=== PATIENT | male | born 1955 | race Caucasian/White ===

== ENCOUNTER → 2016-05-15 | Outpatient (CLI) | payer BC ==
[~2016-05-15] MED LIST: GADAVIST IV PRN; ZLFUNK
--- NOTE | 2016-05-15 08:51 | DIAGNOSTIC IMAGING REPORT ---
Brain and bilateral internal auditory canal MRI WITH AND WITHOUT CONTRAST HISTORY: Follow-up. 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 COMPARISON STUDY: None. FINDINGS: There are no areas of restricted diffusion to suggest acute infarction. The midline structures are intact. The paranasal sinuses are clear. The mastoid air cells are clear. The ventricles and sulci are within normal limits for age. There is no hematoma or midline shift. The major vascular flow-voids at the skull base are well maintained. Postcontrast sequences show no areas of abnormal enhancement. There is mild small lacunar infarction within the left thalamus. A 1.4 cm T2 hyperintense lesion within the left parotid gland inferiorly. Normal right internal auditory canal. Confirmation of the 3.7 mm enhancing nodule deep within the left internal auditory canal. This is consistent with the patient's history of a vestibular schwannoma. IMPRESSION: 1. Confirmation of the 3.7 mm enhancing nodule deep within the left internal auditory canal. This is consistent with the patient's history of a vestibular schwannoma. 2. Normal right internal auditory canal. 3. No acute intracranial abnormality. 4. A 1.4 cm T2 hyperintense lesion within the left parotid gland. Follow-up parotid gland ultrasound is recommended to assess for a cyst/nodule. Electronically signed by: Ian Lewis M.D. 05/15/2016 8:49 AM Dictated Date/Time: 05/15/2016 8:40 AM
== END | disposition home or self-care (01) ==
LOC: C.MRI 06:51
DX: D33.3 Benign neoplasm of cranial nerves (principal); K11.9 Disease of salivary gland, unspecified

== ENCOUNTER → 2016-11-04 | Outpatient (CLI) | payer BC ==
[~2016-11-04] MED LIST changes: -GADAVIST IV PRN
--- NOTE | 2016-11-04 11:48 | DIAGNOSTIC IMAGING REPORT ---
SOFT TISS HEAD/NECK-THYROID CLINICAL HISTORY: 61 years-old Male presenting with parotid gland cyst. TECHNIQUE: Real-time grayscale and limited color Doppler ultrasound imaging of the left parotid gland was performed. COMPARISON: Correlation made to MR brain from 05/15/2016. FINDINGS: A 1.1 x 0.8 x 0.7 cm anechoic avascular lesion with posterior acoustic shadowing is noted along the periphery of the left parotid gland, consistent with a parotid gland cyst. A 3 mm intraparotid hypoechoic nodule also noted, likely intraparenchymal lymph node. The remaining left parotid gland is homogeneously hyperechoic with posterior shadowing indicative of normal glandular tissue. IMPRESSION: 1. 1.1 cm parotid gland cyst. Electronically signed by: Chapo Gauthier M.D. 11/04/2016 11:47 AM Dictated Date/Time: 11/04/2016 11:44 AM
== END | disposition home or self-care (01) ==
LOC: C.ULTR 10:52
DX: K11.6 Mucocele of salivary gland (principal)

== ENCOUNTER → 2016-12-14 | Outpatient (CLI) | payer BC ==
[2016-12-14 13:29] LABS: ALT/SGPT 22 U/L (12-78); BLOOD UREA NITROGEN 13 mg/dl (7-18); BUN/CREATININE RATIO 10.8 (10-20); CALCIUM 8.7 mg/dl (8.5-10.1); CARBON DIOXIDE 30 mmol/L (21-32); CHLORIDE 105 mmol/L (98-107); CHOLESTEROL 164 mg/dl (0-200); GLUCOSE 100 mg/dl (70-99); SODIUM 139 mmol/L (136-145); TRIGLYCERIDES 118 mg/dl (0-150); VERY LOW DENSITY LIPOPROT CALC 24 mg/dl
[2016-12-14 13:33] LABS: ALB/GLOB RATIO 1.1 (0.9-2); ALKALINE PHOSPHATASE 64 U/L (45-117); AST/SGOT 18 U/L (15-37); CHOLESTEROL/HDL RATIO 3.9; HDL CHOLESTEROL 42 mg/dl; LDL CHOLESTEROL CALCULATED 98 mg/dl
== END | disposition home or self-care (01) ==
LOC: C.LABPVFM 08:03
PROVIDERS: ATTEND Family Medicine
DX: I10 Essential (primary) hypertension (principal); E78.5 Hyperlipidemia, unspecified

== ENCOUNTER → 2017-11-05 | Outpatient (CLI) | payer BC ==
--- NOTE | 2017-11-05 09:19 | DIAGNOSTIC IMAGING REPORT ---
SOFT TISS HEAD/NECK-THYROID CLINICAL HISTORY: 62 years-old Male presenting with K11.6 Cyst of parotid gland please compare to u/s done 1 year prior. TECHNIQUE: Real-time grayscale and color Doppler ultrasound imaging of the left parotid gland was performed. COMPARISON: 11/04/2016. FINDINGS: A 0.7 x 1.0 x 0.9 cm anechoic simple cyst is noted within the left parotid gland. This previously measured 0.7 x 1.1 x 0.8 cm. Benign intraparotid lymph node also noted. No hyperemia of the left parotid gland. No surrounding fluid or subcutaneous edema. IMPRESSION: Stable simple benign left parotid cyst. Electronically signed by: Chapo Gauthier M.D. 11/05/2017 9:17 AM Dictated Date/Time: 11/05/2017 9:16 AM
== END | disposition home or self-care (01) ==
LOC: C.ULTR 08:54
PROVIDERS: ATTEND Physician Assistant
DX: K11.6 Mucocele of salivary gland (principal)

== ENCOUNTER 2022-08-14 12:27 | Observation (INO) ==
--- NOTE | 2022-08-14 12:46 | Emergency Department Note ---
Impression & Plan Stroke-like episode ADMIT ED Provider Note HPI: The patient is a 67-year-old gentleman with history of hypertension, moderate aortic stenosis, presents emergency department with a chief complaint of right upper extremity weakness. Patient states he noticed this symptom at 7 AM today when he was at work and he was having difficulty using a pen. 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 He states that his symptoms did not resolve and therefore came to the ED later for assessment. By the time the patient arrived here to the ED was 12:30 PM and he was outside the window for tPA. On my initial assessment the patient has NIH score of 1, he has some mild right-sided facial droop but otherwise does not display any drift of the extremities with testing. Patient is in no acute distress otherwise on arrival. ROS: - Per HPI *Outpatient medications and allergy history reviewed. *Pertinent external medical records reviewed. 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 NIH STROKE SCALE: 1A: Level of consciousness Alert; keenly responsive 0 1B: Ask month and age Both questions right 0 1C: 'Blink eyes' & 'squeeze hands' Performs both tasks 0 2: Horizontal extraocular movements Normal 0 3: Visual quiros No visual loss 0 4: Facial palsy Minor paralysis (flat nasolabial fold, smile asymmetry) +1 5A: Left arm motor drift No drift for 10 seconds 0 5B: Right arm motor drift No drift for 10 seconds 0 6A: Left leg motor drift No drift for 5 seconds 0 6B: Right leg motor drift No drift for 5 seconds 0 7: Limb Ataxia No ataxia 0 8: Sensation Normal; no sensory loss 0 9: Language/aphasia Normal; no aphasia 0 10: Dysarthria Normal 0 11: Extinction/inattention No abnormality 0 TOTAL NIH SCORE = 1 Medical Decision Making: Patient presented to the emergency department with right upper extremity weakness that he experienced at about 7 AM when he was at work today. He was having difficulty using a pen. On arrival here to the ED the patient is in no acute distress. He is hemodynamically stable, noted to have some mild right- sided facial droop but otherwise NIH stroke scale was unrevealing. He was given a score of 1 on arrival. Patient was taken to CT imaging, CT imaging of the head does not show any evidence of intracranial bleeding, CT angiography of the head and neck does not show any evidence of large vessel occlusion. Patient's lab work shows a mildly elevated high-sensitivity troponin, he denies any chest pain with this event. Lab work is otherwise without any critical findings. I discussed the patient presentation with the on-call stroke neurologist at [facility], Dr. Barraza, she recommends at this time admission for secondary stroke work-up, dual antiplatelet therapy with aspirin and Plavix which the patient was given here in the ED. He will require ultrasound imaging of the carotids as well as an MRI of the brain. I do suspect he likely had an ischemic event causing his symptoms today. Main risk factors include age, hypertension, history of smoking. [facility] hospitalist service was consulted for admission for secondary stroke work-up. Case was discussed with the midlevel provider, Temi Leslie PA-C, and patient was placed for admission in stable condition for further management. Consultants: - Hospitalist service, Dr. Valentine -Stroke neurologist, Dr. Barraza Disposition discussion held by myself with: Patient Diagnosis: 1. Strokelike episode 2. Acute right upper extremity weakness 3. History of hypertension 4. History of smoking 5. Elevated high-sensitivity troponin level Disposition: Admission Darrian Hutson DO Emergency Medicine Past Med/Surg History Medical History (Reviewed 08/05/22 @ 10:32 by Santos Strickland Jr, MD, [facility]) Bilateral tinnitus Chronic back pain Dizziness HTN (hypertension), benign Hypertension Irregular heart beat Sensorineural hearing loss (SNHL) of both ears Vestibular schwannoma Surgical History (Reviewed 08/05/22 @ 10:32 by Santos Strickland Jr, MD, [facility]) History of back surgery History of colonoscopy History of phacoemulsification of cataract of right eye with intraocular lens implantation Family History (Reviewed 08/05/22 @ 10:32 by Santos Strickland Jr, MD, [facility]) Mother Stomach cancer Father Heart disease Other No family history of adverse response to anesthesia No family history of bleeding disorder Denies family history of Ovarian cancer Prostate cancer Diabetes Myocardial infarction Breast cancer Colorectal cancer Hypertension Social History (Reviewed 08/05/22 @ 10:32 by Santos Strickland Jr, MD, [facility]) Smoking Status: Never smoker Age Started Using Tobacco: 16; Age Quit Using Tobacco: 34; Second Hand Exposure: No; Hx Alcohol Use: No Hx Substance Use: No Preferred Language: Bahraini Communication Ability: Effective Hearing Ability: Normal Cotton Opener Required: No Beliefs That Will Affect Care: None marital status: Current Living Situation: Spouse current occupational status: retired How many Children do You have: 2 Feels Safe at Home: Yes Childhood Exposure to Second-Hand Smoke: Yes caffeine: Yes (coffee ) Dental Care, Regularly: Yes Physical Activity Frequency: 3-4 Times per Week Physical Activity Frequency Comment: walking Seatbelt Use: always Sunscreen Use: No Assistive Devices: None Allergies Allergies Allergy/AdvReac Type Severity Reaction Status Date / Time No Known Drug Allergies Allergy Verified 08/05/22 10:19 Home Meds Previous Rx's Medication Instructions Recorded hydrochlorothiazide 12.5 mg tablet 12.5 mg PO QAM #90 tabs 10/09/21 lisinopril 40 mg tablet 40 mg PO DAILY #90 tabs 10/09/21 cholecalciferol (vitamin D3) 1,250 50,000 unit PO ONCE #10 caps 05/27/22 mcg (50,000 unit) capsule Results & Data (ED) Vital Signs Vital Signs - 24 hr 08/14/22 12:34 08/14/22 12:49 08/14/22 12:45 Pulse Rate 64 68 Pulse Rate from SpO2 Sensor Pulse Rhythm Regular Pulse Strength Normal Respiratory Rate 20 Respiratory Effort / Characteristics Non-Labored Spontaneous Respiratory Depth Normal Respiratory Pattern Regular Blood Pressure 121/74 Blood Pressure Mean 89 Blood Pressure Position Sitting Pulse Oximetry 97 96 Oxygen Delivery Method Room Air Room Air Sepsis Recent Fever Within 48 Hours No Sepsis New/Unexplained Change in Mental Status No Sepsis Action Taken by Nursing No Action Required 08/14/22 13:01 Pulse Rate 64 Pulse Rate from SpO2 Sensor 65 Pulse Rhythm Pulse Strength Respiratory Rate 18 Respiratory Effort / Characteristics Respiratory Depth Respiratory Pattern Blood Pressure 124/75 Blood Pressure Mean 91 Blood Pressure Position Pulse Oximetry 96 Oxygen Delivery Method Room Air Sepsis Recent Fever Within 48 Hours Sepsis New/Unexplained Change in Mental Status Sepsis Action Taken by Nursing Laboratory Data 08/14/22 12:45 08/14/22 12:45 Lab Results 08/14/22 08/14/22 08/14/22 Range/Units 12:43 12:45 12:45 WBC 5.73 (4.8-10.8) K/ul RBC 4.65 L (4.70-6.10) M/uL Hgb 14.5 (14.0-18.0) g/dl POC Hgb (14.0-18.0) g/dl Hct 43.3 (42.0-52.0) % POC Hct (42-52) % MCV 93.1 (80.0-100.0) fL MCH 31.2 (25.0-34.0) pg MCHC 33.5 (32.0-36.0) g/dL RDW Std Deviation 41.7 (36.4-46.3) fL RDW Coeff of Dennis 12.1 (11.5-14.5) % Plt Count 201 (130-400) K/uL MPV 10.3 (9.4-12.4) fL Immature Gran % (Auto) 0.2 % Neut % (Auto) 60.4 % Lymph % (Auto) 16.4 % [place] % (Auto) 21.8 % Eos % (Auto) 0.2 % Baso % (Auto) 1.0 % Neut # (Auto) 3.46 (1.40-6.50) K/uL Lymph # (Auto) 0.94 L (1.2-3.4) K/uL [place] # (Auto) 1.25 H (0.11-0.59) K/uL Eos # (Auto) 0.01 (0-0.50) K/uL Baso # (Auto) 0.06 (0-0.2) K/uL Immature Gran # (Auto) 0.01 (0.01-0.20) K/uL PT 11.3 (9.0-12.0) Seconds INR 1.0 (0.9-1.1) APTT 29.9 (21.0-31.0) Seconds PTT Ratio 1.1 POC Sodium (135-144) mmol/L Sodium (136-145) mmol/L POC Potassium (3.3-5.0) mmol/L Potassium (3.5-5.1) mmol/L POC Chloride (101-112) mmol/L Chloride (98-107) mmol/L Carbon Dioxide (21-32) mmol/L POC Total CO2 (24-31) mmol/L Anion Gap (3-11) POC Anion Gap (16-25) mmol/L POC BUN (7-18) mg/dl BUN (6-23) mg/dl Creatinine (0.6-1.4) mg/dl POC Creatinine (0.6-1.3) mg/dl Est Cr Clr Drug Dosing ml/min Est GFR ( Amer) ml/min Est GFR (Non-Af Amer) ml/min BUN/Creatinine Ratio (10-20) Glucose (70-99(Fasting)) mg/dl POC Glucose (other) (70-99) mg/dl Calcium (8.6-10.3) mg/dl POC Ioniz Calcium Dimitri (1.12-1.32) mmol/l Magnesium (1.7-2.4) mg/dl Total Bilirubin (0.2-1.0) mg/dl AST (13-39) U/L ALT (7-52) U/L Alkaline Phosphatase (34-104) U/L Troponin I High Sens (0-20) pg/ml Total Protein (6.0-8.3) gm/dl Albumin (3.4-5.0) gm/dl Globulin (2.5-4.0) gm/dl Albumin/Globulin Ratio (0.9-2) SARS-CoV-2, RNA, NAAT (NEGATIVE) Blood Type O Positive Antibody Screen NEGATIVE 08/14/22 08/14/22 08/14/22 Range/Units 12:45 12:48 13:28 WBC (4.8-10.8) K/ul RBC (4.70-6.10) M/uL Hgb (14.0-18.0) g/dl POC Hgb 15.0 (14.0-18.0) g/dl Hct (42.0-52.0) % POC Hct 44 (42-52) % MCV (80.0-100.0) fL MCH (25.0-34.0) pg MCHC (32.0-36.0) g/dL RDW Std Deviation (36.4-46.3) fL RDW Coeff of Dennis (11.5-14.5) % Plt Count (130-400) K/uL MPV (9.4-12.4) fL Immature Gran % (Auto) % Neut % (Auto) % Lymph % (Auto) % [place] % (Auto) % Eos % (Auto) % Baso % (Auto) % Neut # (Auto) (1.40-6.50) K/uL Lymph # (Auto) (1.2-3.4) K/uL [place] # (Auto) (0.11-0.59) K/uL Eos # (Auto) (0-0.50) K/uL Baso # (Auto) (0-0.2) K/uL Immature Gran # (Auto) (0.01-0.20) K/uL PT (9.0-12.0) Seconds INR (0.9-1.1) APTT (21.0-31.0) Seconds PTT Ratio POC Sodium 137 (135-144) mmol/L Sodium 136 (136-145) mmol/L POC Potassium 3.9 (3.3-5.0) mmol/L Potassium 3.6 (3.5-5.1) mmol/L POC Chloride 99 L (101-112) mmol/L Chloride 103 (98-107) mmol/L Carbon Dioxide 28 (21-32) mmol/L POC Total CO2 29 (24-31) mmol/L Anion Gap 5 (3-11) POC Anion Gap 14.0 L (16-25) mmol/L POC BUN 19 H (7-18) mg/dl BUN 16 (6-23) mg/dl Creatinine 1.11 (0.6-1.4) mg/dl POC Creatinine 1.1 (0.6-1.3) mg/dl Est Cr Clr Drug Dosing 68.2 ml/min Est GFR ( Amer) 79.2 ml/min Est GFR (Non-Af Amer) 68.3 ml/min BUN/Creatinine Ratio 14.4 (10-20) Glucose 116 H (70-99(Fasting)) mg/dl POC Glucose (other) 119 H (70-99) mg/dl Calcium 9.0 (8.6-10.3) mg/dl POC Ioniz Calcium Dimitri 1.15 (1.12-1.32) mmol/l Magnesium 1.8 (1.7-2.4) mg/dl Total Bilirubin 0.6 (0.2-1.0) mg/dl AST 18 (13-39) U/L ALT 11 (7-52) U/L Alkaline Phosphatase 60 (34-104) U/L Troponin I High Sens 38.9 H (0-20) pg/ml Total Protein 7.2 (6.0-8.3) gm/dl Albumin 4.2 (3.4-5.0) gm/dl Globulin 3.0 (2.5-4.0) gm/dl Albumin/Globulin Ratio 1.4 (0.9-2) SARS-CoV-2, RNA, NAAT POSITIVE A* (NEGATIVE) Blood Type Antibody Screen Administered Medications Sodium Chloride (Nss) 500 mls @ 999 mls/hr IV .Q31M ONE Stop: 08/14/22 14:09 Last Admin: 08/14/22 13:57 Dose: 999 mls/hr Documented By: KEYLA Discontinued Medications Aspirin (Aspirin Chew 324 Mg) 324 mg PO NOW STA Stop: 08/14/22 13:27 Last Admin: 08/14/22 13:56 Dose: 324 mg Documented By: KEYLA Clopidogrel Bisulfate (Clopidogrel Bisulfate 300 Mg Tab) 300 mg PO NOW STA Stop: 08/14/22 13:40 Last Admin: 08/14/22 13:56 Dose: 300 mg Documented By: KV Ioversol (Optiray 320 500ml) 114 ml IV ONCE ONE Stop: 08/14/22 13:02 Last Admin: 08/14/22 13:02 Dose: 114 ml Documented By: KSF Imaging Data Radiologist's Impression: Head CT 08/14/22 12:45 CT OF THE HEAD WITHOUT CONTRAST CLINICAL HISTORY: neuro deficit, acute stroke suspected COMPARISON STUDY: Head CT August 09, 2021 and MRI of the brain October 25, 2021. TECHNIQUE: Helical axial images of the head were obtained without IV contrast. Automated exposure control was utilized for the study. A dose lowering technique was utilized adhering to the principles of ALARA. FINDINGS: No acute intracranial hemorrhage, midline shift or mass effect is present. The ventricular system is unremarkable. The basal cisterns are patent. No extra-axial collections are present. There are no findings to suggest acute dural sinus thrombosis or acute territorial infarct. No significant calvarial abnormalities are present. Visualized portions of the sinuses and mastoid air cells are clear. A 1 cm hypodensity within the left thalamus is unchanged. IMPRESSION: No acute intracranial findings. No change in appearance of the brain. ACT 112: Negative or not required by law. Electronically signed by: Ramsey Yu M.D. 08/14/2022 1:15 PM Head CTA 08/14/22 12:45 HEAD & NECK CTA HISTORY: Right arm weakness. neuro deficit, acute stroke suspected TECHNIQUE: Multiaxial CT images of the head were performed following the intra venous administration of contrast to evaluate the major cerebral vessels. Multiaxial CT images of the neck were also performed following the intravenous administration of contrast to evaluate the major cervical vessels. Maximum intensity projection images were also obtained. A dose lowering technique was utilized adhering to the principles of ALARA. COMPARISON: Brain MRI 10/25/2021. FINDINGS: There is no mass, hematoma, midline shift, or acute infarct. Visualized intracranial internal carotid arteries, distal vertebral arteries, and basilar artery are widely patent. There is no significant stenosis, occlusion, or aneurysm seen within the bilateral ACAs, MCAs, or hander in. There is a hypoplastic left vertebral artery. The major dural venous sinuses are patent. Mild calcified plaque within the bilateral carotid siphons. The aortic arch and proximal great vessels are widely patent. There is no significant stenosis, occlusion, or dissection identified within the bilateral common carotid, internal carotid, or left vertebral artery. Mild to moderate calcified plaque within the proximal right vertebral artery resulting in mild multifocal stenosis. IMPRESSION: 1. No significant stenosis, occlusion, or aneurysm within the [place]. 2. No significant stenosis, occlusion, or dissection identified within the carotid or left vertebral arteries. 3. Mild multifocal stenosis within the proximal right vertebral artery. ACT 112: Negative or not required by law. Electronically signed by: Ian Lewis M.D. 08/14/2022 1:18 PM Neck CTA 08/14/22 12:45 HEAD & NECK CTA HISTORY: Right arm weakness. neuro deficit, acute stroke suspected TECHNIQUE: Multiaxial CT images of the head were performed following the intravenous administration of contrast to evaluate the major cerebral vessels. Multiaxial CT images of the neck were also performed following the intravenous administration of contrast to evaluate the major cervical vessels. Maximum intensity projection images were also obtained. A dose lowering technique was utilized adhering to the principles of ALARA. COMPARISON: Brain MRI 10/25/2021. FINDINGS: There is no mass, hematoma, midline shift, or acute infarct. Visualized intracranial internal carotid arteries, distal vertebral arteries, and basilar artery are widely patent. There is no significant stenosis, occlusion, or aneurysm seen within the bilateral ACAs, MCAs, or hander in. There is a hypoplastic left vertebral artery. The major dural venous sinuses are patent. Mild calcified plaque within the bilateral carotid siphons. The aortic arch and proximal great vessels are widely patent. There is no significant stenosis, occlusion, or dissection identified within the bilateral common carotid, internal carotid, or left vertebral artery. Mild to moderate calcified plaque within the proximal right vertebral artery resulting in mild multifocal stenosis. IMPRESSION: 1. No significant stenosis, occlusion, or aneurysm within the [place]. 2. No significant stenosis, occlusion, or dissection identified within the carotid or left vertebral arteries. 3. Mild multifocal stenosis within the proximal right vertebral artery. ACT 112: Negative or not required by law. Electronically signed by: Ian Lewis M.D. 08/14/2022 1:18 PM Discharge Plan Visit Data Chief Complaint: Stroke/CVA Symptoms Stated Complaint: R ARM NUMB,FEVER ED Provider: Darrian Hutson Discharge Problem: Stroke-like episode Forms [facility] Prescriptions: No Action hydrochlorothiazide 12.5 mg tablet 12.5 mg PO QAM Qty: 90 3RF lisinopril 40 mg tablet 40 mg PO DAILY Qty: 90 3RF cholecalciferol (vitamin D3) 1,250 mcg (50,000 unit) capsule 50,000 unit PO ONCE Qty: 10 0RF Rx Instructions: Take one cap once weekly X10 weeks. Referrals Referrals: Lynn Gibson MD [Primary Care Provider] -
[2022-08-14 13:01] LABS: iSTAT Creatinine 1.1 mg/dl (0.6-1.3); iSTAT Ionized Calcium 1.15 mmol/l (1.12-1.32); iSTAT Potassium 3.9 mmol/L (3.3-5.0)
[2022-08-14] MEDS ORDERED: OPTIRAY 320 500ml IV ONE (13:01)
[2022-08-14 13:11] LABS: Basophils # (auto) 0.06 K/uL (0-0.2); Eosinophils # (auto) 0.01 K/uL (0-0.50); Eosinophils % (auto) 0.2 %; Hematocrit (blood only) 43.3 % (42.0-52.0); Hemoglobin 14.5 g/dl (14.0-18.0); Immature Granulocytes # (auto) 0.01 K/uL (0.01-0.20); Immature Granulocytes % (auto) 0.2 %; Lymphocytes # (auto) 0.94 K/uL (1.2-3.4); Lymphocytes % (auto) 16.4 %; Mean Corpuscular Hemoglobin 31.2 pg (25.0-34.0); Mean Corpuscular Hgb Conc 33.5 g/dL (32.0-36.0); Mean Corpuscular Volume 93.1 fL (80.0-100.0); Mean Platelet Volume 10.3 fL (9.4-12.4); Monocytes # (auto) 1.25 K/uL (0.11-0.59); Monocytes % (auto) 21.8 %; Neutrophils # (auto) 3.46 K/uL (1.40-6.50); Neutrophils % (auto) 60.4 %; Platelet Count 201 K/uL (130-400); RDW Coefficient of Variation 12.1 % (11.5-14.5); RDW Standard Deviation 41.7 fL (36.4-46.3); Red Blood Count 4.65 M/uL (4.70-6.10); White Blood Count 5.73 K/ul (4.8-10.8)
--- NOTE | 2022-08-14 13:17 | CT Scan Report ---
CT OF THE HEAD WITHOUT CONTRAST CLINICAL HISTORY: neuro deficit, acute stroke suspected COMPARISON STUDY: Head CT August 09, 2021 and MRI of the brain October 25, 2021. TECHNIQUE: Helical axial images of the head were obtained without IV contrast. Automated exposure con trol was utilized for the study. A dose lowering technique was utilized adhering to the principles o f ALARA. FINDINGS: No acute intracranial hemorrhage, midline shift or mass effect is present. The ventricular system is unremarkable. The basal cisterns are patent. No extra-axial collections are present. There are no findings to suggest acute dural sinus thrombosis or acute territorial infarct. No significant calvarial abnormalities are present. Visualized portions of the sinuses and mastoid air cells are denis ar. A 1 cm hypodensity within the left thalamus is unchanged. IMPRESSION: No acute intracranial findings. No change in appearance of the brain. ACT 112: Negative or not required by law. Electronically signed by: Ramsey Yu M.D. 08/14/2022 1:15 PM
--- NOTE | 2022-08-14 13:19 | CT Scan Report ---
HEAD & NECK CTA HISTORY: Right arm weakness. neuro deficit, acute stroke suspected TECHNIQUE: Multiaxial CT images of the head were performed following the intravenous administration o f contrast to evaluate the major cerebral vessels. Multiaxial CT images of the neck were also perform ed following the intravenous administration of contrast to evaluate the major cervical vessels. Maxim um intensity projection images were also obtained. A dose lowering technique was utilized adhering to the principles of ALARA. COMPARISON: Brain MRI 10/25/2021. FINDINGS: There is no mass, hematoma, midline shift, or acute infarct. Visualized intracranial internal carotid arteries, distal vertebral arteries, and basilar artery are widely patent. There is no significant s tenosis, occlusion, or aneurysm seen within the bilateral ACAs, MCAs, or porcelain mixer. There is a hypoplastic left vertebral artery. The major dural venous sinuses are patent. Mild calcified plaque within the b ilateral carotid siphons. The aortic arch and proximal great vessels are widely patent. There is no significant stenosis, occ lusion, or dissection identified within the bilateral common carotid, internal carotid, or left verte bral artery. Mild to moderate calcified plaque within the proximal right vertebral artery resulting i n mild multifocal stenosis. IMPRESSION: 1. No significant stenosis, occlusion, or aneurysm within the [place]. 2. No significant stenosis, occlusion, or dissection identified within the carotid or left vertebral arteries. 3. Mild multifocal stenosis within the proximal right vertebral artery. ACT 112: Negative or not required by law. Electronically signed by: Ian Lewis M.D. 08/14/2022 1:18 PM
--- NOTE | 2022-08-14 13:19 | CT Scan Report ---
HEAD & NECK CTA HISTORY: Right arm weakness. neuro deficit, acute stroke suspected TECHNIQUE: Multiaxial CT images of the head were performed following the intravenous administration o f contrast to evaluate the major cerebral vessels. Multiaxial CT images of the neck were also perform ed following the intravenous administration of contrast to evaluate the major cervical vessels. Maxim um intensity projection images were also obtained. A dose lowering technique was utilized adhering to the principles of ALARA. COMPARISON: Brain MRI 10/25/2021. FINDINGS: There is no mass, hematoma, midline shift, or acute infarct. Visualized intracranial internal carotid arteries, distal vertebral arteries, and basilar artery are widely patent. 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 There is a hypoplastic left vertebral artery. The major dural venous sinuses are patent. Mild calcified plaque within the b ilateral carotid siphons. The aortic arch and proximal great vessels are widely patent. There is no significant stenosis, occ lusion, or dissection identified within the bilateral common carotid, internal carotid, or left verte bral artery. Mild to moderate calcified plaque within the proximal right vertebral artery resulting i n mild multifocal stenosis. IMPRESSION: 1. No significant stenosis, occlusion, or aneurysm within the [place]. 2. No significant stenosis, occlusion, or dissection identified within the carotid or left vertebral arteries. 3. Mild multifocal stenosis within the proximal right vertebral artery. ACT 112: Negative or not required by law. Electronically signed by: Ian Lewis M.D. 08/14/2022 1:18 PM
[2022-08-14] MEDS ORDERED: ASPIRIN CHEW 324 MG PO STA (13:26)
[2022-08-14 13:31] LABS: Albumin Globulin Ratio 1.4 (0.9-2); Albumin Level 4.2 gm/dl (3.4-5.0); BUN Creatinine Ratio 14.4 (10-20); Bilirubin,Total 0.6 mg/dl (0.2-1.0); Creatinine Clr Calc Pharmacy 68.2 ml/min; Est GFR (African American) 79.2 ml/min; Est GFR (Non-African American) 68.3 ml/min; Magnesium 1.8 mg/dl (1.7-2.4); Potassium 3.6 mmol/L (3.5-5.1); Total Protein 7.2 gm/dl (6.0-8.3)
[2022-08-14 13:35] LABS: Troponin I High Sensitivity 38.9 pg/ml (0-20)
[2022-08-14 13:37] LABS: Partial Thromboplastin Ratio 1.1; Partial Thromboplastin Time 29.9 Seconds (21.0-31.0); Prothrombin Time 11.3 Seconds (9.0-12.0)
[2022-08-14] MEDS ORDERED: CLOPIDOGREL BISULFATE 300 MG TAB PO STA (13:39)
[2022-08-14] MEDS ORDERED: SODIUM CHLORIDE 0.9% 500 ML IV ONE (13:39)
--- NOTE | 2022-08-14 14:13 | History & Physical Report ---
Date of Service August 14, 2022 Assessment & Plan (1) Right arm weakness: Plan: Acute/unstable - uncertain/mod risk - Sx started at 0700 and presented >3 hours later, thus not a TPA candidate - Place in obs to med tele unit - Bedside swallow eval, if passes can have a heart healthy diet - NIH q shift - MRI brain w/o contrast, if evidence of acute CVA, will consult neuro - Continue dual antiplatelet therapy, loaded with ASA and Plavix in AM - After completing 3 weeks, can continue with ASA monotherapy - Echo completed recently on 08/08, reviewed - moderate , preserved LVEF 55- 60%, mild LVH - Reviewed cbc and chemistry panel - no acute findings - PT/OT eval - Lipid panel in AM - F/u HS trop - mildly elevated at 38.9, likely demand ischemia (2) COVID-19: Plan: Acute/stable - uncertain/mod risk - Mild symptoms, he is vaccinated and boosted - Isolation precautions - No hypoxia - Defer Remdesivir and Decadron - Supportive treatment (3) HTN (hypertension), benign: Plan: Chronic/stable - Once home meds/doses confirmed, will resume (4) Tobacco use: Plan: Chronic/stable - Recommend cessation - Can provide nicotine gum/patch at his request Plan Plan as outlined above. Will utilize Lovenox for DVT ppx. AM labs ordered. Plan has been d/w Dr. Valentine who will also see and evaluate this patient. Further orders will be implemented as warranted. History of Present Illness Chief Complaint: R arm weakness Primary Care Provider: Lynn Gibson MD Ravi Ortega is a pleasant 67 yo M with a pmhx of HTN who presented to the ER today c/o right arm heaviness and numbness in his right hand that started while at work around 7am. He notes that he has no prior h/o stroke and has never experienced anything like this in the past. He denies facial droop, numbness/tingling anywhere else, vision issues, chest pain, dyspnea, difficulty walking or slurred speech. He does have a remote h/o smoking, smoked heavy for 15 years and quit in 1984. He continues to chew tobacco. His ER w/u this afternoon demonstrated no evidence of acute occlusion or CVA on imaging. His laboratory w/u is essentially unremarkable with the exception of a positive COVID test. He does endorse cold-like symptoms x 2-3 days. Low grade fever last evening. No shortness of breath. Does have a dry cough. No wheezing. Denies n/v/d. He was loaded with Aspirin and Plavix and has been referred for admission for further evaluation. Allergies Allergy/AdvReac Type Severity Reaction Status Date / Time No Known Drug Allergies Allergy Verified 08/05/22 10:19 Home Medications Medication Instructions Recorded Confirmed Type hydrochlorothiazide 12.5 mg tablet 12.5 mg PO QAM #90 tabs 10/09/21 08/14/22 Rx lisinopril 40 mg tablet 40 mg PO DAILY #90 tabs 10/09/21 08/14/22 Rx Past Med/Surg History Medical History Bilateral tinnitus Chronic back pain Dizziness HTN (hypertension), benign Hypertension Irregular heart beat Sensorineural hearing loss (SNHL) of both ears Vestibular schwannoma Surgical History History of back surgery History of colonoscopy History of phacoemulsification of cataract of right eye with intraocular lens implantation Family History Mother Stomach cancer Father Heart disease Other No family history of adverse response to anesthesia No family history of bleeding disorder Denies family history of Ovarian cancer Prostate cancer Diabetes Myocardial infarction Breast cancer Colorectal cancer Hypertension Social History Smoking Status: Never smoker Age Started Using Tobacco: 16; Age Quit Using Tobacco: 34; Second Hand Exposure: No; Hx Alcohol Use: No Hx Substance Use: No Preferred Language: Romansh Communication Ability: Effective Hearing Ability: Normal Obstetrics Gyn Required: No Beliefs That Will Affect Care: None marital status: Current Living Situation: Spouse current occupational status: retired How many Children do You have: 2 Feels Safe at Home: Yes Childhood Exposure to Second-Hand Smoke: Yes caffeine: Yes (coffee ) Dental Care, Regularly: Yes Physical Activity Frequency: 3-4 Times per Week Physical Activity Frequency Comment: walking Seatbelt Use: always Sunscreen Use: No Assistive Devices: None Physical Exam Physical Exam: GENERAL: 67 yo well-developed, well-nourished M. NAD. LUNGS: Clear to auscultation bilaterally. No W/R/R. CARDIOVASCULAR: Regular rate and rhythm with systolic murmur noted EXTREMITIES: No edema. Non-tender. Peripheral pulses +2/4. NEUROLOGIC: A&O x3. No focal neurological deficits. CN II-XII grossly intact. Results & Data Results & Data Vital Signs (Past 12 Hours) Vital Signs Pulse Resp BP Pulse Ox O2 Del Method 08/14/22 13:01 64 18 124/75 96 Room Air 08/14/22 12:45 96 Room Air 08/14/22 12:49 68 08/14/22 12:34 64 20 121/74 97 Room Air Laboratory Results 08/14/22 12:45 08/14/22 12:[address] 08/14/22 12:45 CT OF THE HEAD WITHOUT CONTRAST CLINICAL HISTORY: neuro deficit, acute stroke suspected COMPARISON STUDY: Head CT August 09, 2021 and MRI of the brain October 25, 2021. TECHNIQUE: Helical axial images of the head were obtained without IV contrast. Automated exposure control was utilized for the study. A dose lowering technique was utilized adhering to the principles of ALARA. FINDINGS: No acute intracranial hemorrhage, midline shift or mass effect is present. The ventricular system is unremarkable. The basal cisterns are patent. No extra-axial collections are present. There are no findings to suggest acute dural sinus thrombosis or acute territorial infarct. No significant calvarial a bnormalities are present. Visualized portions of the sinuses and mastoid air cells are clear. A 1 cm hypodensity within the left thalamus is unchanged. IMPRESSION: No acute intracranial findings. No change in appearance of the brain. ACT 112: Negative or not required by law. Electronically signed by: Ramsey Yu M.D. 08/14/2022 1:15 PM Head CTA 08/14/22 12:45 HEAD & NECK CTA HISTORY: Right arm weakness. neuro deficit, acute stroke suspected TECHNIQUE: Multiaxial CT images of the head were performed following the intravenous administration of contrast to evaluate the major cerebral vessels. Multiaxial CT images of the neck were also performed following the intravenous administration of contrast to evaluate the major cervical vessels. Maximum intensity projection images were also obtained. A dose lowering technique was utilized adhering to the principles of ALARA. COMPARISON: Brain MRI 10/25/2021. FINDINGS: There is no mass, hematoma, midline shift, or acute infarct. Visualized intracranial internal carotid arteries, distal vertebral arteries, and basilar artery are widely patent. There is no significant stenosis, occlusion, or aneurysm seen within the bilateral ACAs, MCAs, or tare man. There is a hypoplastic left vertebral artery. The major dural venous sinuses are patent. Mild calcified plaque within the bilateral carotid siphons. The aortic arch and proximal great vessels are widely patent. There is no significant stenosis, occlusion, or dissection identified within the bilateral common carotid, internal carotid, or left vertebral artery. Mild to moderate calcified plaque within the proximal right vertebral artery resulting in mild multifocal stenosis. IMPRESSION: 1. No significant stenosis, occlusion, or aneurysm within the [place]. 2. No significant stenosis, occlusion, or dissection identified within the carotid or left vertebral arteries. 3. Mild multifocal stenosis within the proximal right vertebral artery. ACT 112: Negative or not required by law. Electronically signed by: Ian Lewis M.D. 08/14/2022 1:18 PM Neck CTA 08/14/22 12:45 HEAD & NECK CTA HISTORY: Right arm weakness. neuro deficit, acute stroke suspected TECHNIQUE: Multiaxial CT images of the head were performed following the intravenous administration of contrast to evaluate the major cerebral vessels. Multiaxial CT images of the neck were also performed following the intravenous administration of contrast to evaluate the major cervical vessels. Maximum intensity projection images were also obtained. A dose lowering technique was utilized adhering to the principles of ALARA. COMPARISON: Brain MRI 10/25/2021. FINDINGS: There is no mass, hematoma, midline shift, or acute infarct. Visualized intracranial internal carotid arteries, distal vertebral arteries, and basilar artery are widely patent. There is no significant stenosis, occlusion, or aneurysm seen within the bilateral ACAs, MCAs, or tare man. There is a hypoplastic left vertebral artery. The major dural venous sinuses are patent. Mild calcified plaque within the bilateral carotid siphons. The aortic arch and proximal great vessels are widely patent. There is no significant stenosis, occlusion, or dissection identified within the bilateral common carotid, internal carotid, or left vertebral artery. Mild to moderate calcified plaque within the proximal right vertebral artery resulting in mild multifocal stenosis. IMPRESSION: 1. No significant stenosis, occlusion, or aneurysm within the [place]. 2. No significant stenosis, occlusion, or dissection identified within the carotid or left vertebral arteries. 3. Mild multifocal stenosis within the proximal right vertebral artery. ACT 112: Negative or not required by law. Electronically signed by: Ian Lewis M.D. 08/14/2022 1:18 PM Supervising Physician Co-Signing Physician Notes Patient seen and examined, chart reviewed, case discussed with Temi Leslie PA-C and I agree with the assessment and plan as above except as otherwise noted Labs and images reviewed 67-year-old male who presented for concerns of right arm heaviness/numbness while at work. No prior history of strokes, past tobacco use in remission, initial CTA/CThead were unremarkable. Has had cold-like symptoms for several days and a dry cough. He is COVID-positive on admission, but not hypoxic. Remdesivir/dexamethasone not indicated. At bedside he reports she still does have a slight heaviness feeling in his right arm, but improved strength. 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 Sensation to soft touch is intact in hands and feet. Patient was not a tPA candidate due to duration of symptoms and slight improvement. Patient was loaded with aspirin and Plavix in the morning; follow MRI. If CVA appreciated reasonable to continue DAPT for 3 weeks, otherwise reasonable to continue aspirin monotherapy with outpatient follow-up. Lipids pending. lovenox DVT prophylaxis pending. PG Care Time/CCT Total # of Minutes Spent Total Time Spent with Patient: Total time spent is greater than 50% in coordination of care (as documented) at patient's floor/unit and/or counseling patient: Coding Level of Care Code 21011 INT INP/OBS CARE 3/75MIN Diagnoses Right arm weakness R29.898 COVID-19 U07.1 HTN (hypertension), benign I10 Tobacco use Z72.0
--- NOTE | 2022-08-14 16:55 | Electrocardiogram Report ---
Test Reason : Blood Pressure : / mmHG Vent. Rate : 067 BPM Atrial Rate : 067 BPM P-R Int : 126 ms QRS Dur : 104 ms QT Int : 394 ms P-R-T Axes : 064 008 065 degrees QTc Int : 416 ms Sinus rhythm with Premature supraventricular complexes Possible Left atrial enlargement Nonspecific T wave abnormality Abnormal ECG When compared with ECG of 05-AUG-2022 10:59, (unconfirmed) Premature supraventricular complexes are now Present T wave inversion no longer evident in Anterior leads Confirmed by Hayder Pace ([id number]) on 08/14/2022 4:55:22 PM Referred By: REFERRED SELF Confirmed By:Hayder Pace
--- NOTE | 2022-08-14 17:53 | Magnetic Resonance Report ---
Brain MRI WITHOUT CONTRAST HISTORY: Right upper extremity weakness. TECHNIQUE: Multiplanar multisequence MRI of the brain was performed without the use of contrast. COMPARISON STUDY: Head CT 08/14/2022. Brain MRI 10/25/2021. FINDINGS: A small focus of restricted diffusion seen within the white matter of the left posterior fr ontal lobe consistent with an acute infarct. This measures approximately 1 cm. The midline structures are intact. There is no mass, hematoma, or midline shift. Mild mucosal thickening within the paranas al sinuses. The mastoid air cells are clear. The major vascular flow-voids at the skull base are well -maintained. The ventricles and sulci are within normal limits for age. There are old lacunar infarct seen within the left thalamus and cerebellar hemispheres. Mild microvascular ischemic changes are no lynn. IMPRESSION: 1. A 1 cm acute infarct within the left posterior frontal lobe. 2. Old small lacunar infarcts seen within the left thalamus and cerebellar hemispheres. ACT 112: Negative or not required by law. Electronically signed by: Ian Lewis M.D. 08/14/2022 5:52 PM
[2022-08-14] MEDS ORDERED: ONDANSETRON INJ 2 MG/ML 2 ML VIAL IV PRN (19:09)
[2022-08-14] MEDS ORDERED: ACETAMINOPHEN 325 MG TAB PO PRN (19:09)
[2022-08-14] MEDS ORDERED: MAGNESIUM HYDROXIDE SUSP 30 ML UDC PO PRN (19:09)
[2022-08-14] MEDS ORDERED: POLYETHYLENE (MIRALAX) 17 GM PACK PO PRN (19:09)
[2022-08-14] MEDS ORDERED: ALUMINUM/MAGNESIUM SUSP 30 ML UDC PO PRN (19:09)
[2022-08-15 08:31] LABS: Basophils # (auto) 0.05 K/uL (0-0.2); Basophils % (auto) 0.9 %; Eosinophils # (auto) 0.08 K/uL (0-0.50); Eosinophils % (auto) 1.5 %; Hematocrit (blood only) 41.6 % (42.0-52.0); Hemoglobin 14.3 g/dl (14.0-18.0); Immature Granulocytes # (auto) 0.01 K/uL (0.01-0.20); Immature Granulocytes % (auto) 0.2 %; Lymphocytes # (auto) 1.28 K/uL (1.2-3.4); Lymphocytes % (auto) 23.6 %; Mean Corpuscular Hemoglobin 31.4 pg (25.0-34.0); Mean Corpuscular Hgb Conc 34.4 g/dL (32.0-36.0); Mean Corpuscular Volume 91.4 fL (80.0-100.0); Mean Platelet Volume 10.5 fL (9.4-12.4); Monocytes # (auto) 0.85 K/uL (0.11-0.59); Monocytes % (auto) 15.7 %; Neutrophils # (auto) 3.16 K/uL (1.40-6.50); Neutrophils % (auto) 58.1 %; Platelet Count 185 K/uL (130-400); RDW Coefficient of Variation 12.3 % (11.5-14.5); RDW Standard Deviation 40.7 fL (36.4-46.3); Red Blood Count 4.55 M/uL (4.70-6.10); White Blood Count 5.43 K/ul (4.8-10.8)
--- NOTE | 2022-08-15 08:32 | Hospitalist Progress Note ---
Date of Service August 15, 2022 Assessment & Plan (1) Right arm weakness: Plan: Acute/unstable - uncertain/mod risk - Sx started at 0700 and presented >3 hours later, thus not a TPA candidate - - MRI brain 1 cm left frontal CVA and old CVA seen, right vertebral partial stenosis, consult neuro - Continue dual antiplatelet therapy, start high intensity statin - Echo completed recently on 08/08, reviewed - moderate , preserved LVEF 55- 60%, mild LVH - PT/OT eval - Lipid panel pending - elevated HS trop - mildly elevated at 38.9, likely demand ischemia (2) COVID-19: Plan: Acute/stable - uncertain/mod risk - Mild symptoms, he is vaccinated and boosted - Isolation precautions - No hypoxia - Defer Remdesivir and Decadron - Supportive treatment (3) HTN (hypertension), benign: Plan: Chronic/stable - allow premissive hypertension but control secondary CVA risk factors (4) Tobacco use: Plan: Chronic/stable - Recommend cessation - Can provide nicotine gum/patch at his request Plan utilize Lovenox for DVT ppx. Admission and Anticipated Discharge Date Admission Date: August 14, 2022 Results & Data Results & Data Vital Signs (Past 12 Hours) Vital Signs Temp Pulse Pulse Pulse Resp BP BP 08/15/22 08:01 98.2 F 61 14 112/69 08/15/22 03:59 97.9 F 91 H 18 118/68 08/14/22 22:08 72 08/14/22 22:38 98.1 F 63 18 120/75 Pulse Ox O2 Del Method 08/15/22 08:01 96 Room Air 08/15/22 03:59 95 Room Air 08/14/22 22:08 08/14/22 22:38 95 Room Air PG Care Time/CCT Total # of Minutes Spent Total Time Spent with Patient: Total time spent is greater than 50% in coordination of care (as documented) at patient's floor/unit and/or counseling patient: Coding Diagnoses Right arm weakness R29.898 COVID-19 U07.1 HTN (hypertension), benign I10 Tobacco use Z72.0
[2022-08-15] MEDS ORDERED: ENOXAPARIN INJ 40 MG/0.4 ML SYR SQ SCH (09:00)
[2022-08-15] MEDS ORDERED: lisinopril 40 MG TAB PO SCH (09:00)
[2022-08-15] MEDS ORDERED: ASPIRIN 81 MG ECTAB PO SCH (09:00)
[2022-08-15] MEDS ORDERED: ATORVASTATIN 40 MG TAB PO SCH (09:00)
[2022-08-15] MEDS ORDERED: CLOPIDOGREL BISULFATE 75 MG TAB PO SCH (09:00)
[2022-08-15] MEDS ORDERED: hydroCHLOROthiazide 25 MG TAB PO SCH (09:00)
[2022-08-15 09:01] LABS: BUN Creatinine Ratio 16.5 (10-20); Calcium 8.9 mg/dl (8.6-10.3); Chol HDL Ratio 3.6 (0-5); Creatinine Clr Calc Pharmacy 67.5 ml/min; Est GFR (Non-African American) 69.9 ml/min; Potassium 4.1 mmol/L (3.5-5.1)
[2022-08-15 09:07] LABS: Troponin I High Sensitivity 32.5 pg/ml (0-20)
--- NOTE | 2022-08-15 15:18 | Discharge Summary ---
Date of Service August 15, 2022 Admission HPI Per Admitting Provider Ravi Ortega is a pleasant 67 yo M with a pmhx of HTN who presented to the ER today c/o right arm heaviness and numbness in his right hand that started while at work around 7am. He notes that he has no prior h/o stroke and has never experienced anything like this in the past. He denies facial droop, numbness/tingling anywhere else, vision issues, chest pain, dyspnea, difficulty walking or slurred speech. He does have a remote h/o smoking, smoked heavy for 15 years and quit in 1984. He continues to chew tobacco. His ER w/u this afternoon demonstrated no evidence of acute occlusion or CVA on imaging. His laboratory w/u is essentially unremarkable with the exception of a positive COVID test. He does endorse cold-like symptoms x 2-3 days. Low grade fever last evening. No shortness of breath. Does have a dry cough. No wheezing. Denies n/v/d. He was loaded with Aspirin and Plavix and has been referred for admission for further evaluation. Principal Diagnosis 1 cm left frontal CVA right vertebral multifocal occlusion covid infection Discharge Exam pt is awake and alert no focal neurolgoic loss clear lungs non cough Discharge Data Allergies Allergy/AdvReac Type Severity Reaction Status Date / Time No Known Drug Allergies Allergy Verified 08/05/22 10:19 Consultations 08/14/22 13:47 ED Decision to Admit Stat Ordered Studies Head CT 08/14/22 12:45 CT OF THE HEAD WITHOUT CONTRAST CLINICAL HISTORY: neuro deficit, acute stroke suspected COMPARISON STUDY: Head CT August 09, 2021 and MRI of the brain October 25, 2021. TECHNIQUE: Helical axial images of the head were obtained without IV contrast. Automated exposure control was utilized for the study. A dose lowering technique was utilized adhering to the principles of ALARA. FINDINGS: No acute intracranial hemorrhage, midline shift or mass effect is present. The ventricular system is unremarkable. The basal cisterns are patent. No extra-axial collections are present. There are no findings to suggest acute dural sinus thrombosis or acute territorial infarct. No significant calvarial abnormalities are present. Visualized portions of the sinuses and mastoid air cells are clear. A 1 cm hypodensity within the left thalamus is unchanged. IMPRESSION: No acute intracranial findings. No change in appearance of the brain. ACT 112: Negative or not required by law. Electronically signed by: Ramsey Yu M.D. 08/14/2022 1:15 PM Head CTA 08/14/22 12:45 HEAD & NECK CTA HISTORY: Right arm weakness. neuro deficit, acute stroke suspected TECHNIQUE: Multiaxial CT images of the head were performed following the intravenous administration of contrast to evaluate the major cerebral vessels. Multiaxial CT images of the neck were also performed following the intravenous administration of contrast to evaluate the major cervical vessels. Maximum intensity projection images were also obtained. A dose lowering technique was utilized adhering to the principles of ALARA. COMPARISON: Brain MRI 10/25/2021. FINDINGS: There is no mass, hematoma, midline shift, or acute infarct. Visualized intracranial internal carotid arteries, distal vertebral arteries, and basilar artery are widely patent. 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 There is a hypoplastic left vertebral artery. The major dural venous sinuses are patent. Mild calcified plaque within the bilateral carotid siphons. The aortic arch and proximal great vessels are widely patent. There is no significant stenosis, occlusion, or dissection identified within the bilateral common carotid, internal carotid, or left vertebral artery. Mild to moderate calcified plaque within the proximal right vertebral artery resulting in mild multifocal stenosis. IMPRESSION: 1. No significant stenosis, occlusion, or aneurysm within the [place] of [place]. 2. No significant stenosis, occlusion, or dissection identified within the carotid or left vertebral arteries. 3. Mild multifocal stenosis within the proximal right vertebral artery. ACT 112: Negative or not required by law. Electronically signed by: Ian Lewis M.D. 08/14/2022 1:18 PM Neck CTA 08/14/22 12:45 HEAD & NECK CTA HISTORY: Right arm weakness. neuro deficit, acute stroke suspected TECHNIQUE: Multiaxial CT images of the head were performed following the intravenous administration of contrast to evaluate the major cerebral vessels. Multiaxial CT images of the neck were also performed following the intravenous administration of contrast to evaluate the major cervical vessels. Maximum intensity projection images were also obtained. A dose lowering technique was utilized adhering to the principles of ALARA. COMPARISON: Brain MRI 10/25/2021. FINDINGS: There is no mass, hematoma, midline shift, or acute infarct. Visualized intracranial internal carotid arteries, distal vertebral arteries, and basilar artery are widely patent. 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 There is a hypoplastic left vertebral artery. The major dural venous sinuses are patent. Mild calcified plaque within the bilateral carotid siphons. The aortic arch and proximal great vessels are widely patent. There is no significant stenosis, occlusion, or dissection identified within the bilateral common carotid, internal carotid, or left vertebral artery. Mild to moderate calcified plaque within the proximal right vertebral artery resulting in mild multifocal stenosis. IMPRESSION: 1. No significant stenosis, occlusion, or aneurysm within the de[place] of [place]. 2. No significant stenosis, occlusion, or dissection identified within the carotid or left vertebral arteries. 3. Mild multifocal stenosis within the proximal right vertebral artery. ACT 112: Negative or not required by law. Electronically signed by: Ian Lewis M.D. 08/14/2022 1:18 PM Brain MRI 08/14/22 14:08 Brain MRI WITHOUT CONTRAST HISTORY: Right upper extremity weakness. TECHNIQUE: Multiplanar multisequence MRI of the brain was performed without the use of contrast. COMPARISON STUDY: Head CT 08/14/2022. Brain MRI 10/25/2021. FINDINGS: A small focus of restricted diffusion seen within the white matter of the left posterior frontal lobe consistent with an acute infarct. This measures approximately 1 cm. The midline structures are intact. There is no mass, hematoma, or midline shift. Mild mucosal thickening within the paranasal sinuses. The mastoid air cells are clear. The major vascular flow-voids at the skull base are well-maintained. The ventricles and sulci are within normal limits for age. There are old lacunar infarct seen within the left thalamus and cerebellar hemispheres. Mild microvascular ischemic changes are noted. IMPRESSION: 1. A 1 cm acute infarct within the left posterior frontal lobe. 2. Old small lacunar infarcts seen within the left thalamus and cerebellar hemispheres. ACT 112: Negative or not required by law. Electronically signed by: Ian Lewis M.D. 08/14/2022 5:52 PM Hospital Course (1) Right arm weakness: Acute/unstable - uncertain/mod risk - Sx started at 0700 and presented >3 hours later, thus not a TPA candidate - - MRI brain 1 cm left frontal CVA and old CVA seen, right vertebral partial jori nosis, consult neuro - Continue dual antiplatelet therapy, start high intensity statin, follow up with outpt neurology - Echo completed recently on 08/08, reviewed - moderate , preserved LVEF 55-60%, mild LVH - - elevated HS trop - mildly elevated at 38.9, likely demand ischemia (2) COVID-19: Acute/stable - uncertain/mod risk - Mild symptoms, he is vaccinated and boosted - Isolation precautions - No hypoxia - Defer Remdesivir and Decadron - Supportive treatment, given instructions on self isolation (3) HTN (hypertension), benign: Chronic/stable - allow premissive hypertension but control secondary CVA risk factors given low blood pressures hold hctz at discharge (4) Tobacco use: Chronic/stable - Recommend cessation - Can provide nicotine gum/patch at his request Total Time Total Time Spent Total Time Spent (In Minutes): It required greater than 30 minutes to prepare this patient for discharge Discharge Plan Discharge Items Patient Disposition: Home - Self-Care Reason For Visit: CVA Discharge Diagnosis: Left frontal Stroke Covid positive test Mild multifocal stenosis within the proximal right vertebral artery. Activity: Per Instructions section Non-emergency contact: Primary Care Provider and Neurologist Call non-emergency contact if: your symptoms worsen Follow-up/Referrals: Lynn Gibson MD [Primary Care Provider] - 08/22/22 11:30 am Diet: Regular Addtl Attending Provider Instructions: Risk Factors for Stroke: You can reduce your chances of stroke by working with your medical provider to adopt a healthy lifestyle. Some specific ways to lower your chance of stroke are: * If you are a smoker, now is the time to stop smoking cigarettes * If you are diabetic, improve the control of your blood sugars * Avoid excessive amounts of alcohol * Control high blood pressure * Lose weight if you are overweight * Be sure to lead an active lifestyle * Eat a healthy diet low in salt, cholesterol and fat You should know about other risk factors for stroke that you are unable to control. These include: * Age 55 years or older * Male gender * Certain racial groups: , or / * Family History of Stroke, Mini stroke or Heart Attack * Sickle Cell Disease Follow Up: It is important for you to keep your follow up appointments with your medical provider. Who to Call and When: Medical Emergencies: Call 911 immediately if you experience any of the following warning signs and symptoms of Stroke: * Sudden numbness or weakness of the face, arm or leg, especially on one side of the body * Sudden confusion, trouble speaking or understanding * Sudden trouble seeing in one or both eyes * Sudden trouble walking, dizziness, loss of balance or coordination * Sudden severe headache with no cause Do not delay calling 911 if you experience any warning signs or symptoms of a stroke. Delay in seeking medical attention may affect what treatments can be given to you. . You have been diagnosed with covid infection, it would be recommended that you quarantine yourself for 10 days from your first test or first symptoms, and if at the 10th day you have no symptoms the you can come off quarantine but use common sense precautions. Quarantine means attempting to stay away from people who have not had an active covid infection in the past, and if you have to be around others to wear a mask even if you are indoors, do not share a room to sleep in with others until you are out of quarantine. 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 [employer] [facility], Smoking Cessation Medications and DC Order Prescriptions: New atorvastatin 40 mg Tablet 40 mg PO QAM Qty: 90 3RF clopidogrel 75 mg Tablet 75 mg PO QAM Qty: 90 3RF aspirin 81 mg Tablet,Delayed Release (Dr/Ec) 81 mg PO QAM Qty: 90 3RF Continued lisinopril 40 mg tablet 40 mg PO DAILY Qty: 90 3RF Discontinued hydrochlorothiazide 12.5 mg tablet 12.5 mg PO QAM Qty: 90 3RF Discharge Orders: Discharge Order (Routine); Ordered 08/15/22 Ordered By: Saul Trinidad Admission Data Admit Date/Time: 08/14/22 14:08 Attending Provider: Saul Trinidad Admit Provider: Chapo Valentine Primary Care Provider: Lynn Gibson Other Providers: Chapo Valentine Coding Level of Care Code 76396 INP/OBS DISCH >30 MIN Diagnoses Right arm weakness R29.898 COVID-19 U07.1 HTN (hypertension), benign I10 Tobacco use Z72.0
[2022-08-16] MEDS ORDERED: lisinopril 10 MG TAB PO SCH (09:00)
== END 2022-08-15 16:07 | disposition home or self-care (01) ==
LOC: 2W 12:27 → ED 12:27 → SUATTDRO 14:08 → 2W 18:35

== ENCOUNTER 2024-07-01 09:37 | Inpatient (IN) ==
--- NOTE | 2024-07-01 10:06 | Emergency Department Note ---
Impression & Plan Atrial flutter with rapid ventricular response, Hx of CABG, History of aortic valve replacement with bioprosthetic valve ED Provider Note Provider: Elier Guevara MD CHIEF COMPLAINT: Elevated heart rate HISTORY OF PRESENT ILLNESS: Patient is a 69-year-old gentleman significant history for CVA and CAD status post bioprosthetic aortic valve replacement as well as 1 vein CABG last Friday at [facility] presenting here today noting that yesterday his heart was elevated. Noted yesterday afternoon his heart rates in the 140s. Persisted last evening and into this morning. Patient denies having chest pain, lightheadedness, shortness of breath, or swelling. States he is asymptomatic and feels fine. Has been taking some medications. Did have first onset of A-fib after the heart surgery and has been maintained on amiodarone which he is taking. Has been taking his warfarin reportedly this was somewhat supratherapeutic recently. Denies any bleeding issues. Again denies chest pain or shortness of breath or abdominal pain. No recent illness reported. Did have half cup of coffee and 1/2 cup of decaf coffee this morning but this is not atypical for him. Did quit chewing tobacco last week but does not feel withdrawal symptoms. Again even with this she Damonte wound denies chest pain. PAST MEDICAL HISTORY: As noted above MEDICATIONS: Reviewed home medications includes warfarin and Plavix SOCIAL HISTORY: , recently quit chewing, no alcohol use PHYSICAL EXAM: GENERAL: alert and oriented in no acute distress on stretcher Head: normocephalic and atraumatic EYES: No injection, discharge or icterus. NECK: Trachea midline. ENT: Mucous membranes pink and moist. LUNGS: Airway patent. No retractions. Breath sounds clear with good air entry bilaterally. HEART: Tachycardic irregular regular rate and rhythm. Partially healed nonerythematous sternal wound in place without bleeding or exudate. ABDOMEN: Soft and non-tender, without guarding or rebound. SKIN: Acyanotic, warm, dry, without rashes EXTREMITIES: Without swelling, tenderness or deformity NEUROLOGICAL: No focal deficits. No aphasia. No facial droop or slurred speech. Ambulatory. EK bpm what appears to be atrial flutter. No clear acute ST segment elevation with some intraventricular conduction delay and question of a little bit of inferior ST depression. CONTINUOUS CARDIAC MONITORING: was ordered and showed a heart rate of 130s to 140s bpm in atrial fibrillation Patient's laboratory studies and imaging reviewed. Differential includes Premature contractions, electrolyte abnormality, cardiac dysrhythmia, thyroid dysfunction, pulmonary embolism, infection, gastrointestinal, as well as other pathologies. IMPRESSION/MEDICAL DECISION MAKING: Patient states compliance with her medication including twice daily amiodarone currently. Is on Plavix and warfarin. Will check INR to see if he still supratherapeutic because he has been held recently. Did have banana for breakfast morning. No significant chest pain or signs of fluid overload on clinical exam. Denies any significant sternotomy wound pain and does not seem to be infected at this point. No fevers reported. No trauma. No syncope. Will give 1 dose of metoprolol to see if we can affect some rate control. Respiratory viral panel negative. No severe electrolyte abnormality. Troponin is elevated today at 95. INR slightly elevated above goal at 3.4. 2 doses of metoprolol does not seem to be significantly affecting rate control and again it does appear more to be flutter than fib today. Chest x-ray per radiology here with cardiomegaly without evidence of pneumonia or pneumothorax. Slight pulmonary vascular congestion noted. Patient still asymptomatic and ambulatory bathroom with issue but heart rate has not really moved. Did reach out to Dr. Nicole of cardiology discussed further optimizations. Will try 150 mg IV amiodarone low dose to see if this affects rhythm conversion and rate control. Updated patient, his , and his son at bedside. A very small amount of rate control with heart rate into the high 120s but still appears to be atrial flutter and certainly the higher heart rate than baseline for his age. No rhythm conversion. Will discuss with the hospitalist further care here given the persistent flutter with elevated heart rate. DIAGNOSIS: Atrial flutter rapid ventricular spots, history of aortic valve replacement and CABG DISPOSITION: Hospitalist will evaluate Patient was agreeable with this plan. Critical Care I have personally spent 32 minutes of critical care time in the direct management of this patient. This includes bedside care, interpretation of diagnostic studies, and testing, discussion with consultants, patient, and family members, and other required patient management activities. These 32 minutes is in excess of all separately billable procedures. Past Med/Surg History Problem List (Updated 07/01/24 @ 11:14 by Elier Guevara M.D.) History of aortic valve replacement with bioprosthetic valve (Acute) Hx of CABG (Acute) Atrial flutter with rapid ventricular response (Acute) CAD (coronary artery disease) Vertebral artery stenosis Postural lightheadedness Carotid bruit Antiplatelet or antithrombotic long-term use Dyslipidemia Fatigue Moderate to severe aortic stenosis Positive cardiac stress test FIGUEROA (dyspnea on exertion) Hx of adenomatous colonic polyps JEANA (obstructive sleep apnea) Nonsustained supraventricular tachycardia CVA (cerebral vascular accident) 1cm acute infarct within the left posterior frontal lobe (on MRI), 08/14/22, No residual sx, sees Dr. Garcia at [facility] Tobacco use COVID-19 Right arm weakness Stroke-like episode (Acute) Bilateral tinnitus Sensorineural hearing loss (SNHL) of both ears Abnormal EKG Vestibular schwannoma Dizziness Occasional LVH (left ventricular hypertrophy) Routine health maintenance Palpitations HTN (hypertension), benign Chest pain H/O epistaxis Medical History Hx of chest pain Dizziness Vestibular schwannoma Sensorineural hearing loss Hx of supraventricular tachycardia (08/2022) History of COVID-19 (07/2022) Palpitations Aortic stenosis LVH (left ventricular hypertrophy) CVA (cerebral vascular accident) (07/2022) JEANA (obstructive sleep apnea) Migraine Heart valve regurgitation Chronic back pain Hypertension Surgical History History of back surgery History of colonoscopy History of phacoemulsification of cataract of right eye with intraocular lens implantation Family History Mother Stomach cancer Father Heart disease Other No family history of adverse response to anesthesia No family history of bleeding disorder Denies family history of Ovarian cancer Prostate cancer Diabetes Myocardial infarction Breast cancer Colorectal cancer Hypertension Social History (Updated 05/20/24 @ 08:00 by Kalli Fox LPN) Smoking Status: Former smoker Tobacco Type: Cigarettes Age Started Using Tobacco: 16; Age Quit Using Tobacco: 34; packs per day: 1; Cigarettes Per Day: 1 PPD; Second Hand Exposure: No; Do You Dip or Chew Tobacco: Yes (Current 2 dips/day, advised); Hx Alcohol Use: No Hx Substance Use: No Preferred Language: Chinese Communication Ability: Effective Visual Impairment: No Limitations Hearing Ability: Normal Cloud Systems Architect Required: No Beliefs That Will Affect Care: None marital status: Current Living Situation: Spouse current occupational status: retired How many Children do You have: 2 Feels Safe at Home: Yes Childhood Exposure to Second-Hand Smoke: Yes Diet: regular caffeine: Yes (coffee ) during the past year weight has: remained stable Dental Care, Regularly: Yes Physical Activity Frequency: Daily Physical Activity Frequency Comment: walking Seatbelt Use: always Sunscreen Use: No Assistive Devices: None Allergies Allergies Allergy/AdvReac Type Severity Reaction Status Date / Time No Known Drug Allergies Allergy Unknown Verified 05/20/24 07:58 Home Meds Home Medications Medication Instructions Recorded Confirmed amiodarone 200 mg tablet 200 mg PO UD 06/28/24 07/01/24 docusate sodium 100 mg capsule 100 mg PO DAILY PRN Constipation 06/28/24 07/01/24 oxycodone 5 mg tablet 5 mg PO Q4H PRN Pain 06/28/24 07/01/24 potassium chloride 10 mEq 20 meq PO DAILY 06/28/24 07/01/24 capsule,extended release [id number] 28 mg 1 cap PO DAILY 06/28/24 07/01/24 iron-folic acid 1 mg-omg3 200 mg capsule warfarin 5 mg tablet 5 mg PO DAILY 06/28/24 07/01/24 Previous Rx's Medication Instructions Recorded atorvastatin 40 mg tablet 40 mg PO QAM #90 tabs 09/18/23 acetaminophen 500 mg tablet 1,000 mg (2 x 500 mg) PO Q6H PRN 06/28/24 (Tylenol Extra Strength) fever #90 tabs clopidogrel 75 mg tablet 75 mg PO QAM #90 tabs 06/28/24 famotidine 20 mg tablet 20 mg PO DAILY #30 tabs 06/28/24 furosemide 40 mg tablet 40 mg PO DAILY #30 tabs 06/28/24 Results & Data (ED) Vital Signs Vital Signs - 24 hr 07/01/24 09:39 07/01/24 09:46 07/01/24 10:07 Temperature 36.4 C L Temperature Source Skin Pulse Rate 138 H Pulse Rate [Apical] 136 H Pulse Rate from SpO2 Sensor Pulse Rhythm [Apical] Regular Pulse Strength [Apical] Normal Respiratory Rate 18 16 Respiratory Effort / Characteristics Non-Labored Spontaneous Non-Labored Spontaneous Respiratory Depth Normal Normal Respiratory Pattern Regular Regular Blood Pressure 131/86 Blood Pressure [Left Arm] 126/84 Blood Pressure Mean 101 Blood Pressure Mean [Left Arm] 98 Blood Pressure Position [Left Arm] Semi-fowlers Pulse Oximetry 98 97 97 Oxygen Delivery Method Room Air Room Air Room Air Sepsis Recent Fever Within 48 Hours No Sepsis New/Unexplained Change in Mental Status N/A Sepsis Action Taken by Nursing No Action Required 07/01/24 10:13 07/01/24 10:31 07/01/24 10:32 Temperature Temperature Source Pulse Rate 135 H 131 H Pulse Rate [Apical] 131 H Pulse Rate from SpO2 Sensor Pulse Rhythm [Apical] Irregular Pulse Strength [Apical] Normal Respiratory Rate 18 Respiratory Effort / Characteristics Non-Labored Spontaneous Respiratory Depth Normal Respiratory Pattern Regular Blood Pressure 107/87 115/90 Blood Pressure [Left Arm] 115/90 Blood Pressure Mean Blood Pressure Mean [Left Arm] 98 Blood Pressure Position [Left Arm] Semi-fowlers Pulse Oximetry 97 Oxygen Delivery Method Room Air Sepsis Recent Fever Within 48 Hours Sepsis New/Unexplained Change in Mental Status Sepsis Action Taken by Nursing 07/01/24 10:38 07/01/24 10:50 07/01/24 11:16 Temperature Temperature Source Pulse Rate 131 H Pulse Rate [Apical] 132 H 131 H Pulse Rate from SpO2 Sensor Pulse Rhythm [Apical] Irregular Irregular Pulse Strength [Apical] Normal Normal Respiratory Rate 18 18 Respiratory Effort / Characteristics Non-Labored Spontaneous Non-Labored Spontaneous Respiratory Depth Normal Normal Respiratory Pattern Regular Regular Blood Pressure 115/89 Blood Pressure [Left Arm] 111/93 120/98 Blood Pressure Mean Blood Pressure Mean [Left Arm] 99 105 Blood Pressure Position [Left Arm] Semi-fowlers Semi-fowlers Pulse Oximetry 96 98 Oxygen Delivery Method Room Air Room Air Sepsis Recent Fever Within 48 Hours Sepsis New/Unexplained Change in Mental Status Sepsis Action Taken by Nursing 07/01/24 11:33 07/01/24 11:58 07/01/24 12:00 Temperature Temperature Source Pulse Rate 133 H 133 H 127 H Pulse Rate [Apical] Pulse Rate from SpO2 Sensor 133 H 127 H Pulse Rhythm [Apical] Pulse Strength [Apical] Respiratory Rate 16 16 Respiratory Effort / Characteristics Respiratory Depth Respiratory Pattern Blood Pressure 118/96 117/93 Blood Pressure [Left Arm] Blood Pressure Mean 103 101 Blood Pressure Mean [Left Arm] Blood Pressure Position [Left Arm] Pulse Oximetry 97 98 Oxygen Delivery Method Room Air Room Air Sepsis Recent Fever Within 48 Hours Sepsis New/Unexplained Change in Mental Status Sepsis Action Taken by Nursing 07/01/24 12:00 07/01/24 12:06 07/01/24 12:12 Temperature Temperature Source Pulse Rate 127 H 128 H Pulse Rate [Apical] Pulse Rate from SpO2 Sensor 127 H 129 H Pulse Rhythm [Apical] Pulse Strength [Apical] Respiratory Rate 16 12 Respiratory Effort / Characteristics Respiratory Depth Respiratory Pattern Blood Pressure 117/93 116/79 Blood Pressure [Left Arm] Blood Pressure Mean 98 91 Blood Pressure Mean [Left Arm] Blood Pressure Position [Left Arm] Pulse Oximetry 98 98 Oxygen Delivery Method Room Air Room Air Sepsis Recent Fever Within 48 Hours Sepsis New/Unexplained Change in Mental Status Sepsis Action Taken by Nursing 07/01/24 12:51 Temperature Temperature Source Pulse Rate 128 H Pulse Rate [Apical] Pulse Rate from SpO2 Sensor 128 H Pulse Rhythm [Apical] Pulse Strength [Apical] Respiratory Rate 20 Respiratory Effort / Characteristics Respiratory Depth Respiratory Pattern Blood Pressure 119/88 Blood Pressure [Left Arm] Blood Pressure Mean 98 Blood Pressure Mean [Left Arm] Blood Pressure Position [Left Arm] Pulse Oximetry 98 Oxygen Delivery Method Room Air Sepsis Recent Fever Within 48 Hours Sepsis New/Unexplained Change in Mental Status Sepsis Action Taken by Nursing Laboratory Data 07/01/24 09:50 07/01/24 09:50 Lab Results 07/01/24 07/01/24 07/01/24 Range/Units 09:50 09:55 11:52 WBC 10.31 (4.8-10.8) K/ul RBC 4.10 L (4.70-6.10) M/uL Hgb 12.9 L (14.0-18.0) g/dl Hct 39.4 L (42.0-52.0) % MCV 96.1 (80.0-100.0) fL MCH 31.5 (25.0-34.0) pg MCHC 32.7 (32.0-36.0) g/dL RDW Std Deviation 46.4 H (36.4-46.3) fL RDW Coeff of Dennis 13.2 (11.5-14.5) % Plt Count 221 (130-400) K/uL MPV 9.7 (9.4-12.4) fL Immature Gran % (Auto) 0.4 % Neut % (Auto) 66.5 % Lymph % (Auto) 17.7 % Warrick % (Auto) 9.5 % Eos % (Auto) 4.9 % Baso % (Auto) 1.0 % Neut # (Auto) 6.85 H (1.40-6.50) K/uL Lymph # (Auto) 1.83 (1.20-3.40) K/uL Warrick # (Auto) 0.98 H (0.11-0.59) K/uL Eos # (Auto) 0.51 H (0.00-0.50) K/uL Baso # (Auto) 0.10 (0.00-0.20) K/uL Immature Gran # (Auto) 0.04 (0.01-0.20) K/uL PT 33.5 H (9.0-12.0) Seconds INR 3.4 H (0.9-1.1) APTT 42 H (21-31) Seconds PTT Ratio 1.6 Sodium 140 (136-145) mmol/L Potassium 4.8 (3.5-5.1) mmol/L Chloride 105 (98-107) mmol/L Carbon Dioxide 32 (21-32) mmol/L Anion Gap 3 (3-11) BUN 22 (6-23) mg/dl Creatinine 1.34 (0.6-1.4) mg/dl Est Cr Clr Drug Dosing Not Reportable eGFR 57.34 BUN/Creatinine Ratio 16.4 (10-20) Glucose 94 (70-99(Fasting)) mg/dl Calcium 9.4 (8.6-10.3) mg/dl Magnesium 2.1 (1.7-2.4) mg/dl Total Bilirubin 1.0 (0.2-1.0) mg/dl AST 25 (13-39) U/L ALT 23 (7-52) U/L Alkaline Phosphatase 69 (34-104) U/L Troponin I High Sens 95.9 H* 87.1 H* (0-20) pg/ml Total Protein 7.1 (6.0-8.3) gm/dl Albumin 4.3 (3.4-5.0) gm/dl Globulin 2.8 (2.5-4.0) gm/dl Albumin/Globulin Ratio 1.5 (0.9-2) TSH 4.712 H (0.300-4.500) uIu/ml Free T4 1.21 (0.61-1.60) ng/dl Adenovirus (PCR) Not Detected (NotDetected) B. pertussis DNA (PCR) Not Detected (NotDetected) B.parapertussis DNA PCR Not Detected (NotDetected) C. pneumoniae DNA (PCR) Not Detected (NotDetected) Coronavirus OC43 (PCR) Not Detected (NotDetected) Coronavirus HKU1 (PCR) Not Detected (NotDetected) Coronavirus 229E (PCR) Not Detected (NotDetected) SARS-CoV-2 (PCR) Not Detected (NotDetected) Coronavirus NL63 (PCR) Not Detected (NotDetected) Human Metapneumovir PCR Not Detected (NotDetected) Influenza Type A (PCR) Not Detected (NotDetected) Influenza Type B (PCR) Not Detected (NotDetected) M. pneumoniae (PCR) Not Detected (NotDetected) Parainfluenza 1 (PCR) Not Detected (NotDetected) Parainfluenza 2 (PCR) Not Detected (NotDetected) Parainfluenza 3 (PCR) Not Detected (NotDetected) Parainfluenza 4 (PCR) Not Detected (NotDetected) RSV (PCR) Not Detected (NotDetected) Entero/Rhino (PCR) Not Detected (NotDetected) Administered Medications Discontinued Medications Amiodarone HCl/Dextrose (Nexterone / D5w) 150 mg in 100 mls @ 600 mls/hr IV NOW STA Stop: 07/01/24 11:41 Last Infusion: 07/01/24 12:16 Dose: Infused Documented By: Co-signed By: JASON Admin: 07/01/24 11:40 Dose: 600 mls/hr Documented By: Co-signed By: JASON Metoprolol Tartrate (Metoprolol Tartrate 1 Mg/Ml Vial) 5 mg IV NOW STA Stop: 07/01/24 10:04 Last Admin: 07/01/24 10:13 Dose: 5 mg Documented By: Metoprolol Tartrate (Metoprolol Tartrate 1 Mg/Ml Vial) 5 mg IV NOW STA Stop: 07/01/24 10:37 Last Admin: 07/01/24 10:38 Dose: 5 mg Documented By: MSG Imaging Data Radiologist's Impression: Chest X-Ray 07/01/24 09:46 XR chest 1V portable CLINICAL HISTORY: Dysrhythmia, recent CABG COMPARISON STUDY: None FINDINGS: Single view chest demonstrates median sternotomy wire sutures. The heart is enlarged. There is mild pulmonary vascular congestion. There is no airspace opacity, pleural effusion, atelectasis, or pneumothorax. IMPRESSION: Cardiomegaly; no acute process ACT 112: Negative or not required by law. Electronically signed by: Radha Posey M.D. 07/01/2024 10:24 AM Discharge Plan Visit Data Chief Complaint: Cardiac Assessment Stated Complaint: A-FIB ED Provider: Elier Guevara Discharge Problem: Atrial flutter with rapid ventricular response, Hx of CABG, History of aortic valve replacement with bioprosthetic valve Patient Disposition: Being Evaluated by Hospitalist Forms Stand Alone Forms: [facility] Prescriptions Prescriptions: No Action atorvastatin 40 mg tablet 40 mg PO QAM Qty: 90 3RF clopidogrel 75 mg tablet 75 mg PO QAM Qty: 90 3RF PNV 11-iron fum-folic acid-om3 28 mg iron-1 mg -200 mg capsule 1 cap PO DAILY amiodarone 200 mg tablet 200 mg PO UD Rx Instructions: take BID for 7 days the 1 a day after- [facility] DC potassium chloride 10 mEq capsule, extended release 20 meq PO DAILY Rx Instructions: x 30 days dc [facility] furosemide 40 mg tablet 40 mg PO DAILY Qty: 30 2RF Rx Instructions: 1 a day for 30 days, DC [facility] famotidine 20 mg tablet 20 mg PO DAILY Qty: 30 2RF Rx Instructions: for 30 days dc [facility] warfarin 5 mg tablet 5 mg PO DAILY Rx Instructions: 2.5 mg on 06/28 INR on 06/29 w/ dose adjustment DC [facility] acetaminophen [Tylenol Extra Strength] 500 mg tablet 1,000 mg PO Q6H PRN (Reason: fever) Qty: 90 0RF Rx Instructions: PRN docusate sodium 100 mg capsule 100 mg PO DAILY PRN (Reason: Constipation) Rx Instructions: Take 1 Capsule by mouth 2 times a day as needed for Constipation. DC [facility] oxycodone 5 mg tablet 5 mg PO Q4H PRN (Reason: Pain) Patient Comments: Take 1 Tablet by mouth every 4 hours as needed for severe pain. Referrals Referrals: Lynn Gibson MD [Primary Care Provider] -
[2024-07-01] MEDS: METOPROLOL TARTRATE 1 MG/ML VIAL IV STA ×2 (10:13→10:38)
[2024-07-01 10:19] LABS: Eosinophils # (auto) 0.51 K/uL (0.00-0.50); Eosinophils % (auto) 4.9 %; Hematocrit (blood only) 39.4 % (42.0-52.0); Hemoglobin 12.9 g/dl (14.0-18.0); Immature Granulocytes # (auto) 0.04 K/uL (0.01-0.20); Immature Granulocytes % (auto) 0.4 %; Lymphocytes # (auto) 1.83 K/uL (1.20-3.40); Lymphocytes % (auto) 17.7 %; Mean Corpuscular Hemoglobin 31.5 pg (25.0-34.0); Mean Corpuscular Hgb Conc 32.7 g/dL (32.0-36.0); Mean Corpuscular Volume 96.1 fL (80.0-100.0); Mean Platelet Volume 9.7 fL (9.4-12.4); Monocytes # (auto) 0.98 K/uL (0.11-0.59); Monocytes % (auto) 9.5 %; Neutrophils # (auto) 6.85 K/uL (1.40-6.50); Neutrophils % (auto) 66.5 %; Platelet Count 221 K/uL (130-400); RDW Coefficient of Variation 13.2 % (11.5-14.5); RDW Standard Deviation 46.4 fL (36.4-46.3); White Blood Count 10.31 K/ul (4.8-10.8)
--- NOTE | 2024-07-01 10:26 | XRay Report ---
XR chest 1V portable CLINICAL HISTORY: Dysrhythmia, recent CABG COMPARISON STUDY: None FINDINGS: Single view chest demonstrates median sternotomy wire sutures. The heart is enlarged. There is mild pulmonary vascular congestion. There is no airspace opacity, pleural effusion, atelectasis, or pneumothorax. IMPRESSION: Cardiomegaly; no acute process ACT 112: Negative or not required by law. Electronically signed by: Radha Posey M.D. 07/01/2024 10:24 AM
[2024-07-01 10:33] LABS: Alanine Aminotransferase 23 U/L (7-52); Albumin Globulin Ratio 1.5 (0.9-2); Albumin Level 4.3 gm/dl (3.4-5.0); Alkaline Phosphatase 69 U/L (34-104); Anion Gap 3 (3-11); Aspartate Aminotransferase 25 U/L (13-39); BUN Creatinine Ratio 16.4 (10-20); Blood Urea Nitrogen 22 mg/dl (6-23); Calcium 9.4 mg/dl (8.6-10.3); Carbon Dioxide 32 mmol/L (21-32); Chloride 105 mmol/L (98-107); Globulin 2.8 gm/dl (2.5-4.0); Glucose 94 mg/dl (70-99(Fasting)); Magnesium 2.1 mg/dl (1.7-2.4); Potassium 4.8 mmol/L (3.5-5.1); Sodium 140 mmol/L (136-145); Total Protein 7.1 gm/dl (6.0-8.3)
[2024-07-01 10:42] LABS: INR 3.4 (0.9-1.1); Partial Thromboplastin Ratio 1.6; Partial Thromboplastin Time 42 Seconds (21-31); Prothrombin Time 33.5 Seconds (9.0-12.0)
[2024-07-01 10:43] LABS: Troponin I High Sensitivity 95.9 pg/ml (0-20)
[2024-07-01 10:47] LABS: Thyroid Stimulating Hormone 4.712 uIu/ml (0.300-4.500)
[2024-07-01 11:11] LABS: Adenovirus PCR Not Detected (NotDetected); Bordetella parapertussis PCR Not Detected (NotDetected); Bordetella pertussis PCR Not Detected (NotDetected); Chlamydia pneumoniae PCR Not Detected (NotDetected); Coronavirus 229E PCR Not Detected (NotDetected); Coronavirus CoV-2 (COVID19)PCR Not Detected (NotDetected); Coronavirus HKU1 PCR Not Detected (NotDetected); Coronavirus NL63 PCR Not Detected (NotDetected); Coronavirus OC43PCR Not Detected (NotDetected); Human Metapneumovirus PCR Not Detected (NotDetected); Influenza A PCR Not Detected (NotDetected); Influenza B PCR Not Detected (NotDetected); Mycoplasma pneumoniae PCR Not Detected (NotDetected); Parainfluenza Virus 1 PCR Not Detected (NotDetected); Parainfluenza Virus 2 PCR Not Detected (NotDetected); Parainfluenza Virus 3 PCR Not Detected (NotDetected); Parainfluenza Virus 4 PCR Not Detected (NotDetected); Respiratory Syncytial VirusPCR Not Detected (NotDetected); Rhinovirus/Enterovirus PCR Not Detected (NotDetected)
[2024-07-01 11:22] LABS: T4 Free Thyroxine 1.21 ng/dl (0.61-1.60)
[2024-07-01] MEDS ORDERED: 0.2 MICRON FILTER SET 1 EACH IV ONE (11:32)
[2024-07-01] MEDS: AMIODARONE / D5W 150 MG/100 ML BAG IV STA (11:40)
--- NOTE | 2024-07-01 13:29 | History & Physical Report ---
Date of Service July 01, 2024 Assessment & Plan (1) Atrial flutter with rapid ventricular response: Plan: Assessment: 1. Atrial fibrillation/flutter with rapid ventricular response. Anticoagulated with Coumadin with an INR of 3.4. Continue Coumadin tonight at 2.5 mg recheck INR in the morning. Received 2 doses of IV metoprolol and also received an additional dose of IV amiodarone 150 mg. Cardiology consulted. 2. Status post one-vessel CABG postop day 9 today. No chest pain. Troponins are flat. 3. Status post bovine aortic valve replacement postop day 9 today. Will check an echocardiogram to assure valvular competence. I do not appreciate murmur on exam. 4. History of postoperative atrial fibrillation last week. Has been chronically anticoagulated now for the last week on Coumadin. Was supratherapeutic June 29. Reportedly INR was approximately 8.0. He held his Coumadin Friday and Friday and was instructed to take 2.5 mg tonight. We will give his Coumadin tonight at 2.5 mg. Reassess an INR in the morning then his Coumadin dose will have to be addressed/ordered in the morning based on his INR results. 5. Coronary artery disease as discussed above. Troponins have been flat. EKG reassuring. 6. Severe aortic stenosis as discussed above status post AVR/bovine. 7. History of GERD. No complaints at this time. 8. Dyslipidemia continue statin therapy. Plan: As discussed above. Please refer to orders for further planning. Appreciate cardiology's input in advance. Electrocardioversion could be consideration of course that would be per their discretion and pending the patient's rate control with medication. History of Present Illness Chief Complaint: Atrial fibrillation with rapid ventricular response Primary Care Provider: Lynn Gibson MD Pleasant 69-year-old male who is status post bovine AVR with one-vessel CABG approximately postop day 9. It appears surgery was on or about June 22, 2024. Postoperatively he did have atrial fibrillation and was loaded with amiodarone and commenced on Coumadin. Over the last several days the patient has noted tachycardia at home with vital signs. He has been asymptomatic. On Friday he had a supratherapeutic INR of approximately 8. He was instructed to hold his Coumadin Friday and Friday. Today he spent to take 2.5 mg. He presents today with tachycardia at home in the 130s to 140s. In the ER his troponins have been flat-first troponin 95.9. Second troponin 87.1. EKG nonacute with atrial fibrillation with rapid ventricular response with a rate in the 130s. Other laboratory studies are unremarkable. The patient was given 2 aliquots of IV metoprolol 5 mg each and given an additional 150 mg of IV amiodarone. He still in the 120s to 130s. Cardiology has been consulted and is recommending admission for further evaluation and treatment and rate control for his A-fib. Allergies Allergy/AdvReac Type Severity Reaction Status Date / Time No Known Drug Allergies Allergy Unknown Verified 05/20/24 07:58 Home Medications Medication Instructions Recorded Confirmed Type atorvastatin 40 mg tablet 40 mg PO QAM #90 tabs 09/18/23 07/01/24 Rx acetaminophen 500 mg tablet 1,000 mg (2 x 500 mg) PO Q6H PRN 06/28/24 07/01/24 Rx (Tylenol Extra Strength) fever #90 tabs amiodarone 200 mg tablet 200 mg PO UD 06/28/24 07/01/24 History clopidogrel 75 mg tablet 75 mg PO QAM #90 tabs 06/28/24 07/01/24 Rx docusate sodium 100 mg capsule 100 mg PO DAILY PRN Constipation 06/28/24 07/01/24 History famotidine 20 mg tablet 20 mg PO DAILY #30 tabs 06/28/24 07/01/24 Rx furosemide 40 mg tablet 40 mg PO DAILY #30 tabs 06/28/24 07/01/24 Rx oxycodone 5 mg tablet 5 mg PO Q4H PRN Pain 06/28/24 07/01/24 History potassium chloride 10 mEq 20 meq PO DAILY 06/28/24 07/01/24 History capsule,extended release [id number] fum 28 mg 1 cap PO DAILY 06/28/24 07/01/24 History iron-folic acid 1 mg-omg3 200 mg capsule warfarin 5 mg tablet 5 mg PO DAILY 06/28/24 07/01/24 History Past Med/Surg History Problem List (Updated 07/01/24 @ 11:14 by Elier Guevara M.D.) History of aortic valve replacement with bioprosthetic valve (Acute) Hx of CABG (Acute) Atrial flutter with rapid ventricular response (Acute) CAD (coronary artery disease) Vertebral artery stenosis Postural lightheadedness Carotid bruit Antiplatelet or antithrombotic long-term use Dyslipidemia Fatigue Moderate to severe aortic stenosis Positive cardiac stress test FIGUEROA (dyspnea on exertion) Hx of adenomatous colonic polyps JEANA (obstructive sleep apnea) Nonsustained supraventricular tachycardia CVA (cerebral vascular accident) 1cm acute infarct within the left posterior frontal lobe (on MRI), 08/14/22, No residual sx, sees Dr. Garcia at [facility] Tobacco use COVID-19 Right arm weakness Stroke-like episode (Acute) Bilateral tinnitus Sensorineural hearing loss (SNHL) of both ears Abnormal EKG Vestibular schwannoma Dizziness Occasional LVH (left ventricular hypertrophy) Routine health maintenance Palpitations HTN (hypertension), benign Chest pain H/O epistaxis Medical History Hx of chest pain Dizziness Vestibular schwannoma Sensorineural hearing loss Hx of supraventricular tachycardia (08/2022) History of COVID-19 (07/2022) Palpitations Aortic stenosis LVH (left ventricular hypertrophy) CVA (cerebral vascular accident) (07/2022) JEANA (obstructive sleep apnea) Migraine Heart valve regurgitation Chronic back pain Hypertension Surgical History History of back surgery History of colonoscopy History of phacoemulsification of cataract of right eye with intraocular lens implantation Family History Mother Stomach cancer Father Heart disease Other No family history of adverse response to anesthesia No family history of bleeding disorder Denies family history of Ovarian cancer Prostate cancer Diabetes Myocardial infarction Breast cancer Colorectal cancer Hypertension Social History (Updated 05/20/24 @ 08:00 by Kalli Fox LPN) Smoking Status: Former smoker Tobacco Type: Cigarettes Age Started Using Tobacco: 16; Age Quit Using Tobacco: 34; packs per day: 1; Cigarettes Per Day: 1 PPD; Second Hand Exposure: No; Do You Dip or Chew Tobacco: Yes (Current 2 dips/day, advised); Hx Alcohol Use: No Hx Substance Use: No Preferred Language: Armenian Communication Ability: Effective Visual Impairment: No Limitations Hearing Ability: Normal Pharmaceutical Analyst Required: No Beliefs That Will Affect Care: None marital status: Current Living Situation: Spouse current occupational status: retired How many Children do You have: 2 Feels Safe at Home: Yes Childhood Exposure to Second-Hand Smoke: Yes Diet: regular caffeine: Yes (coffee ) during the past year weight has: remained stable Dental Care, Regularly: Yes Physical Activity Frequency: Daily Physical Activity Frequency Comment: walking Seatbelt Use: always Sunscreen Use: No Assistive Devices: None Review of Systems Review of Systems: A 10 point review of system was obtained and unless otherwise stated here or in history of present illness are negative and noncontributory to chief complaint. Patient does admit to drinking 3 to 4 cups of caffeinated coffee per day. Recommended he try to cut back to decaffeinated coffee as this could be contributing to his tachycardia. Physical Exam Physical Exam: In General: In general pleasant 69-year-old male is alert and oriented x 3 at the time of my exam he is completely asymptomatic with his tachycardia. Denies chest pain or shortness of breath or presyncope. He is accompanied by his , Monica, at the time of my examination. HEENT: Normocephalic atraumatic pupils are equal round and reactive to light bilaterally. No scleral icterus no conjunctival injection external auditory canals are patent septum is in the midline nose is without discharge oral mucosa is pink and moist without lesion. NECK: Supple no rigidity no lymphadenopathy no thyromegaly no carotid bruits no JVD no masses. HEART: Irregular rate and rhythm consistent with atrial fibrillation with rapid ventricular response. No appreciable rub or murmur. Midline sternotomy incision/scar is noted. Healing very nicely. No evidence of dehiscence erythema or discharge or any clinical evidence of infection. LUNGS: Clear to auscultation bilaterally and anteriorly with no evidence of adventitious sounds/wheezes rales or rhonchi. ABDOMEN: Soft nontender, no rebound, no peritoneal signs, positive bowel sounds, no appreciable organomegaly. EXTREMITIES: Intact, no peripheral cyanosis, clubbing or edema. Strength is 5 out of 5 in extremities x4. Left lower extremity surgical incision/scar is noted from vein harvesting also healing well without any evidence of infection. NEUROLOGICAL: Cranial nerves II through XII are grossly intact with no focal de ficit elicited upon examination. Results & Data Results & Data Vital Signs (Past 12 Hours) Vital Signs Temp Pulse Pulse Resp BP BP Pulse Ox 03/13/25 12:51 128 H 20 119/88 98 07/01/24 12:12 128 H 12 116/79 98 07/01/24 12:06 127 H 16 98 07/01/24 12:00 117/93 07/01/24 12:00 127 H 16 117/93 98 07/01/24 11:58 133 H 07/01/24 11:33 133 H 16 118/96 97 07/01/24 11:16 131 H 18 120/98 98 07/01/24 10:50 132 H 18 111/93 96 07/01/24 10:38 131 H 115/89 07/01/24 10:32 131 H 115/90 07/01/24 10:31 131 H 18 115/90 97 07/01/24 10:13 135 H 107/87 07/01/24 10:07 97 07/01/24 09:46 136 H 16 126/84 97 07/01/24 09:39 36.4 C L 138 H 18 131/86 98 O2 Del Method 07/01/24 12:51 Room Air 07/01/24 12:12 Room Air 07/01/24 12:06 Room Air 07/01/24 12:00 07/01/24 12:00 Room Air 07/01/24 11:58 07/01/24 11:33 Room Air 07/01/24 11:16 Room Air 07/01/24 10:50 Room Air 07/01/24 10:38 07/01/24 10:32 07/01/24 10:31 Room Air 07/01/24 10:13 07/01/24 10:07 Room Air 07/01/24 09:46 Room Air 07/01/24 09:39 Room Air Code Status & VTE Plan Code Status Full code-I personally spoke with the patient at the bedside today. PG Care Time/CCT Total # of Minutes Spent Total Time Spent with Patient: Total time spent is greater than 50% in coordination of care (as documented) at patient's floor/unit and/or counseling patient: Coding Level of Care Code 29073 INT INP/OBS CARE 3/75MIN Diagnoses Atrial flutter with rapid ventricular response I48.92
[2024-07-01] MEDS: ACETAMINOPHEN 500 MG TAB PO STA (13:46)
--- OUTSIDE RECORDS SUMMARY | 2024-07-01 13:51 | External Medical Summary ---
Author Name Unknown Address Unknown Organization K09:[place] [address] Laboratory Report Ordering Provider Test Date Status ORACIO ADDISON 06/29/2024 13:07:12 Final Therapeutic ranges for non-o perative patients:
Prophylaxsis/treatment of DVT: (Range:2.0-3.0)
Treatment of pulmonary embolism:(Range:2.0-3.0)
Prevention of systemic embolism from:
-tissue heart valves
-acute myocardial infarction
-valvular heart disease
-atrial fibrillation
(Range: 2.0-3.0)
Mechanical prosthetic valves: (Range: 2.5-3.5) Observation Date Value Abnormality Reference (Units ) Status INR in Capillary blood by Coagulation assay 06/29/2024 13:07:12 >8.0 (INR) Final Performing Location [facility] [place] [address]
--- OUTSIDE RECORDS SUMMARY | 2024-07-01 13:51 | External Medical Summary | Summary of Care ---
Author Name Unknown Organization [facility] Address [address] [place] [address] Phone [phone] Care Team Providers Care Parimutuel Clerk Name Role Phone Lynn Gibson MD Primary Care Provider [phone] Reason for Visit * Reason Comments Dosage Adjustment Via Phone (anticoag Cl inic) Encounter Details Date Type Department Care Team (Latest Contact Info) Description 06/28/2024 5:50 PM EDT Anticoagulation Pharmacy, [facility] [address] [place] [address] Pharmacist1, [facility] [address] [facility] [place] [address] Atrial fibrillation, unspecified type (HCC)* Allergies No known active allergiesdocumented as of this encounter (statuses as of 06/28/2024) Medications triamcinolone acetonide (ARISTOCORT) 0.1 % creamIndication s:Rash and nonspecific skin eruption Apply topically to affected area 2 times a day. To affected area. 45 g 1 07/20/19 17 Active Atorvastatin Calcium 40 MG Oral Tablet (Lipitor) Take 1 Tablet by mouth in the morning. 09/18/19 24 Active Clopidogrel Bisulfate 75 MG Oral Tablet (pLAVix) Take 1 Tablet by mouth in the morning. 09/18/19 24 Active oxyCODONE HCl 5 MG Oral Tablet (Oxy IR) Take 1 Tablet by mouth every 4 hours as needed for severe pain. 10 Tablet 5 11:50 AM EST 06/27/19 25 Active Amiodarone HCl 200 MG Oral Tablet (Cordarone) Take 1 tablet by mouth 2 times a day with morning and evening meals for 7 days, THEN take 1 tablet daily with breakfast for 23 days. 37 Tablet 5 11:50 AM EST 06/27/19 25 025 Active Docusate Sodium 100 MG Oral Capsule (Colace) Take 1 Capsule by mouth 2 times a day as needed for Constipation. 20 Capsule 5 11:50 AM EST 06/27/19 25 Active Furosemide 40 MG Oral Tablet (Lasix) Take 1 Tablet by mouth in the morning. Take for 30 days, then stop. 30 Tablet 5 11:50 AM EST 06/27/19 25 Active Potassium Chloride ER 10 MEQ Oral Tablet Extended Release Take 2 Tablets by mouth in the morning. Take for 30 days, then stop. 60 Tablet 5 11:50 AM EST 06/27/19 25 Active Vitamin and Mineral 28-0.8 MG Oral Tablet Take 1 Tablet by mouth daily in the morning. 30 Tablet 1 5 11:50 AM EST 06/27/19 25 Active Famotidine 20 MG Oral Tablet (Pepcid) Take 1 Tablet by mouth in the morning. Take for 30 days, then stop. 30 Tablet 5 11:50 AM EST 06/28/19 25 Active Warfarin Sodium 5 MG Oral Tablet (Coumadin) Take by mouth every evening as directed by the anticoagulation clinic. 30 Tablet 6 5 11:50 AM EST 06/27/19 25 Active documented as of this encounter (statuses as of 06/28/2024) Active Problems Problem Noted Date Diagnosed Date Dyslipidemia 06/26/2024 LVH (left ventricular hypertrophy) 06/26/2024 Nonsustained supraventricular tachycardia 2024 JEANA (obstructive sleep apnea) 06/26/2024 Sensorineural hearing loss (SNHL) of both ears 0 06/26/2024 Vertebral artery stenosis 06/26/2024 S/P AVR (aortic valve replacement) 06/26/2024 Arrhythmia 06/25/2024 Primary hypertension 06/22/2024 Hyperlipidemia 06/22/2024 CVA (cerebral vascular accident) 06/22/2024 Aortic valve stenosis, unspecified etiology 05/22 documented as of this encounter (statuses as of 06/28/2024) Social History Tobacco Use Types Packs/Day Years Used Date Smoking Tobacco: Former Cigarettes Q uit: 1969 Smokeless Tobacco: Current Alcohol Use Standard Drinks/Week Comments Not Currently 0 (1 standard drink = 0.6 oz pur e alcohol) occ Sex and Gender Information Value Date Recorded Sex Assigned at Male 05/25/2024 8:20 AM EST Legal Sex Male 5:07 AM EST Gender Identity Male 05/25/2024 8:20 AM EST Sexual Orientation Straight 05/25/2024 8: 20 AM EST documented as of this encounter Progress Notes * John Mesa RyanAmena bond - 06/28/2024 2:22 PM EDT Patient Phone Numbers PHARMACY ANTICOAGULATION WARFARIN (Coumadin) Assessment [address] [address] Name: Ravi Ortega [place] [facility] [place] Date: 06/26/2024 Time: 8:08 AM Ravi Ortega is a 69 year old male admitted for Aortic valve stenosis, unspecified etiology.Pharmacy was consulted for warfarin dosing and monitoring. Anticoagulation Therapy Goals Stroke Prevention: Atrial Fibrillation/Flutter (2 - 3) Valves: Bioprosthetic (Tissue) Valve (2 - 3) x 3 months Anticipated Duration of Therapy: 3 Months Prior to Admission Management Anticoagulation Managed By: Anticoagulation Clinic Historical Warfarin Details Anticoagulation Episode Summary Current INR goal: -- TTR: -- Next INR check: -- INR from last check: -- Most recent INR: 1.2 (06/26/2024) Weekly max warfarin dose: -- Target end date: 12/26/2024 INR check location: -- Preferred lab: -- Send INR reminders to: -- Indications Arrhythmia [I49.9] Comments: -- Anticoagulation Care Providers Provider Role Specialty Phone number Kelsi Morales CRNP Referring Nurse Practitioner [phone] Labs INR Date/Time Value Ref Range Status 06/26/2024 03:28 AM 1.2 0.8 - 1.2 Final 06/25/2024 08:20 AM 1.1 0.8 - 1.2 Final 06/22/2024 03:09 PM 1.3 (H) 0.8 - 1.2 Final HGB Date/Time Value Ref Range Status 06/26/2024 03:28 AM 10.7 (L) 14.0 - 16.8 g/dL Final HCT Date/Time Value Ref Range Status 06/26/2024 03:28 AM 32.9 (L) 40.0 - 48.4 % Final PLT Date/Time Value Ref Range Status 06/26/2024 03:28 AM 103 (L) 140 - 400 K/uL Final Objective Warfarin Administrations (last 720 hours) Date/Time Action Medication Dose 06/25/242019 Given Warfarin Sodium (Coumadin) tab 5 mg 5 mg Assessment & Plan Assessment Dietary Assessment: Normal/expected PO intake Today's INR : Subtherapeutic Does the patient have any medication interactions: Yes Please comment: Amiodarone 200 mg BID, Plavix, Heparin drip Are there bleeding concerns with the patient: No Does the patient have any upcoming procedures: No Plan Warfarin Plan: Give Warfarin Specify Warfarin Dose: 5 mg Is the patient receiving a Bridging Agent: Yes Warfarin Patient Education : Complete and documented Ryan Lopez RPh, CACP, CDE Clinical Pharmacist Medication Therapy Management [facility] 06/28/2024, 2:25 PM documented in this encounter Plan of Treatment Upcoming Encounters Date Type Department Care Team (Late st Contact Info) Description 06/29/2024 1:10 PM EDT Antico[facility] Pharmacy, [facility] [address] [place] [address] Pharmacist1, [facility] [address] [place] [address] 07/02/2024 1:30 PM EDT Telemedicine Cardiothoracic Surg [facility], [place] [address] [facility] [place] [address] Esteban Mcdonald PA-C [address] [place] [address] 07/29/2024 11:45 AM EDT Office Visit Cardiothoracic Surg [facility] [address] [place] [address] Faisal Guzman MD [address], [place] [id number] Health Maintenance Due Date Last Done Comments Depression Screening 1967 Albumin/Creatinine Ratio 1973 Hepatitis C Screening 1973 DTap/Tdap Vaccines (1 - Tdap) 1974 Cologuard 02/23/2000 Colonoscopy 02/23/2000 Colorectal Cancer Screening 02/23/2000 Fecal Occult Blood Test 02/23/2000 Sigmoidoscopy 02/23/2000 Pneumococcal Vaccine: 50+ Years (1 of 1 - PCV) 2005 AAA Screening 02/23/2020 COVID-19 Vaccine ( - 2023- season) 2023 03/13/2021, 07/10/2020, 06/19/2020 Influenza Vaccine (FLU shot) (#1) 2023 GFR 06/26/2025 06/26/2024, 03/0 10/2024, 06/24/2024, Additional history exists Diabetes Screening 06/27/2027 06/26/2024, 0 06/25/2024, 06/24/2024, Additional history exists Zoster Vaccines Completed 02/06/2022, 11/27/2021 HPV (Gardasil) Vaccine Aged Out No lo nger eligible based on patient's age to complete this topic Hepatitis B Vaccine Aged Out No longe r eligible based on patient's age to complete this topic MENINGOCOCCAL (MENACTRA/MENVEO) Aged Out No longer eligible based on patient's age to complete this topic Meningitis B Vaccine (Bexsero/Trumemba) Aged Out No longer eligible based on patient's age to complete this topic documented as of this encounter Medical Devices Implanted Type Area Risk Assessor Device Identifier Shelf Expiration Date Model / Serial / Lot Suture Steel 6 B&S19 [id number] - [id number] Implanted:Qty: 8 on 06/22/2024 by Faisal Guzman [place] [facility] [place]: Sternum JNJ : [employer] 01/18/2029 [id number] / / [id number] Marker Coronary - [id number] Implanted:Qty: 1 on 06/22/2024 by Faisal Guzman MD [place] [facility] [place]: Aorta [employer] 03/20/2027 AM-SD / / [id number] Valve Aortic Avalus 25mm - [id number] - [id number] Implanted:Qty: 1 on 06/22/2024 by Faisal Guzman MD [place] [facility] [place]A: Heart [employer] [id number] 01/18/2027 [id number] / [id number] / [id number] Patch Pericardium Bovine 8x14 - [id number] - [id number] Implanted:Qty: 1 on 06/22/2024 by Faisal Guzman MD [place] [facility] [place]A: Aorta [employer] [id number] 09/15/2029 [id number] / [id number] / [id number] documented as of this encounter Visit Diagnoses Diagnosis Atrial fibrillation, unspecified type (HCC)- Primary documented in this encounter Advance Directives * Full Code (Latest Code Status on File) Date Activated Date Inactivated Comments 06/22/2024 12:07 PM 06/26/2024 5:53 PM This order re flects the patients wishes and were consensually agreed upon. Question Answer Comments Discussion of Advance Directives occurred with: Patient Care Teams Parimutuel Clerk Relationship Specialty [place] [address] [place], [place] [address] [id number] PCP - General Family Medicine 06/10/24 documented as of this encounter
--- OUTSIDE RECORDS SUMMARY | 2024-07-01 13:51 | External Medical Summary | Summary of Care ---
Author Name Unknown Organization [facility] Address [address] [place] [address] Phone [phone] Care Team Providers Care Japanese Professor Name Role Phone Lynn Gibson MD Primary Care Provider [phone] Reason for Visit * Reason Comments Outpatient Testing Encounter Details Date Type Department Care Team (Late st Contact Info) Description 06/29/2024 1:30 PM EDT Laboratory Laboratory [facility] [place] [address] [place] [address] [place], Lab [facility] [address] [facility] [place] [address] Atrial fibrillation, unspecified type (HCC); Anticoagulation management encounter Allergies No known active allergiesdocumented as of this encounter (statuses as of 06/29/2024) Medications triamcinolone acetonide (ARISTOCORT) 0.1 % creamIndication [...] as of this encounter (statuses as of 06/29/2024) Active Problems Problem Noted Date Diagnosed Date [...] as of this encounter (statuses as of 06/29/2024) Social History Tobacco Use Types Packs/Day Years [...] AM EST documented as of this encounter Plan of Treatment Upcoming Encounters Date Type Department Care Team (Late st Contact Info) Description 07/02/2024 1:30 PM EDT Telemedicine [facility] [address] [place] [address] Esteban Mcdonald PA-C [address] [place] [address] 07/02/2024 2:40 PM EDT Anticoagulation Pharmacy, [facility] [address] [place] [address] Pharmacist1, [facility] [address] [place] [address] 07/29/2024 11:45 AM EDT Office Visit [facility] [address] [place] [address] Faisal Guzman MD [address] [place] [address] Health Maintenance Due Date Last Done Comments Depression Screening 1967 Albumin/Creatinine Ratio 1973 Hepatitis C Screening 1973 DTap/Tdap Vaccines (1 - Tdap) 1974 Cologuard 02/23/2000 Colonoscopy 02/23/2000 Colorectal Cancer Screening 02/23/2000 Fecal Occult Blood Test 02/23/2000 Sigmoidoscopy 02/23/2000 Pneumococcal Vaccine: 50+ Years (1 of 1 - PCV) 2005 AAA Screening 02/23/2020 COVID-19 Vaccine ( season) 2023 03/13/2021, 07/10/2020, 06/19/2020 Influenza Vaccine [...] this encounter Medical Devices Implanted Type Area Integration Software Developer Device Identifier Shelf Expiration Date Model / Serial / Lot Suture Steel 6 B&S19 M654g - [id number] Implanted:Qty: 8 on 06/22/2024 by Faisal Guzman MD at OR [facility] [facility] N/A: Sternum JNJ : [employer] 01/18/2029 [id number] / / [id number] Marker Coronary - [id number] Implanted:Qty: 1 on 06/22/2024 by Faisal Guzman MD at OR [facility] N/A: Aorta [employer] 03/20/2027 [facility] / / [id number] Valve Aortic Avalus 25mm - [id number] - [id number] Implanted:Qty: 1 on 06/22/2024 by Faisal Guzman MD at OR [facility] N/A: Heart [employer] [id number] 01/18/2027 13297 / [id number] / [id number] Patch Pericardium Bovine 8x14 - [id number] - [id number] Implanted:Qty: 1 on 06/22/2024 by Faisal Guzman MD at OR [facility] N/A: Aorta [employer] [id number] 09/15/2029 E8P14 / [id number] / [id number] documented as of this encounter Procedures Procedure Name Priority Date/Time Associated Diagnosis Comments PT INR Routine 06/29/2024 1:22 PM EDT Atrial fibrillation, unspecified type (HCC) Anticoagulation management encounter documented in this encounter Results * (ABNORMAL) PT INR (06/29/2024 1:22 PM EDT) Prothrombin Time 46.3(H) 11.6 - 15.2 seconds 06/29/2024 1:42 PM EDT [facility] 56- INR 4.9(H) 0.8 - 1.2 06/29/2024 1:42 PM EDT [facility] 56- Blood Venous blood specimen / Unknown Venipuncture / Unknown 06/29/2024 1:22 PM EDT 06/29/2024 1:22 PM EDT Narrative [facility] 56-02 - 06/29/2024 1:42 PM EDT Warfarin Therapy INR: 2.0-3.0 conventional anticoagulation INR: 2.5-3.5 high intensity anticoagulation [facility] LAB BLOOD ORDERABLES F inal Result [facility] 56-02 [address] [place] [address] documented in this encounter Visit Diagnoses Diagnosis Atrial fibrillation, unspecified type (HCC) Anticoagulation management encounter Encounter for therapeutic drug monitoring documented in this encounter Advance Directives * Full Code (Latest Code Status on File) Date Activated Date Inactivated Comments 06/22/2024 12:07 PM 06/26/2024 5:53 PM This order re flects the patients wishes and were consensually agreed upon. Question Answer Comments Discussion of Advance Directives occurred with: Patient Care Teams Japanese Professor Relationship Specialty Start Date End Date Lynn Gibson MD [address] [facility] [place] [address] PCP - General Family Medicine 06/10/24 documented as of this encounter
--- OUTSIDE RECORDS SUMMARY | 2024-07-01 13:51 | External Medical Summary | Summary of Care ---
Author Name Unknown Organization [facility] Address [address] [place] [address] Phone [phone] Care Team Providers Care Moth Exterminator Name Role Phone Lynn Gibson MD Primary Care Provider [phone] Reason for Visit * Reason Comments Dosage Adjustment In Person (Anticoag Cl inic) Encounter Details Date Type Department Care Team (Latest Contact Info) Description 06/29/2024 1:10 PM EDT Anticoagulation Pharmacy, [facility] [address] [facility] [place] [address] Pharmacist1, [facility] 200 [facility] [place] [id number] Atrial fibrillation, unspecified type (HCC)*; Anticoagulation management encounter Allergies No known active [...] as of this encounter Progress Notes * Ryan Olmos RPh - 06/29/2024 1:19 PM EDT Images from the original note were not included. Medication Therapy Disease Management - Anticoagulation Ravi Ortega is an 69 year old male who presents to clinic for anticoagulation management. Description Amiodarone 200mg twice daily Patient Findings Negatives: Signs/symptoms of thrombosis, Signs/symptoms of bleeding, Change in health, Change in alcohol use, Change in activity, Upcoming invasive procedure, Missed doses, Extra doses, Change in medications, Change in diet/appetite, Bruising INR Result As of 06/29/2024 INR goal: 2.0-3.0 INR used for dosin.9 (06/29/2024) Warfarin Plan As of 06/29/2024 Full warfarin instructions: 06/29: Hold; 06/30: Hold; 07/01: 2.5 mg Next INR check: 07/02/2024 Talked to Ravi at 2:50 PM. Gave him the INR and dosing until Friday. Repeat PT/INR in 3 day(s) Weekly dose: decreased I spent a total of 10-19 minutes (exact time 19 mins) on the date of service in preparation, delivery, and documentation of the care provided to Ravi Ortega excluding any time spent in the performance of separately billed services or time spent by another provider/QHP. Ryan Lopez RPh, [facility] Clinical Pharmacist Medication Therapy Disease Management 06/29/2024, 1:20 PM documented in this encounter Plan of Treatment Upcoming Encounters Date Type Department Care Team (Late st Contact Info) Description 07/02/2024 1:30 PM EDT Telemedicine [facility] [address] [place] [address] Esteban Mcdonald PA-C [address] [place] [address] 07/02/2024 2:40 PM EDT Anticoagulation Pharmacy, [facility] [address] [place] [address] Pharmacist1, [facility] [address] [place] [address] 07/29/2024 11:45 AM EDT Office Visit Cardiothoracic Surg [facility] [place] [address] [place] [address] Faisal Guzman MD [address] [place] [address] Health Maintenance Due Date Last Done Comments Depression Screening 1967 Albumin/Creatinine Ratio 1973 Hepatitis C Screening 1973 DTap/Tdap Vaccines (1 - Tdap) 1974 Cologuard 02/23/2000 Colonoscopy 02/23/2000 Colorectal Cancer Screening 02/23/2000 Fecal Occult Blood Test 02/23/2000 Sigmoidoscopy 02/23/2000 Pneumococcal Vaccine: 50+ Years (1 of 1 - PCV) 2005 AAA Screening 02/23/2020 COVID-19 Vaccine ( - season) 2023 03/13/2021, 07/10/2020, 06/19/2020 Influenza Vaccine [...] this encounter Medical Devices Implanted Type Area Construction Field Engineer Device Identifier Shelf Expiration Date Model / Serial / Lot Suture Steel 6 B&S19 M654g - [id number] Implanted:Qty: 8 on 06/22/2024 by Faisal Guzman MD at OR [facility] N/A: Sternum JNJ : [employer] 01/18/2029 M654G / / [id number] Marker Coronary - [id number] Implanted:Qty: 1 on 06/22/2024 by Faisal Guzman MD at OR [facility] N/A: Aorta [employer] 03/20/2027 [facility] / / [id number] Valve Aortic Avalus 25mm - [id number] - [id number] Implanted:Qty: 1 on 06/22/2024 by Faisal Guzman MD at OR [facility] N/A: Heart [employer] [id number] 01/18/2027 [id number] / [id number] / [id number] Patch Pericardium Bovine 8x14 - [id number] - [id number] Implanted:Qty: 1 on 06/22/2024 by Faisal Guzman MD at OR [facility] N/A: Aorta [employer] [id number] 09/15/2029 E8P14 / [id number] / [id number] documented as of this encounter Procedures Procedure Name Priority Date/Time Associated Diagnosis Comments INR FINGERSTICK, POINT OF CARE STAT 06/29/2024 1:07 PM EDT Atrial fibrillation, unspecified type (HCC) Anticoagulation management encounter documented in this encounter Results * INR FINGERSTICK, POINT OF CARE (06/29/2024 1:07 PM EDT) Fingerstick INR >8.0 INR 1:57 PM EDT [facility] 56- Blood 06/29/2024 1:07 PM EDT 06/29/2024 1:57 PM EDT Narrative [facility] 56-02 - 06/29/2024 1:57 PM EDT Therapeutic ranges for non-operative patients: Prophylaxsis/treatment of DVT: (Range:2.0-3.0) Treatment of pulmonary embolism:(Range:2.0-3.0) Prevention of systemic embolism from: -tissue heart valves -acute myocardial infarction -valvular heart disease -atrial fibrillation (Range: 2.0-3.0) Mechanical prosthetic valves: (Range: 2.5-3.5) [facility] LAB POINT OF C ARE TEST DOCKED DEVICE UNSOLICITED RESULTS Final Result [facility] 56- [address] [place] [id number] documented in this encounter Visit Diagnoses Diagnosis Atrial fibrillation, unspecified type (HCC)- Primary Anticoagulation management encounter Encounter for therapeutic drug monitoring documented in this encounter Advance Directives * Full Code (Latest Code Status on File) Date Activated Date Inactivated Comments 06/22/2024 12:07 PM 06/26/2024 5:53 PM This order re flects the patients wishes and were consensually agreed upon. Question Answer Comments Discussion of Advance Directives occurred with: Patient Care Teams Moth Exterminator Relationship Specialty Start Date End Date Lynn Gibson MD [address] [place], [place] [address] [address] PCP - General Family Medicine 06/10/24 documented as of this encounter
--- OUTSIDE RECORDS SUMMARY | 2024-07-01 13:52 | External Medical Summary | Summary of Care ---
Author Name Unknown Organization [facility] Address [address] [place] [address] Phone [phone] Care Team Providers Care Tow Feeder Name Role Phone Lynn Gibson MD Primary Care Provider [phone] Encounter Details Date Type Department Care Team (Late st Contact Info) Description 06/24/2024 CardioDiagnostic Study Cardiothoracic Surg [facility] [address] [place], [place] [id number] Rita Noyola PA-C [address] [place], [place] [phone] EKG Report Allergies No known active allergiesdocumented as of [...] AM EST documented as of this encounter Procedure Notes * Omer Fleming MD - 06/24/2024 8:52 AM ESTAssociated Order(s): EKG REPORT REASON FOR STUDY: C CONCLUSIONS: Atrial fibrillation with rapid ventricular response Left axis deviation Possible Anterior infarct (cited on or before 23-Jun-2024) ST & T wave abnormality, consider lateral ischemia Abnormal ECG When compared with ECG of 24-Jun-2024 04:24, (unconfirmed) Atrial fibrillation has replaced Sinus rhythm Nonspecific T wave abnormality, improved in Inferior leads Ventricular Rate: 147 Atrial Rate: 156 QRS Duration: 86 QT/QTc: 274/428 ms P-R-T [place]: 0 : -32 : 148 degrees documented in this encounter Plan of Treatment Upcoming Encounters Date Type Department Care Team (Late st Contact Info) Description 06/28/2024 5:50 PM EDT Anticoagulation Pharmacy, [facility] [address] [place] [address] Pharmacist1, [facility] [address] [place] [address] 06/29/2024 1:10 PM EDT Anticoagulation Pharmacy, [facility] [address] [place] [address] Pharmacist1, [facility] [address] [place] [address] 07/02/2024 1:30 PM EDT Telemedicine Cardiothoracic Surg [facility] [place] [address] [place] [address] Esteban Mcdonald PA-C [address] [place] [address] 07/29/2024 11:45 AM EDT Office Visit Cardiothoracic Surg [facility] [place] [address] [place] [address] Faisal Guzman MD [address] [place] [address] Health Maintenance Due Date Last Done Comments [...] this encounter Medical Devices Implanted Type Area Lunchroom Aide Device Identifier Shelf Expiration Date Model / Serial / Lot Suture Steel 6 B&S19 M654g - [id number] Implanted:Qty: 8 on 06/22/2024 by Faisal Guzman MD at OR [facility] N/A: Sternum JNJ : [employer] 01/18/2029 M654G / / [id number] Marker Coronary - [id number] Implanted:Qty: 1 on 06/22/2024 by Faisal Guzman MD at OR [facility] N/A: Aorta [employer] 03/20/2027 [facility] / / [id number] Valve Aortic Avalus 25mm - [id number] - [id number] Implanted:Qty: 1 on 06/22/2024 by Faisal Guzman MD at OR [facility] N/A: Heart [employer] [id number] 01/18/2027 81502 / [id number] / [id number] Patch Pericardium Bovine 8x14 - [id number] - [id number] Implanted:Qty: 1 on 06/22/2024 by Faisal Guzman MD at OR [facility] N/A: Aorta [employer] [id number] 09/15/2029 E8P14 / [id number] / [id number] documented as of this encounter Procedures Procedure Name Priority Date/Time Associated Diagnosis Comments EKG REPORT 06/24/2024 8:52 AM EST documented in this encounter Results * EKG REPORT (06/24/2024 8:52 AM EST) 06/24/2024 8:52 AM EST Narrative Procedure Note Omer Fleming MD - 06/24/2024 8:52 AM EST REASON FOR STUDY: C CONCLUSIONS: Atrial fibrillation with rapid ventricular response Left axis deviation Possible Anterior infarct (cited on or before 23-Jun-2024) ST & T wave abnormality, consider lateral ischemia Abnormal ECG When compared with ECG of 06-Mar-2025 04:24, (unconfirmed) Atrial fibrillation has replaced Sinus rhythm Nonspecific T wave abnormality, improved in Inferior leads Ventricular Rate: 147 Atrial Rate: 156 QRS Duration: 86 QT/QTc: 274/428 ms P-R-T [place]: 0 : -32 : 148 degrees Rita Noyola PA-C EKG Final Result documented in this encounter Advance Directives * Full Code (Latest Code Status on File) Date Activated Date Inactivated Comments 06/22/2024 12:07 PM 06/26/2024 5:53 PM This order re flects the patients wishes and were consensually agreed upon. Question Answer Comments Discussion of Advance Directives occurred with: Patient Care Teams Tow Feeder Relationship Specialty Start Date End Date Lynn Gibson MD [address] [place] [address] [place] [address] PCP - General Family Medicine 06/10/24 documented as of this encounter
--- OUTSIDE RECORDS SUMMARY | 2024-07-01 13:53 | External Medical Summary | Summary of Care ---
Author Name Unknown Organization [facility] Address [address] [place] [address] Phone [phone] Care Team Providers Care Dry Starch Operator Name Role Phone Lynn Gibson MD Primary Care Provider [phone] Reason for Visit * Reason Comments Referral * Evaluate & Treat - Unlimited Visits (Within 3 days (urgent)) - Authorized Specialty Diagnoses / Procedures Referred By Julian lam Referred To Contact ANTI-COAG CLINIC / Pharmacy Diagnoses Arrhythmia Kelsi Morales CRNP [address] [place] [address] Phone: tel: fax: Referral ID Status Reason Start Date Expiration Date Visits Requested Visits Authorized [id number] Authorized Specialty Services Required 06/25/2024 12/22/2024 99 99 Encounter Details Date Type Department Care Team (Latest Contact Info) Description 06/25/2024 5:10 PM EST Anticoagulation Pharmacy, [facility] [address] [place] [address] Pharmacist1, [facility] [address] [place] [address] Anticoagulation management encounter*; Atrial fibrillation, unspecified type (HCC) Allergies No known active allergiesdocumented as of this encounter (statuses as of 06/25/2024) Medications triamcinolone acetonide (ARISTOCORT) 0.1 % creamIndication s:Rash and nonspecific skin eruption Apply topically to affected area 2 times a day. To affected area. 45 g 1 7 Suspended Lisinopril 40 MG Oral Tablet Take 1 Tablet by mouth every evening. 5 Suspended Atorvastatin Calcium 40 MG Oral Tablet (Lipitor) Take 1 Tablet by mouth in the morning. 4 Suspended Clopidogrel Bisulfate 75 MG Oral Tablet (pLAVix) Take 1 Tablet by mouth in the morning. 4 Suspended Mupirocin 2 % External Ointment (Bactroban) Apply pea sized amount to cotton swab and swab each nasal passage twice daily for the five days leading up to surgery. Do not start before June 17, 2024. 22 g 5 Suspended documented as of this encounter (statuses as of 06/25/2024) Active Problems Problem Noted Date Diagnosed Date Arrhythmia 06/25/2024 Primary hypertension 06/22/2024 Hyperlipidemia 06/22/2024 CVA (cerebral vascular accident) 06/22/2024 Aortic valve stenosis, unspecified etiology 05/22 documented as of this encounter (statuses as of 06/25/2024) Social History Tobacco Use Types Packs/Day Years [...] as of this encounter Progress Notes * [facility] - 06/25/2024 10:52 AM EST Patient is a new referral to [facility] from RAJESH Herrera, indication is atrial fibrillation. Target INR is 2.0-3.0. Expected duration of anticoagulation is 6 months, target end date 12/26/24. Patient is currently admitted at [facility] in the CICU. Will follow-up Friday to check if discharged. [facility] RPh, PharmD, BCACP Clinical Pharmacist Medication Therapy Management Clinic 06/25/24, 10:52 AM documented in this encounter Plan of Treatment Upcoming Encounters Date Type Department Care Team (Late st Contact Info) Description 06/28/2024 6:30 AM EDT Anticoagulation Pharmacy, [facility] 200 [place] [address] Pharmacist1, [facility] [address] [facility] [place] [address] 07/29/2024 11:45 AM EDT Office Visit Cardiothoracic Surg [facility] [address] [place] [address] Faisal Guzman MD [address] [place], [place] [phone] Scheduled Orders Name Type Priority Associated Diagnoses Orde r Schedule PT INR Lab Routine Atrial fibrillation, unspecified type (HCC) Anticoagulation management encounter 26 Occurrences starting 06/25/2024 until 06/25/2025 INR FINGERSTICK, POINT OF CARE Point of Care Testing - Unsolicited Results STAT Atrial fibrillation, unspecified type (HCC) Anticoagulation management encounter Every 2 Weeks for 26 Occurrences starting 06/25/2024 until 06/25/2025 Health Maintenance Due Date Last Done Comments Depression Screening 1967 Albumin/Creatinine Ratio 1973 Hepatitis C Screening 1973 DTap/Tdap Vaccines (1 - Tdap) 1974 Cologuard 02/23/2000 Colonoscopy 02/23/2000 Colorectal Cancer Screening 02/23/2000 Fecal Occult Blood Test 02/23/2000 Sigmoidoscopy 02/23/2000 Pneumococcal Vaccine: 50+ Years (1 of 1 - PCV) 2005 AAA Screening 02/23/2020 COVID-19 Vaccine (4 - season) 2023 03/13/2021, 07/10/2020, 06/19/2020 Influenza Vaccine (FLU shot) (#1) 2023 GFR 06/25/2025 06/25/2024, 03/0 09/2024, 06/24/2024, Additional history exists Diabetes Screening 06/26/2027 06/25/2024, 0 06/24/2024, 06/24/2024, Additional history exists Zoster Vaccines Completed [...] this encounter Medical Devices Implanted Type Area Enrollment Counselor Device Identifier Shelf Expiration Date Model / Serial / Lot Suture Steel 6 B&S19 M654g - [id number] Implanted:Qty: 8 on 06/22/2024 by Faisal Guzman MD at OR [facility] N/A: Sternum JNJ : [employer] 01/18/2029 M654G / / [id number] Marker Coronary - [id number] Implanted:Qty: 1 on 06/22/2024 by Faisal Guzman MD at OR [facility] N/A: Aorta [employer] 03/20/2027 [facility] / / [id number] Valve Aortic Avalus 25mm - [id number] - [id number] Implanted:Qty: 1 on 06/22/2024 by Faisal Guzman MD at OR [facility] N/A: Heart [employer] [id number] 01/18/2027 55902 / [id number] / [id number] Patch Pericardium Bovine 8x14 - [id number] - [id number] Implanted:Qty: 1 on 06/22/2024 by Faisal Guzman MD at OR [facility] N/A: Aorta [employer] [id number] 09/15/2029 E8P14 / [id number] / [id number] documented as of this encounter Visit Diagnoses Diagnosis Anticoagulation management encounter- Primary Encounter for therapeutic drug monitoring Atrial fibrillation, unspecified type (HCC) documented in this encounter Advance Directives * Full Code (Latest Code Status on File) Date Activated Date Inactivated Comments 06/22/2024 12:07 PM This order ref lects the patients wishes and were consensually agreed upon. Question Answer Comments Discussion of Advance Directives occurred with: Patient Care Teams Dry Starch Operator Relationship Specialty Start Date End Date Lynn Gibson MD [address] [place] [address] [place] [address] PCP - General Family Medicine 06/10/24 documented as of this encounter
--- OUTSIDE RECORDS SUMMARY | 2024-07-01 13:53 | External Medical Summary ---
Author Name Unknown Address Unknown Organization K01:LABORATORY [facility] - [facility] [address] [facility] [address] Laboratory Report Ordering Provider Test Date Status ONEL ZAMAN 06/26/2024 09:12:00 Final Get Heparin, unfractionated (Xa) level 6 hours after start of infusion and 6 hours after each dose adjustment Observation Date Value Abnormality Reference (Units ) Status Heparin, unfractionated level 06/26/2024 09:12:00 0.34 Above high normal <0.10 (IU/mL) Final Unfractionated therapeutic r anges for Anti Xa activity:
For Cardiac/Neurologic treatment: 0.3 to 0.6 IU/mL.
For treatment of DVT or Pulmonary Embolism: 0.3 to 0.7 IU/mL. Performing Location LABORATORY [facility] - [facility] [place] [address]
--- OUTSIDE RECORDS SUMMARY | 2024-07-01 13:53 | External Medical Summary ---
Author Name Unknown Address Unknown Organization [id number]:[facility] [place] [facility] [address] [facility] [address] Laboratory Report Ordering Provider Test Date Status SUZANNE DING 06/25/2024 04:01:00 Final Observation Date Value Abnormality Reference (Units ) Status WBC, Total 06/25/2024 04:01:00 11.70 Above high normal 4.00-10.80 (K/uL) Final RBC 06/25/2024 04:01:00 3.44 4.50-5.25 (M/uL) Final Hemoglobin 06/25/2024 04:01:00 10.9 Below low normal 14.0-16.8 (g/dL) Final HCT 06/25/2024 04:01:00 33.6 Below low normal 40.0-48.4 (%) Final MCV 06/25/2024 04:01:00 97.7 82.0-99.5 (fL) Final MCH 06/25/2024 04:01:00 31.7 27.0-34.0 (pg) Final MCHC 06/25/2024 04:01:00 32.4 32.0-36.0 (g/dL) Final RDW 06/25/2024 04:01:00 12.7 11.5-15.5 (%) Final Platelets 06/25/2024 04:01:00 85 Below low normal 140-400 (K/uL) Final MPV 06/25/2024 04:01:00 11.4 6.6-11.1 (fL) Final Nucleated erythrocytes/100 leukocytes [Ratio] in Blood by Automated count 06/25/2024 04:01:00 0 <=0 (/100 WBCs) Final Performing Location [facility] [place] [address] [place] [address]
--- OUTSIDE RECORDS SUMMARY | 2024-07-01 13:53 | External Medical Summary ---
Author Name Unknown Address Unknown Organization [id number]:LAB[facility]ATORY [facility] [place] - [address] [place] [address] Laboratory Report Ordering Provider Test Date Status ONEL ZAMAN 06/25/2024 08:20:00 Final Observation Date Value Abnormality Reference (Units ) Status Heparin, unfractionated level 06/25/2024 08:20:00 <0.10 <0.10 (IU/mL) Final Unfractionated therapeutic r anges for Anti Xa activity:
For Cardiac/Neurologic treatment: 0.3 to 0.6 IU/mL.
For treatment of DVT or Pulmonary Embolism: 0.3 to 0.7 IU/mL. Performing Location LAB[facility]ATORY [facility] [place] - [address] [place] [address]
--- OUTSIDE RECORDS SUMMARY | 2024-07-01 13:53 | External Medical Summary ---
Author Name Unknown Address Unknown Organization [id number]:LABORATORY [facility] [place] - [facility] [address] [place] [address] Laboratory Report Ordering Provider Test Date Status SUZANNE DING 06/24/2024 04:50:00 Final Observation Date Value Abnormality Reference (Units ) Status BUN 06/24/2024 04:50:00 21 Above high normal 6-20 (mg/dL) Final Creatinine 06/24/2024 04:50:00 1.4 Above high normal 0.6-1.2 (mg/dL) Final Glomerular filtration rate/1.73 sq M.predicted [Volume Rate/Area] in Serum, Plasma or Blood by Creatinine-based formula (CKD-EPI) 06/24/2024 04:50:00 53 Below low normal >=60 (mL/min) Final eGFR is calculated based on the CKD-EPI 2020 equation. Sodium 06/24/2024 04:50:00 138 135-146 (m mol/L) Final Potassium 06/24/2024 04:50:00 4.6 3.5-5.1 (m mol/L) Final Cl 06/24/2024 04:50:00 103 98-107 (mm ol/L) Final CO2 06/24/2024 04:50:00 25 22-32 (mmo l/L) Final Anion gap 06/24/2024 04:50:00 10 7-15 (mmol /L) Final Glucose 06/24/2024 04:50:00 125 Above high normal 70 -120 (mg/dL) Final Calcium 06/24/2024 04:50:00 8.8 8.4-10.2 ( mg/dL) Final Performing Location LABORATORY [facility] [place] - [address] [place] [address]
--- OUTSIDE RECORDS SUMMARY | 2024-07-01 13:53 | External Medical Summary ---
Author Name Unknown Address Unknown Organization K01:LABORATORY [facility] - [address] [place] [address] Laboratory Report Ordering Provider Test Date Status SUZANNE DING 06/24/2024 04:50:00 Final Observation Date Value Abnormality Reference (Units ) Status Magnesium 06/24/2024 04:50:00 2.2 1.5-2.6 (m g/dL) Final Performing Location LABORATORY [facility] - [address] [place] [address]
--- OUTSIDE RECORDS SUMMARY | 2024-07-01 13:53 | External Medical Summary ---
Author Name Unknown Address Unknown Organization K01:LABORATORY [facility] [place] - [facility] [place][note 2] [address] [facility] [address] Laboratory Report Ordering Provider Test Date Status ONEL ZAMAN 06/25/2024 20:22:00 Final Get Heparin, unfractionated (Xa) level 6 hours after start of infusion and 6 hours after each dose adjustment Observation Date Value Abnormality Reference (Units ) Status Heparin, unfractionated level 06/25/2024 20:22:00 0.13 Above high normal <0.10 (IU/mL) Final Unfractionated therapeutic r anges for Anti Xa activity:
For Cardiac/Neurologic treatment: 0.3 to 0.6 IU/mL.
For treatment of DVT or Pulmonary Embolism: 0.3 to 0.7 IU/mL. Performing Location LABORATORY [facility] [place] - [facility] [place][note 2] [place] [address]
--- OUTSIDE RECORDS SUMMARY | 2024-07-01 13:53 | External Medical Summary ---
Author Name Unknown Address Unknown Organization K01:LABORATORY [facility] [place] - [facility] [address] [place] [address] Laboratory Report Ordering Provider Test Date Status ONEL ZAMAN 06/26/2024 03:28:00 Final Get Heparin, unfractionated (Xa) level 6 hours after start of infusion and 6 hours after each dose adjustment Observation Date Value Abnormality Reference (Units ) Status Heparin, unfractionated level 06/26/2024 03:28:00 0.32 Above high normal <0.10 (IU/mL) Final Unfractionated therapeutic r anges for Anti Xa activity:
For Cardiac/Neurologic treatment: 0.3 to 0.6 IU/mL.
For treatment of DVT or Pulmonary Embolism: 0.3 to 0.7 IU/mL. Performing Location LABORATORY [facility] [place] - [facility] [place] [address]
--- OUTSIDE RECORDS SUMMARY | 2024-07-01 13:53 | External Medical Summary ---
Author Name Unknown Address Unknown Organization K01:LABORATORY [facility] [place] - [address] [place] [address] Laboratory Report Ordering Provider Test Date Status SUZANNE DING 06/26/2024 03:28:00 Final Observation Date Value Abnormality Reference (Units ) Status BUN 06/26/2024 03:28:00 21 Above high normal 6-20 (mg/dL) Final Creatinine 06/26/2024 03:28:00 1.1 0.6-1.2 (mg/dL) Final Glomerular filtration rate/1.73 sq M.predicted [Volume Rate/Area] in Serum, Plasma or Blood by Creatinine-based formula (CKD-EPI) 06/26/2024 03:28:00 75 >=60 (mL/min) Final eGFR is calculated based on the CKD-EPI 2020 equation. Sodium 06/26/2024 03:28:00 139 135-146 (m mol/L) Final Potassium 06/26/2024 03:28:00 4.0 3.5-5.1 (m mol/L) Final Cl 06/26/2024 03:28:00 102 98-107 (mm ol/L) Final CO2 06/26/2024 03:28:00 24 22-32 (mmo l/L) Final Anion gap 06/26/2024 03:28:00 13 7-15 (mmol /L) Final Glucose 06/26/2024 03:28:00 122 Above high normal 70 -120 (mg/dL) Final Calcium 06/26/2024 03:28:00 8.7 8.4-10.2 ( mg/dL) Final Performing Location LABORATORY [facility] [place] - [address] [place] [address]
--- OUTSIDE RECORDS SUMMARY | 2024-07-01 13:53 | External Medical Summary ---
Author Name Unknown Address Unknown Organization K01:LABORATORY [facility] - [address] [place] [address] Laboratory Report Ordering Provider Test Date Status SUZANNE DING 06/25/2024 04:01:00 Final Observation Date Value Abnormality Reference (Units ) Status Magnesium 06/25/2024 04:01:00 2.0 1.5-2.6 (m g/dL) Final Performing Location LABORATORY [facility] - [address] [place] [address]
--- OUTSIDE RECORDS SUMMARY | 2024-07-01 13:53 | External Medical Summary ---
Author Name Unknown Address Unknown Organization K01:LAB[facility]ATORY [facility] [place] - [address] [facility] [address] Laboratory Report Ordering Provider Test Date Status ONEL ZAMAN 06/25/2024 08:20:00 Final Anticoagulation may affect t esting. Refer to [employer] Test Catalog for a list of effects. Observation Date Value Abnormality Reference (Units ) Status aPTT panel - Platelet poor plasma 06/25/2024 08:20:00 66 Above high normal 21-38 (seconds) Final Performing Location LABORATORY [facility] [place] - [address] [facility] [address]
--- OUTSIDE RECORDS SUMMARY | 2024-07-01 13:53 | External Medical Summary ---
Author Name Unknown Address Unknown Organization K01:LAB[facility]ATORY [facility] [place] - [address] [facility] [place] [address] Laboratory Report Ordering Provider Test Date Status SUZANNE DING 06/25/2024 04:01:00 Final Observation Date Value Abnormality Reference (Units ) Status SYNC LEUKOCYTES IN BLOOD BY AUTOMATED COUNT 06/25/2024 04:01:00 11.70 Above high normal 4.00-10.80 (K/uL) Final Segs 06/25/2024 04:01:00 76.0 Above high normal 40.0-75.0 (%) Final Lymphs % 06/25/2024 04:01:00 11.9 Below low normal 18.0-42.0 (%) Final Monos 06/25/2024 04:01:00 10.3 1.0-11.0 (%) Final Eosinophils 06/25/2024 04:01:00 0.9 0.0-6.0 (%) Final Basos 06/25/2024 04:01:00 0.4 0.0-2.0 (%) Final Immature Granulocyte, Percent 06/25/2024 04:01:00 0.5 0.0-2.0 (%) Final Absolute Segs 06/25/2024 04:01:00 8.88 Above high normal 1.80-7.70 (K/uL) Final Lymphs, absolute 06/25/2024 04:01:00 1.39 1.00-4.80 (K/ul) Final Monos, Abs 06/25/2024 04:01:00 1.21 Above high normal 0.00-1.10 (K/uL) Final Eos, Abs 06/25/2024 04:01:00 0.11 0.00-0.70 (K/uL) Final Basos, Abs 06/25/2024 04:01:00 0.05 0.00-0.20 (K/uL) Final Immature Granulocytes, Number 06/25/2024 04:01:00 0.06 0.00-0.20 (K/uL) Final Performing Location LABORATORY [facility] [place] - [facility] [place] [address]
--- OUTSIDE RECORDS SUMMARY | 2024-07-01 13:53 | External Medical Summary ---
Author Name Unknown Address Unknown Organization K01:LABORATORY [facility] [place] - [address] [place] [address] Laboratory Report Ordering Provider Test Date Status ONEL ZAMAN 06/25/2024 08:20:00 Final Warfarin Therapy
INR: 2 .0-3.0 conventional anticoagulation
INR: 2.5- 3.5 high intensity anticoagulation Observation Date Value Abnormality Reference (Units ) Status PT 06/25/2024 08:20:00 14.5 11.6-15.2 (seconds) Final INR 06/25/2024 08:20:00 1.1 0.8-1.2 Final Performing Location LABORATORY [facility] [place] - [address] [place] [address]
--- OUTSIDE RECORDS SUMMARY | 2024-07-01 13:53 | External Medical Summary ---
Author Name Unknown Address Unknown Organization K01:[facility] [place] [facility] [address] [place] [address] Laboratory Report Ordering Provider Test Date Status SUZANNE DING 06/25/2024 04:01:00 Final Observation Date Value Abnormality Reference (Units ) Status BUN 06/25/2024 04:01:00 20 6-20 (mg/dL) Final Creatinine 06/25/2024 04:01:00 1.2 0.6-1.2 (mg/dL) Final Glomerular filtration rate/1.73 sq M.predicted [Volume Rate/Area] in Serum, Plasma or Blood by Creatinine-based formula (CKD-EPI) 06/25/2024 04:01:00 67 >=60 (mL/min) Final eGFR is calculated based on the CKD-EPI 2020 equation. Sodium 06/25/2024 04:01:00 137 135-146 (m mol/L) Final Potassium 06/25/2024 04:01:00 4.3 3.5-5.1 (m mol/L) Final Cl 06/25/2024 04:01:00 103 98-107 (mm ol/L) Final CO2 06/25/2024 04:01:00 26 22-32 (mmo l/L) Final Anion gap 06/25/2024 04:01:00 8 7-15 (mmol /L) Final Glucose 06/25/2024 04:01:00 129 Above high normal 70 -120 (mg/dL) Final Calcium 06/25/2024 04:01:00 8.6 8.4-10.2 ( mg/dL) Final Performing Location [facility] [place] [address] [place] [address]
--- OUTSIDE RECORDS SUMMARY | 2024-07-01 13:53 | External Medical Summary | Summary of Care ---
Author Name Unknown Organization [facility] Address [address] [place] [address] Phone [phone] Care Team Providers Care Hand Bookbinder Name Role Phone Lynn Gibson MD Primary Care Provider [phone] Reason for Referral * Evaluate & Treat - Unlimited Visits (Within 3 days (urgent)) - Authorized Specialty Diagnoses / Procedures Referred By Julian lam Referred To Contact [facility]AG CL[facility] / Pharmacy Diagnoses Arrhythmia Kelsi Morales CRNP [address] [place] [address] Phone: tel: fax: Referral ID Status Reason Start Date Expiration Date Visits Requested Visits Authorized [id number] Authorized Specialty Services Required 06/25/2024 12/22/2024 99 99 Question Answer Referral Priority Within 3 days (urgent) Where should this appointment be scheduled? Iraj Comments Anticoagulation referral for management of: Warfarin Indication and INR goal for Warfarin Management: Stroke Prevention: Atrial Fibrillation/Flutter 2.0 - 3.0 Relevant History: N/A Enoxaparin bridging required? No Minimum frequency patient should be seen in person for medication management: as appropriate per clinical condition and patient status By my signature, I understand that my patient Ravi uYsuf will have his medication therapy managed by the [facility] ([facility]) per established policies, procedures, and protocols. I also certify that this referral may serve as an initiation of service for the management of drug therapy in the above noted patient. [facility] providers will be responsible for scheduling patient visits, obtaining appropriate laboratory studies, and adjusting medication management therapy per patient's need, in addition to those roles spelled out in the clinic policy, procedures, and drug management protocols. I understand that the service provided by the [facility] Clinic is voluntary and have informed patient that they can refuse the service at their discretion. I am aware that the [facility] Clinic will provide me with a copy of the patient encounter via my [employer] [facility]. I authorize the [facility] Clinic to carry out these activities on my behalf. I consider this program to be a necessary part of the patient's medical care. RAJESH Ortiz Discharge Order * Evaluate & Treat - Unlimited Visits (Within 30 days (routine)) - Authorized Specialty Diagnoses / Procedures Referred By Julian lam Referred To Contact CARDIAC REHAB / Cardiology Diagnoses S/P AVR (aortic valve replacement) Spencer Castro PA-C [address] [place] [address] Phone: tel: fax: Referral ID Status Reason Start Date Expiration Date Visits Requested Visits Authorized [id number] Authorized Specialty Services Required 06/22/2024 999 999 Question Answer Referral Priority Within 30 days (routine) Where should this appointment be scheduled? Iraj Shanks Discharge Order Reason for Visit * Auth/Cert Specialty Diagnoses / Procedures Referred By Julian lam Referred To Contact Diagnoses Aortic valve stenosis, unspecified etiology Aortic valve stenosis, unspecified etiology [I35.0] Procedures REPLACEMENT AORTIC VALVE, BYPASS WITH PROSTHETIC VALVE CABG, ARTERIAL, SINGLE CABG, ARTERY-VEIN, TWO ENDO,VIDEO ASSIST HARVEST JUAN CARLOS REPLACEMENT AORTIC VALVE, BYPASS WITH PROSTHETIC VALVE CORONARY ARTERY BYPASS GRAFT USING ARTERY 1 GRAFT CORONARY ARTERY BYPASS GRAFT ARTERIAL AND VENOUS 2 GRAFTS ENDOSCOPY VIDEO ASSISTED HARVEST VEIN Faisal Guzman MD [address] [place] [address] Phone: tel: fax: [place] [facility] [address] [place] [address] Phone: tel: Referral ID Status Reason Start Date Expiration Date Visits Re quested Visits Authorized [id number] Encounter Details Date Type Department Care Team (Latest Contact Info) Description 06/22/2024 5:26 AM EST - 06/26/2024 1:47 PM EST Hospital Encounter CICU, Cardiac Intensive Care Unit [facility] 7TH Floor [address] [place] [address] Faisal Guzman MD [address] [place] [address] Various: EKG,KRAVS Discharge Disposition: Home - Self Care Allergies No known active allergiesdocumented as of this encounter (statuses as of 06/27/2024) Medications triamcinolone acetonide (ARISTOCORT) 0.1 % creamIndicatio ns:Rash and nonspecific skin eruption Apply topically to affected area 2 times a day. To affected area. 45 g 1 017 Active Atorvastatin Calcium 40 MG Oral Tablet (Lipitor) Take 1 Tablet by mouth in the morning. 024 Active Clopidogrel Bisulfate 75 MG Oral Tablet (pLAVix) Take 1 Tablet by mouth in the morning. 024 Active oxyCODONE HCl 5 MG Oral Tablet (Oxy IR) Take 1 Tablet by mouth every 4 hours as needed for severe pain. 10 Tablet 06/27/19 25 11:50 AM EST 025 Active Amiodarone HCl 200 MG Oral Tablet (Cordarone) Take 1 tablet by mouth 2 times a day with morning and evening meals for 7 days, THEN take 1 tablet daily with breakfast for 23 days. 37 Tablet 06/27/19 25 11:50 AM EST 025 2024 Active Docusate Sodium 100 MG Oral Capsule (Colace) Take 1 Capsule by mouth 2 times a day as needed for Constipation. 20 Capsule 06/27/19 25 11:50 AM EST 025 Active Furosemide 40 MG Oral Tablet (Lasix) Take 1 Tablet by mouth in the morning. Take for 30 days, then stop. 30 Tablet 06/27/19 25 11:50 AM EST Active Potassium Chloride ER 10 MEQ Oral Tablet Extended Release Take 2 Tablets by mouth in the morning. Take for 30 days, then stop. 60 Tablet 06/27/19 25 11:50 AM EST Active Vitamin and Mineral 28-0.8 MG Oral Tablet Take 1 Tablet by mouth daily in the morning. 30 Tablet 1 06/27/19 25 11:50 AM EST Active Famotidine 20 MG Oral Tablet (Pepcid) Take 1 Tablet by mouth in the morning. Take for 30 days, then stop. 30 Tablet 06/27/19 25 11:50 AM EST Active Warfarin Sodium 5 MG Oral Tablet (Coumadin) Take by mouth every evening as directed by the anticoagulation clinic. 30 Tablet 6 06/27/19 25 11:50 AM EST 025 Active Lisinopril 40 MG Oral Tablet Take 1 Tablet by mouth every evening. 025 2024 Discontinued Mupirocin 2 % External Ointment (Bactroban) Apply pea sized amount to cotton swab and swab each nasal passage twice daily for the five days leading up to surgery. Do not start before June 17, 2024. 22 g 025 2024 Discontinued documented as of this encounter (statuses as of 06/27/2024) Active Problems Problem Noted Date Diagnosed Date [...] as of this encounter (statuses as of 06/27/2024) Social History Tobacco Use Types Packs/Day Years Used Date Smoking Tobacco: Former Cigarettes Q uit: 1969 Smokeless Tobacco: Current Tobacco Cessation:Ready to Q uit: Not Asked; Counseling Given: Not Answered Alcohol Use Standard Drinks/Week Comments Not Currently 0 (1 standard drink = 0.6 oz pur e alcohol) occ Sex and Gender Information Value Date Recorded Sex Assigned at Male 05/25/2024 8:20 AM EST Legal Sex Male 5:07 AM EST Gender Identity Male 05/25/2024 8:20 AM EST Sexual Orientation Straight 05/25/2024 8: 20 AM EST documented as of this encounter Last Filed Vital Signs Vital Sign Reading Time Taken Comments Blood Pressure 144/71 06/26/2024 10:00 AM EST Pulse 62 06/26/2024 10:00 AM EST Temperature 36.9 C (98.4 F) 06/26/2024 8:00 AM ES T Respiratory Rate 18 06/26/2024 9:00 AM EST Oxygen Saturation 100% 06/26/2024 9:00 AM EST Inhaled Oxygen Concentration - - Weight 84.6 kg (186 lb 8.2 oz) 06/26/2024 5:00 A M EST Height 172.7 cm (5' 8") 06/22/2024 5:30 AM EST Body Mass Index 28.36 06/22/2024 5:30 AM EST documented in this encounter Discharge Instructions * Discharge Instr - AVS* Kelsi Morales CRNP - 06/25/2024 1:14 PM EST Discharge Date: 06/26/2024 You may call of the department of Cardiothoracic Surgery at [phone] during businesshours for any questions or test results. After hours emergencies: Call [phone] and have the Cardiothoracic Surgery service paged. The information below provides you with the instructions and the list of medications you need to betaking following discharge from the hospital. If you have any questions, please ask before leaving.Please carry this letter with you when you see your doctor in the clinic. If you have questions, you can reach us at the numbers above. Brief summary of your inpatient care: You underwent aortic valve replacement and coronary artery bypass x 1 using a vein from your leg. Your doctors during this hospitalization included: Dr.Friscia Your primary diagnosis at discharge was severe , CAD s/p AVR, CABG x1. Inpatient test results pending: None Operations & Procedures: 1. Aortic valve replacement #25 Avalus bioprosthetic valve with bovine pericardial patch of aorta 2. CABG x 1 (Ao-LPL using reversed saphenous vein) 3. Endoscopic saphenous vein harvest Complications: atrial fibrillation Advance Directive Documented: Advance Directive Does the Patient have an Advance Directive? No Diet: Normal diet Activity: No strenuous activity for 8 weeks and No lifting or pushing or pulling more than 10 lbs for 8 weeks Driving: Do not drive until after 4 weeks from discharge. After 4 weeks, you may drive as long as your are not taking narcotics and are able to apply firm pressure to gas and break and can turn the steering wheel . Date you may return to work or school: Based on further instruction reviewed by surgeon after follow up visit. See your primary care physician (Lynn Gibson MD) in 2 weeks Follow-up with: Follow-up with cardiac surgery PA in 1 week, cardiac surgeon in 1 month, cardiologyin 4-6 weeks, and your primary care doctor in 2 weeks. These appointments have been requested for you. Routine wound/surgical site care: Soap and water, open to air. If skin glue present, some will peeloff on its own- you may peel it off completely in 1 week. Continue to wash over it daily. Remove any Band-Aids or dressing and CHANGE daily if needed. Watch for signs of infections: including increased redness, swelling, drainage, opening of either your sternal incision or leg incision, fever or chills. If this occurs call the office number above immediately and a surgeon or PA will see you immediately. Wear your CHEY stockings or ANDREI wraps during the day and remove at night. This helps to prevent tension on your incisions and prevents swelling. Weigh Yourself daily: You should SHOWER daily. Use soap and water on your incisions. DO NOT take tub baths. Medications: Prescriptions that are given without refills are only required for 30 days. Other Special Instructions: Home: Wound care/surgical site care: Soap and water, open to air: everyday and as needed You will receive a call from the Cardiac Rehab to schedule your Consultation. If not arranged by the time of your post-op follow-up visit, please let your surgical team know and this can be arranged. If you feel suicidal or homicidal, please call the crisis hotline at [phone] ([phone]). * Pharmacy Instr - AVS* Mira Webber [facility] - 06/25/2024 9:39 AM EST Warfarin dosing instructions for after discharge: You will receive a prescription for Warfarin 5 mg tablets. Please take the following doses of warfarin by mouth after Discharge: Date Dose using warfarin 5 mg Tablets Monday 06/26 Take 1 tablet = 5 mg Tuesday 06/27 Take 1 tablet = 5 mg Wednesday 06/28 Take 1/2 tablet = 2.5 mg Thursday 06/29 INR Check Your first INR is scheduled for June 29 at 1:10PM at the [facility]. The anticoagulation clinic pharmacist will provide you with further dosing and appointment instructions. If you have any questions regarding your anticoagulation therapy, please Contact Anticoagulation Clinic at [phone] or . Please share the following information with your provider: You were started on WARFARIN for Stroke Prevention: Atrial Fibrillation/Flutter (INR goal: 2 - 3) Valves: Bioprosthetic (Tissue) Aortic Valve (INR goal: 2 - 3) x 3 months. This is a NEW diagnosis. Your Anticipated Duration of Therapy: 3 Months, Cardio Surgery will provided definite stop date after follow-up. Because you have been placed on a blood thinner, your therapy will need to be monitored on a regular basis. You will have your Anticoagulation Managed By: [facility] . While you were in the hospital, you medication doses received and your corresponding labs were: INR Date/Time Value Ref Range Status 06/26/2024 [...] 103 (L) 140 - 400 K/uL Final Warfarin Administrations (last 720 hours) Date/Time Action Medication Dose 06/25/242019 Given Warfarin Sodium (Coumadin) tab 5 mg 5 mg documented in this encounter Progress Notes * Mira Webber RPh - 06/26/2024 8:08 AM EST PHARMACY ANTICOAGULATION WARFARIN (Coumadin) Assessment [address] [address] Name: Ravi Yusuf [place] [facility] Date: 06/26/2024 Time: 8:08 AM Ravi Yusuf is a 69 year old male admitted for Aortic valve stenosis, unspecified etiology.Pharmacy was consulted for warfarin dosing and monitoring. Anticoagulation Therapy Goals Stroke Prevention: Atrial Fibrillation/Flutter (2 - 3) Valves: Bioprosthetic (Tissue) Valve (2 - 3) x 3 months Anticipated Duration of Therapy: 3 Months Prior to Admission Management Anticoagulation Managed By: Anticoagulation Clinic Anticoagulation Episode Summary Current INR goal: -- TTR: -- Next INR check: -- INR from last check: -- Most recent INR: 1.2 (06/26/2024) Weekly max warfarin dose: -- Target end date: 12/26/2024 INR check location: -- Preferred lab: -- Send INR reminders to: -- Indications Arrhythmia [I49.9] Comments: -- Anticoagulation Care Providers Provider Role Specialty Phone number Kelsi Morales CRNP Referring Nurse Practitioner [phone] Labs INR Date/Time Value Ref Range Status [...] Warfarin Patient Education : Complete and documented Mira Webber, PharmD, BCPS, BCCP, BCCCP, CACP * Danuta Henderson RPh - 06/25/2024 9:38 AM EST PHARMACY ANTICOAGULATION WARFARIN (Coumadin) Assessment [address] [address] Name: Ravi Yusuf [place] [facility] Date: 06/25/2024 Time: 9:38 AM Ravi Yusuf is a 69 year old male admitted for Aortic valve stenosis, unspecified etiology.Pharmacy was consulted for warfarin dosing and monitoring. Anticoagulation Therapy Goals Stroke Prevention: Atrial Fibrillation/Flutter (2 - 3) Valves: Bioprosthetic (Tissue) Valve (2 - 3) Anticipated Duration of Therapy: Lifetime Prior to Admission Management Anticoagulation Managed By: Other (please specify)-new start Anticoagulation Episode Summary Current INR goal: -- TTR: -- Next INR check: -- INR from last check: -- Most recent INR: 1.1 (06/25/2024) Weekly max warfarin dose: -- Target end date: 12/26/2024 INR check location: -- Preferred lab: -- Send INR reminders to: -- Indications Arrhythmia [I49.9] Comments: -- Anticoagulation Care Providers Provider Role Specialty Phone number Kelsi Morales CRNP Referring Nurse Practitioner [phone] Labs INR Date/Time Value Ref Range Status 06/25/2024 08:20 AM 1.1 0.8 - 1.2 Final 06/22/2024 03:09 PM 1.3 (H) 0.8 - 1.2 Final 06/22/2024 12:09 PM 1.4 (H) 0.8 - 1.2 Final HGB Date/Time Value Ref Range Status 06/25/2024 04:01 AM 10.9 (L) 14.0 - 16.8 g/dL Final HCT Date/Time Value Ref Range Status 06/25/2024 04:01 AM 33.6 (L) 40.0 - 48.4 % Final PLT Date/Time Value Ref Range Status 06/25/2024 04:01 AM 85 (L) 140 - 400 K/uL Final Objective Warfarin Administrations (last 720 hours) None Assessment & Plan Assessment Dietary Assessment: Normal/expected PO intake Today's INR : Subtherapeutic Does the patient have any medication interactions: Yes Please comment: Amiodarone, aspirin 81 mg, heparin drip, Are there bleeding concerns with the patient: No Does the patient have any upcoming procedures: No Plan Warfarin Plan: Give Warfarin Specify Warfarin Dose: 5 mg Is the patient receiving a Bridging Agent: Yes Warfarin Patient Education : Incomplete Danuta Saenz RPh documented in this encounter H&P Notes * Rylan Heart CRNP - 06/22/2024 6:30 AM EST HISTORY & PHYSICAL INTERVAL NOTE [facility] [address] History and Physical Update: Name: Ravi Yusuf [place] [facility] Date: 06/22/2024 Time: 6:30 AM DATE OF HISTORY AND PHYSICAL: 05/27/24 BP: 165 mmHg/89 mmHg (06/22/24624) Pulse: 63 (06/22/24624) Resp: 18 (06/22/24624) Temp: 36.22 C (06/22/24624) Temp Summary: Temp Min: 36.2 C (97.2 F) Max: 36.2 C (97.2 F) SpO2: 98 % (06/22/24624) O2 flow rate: Supplemental O2 Delivery: Room Air, None (06/22/24624) Does patient take a beta avelino? No Did patient stop anticoagulants? Yes, Plavix stopped 06/14/24 Heart Exam: regular rate and rhythm, +systolic murmur Lung Exam: clear to auscultation bilaterally Other Pertinent Physical Exam: None at this time I have reviewed the H&P previously performed and examined the patient today. There are no new findings noted. Cosigned by Faisal Guzman MD at 06/22/2024 1:56 PM EST * Adela King CRNP - 06/15/2024 7:02 AM EST Images from the original note were not included. HISTORY AND PHYSICAL EXAMINATION - [facility] Name: Ravi Yusuf Date: 05/27/2024 Time: 945 Pre charting done by Esteban Mcdonald PA-C in efficiency of seeing patient and updated by Esteban Mcdonald PA-C REFERRING PHYSICIAN: Santos Strickland MD PCP: Chaz Portillo MD HOT MAN: DEIRDE Preference for return visit: [facility] Follow up with telephone or video visit at one week. HPI: Ravi Yusuf is a 69 year old male who presents with c/o fatigue,dizziness and lightheadedness and FIGUEROA for about a year.. Work up included cath and ECHO. CAD of Lcx noted with 70% OM branch with severe by ECHO Patient has history of chest pain/angina: No Patient has history of SOB/FIGUEROA: yes with moderate exertion IE stairs Patient has syncope/presyncope: No But gets brief dizziness when standing Presentation associated with endocarditis/bacteremia: No Patient has PMH of: CAD, ,HTN,NSVT,DLD,smoker [place] Heart Failure Classification: Class III (Moderate) ALLERGIES: Allergies Patient has no known allergies. PAST MEDICAL HISTORY: CAD, ,HTN,NSVT,DLD,smoker,CVA 2022 PAST SURGICAL HISTORY: Cataract surgery only Hx of vein harvest or stripping?: no SOCIAL HISTORY: Drug Use: never Social History Social History Tobacco Use Smoking status: Never Smokeless tobacco: Current Substance Use Topics Alcohol use: Not on file Comment: occ Drug use: Not on file Family hx Father from [place] when pt was a child No FH of DM,or thyroid disease Mother with ? Form of cancer Family History of premature CAD: no REVIEW OF SYSTEMS: Constitutional: night sweats this weeks,did not check temperature Eyes: s/p cataract surgery Ear, nose and throat: decreased hearing,no swallowing issues Dental: yearly visits Cardiac: denies previous [place] or chest pains Vascular: no claudication Respiratory: uses dip,gets FIGUEROA with modest activity,needs to stop on stairs Gastrointestinal: denies dysphagia, denies constipation, denies diarrhea, denies blood in bowel movements Genitourinary: denies dysuria, denies diminished stream Musculoskeletal: denies joint pain, denies chronic muscle pain Psychiatric: denies depression, denies anxiety Skin: denies non-healing ulcers, denies jaundice Neurologic: cva 2022 dis-coordination of right hand,no sequelae Endocrine: glucoses well controlled Hematologic / Lymphatic: on plavix for CVA Immunologic: denies trouble fighting infections CARDIOTHORACIC COMPLETE PHYSICAL EXAM: Most Recent Vital Signs: BP 144/86 (BP Site: Right Arm, BP Position: Sitting, BP Cuff Size: Regular) | Pulse 46 | Ht 1.734 m(5' 8.25") | Wt 89.5 kg (197 lb 4.8 oz) | SpO2 97% | BMI 29.78 kg/m | BSA 2.08 m PHYSICAL EXAM: General: no acute distress and stated age,though he and his are unsure of his medications Head: normocephalic, no masses, lesions, tenderness or abnormalities Eyes: conjunctiva are pink and non-injected, sclera clear, PERRLA, EOMI Nose: normal Teeth: teeth present without obvious periodontal disease Neck: supple, no adenopathy, thyroid normal size, non-tender, without nodularity, normal jugular venous pulse, no hepatojugular reflux, bilateral transmitted cardiac murmers Chest: normal shape and normal respiratory effort Lungs: clear to auscultation and percussion Cardiac Exam: regular rate & rhythm With low pitched holosystolic murmer across his chest with radiation to his neck Pulses: The following pulses are normal: carotids, femorals, abdominal aorta, radials, dorsalis pedis pulses, and posterior tibials Abdomen: abdomen soft, non-tender, no abnormal masses, and no hepatosplenomegaly Extremities: no edema, no clubbing, and no cyanosis Skin: skin color, texture, turgor are normal, no rashes or significant lesions Neuro: grossly normal exam Veins GSV appears adequate bilaterally STUDIES: Cardiac Cath Data: 05/12/2024 Echocardiogram:03/2024 Society of Thoracic Surgeons' Risk Score: STS site Procedure Type: CABG + AVR Perioperative OutcomeEstimate % Operative Mortality1.43% Morbidity & Mortality6.75% Stroke0.884% Renal Failure1.16% Reoperation3.14% Prolonged Ventilation4.04% Deep Sternal Wound Infection0.098% Long Hospital Stay (>14 days)3.26% Short Hospital Stay (<6 days)*49.2% *higher values reflect a better outcome Clinical Summary Planned Surgery:CABG + AVR, Elective, First cardiovascular surgery Demographics:69 year old, male, 101kg, 175cm, BMI: 33 kg/m Lab Values:Creatinine: 1 mg/dL Vascular RF:Cerebrovascular Disease: CVA timing unk Cardiac Status:NYHA Class III Coronary Artery Disease:1 vessel diseased Valve Disease:Aortic Stenosis Arrhythmia:Remote V. Tach / V. Fib IMPRESSION: 69 y/o male with CAD, ,HTN,NSVT,DLD,former smoker,hx of CVA PLAN: Per Dr Megan Mcdonald PAZacharyC CARDIOTHORACIC SURG [facility] [phone] CARDIAC SURGERY I have seen and examined the patient with Bert. I am seeing Ravi E Nareshsandip as an evaluation for /CAD, referred by Dr. Strickland. Ravi has symptoms of progressive dyspnea with exertion. Also reports dizzyness when standing up. No chest pain or syncope. 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 None since. Lives in [place], works 2 days per week [employer]. PE demonstrates systolic murmur, clear lungs. STS risk is 1.4% for mortality for AVR/CAB 04/08/24 Exercise stress TTE reviewed, which demonstrates -- resting AV velocity 3.6 m/s -- normal EF -- chest pain and hypotension with stress 05/12/24 Cardiac cath images reviewed, shows -- 70% mid LCx/OM2 -- target on the small side CTA 05/27/24 -- annulus 4.14 cm squared, avg diameter 23 mm -- RCA and LCA both 15 mm from annulus -- no significant LVOT calcium -- adequate transfemoral access IMPRESSION Ravi Yusuf has severe with symptoms. We discussed the natural history of . We discussed the risks and benefits of both surgical and transcatheter aortic valve replacement. We discussed that complication rate is fairly similar in low/intermediate risk patients for both procedures, but r ecovery is faster with TAVR if there are no complications. We discussed that the rate and time to structural valve deterioration is unknown with TAVR, but performance has been generally good out to 8-10 years. We also discussed that in patient's with a life expectancy of over 20 years who are younger than 65, surgery is recommended, due to concerns about future replacement options in the setting of a failing TAVR. TAVR is recommended in patient's over 80 or with a life expectancy of less than 10 yrs and no contraindication to transfemoral approach. Surgery is preferred in the setting of bicuspid aortic valve due to increased risk of moderate paravalvular leak. Risks and benefits of TAVR, as opposed to traditional surgery, were discussed this Included, but not limited to stroke, , vascular injury, limb loss, pacemaker, and uncertainties associated withthe new technology and the possibility of accelerated valve failure. We also discussed that there are difficulties/uncertainties managing a failing TAVR because of poor performance of "TAVR in TAVR" and increased surgical risk in the TAVR population. The patient expressed understanding. The following people were present for the discussion: his The patient would like to consider options, but is leaning towards TAVR. We will arrange visit with structural heart team, re-evaluate. Faisal Guzman M.D. Associate, Thoracic [place] [address] Office [phone] Cosigned by Faisal Guzman MD at 06/16/2024 9:34 PM EST documented in this encounter Procedure Notes * Aaron Mcghee MD - 06/23/2024 4:25 AM ESTAssociated Order(s): EKG REASON FOR STUDY: POST OP CONCLUSIONS: Sinus rhythm with Premature supraventricular complexes Anterior infarct , age undetermined T wave abnormality, consider inferolateral ischemia Abnormal ECG When compared with ECG of 22-Jun-2024 12:16, (unconfirmed) Premature supraventricular complexes are now Present Anterior infarct is now Present T wave inversion now evident in Inferior leads Inverted T waves have replaced nonspecific T wave abnormality in Lateral leads Ventricular Rate: 61 Atrial Rate: 61 AR Interval: 158 QRS Duration: 82 QT/QTc: 470/473 ms P-R-T [place]: 72 : 16 : -41 degrees * Shabbir William MD - 06/22/2024 5:59 AM ESTAssociated Order(s): EKG REASON FOR STUDY: PREOP CONCLUSIONS: Sinus rhythm with Premature supraventricular complexes T wave abnormality, consider anterolateral ischemia Abnormal ECG No previous ECGs available Ventricular Rate: 62 Atrial Rate: 62 AR Interval: 132 QRS Duration: 90 QT/QTc: 432/438 ms P-R-T [place]: 69 : 18 : 51 degrees documented in this encounter Consult Notes * Danuta Henderson [facility] - 06/25/2024 1:43 PM EST PHARMACY MEDICATION TEACHING CONSULT WARFARIN [address] [address] Name: Ravi Yusuf [place] [facility] Date: 06/25/2024 Time: 1:43 PM Requesting Service: Cardio Reason for Warfarin Consult: Atrial fibrillation/flutter ([id number]) and Bioprosthetic Valve Patient Active Problem List Diagnosis Aortic valve stenosis, unspecified etiology Primary hypertension Hyperlipidemia CVA (cerebral vascular accident) (HCC) Arrhythmia Family member(s) present: -Monica Patient agreed to allow visitors to attend teaching, if present. WARFARIN TEACHING Warfarin teaching points covered with patient and/or family: Route, Dosage Form and Schedule (Including importance of taking medication as instructed), Medication Intended Use/Action, Precautions to be Observed while using this Medication, Commonly Encountered Adverse Effects (Including risk of bleeding and potential signs and symptoms), Methods for Self-Monitoring, Laboratory Monitoring (Including compliance with INR monitoring), Potential Drug Interactions (Including medications and dietary changes that potentially affect the INR and interactions with [id number] medications), Therapeutic Contraindications, Potential Food Interactions (Including information about a consistent intake of vitamin K containing foods and the importance of notifying health care provider if any significant changes in their diet), Designated Handout(s) Provided, Follow-up Monitoring (Including review of plans for post- discharge monitoring and follow-up), Prescription Refill Information, Action for a Missed Dose, and Patient Specific Information Written documentation regarding all of the teaching points was provided to the patient and/or family members present. Patient accepted Coumadin education booklet and/or Clinical Pharmacology warfarinpatient education sheet.. Assessment of teaching effectiveness: Patient and asked appropriate questions. All questions answered by the pharmacist. Patient has expressed potential cost/home health concerns and Care Management has been made aware: No Plan if patient encounters questions later: Contact Anticoagulation Clinic at [phone] or Length of teaching: Intermediate (15 to 30 minutes) Teaching completed according to pharmacy teaching standard 508 * Acosta Beasley PT - 06/24/2024 10:48 AM ESTAssociated Order(s): ADULT PHYSICAL THERAPY CONSULT IP GENERAL EVALUATION - Physical Therapy [address] [address] Name: Ravi Yusuf [place] [facility] Date: 06/24/2024 Time: 1047 Ravi Yusuf is a/an 69 year old male. Patient Status: Inpatient Insurance: Payor: [employer] [facility] [employer]) MEDICARE ADVANTAGE Plan: COMMUNITY BLUE MEDICARE PPO Product Type: *No Product type* Patient Seen: at bedside, nursing cleared patient for therapy Patient Identified By: Name, ID Band and Date Diagnosis: s/p AVR (06/24/241047) Status of treatment: Evaluation completed (06/24/241047) Orders: PT evaluation and treatment;OOB (06/24/241047) Weight Bearing Status: Weight bearing as tolerated (06/24/241047) Precautions: Alarms;Falls;Safety;Sternal;Rodriguez (06/24/241047) Total Treatment Time--free text: 16 (06/24/241047) Past Medical History: No past medical history on file. Past Surgical History: Past Surgical History: Procedure Laterality Date CORONARY ARTERY BYPASS, SINGLE N/A 06/22/2024 CORONARY ARTERY BYPASS GRAFT WITH 1 VEIN GRAFT performed by Faisal Guzman MD at [facility] ENDO,VIDEO ASSIST HARVEST JUAN CARLOS N/A 06/22/2024 ENDOSCOPY VIDEO ASSISTED HARVEST VEIN performed by Faisal Guzman MD at [facility] REPLACEMENT AORTIC VALVE, BYPASS WITH PROSTHETIC VALVE N/A 06/22/2024 REPLACEMENT AORTIC VALVE, BYPASS WITH PROSTHETIC VALVE performed by Faisal Guzman MD [place] [facility] Subjective: Pt awake in chair, agreeable to PT. Social History/Disposition Lives with: Spouse (06/24/241047) Assistance available: Yes (06/24/241047) Dwelling type: Multi-story home (06/24/241047) Entry steps: (1 + 1) (06/24/241047) Inside steps: 10 - 15 (06/24/241047) Bedroom location: 1st floor (06/24/241047) Bath location: 1st floor full bath (06/24/241047) Prior Level of Function Reported by: Patient (06/24/241047) Ambulation: Ambulatory without device (06/24/241047) Devices at home: Rolling walker (06/24/241047) Observations Consciousness: Alert (06/24/241047) Orientation: Oriented times 4 (06/24/241047) Psychosocial: Patient can communicate basic needs;Patient can converse in a social setting (06/24/241047) Other Findings: Yes (06/24/241047) Findings: Light touch sensation (06/24/241047) Light Touch Sensation Results: Intact;LLE;RLE (06/24/241047) Sitting Posture: Forward head;Rounded shoulders (06/24/241047) Standing Posture: Forward head;Rounded shoulders (06/24/241047) Pain: No complaints of pain Range of Motion Range of Motion: WFL (06/24/241047) Strength Assessment Strength Assessment: Deficits noted (06/24/241047) WNL, except: LLE;RLE (06/24/241047) LLE: Hip;Knee;Ankle;4/5 (06/24/241047) RLE: Hip;Knee;Ankle;4/5 (06/24/241047) Transfers Sit-Stand: Contact Guard (06/24/241047) Stand-Sit: Contact Guard (06/24/241047) Ambulation: Distance ambulated (feet): 50 Assistive Device: Rolling walker Assist: Contact Guard Balance Sit (Static): Fair (06/24/241047) Sit (Dynamic): (Fair -) (06/24/241047) Stand (Static): (Fair -) (06/24/241047) Stand (Dynamic): (Fair -) (06/24/241047) Patient and or Family Goal(s): to get well and to return home Patient Education Review of Precautions: Safety;Fall;Sternal (06/24/241047) Safety Awareness: Patient verbalizes insight of current deficits;Patient demonstrates carryover of insight during functional tasks;Patient can communicate basic needs (06/24/241047) Preferred learning method: Combination (06/24/241047) Barriers to learning: Medical Status (06/24/241047) Method of Education: Verbalized to patient;Patient demonstrated task (06/24/241047) Topic of Education: Safety with mobility, Goals/plan of care, and Fall prevention Method of Education: Verbal discussion and explanation provided to pt: verbalized understanding andor agreement of this information and demonstrated the exercise and or task Treatment Provided: Evaluation Moderate Complexity 16 minutes - 72069: Patient was cooperative and pleasant during treatment session. Moderate complexity evaluation performed and 1-2 personal factorsor comorbidities were identified that will impact plan of care, including multiple steps at home and cardiac history. Patient presents with limitations in strength, bed mobility, transfers, gait, elevations, balance, endurance, and safety, which will impact plan of care. These limitations will be addressed by the goals set for this patient. Alarm Status Patient positioned in: Chair (06/24/241047) With: Pressure pad alarm intact and functioning and call sutherland in reach (06/24/241047) Following session patient seated OOB in chair with chair alarm activated. Chair alarm (did not havecord to plug into call sutherland system and/or room did not have port to plug cord into call sutherland system). Patient's nurse was made aware. Treatment Status: Treatment at bedside (06/24/241047) Goals: Demonstrate Bed Mobility with: modified independent Demonstrate Transfers with: modified independent Demonstrate Ambulation: least restrictive device, 200 ft with modified independent Demonstrate Stairclimbing: Number of steps: 2 and Level of Assistance: supervision Increase Strength of: B/L LE by 1/2-1 muscle grade Increase dynamic standing balance to: fair + Increase Safety: with all functional mobility Time Frame: 8 visits Assessment: Pt is a 69 year old male presenting s/p AVR. Pt alert and oriented x4, following all commands throughout session. Pt demonstrating fair, symmetrical B/L LE strength/ROM and intact sensation. Educated pt on sternal precautions prior to mobility in which pt verbalized understanding and agr eement. Pt performing all mobility at contact guard for safety during session. Pt ambulating into dsouza with rolling walker, demonstrating decreased step length/height and slow beverly. Ambulation distance limited by fatigue from previous mobility with nursing. Please consider post-acute care services which may include home health, custodial, outpatient therapy or inpatient rehabilitation. The level of care will be determined in collaboration with patient, family/caregiver and care team members. All needs met. Deficits requiring P.T. treatment needs: Safety;Mobility;Balance;Weakness;Endurance;Lower extremitystrength (06/24/241047) Equipment Needs: Equipment needs: No device (06/24/241047) Treatment Plan: Bed mobility training, Transfer training, Gait training, Elevation training, Strengthening exercises: B/L LE, Balance activities, and Educate on safety with functional mobility Anticipated Frequency (on eval): (1 to 5 times per week) (06/24/241047) AM PAC Score with Stairs: 17 A portion of this AM-PAC assessment not scored based on functional assessment; rather clinical decision making utilized based on current findings and/or prior level of function. Please refer to future AM-PAC calculations of functional ability as they become available. * Shaila Cunha, OTR/L - 06/24/2024 10:32 AM ESTAssociated Order(s): ADULT OCCUPATIONAL THERAPY CONSULT IP GENERAL EVALUATION - Occupational Therapy [facility] [address] Name: Ravi Yusuf [place] [facility] Date: 06/24/2024 Time: 10:32 AM Ravi Yusuf is a 69 year old male. Patient Status: Inpatient Insurance: Payor: [employer]) MEDICARE ADVANTAGE Plan: COMMUNITY BLUE MEDICARE PPO Product Type: *No Product type* Patient Seen: at bedside, nursing cleared patient for therapy Patient Identified By: Name, ID Band and Date Diagnosis: s/p AVR, CABG x 1 (06/24/24 103) Status of treatment: Evaluation completed (06/24/24 103) Orders: OT evaluation and treatment (06/24/24 103) Weight Bearing Status: Weight bearing as tolerated (06/24/24 103) Precautions: Alarms;Falls;Safety;Skin;Sternal;Cardiac;Central line;Rodriguez (06/24/24 103) Total Treatment Time: 16 (06/24/24 103) Per Epic: "REFERRING PHYSICIAN: Santos Strickland MD PCP: Chaz Portillo MD HOT MAN: DEIDRE [place]ference for [place] [facility] [place] up with telephone or video visit at one week. HPI: Ravi Yusuf is a 69 year old male who presents with c/o fatigue,dizziness and lightheadedness and FIGUEROA for about a year.. Work up included cath and ECHO. CAD of Lcx noted with 70% OM branch with severe by ECHO Patient has history of chest pain/angina: No Patient has history of SOB/FIGUEROA: yes with moderate exertion IE stairs Patient has syncope/presyncope: No But gets brief dizziness when standing Presentation associated with endocarditis/bacteremia: No Patient has PMH of: CAD, ,HTN,NSVT,DLD,smoker [place] Heart Failure Classification: Class III (Moderate) NAME: Ravi Yusuf MR# [id number] SERVICE: CARDIOTHORACIC SURGERY DATE: 06/22/2024 PRE-OP DIAGNOSIS: Severe aortic stenosis, Coronary artery disease POST-OP DIAGNOSIS: Same. SURGEON: Faisal Guzman MD. ASSISTANTS: Ghanshyam Castro PA-C assisted with endoscopic vein harvest, retraction, closure ANESTHESIA: General OPERATION: 1. Aortic valve replacement #25 Avalus bioprosthetic valve with bovine pericardial patch of aorta 2. CABG x 1 (Ao-LPL using reversed saphenous vein) 2. Endoscopic saphenous vein harvest" Past Medical History: No past medical history on file. Past Surgical History: Past Surgical History: Procedure Laterality Date CORONARY ARTERY BYPASS, SINGLE N/A 06/22/2024 CORONARY ARTERY BYPASS GRAFT WITH 1 VEIN GRAFT performed by Faisal Guzman MD [place] [facility] [place],VIDEO ASSIST HARVEST JUAN CARLOS N/A 06/22/2024 ENDOSCOPY VIDEO ASSISTED HARVEST VEIN performed by Faisal Guzman MD at [facility] REPLACEMENT AORTIC VALVE, BYPASS WITH PROSTHETIC VALVE N/A 06/22/2024 REPLACEMENT AORTIC VALVE, BYPASS WITH PROSTHETIC VALVE performed by Faisal Guzman MD [place] [facility] Social History/Disposition Lives with: Spouse (06/24/24 104) Assistance available: Yes (06/24/24 104) Dwelling type: Multi-story home (06/24/24 1048) Entry steps: (1 + 1) (06/24/24 1048) Inside steps: 10 - 15 (06/24/24 104) Bedroom location: 1st floor (06/24/24 1048) Bath location: 1st floor full bath (06/24/24 1048) Prior Level of Function Reported by: Patient;Family (spouse at bedside) (06/24/24 103) Ambulation: Ambulatory without device (06/24/24 103) Grooming: Independent (06/24/24 103) Bathing: Independent (06/24/24 103) Dressing: Independent (06/24/24 103) Feeding: Independent (06/24/24 103) Toileting: Independent (06/24/24 103) Meal Prep: Independent (06/24/24 103) Homemaking: Independent (06/24/24 103) Shopping: Independent (06/24/24 103) 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 Spouse and friend at bedside. Pain: No complaints of pain Observations Consciousness: Alert (06/24/241031) Orientation: Oriented times 4 (06/24/241031) Psychosocial: Patient can communicate basic needs;Patient can converse in a social setting (06/24/241031) Sitting posture: Forward head;Rounded shoulders (06/24/241031) Standing posture: Forward head;Rounded shoulders (06/24/241031) Safety awareness: The Patient verbalizes insight of current deficits.;The Patient can communicate basic needs.;Needs cueing supervision. (06/24/241031) Other Findings Endurance: Fair (06/24/241031) Light touch sensation: LUE;RUE;Intact (06/24/241031) Coordination: LUE;RUE;Gross motor;Fine motor;Intact (06/24/241031) Current Functional Status: Bilateral Upper Extremity Range of Motion: WFL (06/24/241031) Strength Assessment: (at least 3/5 throughout (formal MMT not assessed due to sternal precautions))(06/24/241031) Self Care Grooming: Supervision (Please comment) (simulated washing face) (06/24/241031) Dressing Upper Body: Minimal Assistance (to elza gown) (06/24/241031) Lower Body: Moderate Assistance (to elza socks) (06/24/241031) Functional Ambulation Assistive Device: Rolling walker (06/24/241031) Distance in feet:: 50 (06/24/241031) Level of Assistance: Contact Guard (06/24/241031) OT Transfers Sit-Stand: Contact Guard (from chair) (06/24/241031) Stand-Sit: Contact Guard (to chair) (06/24/241031) Balance Sit (Static): Fair (06/24/241031) Sit (Dynamic): Fair (06/24/241031) Stand (Static): Fair (-) (06/24/241031) Stand (Dynamic): Fair (-) (06/24/241031) Alarm Status Patient positioned in: Chair (06/24/241031) With: Pressure pad alarm intact and functioning and call sutherland in reach (06/24/241031) Following session patient seated OOB in chair with chair alarm activated. Chair alarm (did not havecord to plug into call sutherland system and/or room did not have port to plug cord into call sutherland system). Patient's nurse Mary Kay was made aware. Patient and Family Goals: to get well and to return home Patient Education Education Topic: Role of OT;Plan of care goals (06/24/241031) Review of Precautions: Safety;Fall;Sternal;Skin;Cardiac (06/24/241031) Method of Education: Verbalized to patient (06/24/241031) Education Provided to: Patient (06/24/241031) Response to Education: Receptive and agreeable to education (06/24/241031) Barriers to learning: Medical status (06/24/241031) Preferred learning method: Combination (06/24/241031) Treatment Provided: Evaluation Moderate Complexity 16 minutes - 77116: Patient was cooperative and pleasant during treatment session. Moderate complexity evaluation performed and 3-5 activity limitations were identified, including ADL deficit, functional mobility deficit, decreased strength, decreased endurance, and impaired balance. Minimal or moderate modification of the functional task was necessary to complete the evaluation. Deficits Requiring O.T. Treatment: Deficits requiring O.T. treatment needs: ADL/self-care;Balance;Endurance;Functional mobility;Safety;Upper extremity strength;Weakness (06/24/241031) Goals: Demonstrates Self-care at: Feeding: Modified Independent Grooming: Modified Independent Toileting: Modified Independent UE dressing: Modified Independent UE bathing: Modified Independent LE dressing (pants/socks/shoes): Modified Independent LE bathing: Modified Independent Demonstrates Bed Mobility at: Supine-Sit: Modified Independent Sit-Supine: Modified Independent Rolling R<>L: Modified Independent Demonstrates transfers at: Sit-Stand: Modified Independent Stand-Sit: Modified Independent Bed-Chair: Modified Independent Toilet: Modified Independent Shower/Tub: Modified Independent Demonstrates functional ambulation at: Assistive device: appropriate device as needed Level of Assistance: Modified Independent Balance: Static Sitting: Fair+ Dynamic Sitting: Fair+ Static Standing: Fair+ Dynamic Standing: Fair+ Strength/ROM: Increase BUE strength 1/2 muscle grade Endurance: Increase endurance to 30/30 minutes in order to improve participation in ADL tasks and general mobility Safety awareness/Cognition: Increase safety awareness during functional mobility Precautions: Adhere to sternal precautions throughout participation in ADL tasks and general mobility Goal Time Frame: 8 visits Assessment: Pt was [place] [facility] [place]. Pt was pleasant and cooperative during his OT evaluation this date. Upon arrival, pt was seated OOB in recliner chair and agreeable to therapy services. Prior to mobility, pt educated on sternal precautions, with good return verbal understanding noted. Upon exam, pt performed UE dressing task with min A secondary to lines and LE dressing task with mod A due to limited functional reach towards b/l lower extremities when bringing them into figure four position. Sit<>stand transfers and ambulation were completed with contact guard assistfor safety. Pt ambulated 50 ft this date with use of a rolling walker. Functional mobility currently limited due to decreased endurance/fatigue. Following session, pt was noted to be seated in chair with call sutherland in reach. All needs met. Currently, pt presents with difficulty in ADL completion andgeneral mobility secondary to decreased strength, balance, endurance, safety awareness, and overallcurrent medical status. Pt would benefit from acute OT services to increase his independence with ADL tasks and general mobility. In regard to discharge, please consider post-acute care services which may include home health, custodial, outpatient therapy or inpatient rehabilitation. The level of care will be determined in collaboration with patient, family/caregiver and care team members. Treatment Plan: Accuracy with Precautions, Energy Conservation, Safety, Bed mobility training, Functional Ambulation, Transfer training, ROM exercises, Upper extremity strengthening, Balance activities, ADL training, Endurance, and Educate on safety with ADLs and mobility. Anticipated Frequency (on eval): (1-5x/wk) (06/24/241031) AM-PAC Help From Another Person Eating Meals: A little (06/24/241031) Help From Another Person Taking Care of Personal Grooming: A little (06/24/241031) Help From Another Person To Put On/Take Off Upper Body Clothing: A little (03/06/25 1032) Help From Another Person To Put On/Take Off Lower Body Clothing: A lot (06/24/24 103) Help From Another Person Toileting: A lot (06/24/24 103) Help From Another Person Bathing: A lot (06/24/24 103) OT AM-PAC Score: 15 (06/24/24 103) OT AM-PAC t-Scale Score: 34.69 (06/24/24 103) HLM (Highest Level of Mobility) Goal: Level 5 standing (1 or more minutes) (06/24/24 1048) A portion of this AM-PAC assessment not scored based on functional assessment; rather clinical decision making utilized based on current findings and/or prior level of function. Please refer to future AM-PAC calculations of functional ability as they become available. * Rao Diamond RN - 06/23/2024 2:44 PM ESTAssociated Order(s): CARE MANAGEMENT CONSULT IP CARE MANAGEMENT - ADULT INITIAL SCREENING [address] [address] Name: Ravi Yusuf [place] [facility] [place] Date: 06/23/2024 Time: 2:44 PM Discussed patient with the interdisciplinary care team. This Communications Attendant performed a chart review and met with Monica Rodrigues Ryan and Bert at bedside to complete admission screen and assessed needsfor transition planning. The critical care paramedic role and services were explained and emotional support was provided. Chief Complaint: No chief complaint on file. Prior Living Arrangements What was your living situation prior to admission/observation?: Independently;With Spouse ([phone]) Living Quarters: House (06/23/24 144) Number of steps to enter living quarters:: 2 (06/23/24 144) History of falling: No (06/23/24 0800) Prior Level of Functioning Describe the patient's ability prior to admission/observation to perform ADLs: Performs independently (06/23/24 1442) Requires assistance with: Dressing;Bathing;Toileting;Grooming;Eating (06/22/24 1300) Describe the patient's mobility status prior to admission: Patient ambulates independently;Patient is able to sit on bedside;Patient can sit up in bed (06/23/241441) Patient uses assistive device: No (06/23/241441) Caregiver Information Emergency Contacts None on File Other Contacts Name Relation Home Work Mobile MONICA YUSUF Spouse [phone] LUIS FERNANDO YUSUF Adult Child [phone] BERT YUSUF Adult Child [phone] Jhon live in a split level home with two DAVID and an upstairs bathroom. He is independentwith his ADL/IADLs and they are all independent drivers. He does not use any DME for ambulation, but does have a seat lift chair and RW if needed. He does not use oxygen, cpap or bipap and has no history with HH, SNF or rehab. At this time he is declining HH services. Risk Stratification/Psychosocial/Care Gaps Risk Stratification Psycho Social / Medical Concerns Identified: Adjustment to illness/injury (06/23/241441) Accessed [facility] to connect patients to social care resources: No (06/23/241441) OBRA or OPTIONS needed for placement: No (06/23/241441) Readmission Risk Score: 14.15 (06/23/24 1201) AM-PAC Score With Stairs : 15 (06/23/24 0800) Prior to Admission Services Services Prior to Admission [employer] Services (Services received within the last 30 days with exception, Psych within last two years): Durable Medical Equipment (06/23/241441) C[employer]OR Durable Medical Equipment (DME) in home: Seat Lift Chair;Walker Rolling (06/23/241441) [place] Dept[employer] of Aging (PDA) Waiver Program: N/A (06/23/241441) CEMENT [employer]OR Transportation (Services received within the last 30 days): Family/Friends Personal Vehicle;Patient drives self (06/23/241441) Outpatient Communications Attendant: No care user experience team lead to display Patient/Family Expectations: return to home For further screening information, please refer to the Care Management flow document. * Frank Lucia RN - 06/22/2024 1:09 PM ESTAssociated Order(s): BLOOD MANAGEMENT CONSULT IP REQUESTING SERVICE: [facility] [facility] [place]ASON FOR CONSULT: new evaluation inpatient, s/p CABG w/ AVR Latest Reference Range & Units 06/10/24 12:21 06/22/24 12:09 06/22/24 12:11 WBC 4.00 - 10.80 K/uL 6.74 15.23 (H) RBC 4.50 - 5.25 M/uL 4.73 3.63 HGB 14.0 - 16.8 g/dL 14.6 11.3 (L) 11.9 (L) HCT 40.0 - 48.4 % 45.6 34.5 (L) MCV 82.0 - 99.5 fL 96.4 95.0 MCH 27.0 - 34.0 pg 30.9 31.1 MCHC 32.0 - 36.0 g/dL 32.0 32.8 RDW 11.5 - 15.5 % 12.4 12.7 PLT 140 - 400 K/uL 208 135 (L) MPV 6.6 - 11.1 fL 10.9 10.4 (H): Data is abnormally high (L): Data is abnormally low Chart reviewed. In absence of severe anemia, hemorrhage, or personal beliefs that prohibit blood transfusion would not recommend urgent therapy with iron, vitamins, or erythroid stimulating agents atthis time. If no active hemorrhage, consider PRBC transfusion only for severe anemia and use a 1 unit PRBC dose followed by a repeat clinical assessment. For reversal of anticoagulation therapy, use Reversal of Anticoagulation order set. If hgb < 13 and > 10 recommend d/c on vitamin daily x 2 months If hgb trends < 10 while admitted with no concern for infection: Infed 1000mg IV ONCE OR Venofer 300mg IVPB daily x 2 days B12 1mg PO daily Folic acid 1mg PO daily Please reconsult as indicated. Please recommend outpatient follow up that includes repeat assessment of hemoglobin when stable fordischarge. Please call with questions. Thank you for allowing Blood Management to participate in the care of this patient. documented in this encounter Nursing Notes * Blanquita Haynes RN - 06/22/2024 7:44 PM EST 1921 Extubation order placed by Sylvia Wilson PA-C 1929 Extubation order verified by myself and Spencer Musa RRT. Patient then was extubated to 6LNCwith ease. Cuff leak noted prior to extubation. No stridor present post. Vital Signs per flowsheets. * Eduadro Uribe BSN - 06/22/2024 1:00 PM EST Dual Licensed Skin Assessment completed by Eduardo Uribe RN and Dimple Almonte RN. The patient is/has a N/A Skin Breakdown (includes non blanchable erythema): No * Denise Thrasher RN - 06/18/2024 12:11 PM EST Pre-operative chart review completed-instructions provided based on current medication list in [facility]. NO ANESTHESIA EVAL REQUESTED PER CASE DOCUMENTATION. Presurgery instructions sent to patient via [employer] message. PREOP PATIENT INFORMATION AND EDUCATION: MEDICATION INSTRUCTIONS: The day of surgery/procedure, you may TAKE the following medications with a sip of water up to 2 hours prior to your arrival time: Atorvastatin STOP taking the following medications the noted number of days prior to surgery/procedure as per Cardiothoracic Surgery 06/10/24: Avoid the following medications and foods one week prior to surgery to decrease risk for bleeding: Multivitamins, Vit E, Herbal teas and supplements, olive oil and garlic, [place] 3s and NSAIDs. Patient instructed to hold Plavix 7 days prior to surgery and hold Lisinopril 3 days prior to surgery per Dr. Guzman. 24 hours prior to surgery/procedure DO NOT consume any alcohol. DO NOT use medical marijuana. DO NOT smoke or use tobacco products of any kind after midnight prior to surgery. *Using any of these products may increase your risks of procedural complications. IF IT IS LESS THAN RECOMMENDED STOPPAGE TIME PLEASE STOP AT TIME OF NOTIFICATION. FASTING RECOMMENDATIONS: To reduce risk, it is important for all elective surgery patients to follow the specific fasting guidelines listed below. If you have received more stringent guidelines, please follow the MOST RESTRICTIVE guidelines that you have been provided. DO NOT EAT after midnight on the night prior to your surgery date. You are allowed to drink clear liquids up to two hours prior to arrival time to the hospital or surgery center. Examples of clear liquids include water, clear fruit juice without pulp, clear carbonated beverages, clear tea, and black coffee. Any drinks given by your surgical service take as directed. THE DAY BEFORE YOUR SURGERY: -Drink plenty of fluid the day before your surgery. Contact your surgeon's office if you develop any of the following within 2 weeks of surgery: A cold Infection Fever Shingles Chicken pox or exposure to chicken pox Open areas such as scrapes, cuts, kaur or other skin conditions Rashes GENERAL INSTRUCTIONS FOR PREPARING FOR SURGERY: BATHING INSTRUCTIONS: Bathe the evening prior to and the morning of surgery/procedure. Cleanse your body using ONLY anti-bacterial soap (eg, Dial, Safeguard) or any specific soap/cleansers and instructions provided by your surgeon (eg, Chlorhexidine). -You should brush your teeth the morning of surgery. Do NOT apply any lotions, powders, sprays, creams, oils, make-up, or deodorants after bathing. No hairspray, or nail persian on fingers or toes. Day of surgery/procedure do not use tampons. If you wear contacts wear your eyeglasses if available otherwise bring your contact supplies with you to remove them prior to your surgery/procedure. If you wear glasses or dentures, please bring cases in which you can store them during your surgery. Please remove all piercings and jewelry and leave them at home. Wear comfortable and loose clothing. -Please leave all valuables at home. -If you use a CPAP and are staying overnight, please bring your mask and tubing with you to the hospital. -If you use an assistive mobility device (walker, cane, etc), please label it with your name and bring to hospital. -An escort gravel truck driver is required if you are being discharged the same day of the surgery. You should have a responsible adult over the age of 18 [address] you home. This person should be present with youin the hospital at the time of discharge and for the first 24 hours after the surgery to support your needs. If you are taking a taxi home, you must have your responsible constitution party accompany you in the taxi ride home at the time of discharge. OR times subject to change. Please check voicemail messages the day/evening before your surgery forany updates. PRE-OP: You will be taken to the pre-op area where your vital signs (blood pressure, pulse and temperature)will be taken. Any preparations that need to be done will be done there. When it is time for your surgery, you will be taken to the operating room. PARENTS OF PEDIATRIC PATIENTS WILL BE ALLOWED TO STAY WITH THEIR CHILDREN UNTIL THEY ARE ESCORTED TO THE OPERATING ROOM OUTPATIENT SURGERY PATIENTS: After your surgery you will be taken to the Same Day Surgery Unit when you are awake and will go home from there. You will get instructions about your home care before you leave. Arrange to have someone drive you home from the hospital. You may not drive for 24 hours after anesthesia. You must havean adult stay with you at home for 24 hours after your operation. This is very important. If you are not able to comply with these guidelines, your Short Stay surgery cannot be done. ADMISSION PATIENTS: After your stay in the recovery area, you will be taken to your room. Your family may visit you in your room based on current visitation policy. If a next day discharge is expected, it is important to make arrangements for a gravel truck driver to take you home. Please be aware our visitation policies are subject to change Professionals, attendants, caregivers or family members are allowable visitors for patients with intellectual, developmental or cognitive disabilities, communication barriers or behavioral concerns. Because patients' and families' needs vary, they will be taken into account when applying visitation restrictions. ANESTHESIA INFORMATION This information has been prepared to help you and your family better understand the process of anesthesia, so that you may help make well-informed decisions about your care. This information is alsoprovided to guide your completion of the [facility] consent form which addresses real, but infrequent, problems associated with anesthesia. IMPORTANT INFORMATION TO PREVENT YOUR SURGERY FROM BEING CANCELLED/ RESCHEDULED: --You are required to have a gravel truck driver to take you home whether you are admitted to the hospital following your surgery or not --You are required to have a responsible adult with you for the first 24 hours after surgery to support your needs Types of Anesthesia: Local Anesthesia Local anesthetic drugs (numbing drugs) are usually injected into the tissues to numb just the specific location of your body requiring minor surgery, such as an area of your hand or foot. Regional Anesthesia -Regional anesthesia involves the use of local anesthetics (numbing drugs) to numb larger areas of your body by blocking nerves to those areas. This is commonly referred to as a nerve block. Another way of performing regional anesthesia is by blocking nerves of the spinal cord by injecting numbing m edicines with great exactness around those nerves. This is called spinal or epidural anesthesia depending on exactly where the medication is injected. The type of regional anesthesia selected dependson the type of surgery and whether regional anesthesia is being done to help with pain after surgery or as a part of the anesthesia for surgery. You may remain awake, be sedated, or be given a general anesthetic depending on the type of surgery and the type of regional anesthesia performed Monitored Anesthesia Care (MAC) -Describes a range of sedation that can be given to a patient undergoing a procedure. The level of sedation usually depends on what is needed for the procedure being performed. A patient could be awake and aware of the procedure being performed but be relaxed and able to follow instructions as needed or may be unaware of what is happening and only rouse to significant stimulation. A patient may be able to speak, hear things around them, and answer questions and follow commands but is not in pain or anxious. A patient may experience varying depths of sedation during the procedure. The use of general anesthesia could result if this type of anesthesia is ineffective. General Anesthesia - Occurs by using a combination of medications to put a patient into a deep, sleep-like, unresponsive state for surgery. This is required for many surgical procedures. Under general anesthesia, a patient does not feel pain and is unaware of what is happening during the procedure. Systems in the body may not function normally while a patient is under general anesthesia. They are monitored by the anesthesia provider and may need to be assisted while a patient is under general anesthesia. For example, a breathing device may need to be placed in the airway to assist breathing and medications may need to be given to ensure that your blood pressure and heart rate remain normal. Risks of Anesthesia: Regional/Local/Nerve Blocks -Include but are not limited to, , cardiac or respiratory arrest, permanent complete paralysis, permanent nerve injury, seizure, spinal headache, backache, pain in buttocks and legs, infection, bleeding, leakage of spinal fluid, inadequate pain relief, bowel or bladder dysfunction, prolonged numbness or pain, temporary drop in blood pressure, or allergic reaction to the medications. Monitored Anesthesia Care (MAC) -Common risks include temporary dizziness, light-headedness, nausea and/or vomiting, and leakage ofintravenous fluid into the tissues with swelling or discoloration of the area or residual pain. Less common risks include, but are not limited to, , heart attack, permanent brain damage, stroke,pneumonia, blood clots, awareness, nerve stretch injury of your arm, neck or leg, permanent liver damage and allergic reaction to the medications. General Anesthesia -More common risks include temporary sore throat, pain in the neck or other muscles, dizziness, light-headedness, nausea and/or vomiting, and leakage of intravenous fluid into the tissues with swelling or discoloration of the area or residual pain. Less common risks include, but are not limited to,, heart attack, permanent brain damage, stroke, pneumonia, blood clots, irritation of the cornea of your eye, vision loss, loosened or broken teeth, or other oral injuries, awareness, nerve stretch injury of the arm, neck or leg, hoarseness, laryngospasm, permanent liver damage and allergic reaction to the medications. History of anesthesia complications: If you or a family member have had a complication related to anesthesia such as difficulty with placement of a breathing tube or a serious reaction to a medication administered for anesthesia, pleasetell your anesthesia provider. Having this information will help keep you safe while under anesthesia Nausea: A common side effect of anesthesia is nausea, but some patients do experience both nausea and vomiting. If you have experienced nausea or vomiting after anesthesia in the past, be sure to tell your anesthesia provider so medication can be given to help prevent it from happening again. Patient safety/consenting process: All surgical procedures and anesthetics have some small risks. They are dependent upon many factorsincluding the type of surgery and your medical condition. That is why it is important to know aboutany underlying medical problems, how they are treated and how they can be managed to reduce the risks of anesthesia and surgery. Thus, it is important for your anesthesia provider to ask detailed questions about your medical history, and to know what prescription medications you are taking, including dosages and schedules, as well as any over the counter or herbal medicines and supplements. You must notify the doctor of any of the following: -if you are or possibly -if you have any sensitivity to medications -present mental and physical condition -if recently consumed alcohol or non-clear liquids -if you are presently on psychiatric mood-altering drugs or other medications If you are a female of child-bearing age and you use any form of hormone-based contraception, please continue to use it and, in addition, use an alternative form of contraception, such as condoms andspermicide for a month after discharge from the hospital. This is because during the hospitalization you might receive one or more medications that may render hormone-based contraceptives ineffectivefor several days or weeks. The affected contraceptives include, but are not limited to, the usual contraceptive pills, most types of intrauterine devices, Depo-Provera shots, hormonal patches, and hormonal vaginal rings. If you are not sure, contact your primary care physician, your peoplesoft consultant, or your surgeon to check if this warning applies to you. You may need to have invasive monitoring, which includes the insertion of catheters into your veinsand arteries. This is done to measure pressures, to take blood samples, and may be used in emergentsituations for intravenous access. This monitoring has risks including, but not limited to, injury to your arteries, lung collapse, bleeding, nerve injury as well as the risks related to anesthesia. An esophageal probe may be used to monitor your heart, this monitor has risks which include sore throat, hoarseness, difficulty with swallowing, loosened or broken teeth and esophageal injury. Major complications are rare but could include , respiratory distress, an abnormal heartbeat, infection, and bleeding. As part of the consent to administer anesthesia authorization you will discuss the following with the anesthesia doctor and his/her associates: -your present condition and diagnosis as it pertains to anesthesia or sedation administration -a description of the proposed anesthetic/sedation technique or procedure to be used -significant risks and benefits of the proposed anesthetic/sedation technique or procedure -any applicable alternatives, including their risks and benefits -if applicable, use of back-up method of contraception for 30 days after discharge -if applicable, the option of having no treatment and the potential results of this -if your procedure is in an outpatient surgery setting-the risk associated with having this procedure in this type of setting should be discussed as well as the potential need for transfer to the hospital if necessary Please be sure to have all questions that you have answered prior to signing the consent to administer anesthesia. You can make your care safer by being an active, informed patient. It is important that you are involved in your health care. Being a good patient does not mean being a silent one. If you have questions, problems, safety concerns or unmet needs, please let us know if you would like further clarification of the "Patient Rights and Responsibilities" as they pertain to you, or would like more information regarding our complaint and for grievance process, please call the site where you receive care and request to speak withthe patient advocate line. [facility]: Contact # [phone] Directions to Surgical Suite in from the Barbara Entrance The Surgical Waiting Room can be found in the Lobby [facility]. Enter through Main Lobby Entrance and the Waiting Room is directly in front of you. Proceed to check in and give them your name. Directions to Surgical Suite from the East Entrance Enter the East entrance and follow the hallway to the J elevator. Take the J elevator up to Level 1. Continue down the long hallway to the main [facility] Lobby. The Surgical Waiting Room will be on your Right. Proceed to check in and give them your Name. Directions to Surgical Suite from the Parking Garage Enter the [facility] lobby and proceed down the dsouza to the left. At the end of the dsouza, turn right. Continue down the long hallway to the main [facility] Lobby. The Surgical Waiting Room will be on your Right. Proceed to check in and give them your Name. THANK YOU FOR CHOOSING [facility]! Denise Thrasher RN 06/18/2024 12:11 PM documented in this encounter OR Notes * OR Surgeon - Faisal Guzman MD - 06/22/2024 11:26 AM EST OPERATIVE RECORD [place] [address] NAME: Ravi Yusuf MR# [id number] SERVICE: CARDIOTHORACIC SURGERY DATE: 06/22/2024 PRE-OP DIAGNOSIS: Severe aortic stenosis, Coronary artery disease POST-OP DIAGNOSIS: Same. SURGEON: Faisal Guzman MD. ASSISTANTS: Ghanshyam Castro PA-C assisted with endoscopic vein harvest, retraction, closure ANESTHESIA: General OPERATION: 1. Aortic valve replacement #25 Avalus bioprosthetic valve with bovine pericardial patch of aorta 2. CABG x 1 (Ao-LPL using reversed saphenous vein) 2. Endoscopic saphenous vein harvest FINDINGS: The aorta and aortic root were small compared to the annulus, which accepted a 25 valve. For this reason, patch of the aortic incision was required. LPL was 1.7 mm, vein graft flow was 61 ml/min with PI 1.2. The patient weaned off bypass on norepinephrine at 2 and in sinus rhythm. SONIDO at the end of the case demonstrated satisfactory prosthesis function without paravalvular leak, normal biventricular function with no wall motion abnormalities. Flow was triphasic in all grafts using a flow probe. Vein quality was good. ESTIMATED BLOOD LOSS: 500 mL. DRAINS/IMPLANTS: There are two mediastinal tubes, 2 ventricular pacing wires. FLUIDS: Adequate. URINE OUTPUT: Adequate. SPECIMEN: None. COMPLICATIONS: None. CONDITION: Critical. IMPLANTS: Implant Name Type Inv. Item Serial No. Broaching Machine Repairer Lot No. LRB No. Used Action SUTURE STEEL 6 [id number] - [id number] SUTURE STEEL 6 B&S19 [id number] [place] : [employer] [id number] Implanted MARKER CORONARY - [id number] MARKER CORONARY [employer] [id number] N/A 1 Implanted VALVE AORTIC AVALUS 25MM - [id number] - [id number] VALVE AORTIC AVALUS 25MM [id number] [facility] [id number] N/A 1 Implanted PATCH PERICARDIUM BOVINE 8X14 - [id number] - [id number] PATCH PERICARDIUM BOVINE 8X14 [id number] [facility] [id number] N/A 1 Implanted INDICATIONS AND HISTORY: This is a 69 yo man who presented with worsening dyspnea with exertion. Echocardiogram demonstrated severe aortic stenosis. Cardiac catheterization demonstrated severe disease in the LPL. The patient is here for AVR and coronary artery bypass. Risks and benefits and alternatives including medical therapy and stenting were discussed with the patient at length as documentedin the chart. The patient wishes to proceed with surgery. DESCRIPTION OF OPERATION: The patient was identified, and the procedure was verified. After uneventful general anesthesia was obtained, the patient's chest and groins were prepped and draped in standard fashion. The left greater saphenous vein was harvested using endoscopic technique from the grointo the knee. Hemostasis was confirmed and the leg wounds closed in layers. Sternotomy was performed. The patient was systemically heparinized to an ACT over 400 seconds. The mass of the pericardium was elevated with pericardial stay. The aorta and right atrial appendage were cannulated in routine fashion through pursestrings. A vented Y cannula was placed in the ascending aorta and a retrograde cardioplegia cannula placed in the coronary sinus through the right atrial free wall. Cardiopulmonarybypass was instituted with excellent flow. The targets were identified. Aortic cross clamp was applied and 1200 ml [place] combination antegrade and retrograde cardioplegia was given to achieve a geovanna cardial temperature (using a temperature probe in the septum) of below 10 degrees Celsius. We positioned for grafting the LPL branch and this was a suitable target. It was opened and a reversed segment of the vein was anastomosed in an end-to-side manner using 7-0 Prolene in a running continuous fashion. The aorta was opened obliquely into the noncoronary cusp. The aorta and root were both small.The aortic valve was excised sharply with scissors and the annulus was debrided of calcium. Copiousirrigation was undertaken to cleanse any residual debris. The annulus was sized and accepted a #25 sizer. Interrupted 2-0 Ethibond pledgeted sutures were placed from the ventricular to the aortic side in a horizontal mattress fashion. A #25 Avalus was selected. The sutures were passed through the sewing cuff and the valve was seated and secured in place using the [place], but the aortic incision split down into the noncoronary cusp close to the annulus. The right and left main coronary arterieswere noted to be clear of obstruction, although the right coronary artery was close to the annulus of the prosthesis. The aorta was closed in 2 layers with running 4-0 utilizing a patch of bovine pericardium to take tension off of the closure. Using a 4 mm punch, an aortotomy was made for the vein graft which were sutured to the aorta with running 6-0 prolene after confirming the graft lie. The heart was deaired and the cross clamp removed. The grafts were deaired. The rhythm was sinus. The patient was from bypass on the following infusions: norepinephrine. Flow probe was used to confirm triphasic flow in the graft. The cannulae were removed and the sites secured. SONIDO was satisfactory. Protamine was administered. Hemostasis was confirmed. Two ventricular pacing wires were placed. Chest tubes were placed and the wound was closed in my usual fashion with wire and absorbable sutures. The patient tolerated procedure well. Faisal Guzman M.D. Associate, Cardiac Surgery [address] [address] Was there a qualified resident that took part in the case? No - The skilled assistance of the advanced practitioner/physician was necessary for the successful completion of this case. Laboratory Aide name: see above Laboratory Aide role: The advanced practitioner/physician was essential for see above I understand that section 1842 (b)(7)(D) of the Social Security Act generally prohibits Medicare physician fee schedule payment for the services of [id number]-[id number] in teaching hospitals when qualified residents are available to furnish such services. I certify that the services for which payme nt is claimed were medically necessary, and that no qualified resident was available to perform theservices. I further understand that these services are subject to post-payment review by the Medicare carrier. documented in this encounter Miscellaneous Notes * Ancillary Progress Note - Vandana Vasquez RN - 06/26/2024 11:22 AM EST CARE MANAGEMENT - ADULT DISCHARGE [place] [facility] [address] Name: Ravi Yusuf [place] [facility] Date: 06/26/2024 Time: 11:23 AM The following coordination of care and discharge plan has been coordinated with the care team, patient, family and/or caregiver according to the patients needs and preferences. Discharge Discharge Second Notice Important Message from Medicare delivered: Yes (06/26/241121) Date Delivered: 06/25/24 (06/26/241121) Retain copy in EHR: Yes (06/26/241121) Was Caregiver/Family/Facility contacted regarding discharge: Yes (06/26/241121) Discharge Transportation: Family/Friends drive (06/26/241121) Date of scheduled discharge transportation: 06/26/24 (06/26/241121) Patient declined post-hospital transition of care recommendation: Home Health (06/26/24 1122) Final Discharge Plan (Complete only at time of Discharge): Home - Self Care (06/26/24 1122) Narrative: Discharge destination time-out called during BOOST rounds, all parties agreeable with transition plan of care. Patient to discharge home, family to transport. No needs identified. * Progress Notes - Post-Op Global - Faisal Go MD - 06/26/2024 12:09 AM EST PROGRESS NOTE - CARDIAC SURGERY [facility] [address] Name: Ravi Yusuf [place] [facility] Date: 06/26/2024 Time: 12:09 AM OPERATION: Aortic valve replacement #25 Avalus bioprosthetic valve with bovine pericardial patch ofaorta, CABG x 1 (Ao-LPL using reversed saphenous vein) SURGEON: Faisal Guzman MD POD#: 4 PATIENT ISSUES/EVENTS: Intermitted afib vs. NSR/SB. Eager to go home. PHYSICAL EXAM: General: no acute distress Heart Exam: irregularly irregular rhythm Lungs: clear to auscultation Abdominal Exam: abdomen soft, non-tender, and normal active bowel sounds Extremities: warm, dry, well perfused, and slight edema below vein harvest sight Incision: sternotomy - clean, dry and intact, vein harvest site - clean, dry and intact Neurological: alert Pulses: radials CURRENT CORE CARDIAC MEDICATIONS: Beta Avelino: no, explain -- normal BP, bradycardic when in NSR ASA: no, explain -- avoiding triple therapy (Coumadin + Plavix) Statin: yes ANDREI-Inhibitor / ARB: no, explain -- normal LVEF POSTOPERATIVE COMPLICATIONS: acute post op blood loss anemia atrial fibrillation ADDITIONAL PROCEDURES: none ASSESSMENT/PLAN: Cardiovascular: -NSR/SB, rate 50-60s, SBP 100-110s -Post-op afib -> Amio 200 BID (decreased for long conversion pauses and SB) -Beta avelino: N/A - bradycardia -Other anti-hypertensives: N/A -Statin: Lipitor 40mg -Pre-op EF 55% -Central Line(s): Yes, reason: Hemodynamic monitoring - will d/c today -Pacer Wires: no Chronic Issues: -HTN on Lisinopril 40 -DLD on Lipitor 40 Pulmonary: -Satting well on RA -Daily CXR -Aggressive pulmonary toilet -Chest Tubes/Vaughn Drains: No GI: -Diet: Regular -Bowel regimen -> +BM since surgery -Pepcid for GI prophylaxis /Renal: -Pre-op renal function normal, last Cr 1.2 -Rodriguez: No -IV Lasix 40mg prn Hematology: -Hgb 10.9, plt 85 -INR 1.1 -ASA held to avoid triple therapy -Heparin gtt -> Coumadin per pharmacy for afib -[employer] Plavix for hx of CVA -Blood products: None Neuro/P.T./O.T.: -Neurologically intact -Pain controlled -Increase activity as tolerated Chronic Issues: -Hx of CVA (no residual deficits) on Plavix Infectious Disease: -Afebrile, WBC 11.70 -Post-op Ancef complete -Pre-op nasal culture +MSSA s/p Bactroban -Pre-op UA negative Endo: -No insulin needs (A1C 5.7) Plan: -Amio 200mg BID for post-op afib (reduced due to conversion pauses and SB) -Diurese with IV Lasix 40mg prn -D/c CVC in AM -Heparin gtt -> Coumadin per pharmacy for afib -Increase activity as tolerated -Home soon Toyin Isbell PA-C 06/26/2024 2:09 AM Stable Back in SR rate 60's D/c CVC Plan home today on amiodarone/coumadin * Care Plan - Eber Colindres RN - 06/25/2024 2:45 PM EST Clinical Goal(s): Patient will have adequate pain control this shift (06/25/24 0700) Possible barriers to meeting goal(s)/advancing plan of care: recent CABG and AVR Stability of the patient: Moderately stable - low risk of patient condition declining or worsening Summary regarding today's goal(s): Met: continue to monitor and treat pain accordingly Recommendations: continue to monitor and treat pain accordingly * Ancillary Progress Note - Rao Diamond RN - 06/25/2024 1:33 PM EST CARE MANAGEMENT - ADULT TRANSITION NOTE [facility] [address] Name: Ravi Yusuf [place] [facility] Date: 06/25/2024 Time: 1:33 PM Risk Stratification Risk Stratification Psycho Social / Medical Concerns Identified: Adjustment to illness/injury (06/23/24 144) Accessed Neighborly to connect patients to social care resources: No (06/23/241441) OBRA or OPTIONS needed for placement: No (06/23/24 144) Readmission Risk Score: 11.31 (06/25/24 1200) AM-PAC Score With Stairs : 21 (06/24/24 2000) Caregiver Information Emergency Contacts None on File Other Contacts Name Relation Home Work Mobile MONICA YUSUF Spouse [phone] LUIS FERNANDO YUSUF Adult Child [phone] BERT YUSUF Adult Child [phone] Transition of Care Checklist Transition of Care Checklist (aka Readmission Risk Score) Discharge Disposition: Home (06/23/24 144) Narrative: [facility] has been following Rav[facility] hospital course. Patient discussed in IDT rounds. They arenot medically stable for discharge at this time. He is s/p AVR and CABG x 1. He developed Afib overpost op course and has been started on coumadin with heparin infusion bridge. His current INR is 1.1, he will need to be closer to therapeutic to d/c. He is continuing to work with staff to increase exercise tolerance and endurance. Discharge plan evolving - CM will continue to follow for dischargeneeds. Anticipated Transportation at Discharge: family Patient/Family Expectations: return to home - he did decline services for after d/c. Transition Planning Transition Planning Transition Plan/Considerations: No needs identified - Return home;CM provided contact information and will update plan as needs arise;Discussed at Interdisciplinary Team / Boost Rounds (06/23/241441) Patient's social support at time of discharge: Lives with spouse/life partner who is ABLE to help care for the patient;Has family nearby who is ABLE to help care for the patient (06/23/241441) [facility] Quality Rating provided to patient: No (06/23/241441) Repisodic Choice provided to patient: Yes (06/23/241441) Transition plan discussed with - Enter name and phone #: Ravi (06/23/241441) Insurance Considerations: N/A (06/23/241441) Referral to Community Agency : N/A (06/23/241441) Post-Acute Care needs identified and Referrals Completed: N/A (06/23/241441) Additional Considerations: n/a Care Management will continue to monitor and assist with discharge planning needs * Pt Handout (on AVS) - Mira Webber [facility] - 06/25/2024 9:50 AM EST [id number] Warfarin Brand Name(s): Coumadin, Jantoven; also available generically IMPORTANT WARNING: Warfarin may cause severe bleeding that can be life-threatening and even cause . Tell your doctor if you have or have ever had a blood or bleeding disorder; bleeding problems, especially in yourstomach or your esophagus (tube from the throat to the stomach), intestines, urinary tract or bladder, or lungs; high blood pressure; heart attack; angina (chest pain or pressure); heart disease; pericarditis (swelling of the lining (sac) around the heart); endocarditis (infection of one or more heart valves); a stroke or ministroke; aneurysm (weakening or tearing of an artery or vein); anemia (low number of red blood cells in the blood); cancer; chronic diarrhea; or kidney, or liver disease. Also tell your doctor if you fall often or have had a recent serious injury or surgery. Bleeding is more likely during warfarin treatment for people over 65 years of age, and it is also more likely during the first month of warfarin treatment. Bleeding is also more likely to occur for people who take high doses of warfarin, or take this medication for a long time. The risk for bleeding while takingwarfarin is also higher for people participating in an activity or sport that may result in seriousinjury. Tell your doctor and pharmacist if you are taking or plan to take any prescription or nonprescription medications, vitamins, nutritional supplements, and herbal or botanical products (See SPECIAL PRECAUTIONS), as some of these products may increase the risk for bleeding while you are takingwarfarin. If you experience any of the following symptoms, call your doctor immediately: pain, swelling, or discomfort, bleeding from a cut that does not stop in the usual amount of time, nosebleeds or bleeding from your gums, coughing up or vomiting blood or material that looks like coffee grounds, unusual bleeding or bruising, increased menstrual flow or vaginal bleeding, pink, red, or dark brown urine, red or tarry black bowel movements, headache, dizziness, or weakness. Some people may respond differently to warfarin based on their heredity or genetic make-up. Your doctor may order a blood test to help find the dose of warfarin that is best for you. Warfarin prevents blood from clotting so it may take longer than usual for you to stop bleeding if you are cut or injured. Avoid activities or sports that have a high risk of causing injury. Call your doctor if bleeding is unusual or if you fall and get hurt, especially if you hit your head. Keep all appointments with your doctor and the laboratory. Your doctor will order a blood test (PT [prothrombin test] reported as INR [international normalized ratio] value) regularly to check your body's response to warfarin. If your doctor tells you to stop taking warfarin, the effects of this medication may last for 2 to 5 days after you stop taking it. Your doctor or pharmacist will give you the groover and turner's patient information sheet (Medication Guide) when you begin treatment with warfarin and each time you refill your prescription. Read the information carefully and ask your doctor or pharmacist if you have any questions. You can also visit the Food and Drug Administration (FDA) website (https://www.fda.gov/downloads/Drugs/DrugSafety/xoi392639.pdf) or the groover and turner's website to obtain the Medication Guide. Talk to your doctor about the risk(s) of taking warfarin. WHY is this medicine prescribed? Warfarin is used to prevent blood clots from forming or growing larger in your blood and blood vessels. It is prescribed for people with certain types of irregular heartbeat, people with prosthetic (replacement or mechanical) heart valves, and people who have suffered a heart attack. Warfarin is also used to treat or prevent venous thrombosis (swelling and blood clot in a vein) and pulmonary embolism (a blood clot in the lung). Warfarin is in a class of medications called anticoagulants ('bloodthinners'). It works by decreasing the clotting ability of the blood. HOW should this medicine be used? Warfarin comes as a tablet to take by mouth. It is usually taken once a day with or without food. Take warfarin at around the same time every day. Follow the directions on your prescription label carefully, and ask your doctor or pharmacist to explain any part you do not understand. Take warfarin exactly as directed. Do not take more or less of it or take it more often than prescribed by your doctor. Call your doctor immediately if you take more than your prescribed dose of warfarin. Your doctor will probably start you on a low dose of warfarin and gradually increase or decrease your dose based on the results of your blood tests. Make sure you understand any new dosing instructions from your doctor. Continue to take warfarin even if you feel well. Do not stop taking warfarin without talking to your doctor. Are there OTHER USES for this medicine? This medication may be prescribed for other uses; ask your doctor or pharmacist for more information. What SPECIAL PRECAUTIONS should I follow? Before taking warfarin, tell your doctor and pharmacist if you are allergic to warfarin, any other medications, or any of the ingredients in warfarin tablets. Ask your pharmacist or check the Medication Guide for a list of the ingredients. do not take two or more medications that contain warfarin at the same time. Be sure to check with your doctor or pharmacist if you are uncertain if a medication contains warfarin or warfarin sodium. tell your doctor and pharmacist what prescription and nonprescription medications, vitamins, andnutritional supplements you are taking or plan to take while taking warfarin. Your doctor may change the doses of your medications or monitor you carefully for side effects. the following nonprescription or herbal products may interact with warfarin: coenzyme Q10 (Ubidecarenone), Echinacea, garlic, Ginkgo biloba, ginseng, goldenseal, and Hernan's wort; omeprazole (Prilosec); famotidine (Pepcid AC); aspirin and nonsteroidal anti-inflammatory drugs (NSAIDS) such as ibuprofen (Advil, Motrin, others) and naproxen (Aleve). Be sure to let your doctor and pharmacist know that you are taking these medications before you start taking warfarin. Do not start any of thesemedications while taking warfarin without discussing with your healthcare provider. tell your doctor if you have or have ever had diabetes. Also tell your doctor if you have an infection, a gastrointestinal illness such as diarrhea, or sprue (an allergic reaction to protein foundin grains that causes diarrhea), or an indwelling catheter (a flexible plastic tube that is placed into the bladder to allow the urine to drain out). Tell your doctor if you are , think you might be , or plan to become while taking warfarin. women should not take warfarin unless they have a mechanical heart valve. Talk to your doctor about the use of effective control while taking warfarin. If you become while taking warfarin, call your doctor immediately. Warfarin may harm the fetus. tell your doctor if you are breast-feeding. if you are having surgery, including dental surgery, or any type of medical or dental procedure,tell the doctor or dentist that you are taking warfarin. Your doctor may tell you to stop taking warfarin before the surgery or procedure or change your dosage of warfarin before the surgery or procedure. Follow your doctor's directions carefully and keep all appointments with the laboratory if your doctor orders blood tests to find the best dose of warfarin for you. ask your doctor about the safe use of alcoholic beverages while you are taking warfarin. tell your doctor if you use tobacco products. Cigarette smoking may decrease the effectiveness of this medication. What SPECIAL DIETARY instructions should I follow? Eat a normal, healthy diet. Some foods and beverages, particularly those that contain vitamin K, can affect how warfarin works for you. Ask your doctor or pharmacist for a list of foods that contain vitamin K. Eat consistent amounts of vitamin K-containing food on a sxay-ry-zkvv basis. Do not eat large amounts of leafy, green vegetables or certain vegetable oils that contain large amounts of vitamin K. Be sure to talk to your doctor before you make any changes in your diet. Talk to your doctor about eating grapefruit and drinking grapefruit juice while taking this medication. What should I do IF I FORGET to take a dose? Take the missed dose as soon as you remember it, if it is the same day that you were to take the dose. Do not take a double dose the next day to make up for a missed one. Call your doctor if you kathy dose of warfarin. What SIDE EFFECTS can this medicine cause? If you experience any of the following symptoms, or those listed in the IMPORTANT WARNING section, call your doctor immediately: hives rash itching difficulty breathing or swallowing swelling of the face, throat, tongue, lips, or eyes hoarseness chest pain or pressure swelling of the hands, feet, ankles, or lower legs fever infection nausea vomiting diarrhea extreme tiredness lack of energy loss of appetite pain in the upper right part of the stomach yellowing of the skin or eyes flu-like symptoms You should know that warfarin may cause necrosis or gangrene ( of skin or other body tissues).Call your doctor immediately if you notice a purplish or darkened color to your skin, skin changes,ulcers, or an unusual problem in any area of your skin or body, or if you have a severe pain that occurs suddenly, or color or temperature change in any area of your body. Call your doctor immediately if your toes become painful or become purple or dark in color. You may need medical care right away to prevent amputation (removal) of your affected body part. Warfarin may cause other side effects. Call your doctor if you have any unusual problems while taking this medication. What should I know about STORAGE and DISPOSAL of this medication? Keep this medication in the container it came in, tightly closed, and out of reach of children. Store it at room temperature and away from excess heat, moisture (not in the bathroom), and light. Unneeded medications should be disposed of in special ways to ensure that pets, children, and otherpeople cannot consume them. However, you should not flush this medication down the toilet. Instead,the best way to dispose of your medication is through a medicine take-back program. Talk to your pharmacist or contact your local garbage/recycling department to learn about take-back programs in your community. See the FDA's Safe Disposal of Medicines website (https://goo.gl/c4Rm4p) for more information if you do not have access to a take-back program. It is important to keep all medication out of sight and reach of children as many containers (such as weekly pill minders and those for eye drops, creams, patches, and inhalers) are not child-resistant and young children can open them easily. To protect young children from poisoning, always lock safety caps and immediately place the medication in a safe location - one that is up and away and out of their sight and reach. https://www.upandaway.org What should I do in case of OVERDOSE? In case of overdose, call the poison control helpline at . Information is also available online at https://www.poisonhelp.org/help. If the victim has collapsed, had a seizure, has trouble breathing, or can't be awakened, immediately call emergency services at 535. Symptoms of overdose may include the following: bloody or red, or tarry bowel movements spitting or coughing up blood heavy bleeding with your menstrual period pink, red, or dark brown urine coughing up or vomiting material that looks like coffee grounds small, flat, round red spots under the skin unusual bruising or bleeding continued oozing or bleeding from minor cuts What OTHER INFORMATION should I know? Carry an identification card or wear a bracelet stating that you take warfarin. Ask your pharmacistor doctor how to obtain this card or bracelet. List your name, medical problems, medications and dosages, and doctor's name and telephone number on the card. Tell all your healthcare providers that you take warfarin. Do not let anyone else take your medication. Ask your pharmacist any questions you have about refilling your prescription. It is important for you to keep a written list of all of the prescription and nonprescription (cabt-nwy-bqciruw) medicines you are taking, as well as any products such as vitamins, minerals, or otherdietary supplements. You should bring this list with you each time you visit a doctor or if you areadmitted to a hospital. It is also important information to carry with you in case of emergencies. This report on medications is for your information only, and is not considered individual patient advice. Because of the changing nature of drug information, please consult your physician or pharmacist about specific clinical use. The [employer] represents that the information provided hereunder was formulated with a reasonable standard of care, and in conformity with professional standards in the field. The [employer] makes no representations or warranties, express or implied, including, but not limited to, any implied warranty of merchantability and/or fitness for a particular purpose, with respect to such information and specifically disclaims all such warranties. Users are advised that decisions regarding drug therapy are complex medical decisions requiring the independent, informed decision of an appropriate health care aide, and the information is provided for informational purposes only. The entire monograph for a drug should be reviewed for a thorough understanding of the drug's actions, uses and side effects. The [employer] does not endorse or recommend the use of any drug.The information is not a substitute for medical care. [facility] Patient Medication Information?. Copyright, 2023. The [employer], [facility], [address], [place], [place]. All Rights Reserved. Duplication for commercial use must be authorized by [facility]. Selected Revisions: October 03, 2016. [facility] Patient Medication Information?. Copyright, 2024 * Pt Handout (on AVS) - Mira Webber RPh - 06/25/2024 9:50 AM EST Images from the original note were not included. Warfarin - Video Let's take a minute to talk about your medication. This is warfarin, and you should take your dose as directed by your doctor. Warfarin prevents and treats blood clots. To view the video go to this web address: https://bit.SoWeTrip/[email or web address] Or, scan this QR code with your smart phone 2024 [employer]. All Rights Reserved. * Progress Notes - Post-Op Mayank - Faisal Guzman MD - 06/25/2024 1:37 AM EST PROGRESS NOTE - CARDIAC [place] [facility] [address] Name: Ravi Yusuf [place] [facility] [facility] Date: 06/25/2024 Time: 1:37 AM OPERATION: 1. Aortic valve replacement #25 Avalus bioprosthetic valve with bovine pericardial patch of aorta 2. CABG x 1 (Ao-LPL using reversed saphenous vein) 3. Endoscopic saphenous vein harvest SURGEON: Faisal Guzman MD POD#: 3 PATIENT ISSUES/EVENTS: Afib most of the day yesterday despite multiple boluses. Was started on Vandana gtt and PO Amio. Continues to be in afib, rate a little more controlled. Asymptomatic and hemodynamically stable. No acute events overnight. PHYSICAL EXAM: General: no acute distress Heart Exam: irregularly irregular rhythm Lungs: clear to auscultation Abdominal Exam: abdomen soft, non-tender, and active bowel sounds Extremities: no edema Incision: sternotomy - clean, dry, and intact, vein harvest site - intact Neurological: alert Pulses: radials CURRENT CORE CARDIAC MEDICATIONS: Beta Avelino: no, explain -- previously low BP and slow HR, but will add as able ASA: yes Statin: yes ANDREI-Inhibitor / ARB: no, explain -- normal LVEF POSTOPERATIVE COMPLICATIONS: acute post op blood loss anemia ADDITIONAL PROCEDURES: none ASSESSMENT/PLAN: Cardiovascular: Rate/Rhythm: Afib/Previously sinus rhythm in the 50-70s (slow at baseline) Amio gtt and PO Amio 400 TID SBP: 100-120s EF = 55% Central Line(s): Yes, reason: Hemodynamic monitoring Pacer Wires: out Chronic Issues: Aortic valve stenosis Primary hypertension Hyperlipidemia Pulmonary: Satting high 90s on 2L NCO2 Chest Tubes/Vaughn Drains: out Chronic Issues: N/A GI: Diet: Adv to regular BM: None (POD#3) GI Prophylaxis: Pepcid Chronic Issues N/A /Renal: Pre-op Cr: 0.9-1.0 Most recent Cr: 1.3 Rodriguez: out Urine Output: Voiding Received 40 Lasix BID yesterday -1.2L yesterday, -2.6L since admission Chronic Issues: N/A Hematology: Hgb: 10.5 PLT: 70 ASA 81 Sub-q heparin held for low platelets 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 /6 Received extra protamine post-op for elevated aPTT and unfractionated heparin levels Chronic Issues: N/A Neuro/P.T./O.T.: Intact Pain managed Chronic Issues: Prior CVA Infectious Disease MSSA+ treated with Bactroban pre-op Post-op Ancef Chronic Issues: N/A Endo: Insulin gtt off Not diabetic Blood glucose stable Chronic Issues: N/A Plan: - Consider beta avelino (cautious due to low HR at baseline) - On Amio gtt and PO with afib rates slightly more controlled - Keep CVC for now due to Afib/Amio gtt - Miralax - Consider HAA if PLT continue to drop - Diuresis - Ambulate Rita Noyola PA-C ATTENDING STAFF I have seen and examined the patient. Remains in Afib. Otherwise doing well. Ambulating. Start heparin and warfarin. Diuresis. * Ancillary Progress Note - Rao Diamond RN - 06/24/2024 2:48 PM EST CARE MANAGEMENT - ADULT [place]ANS[place] [facility] [address] Name: Ravi Yusuf [place] [facility] Date: 06/24/2024 Time: 2:48 PM Risk Stratification Risk Stratification Psycho Social / Medical Concerns Identified: Adjustment to illness/injury (06/23/24 144) Accessed Neighborly to connect patients to social care resources: No (06/23/24 1442) OBRA or OPTIONS needed for placement: No (06/23/24 1442) Readmission Risk Score: 13.82 (06/24/24 1201) AM-PAC Score With Stairs : 17 (06/24/24 1048) Caregiver Information Emergency Contacts None on File Other Contacts Name Relation Home Work Mobile MONICA YUSUF Spouse [phone] PARAMJITLUIS FERNANDO Adult Child [phone] PARAMJITBERT Adult Child [phone] Transition of Care Checklist Transition of Care Checklist (aka Readmission Risk Score) Discharge Disposition: Home (06/23/241441) Narrative: CM has been following Ravi's hospital course. Patient discussed in IDT rounds. They arenot medically stable for discharge at this time.he is s/p AVR and CABG x 1. Team removed rodriguez, chest tubes and pacing wires today. Anticipate discharge Friday. Discharge plan evolving - CM will continue to follow for discharge needs. Anticipated Transportation at Discharge: family Patient/Family Expectations: return to home Transition Planning Transition Planning Transition Plan/Considerations: No needs identified - Return home;CM provided contact information and will update plan as needs arise;Discussed at Interdisciplinary Team / Boost Rounds (06/23/241441) Patient's social support at time of discharge: Lives with spouse/life partner who is ABLE to help care for the patient;Has family nearby who is ABLE to help care for the patient (06/23/241441) [facility] Quality Rating provided to patient: No (06/23/241441) Repisodic Choice provided to patient: Yes (06/23/241441) Transition plan discussed with - Enter name and phone #: Ravi (06/23/241441) Insurance Considerations: N/A (06/23/241441) Referral to Community Agency : N/A (06/23/241441) Post-Acute Care needs identified and Referrals Completed: N/A (06/23/241441) Additional Considerations: n/a Care Management will continue to monitor and assist with discharge planning needs * Ancillary Progress Note - Waldemar Garcia RRT - 06/24/2024 6:42 AM EST PDP RE-EVALUATION NOTE - Respiratory Care Services [facility] [address] Name: Ravi Yusuf [place] [facility] Date: 06/24/2024 Time: 6:42 AM Patient Driven Protocol Summary: Re-evaluation . This Treatment Plan and medications will be reviewed by the Primary Care Team for any contraindications. Respiratory Care Treatment Plan Pulmonary Volume Expansion Therapy: Incentive Spirometry BID to prevent or treat alveolar consolidation and atelectasis. Additional Pulmonary Volume Expansions: EzPAP Treatment: TID to prevent or treat alveolar consolidation and atelectasis. . Secretion Management Treatment: Flutter TherapyTID to enhance mobilization of secretions. .. The patient will be re-evaluated: within 48 hours. The Triage Level is: (Assessment Score = 6 -10) Level 4. Triage Level Definitions: Level 1 Severe Respiratory/Airway Compromise Level 2 Moderate Respiratory/Airway Compromise or high risk for pulmonary complications Level 3 Mild Respiratory/Airway Compromise or moderate risk for pulmonary complications Level 4 Episodic Respiratory/Airway Compromise or low risk for pulmonary complications Level 5 No Respiratory/Airway Compromise Triage 1 Triage 2 Triage 3 Triage 4 Triage 5 greater than 20 16 - 20 11 - 15 6 - 10 0 - 5 Medical Record Assessment Clinical Findings Pulmonary Status: 0 - No Smoking or quit greater than 10 years ago Surgical Status: 3 - Thoracic or Upper Abdominal Chest X-Ray: 0 - Clear Assessment Score: 3 Patient Assessment Clinical Findings Respiratory Pattern: 0 - RR 12 - 20; Patient only gets breathless with strenuous exercise. Breath Sounds: 2 - Diminished bilaterally Cough Effectiveness: 0 - Strong non-productive Sputum Production 0 - No sputum production Level of Activity: 1 - Ambulatory with assist O2 needed to keep SpO2 greater than or equal to 92%: 0 - Room Air Assessment Score: 3 Total Assessment Score: 6 Breath Sounds: Inspiratory and expiratory diminished bilaterally.. Cough and Sputum: An effective cough produced no sputum... Vital Signs: Resp: 18 (06/24/24618) Pulse: 82 (06/24/24599) Temp: 36.8 C (98.2 F) (06/24/24 0400) BP: 112/64 (06/24/24599) SpO2: 93 % (06/24/24618) PFT: Minimal Predicted IC: 1.03 L. Inspiratory capacity: 1500 L. Primary Service: Cardiac Surgery. Admitting Diagnosis: Aortic valve stenosis, unspecified etiology [I35.0] Pulmonary Diagnosis: Former Smoker and HTN . * Progress Notes - Post-Op Mayank - Faisal Guzman MD - 06/24/2024 2:20 AM EST PROGRESS NOTE - CARDIAC SURGERY [facility] [address] Name: Ravi Yusuf [place] [facility] Date: 06/24/2024 Time: 2:20 AM OPERATION: 1. Aortic valve replacement #25 Avalus bioprosthetic valve with bovine pericardial patch of aorta 2. CABG x 1 (Ao-LPL using reversed saphenous vein) 3. Endoscopic saphenous vein harvest SURGEON: Faisal Guzman MD POD#: 2 PATIENT ISSUES/EVENTS: Some soft blood pressures and lower urine outputs last evening - treated with albumin. Had sinus tach with PACs overnight. Otherwise, no acute events overnight. PHYSICAL EXAM: General: no acute distress Heart Exam: regular rate and rhythm Lungs: clear to auscultation Abdominal Exam: abdomen soft, non-tender, and absent bowel sounds Extremities: no edema Incision: sternotomy - clean FERNANDEZ in place, vein harvest site - intact Neurological: alert Pulses: dorsalis pedis CURRENT CORE CARDIAC MEDICATIONS: Beta Avelino: no, explain -- low BP and recent slow HR ASA: yes Statin: yes ANDREI-Inhibitor / ARB: no, explain -- normal LVEF POSTOPERATIVE COMPLICATIONS: acute post op blood loss anemia ADDITIONAL PROCEDURES: none ASSESSMENT/PLAN: Cardiovascular: Rate/Rhythm: Sinus rhythm in the 50-70s SBP: 90s-100s On low dose Levo EF = 55% Central Line(s): Yes, reason: Hemodynamic monitoring Pacer Wires: yes - V wires Chronic Issues: Aortic valve stenosis Primary hypertension Hyperlipidemia Pulmonary: Satting mid-high 90s on 2L NCO2 Chest Tubes/Vaughn Drains: Yes: drainage 0-20mL/hr Chronic Issues: N/A GI: Diet: Adv to regular BM: None (POD#2) GI Prophylaxis: Pepcid Chronic Issues N/A /Renal: Pre-op Cr: 0.9-1.0 Most recent Cr: 1.0 Rodriguez: Yes, reason: fluid monitoring Urine Output: 20-30mL/hr +0.2L yesterday, -1.4L since admission Chronic Issues: N/A Hematology: Hgb: 10.0 PLT: 182 INR: 1.3 ASA 81 Sub-q heparin held for low platelets 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 /6 Received extra protamine post-op for elevated aPTT and unfractionated heparin levels Chronic Issues: N/A Neuro/P.T./O.T.: Intact Pain managed Chronic Issues: Prior CVA Infectious Disease MSSA+ treated with Bactroban pre-op Post-op Ancef Chronic Issues: N/A Endo: Insulin gtt off Not diabetic Blood glucose stable Chronic Issues: N/A Plan: - No room for beta avelino yet - D/C CT if output remains low - Consider keeping wires until beta avelino is started - Start diuresis if BP allows - D/C Rodriguez - Subq heparin held - Ambulate Rita Noyola PA-C ATTENDING STAFF I have seen and examined the patient. Doing well, creat up to 1.4. good urine output. Hemodynamics good. Remove drains and pacing wires. Ambulate. * Care Plan - Salma Wilson RN - 06/23/2024 2:13 PM EST Clinical Goal(s): pt will get oob to chair (06/23/24 0700) Possible barriers to meeting goal(s)/advancing plan of care: pain, weakness Stability of the patient: Moderately stable - low risk of patient condition declining or worsening Summary regarding today's goal(s): Met: pt got oob to chair Recommendations: continue ambulating pt * Progress Notes - Post-Op Global - Faisal Guzman MD - 06/23/2024 12:58 AM EST PROGRESS NOTE - CARDIAC SURGERY [facility] [address] Name: Ravi Yusuf [place] [facility] Date: 06/23/2024 Time: 12:58 AM OPERATION: 1. Aortic valve replacement #25 Avalus bioprosthetic valve with bovine pericardial patch of aorta 2. CABG x 1 (Ao-LPL using reversed saphenous vein) 3. Endoscopic saphenous vein harvest SURGEON: Faisal Guzman MD POD#: 1 PATIENT ISSUES/EVENTS: Extubated routinely. HR in the 50s-60s, which seems to be baseline for him. However, he is having some occasional PVCs which decrease his blood pressure. Therefore, his is backon 1 of Levo. Otherwise, he is doing well. PHYSICAL EXAM: General: no acute distress Heart Exam: bradycardic, regular, no murmurs Lungs: diminished breath sounds - bases Abdominal Exam: abdomen soft, non-tender, and absent bowel sounds Extremities: no edema Incision: sternotomy - clean FERNANDEZ in place, vein harvest site - ANDREI bandage in place Neurological: alert Pulses: dorsalis pedis CURRENT CORE CARDIAC MEDICATIONS: Beta Avelino: no, explain -- low BP and slow HR ASA: yes Statin: yes ANDREI-Inhibitor / ARB: no, explain -- normal LVEF POSTOPERATIVE COMPLICATIONS: acute post op blood loss anemia ADDITIONAL PROCEDURES: none ASSESSMENT/PLAN: Cardiovascular: Rate/Rhythm: Sinus rhythm in the 50-60s, occasional ectopy SBP: 110s-130s On low dose Levo EF = 55% CI: 2.4-2.7 SVO2: 80 Central Line(s): Yes, reason: Hemodynamic monitoring Pacer Wires: yes - V wires Chronic Issues: Aortic valve stenosis Primary hypertension Hyperlipidemia Pulmonary: Satting 99-100% on 4L NCO2 Chest Tubes/Vaughn Drains: Yes: drainage 0-40mL/hr Chronic Issues: N/A GI: Diet: Adv to regular BM: None (POD#1) GI Prophylaxis: Pepcid Chronic Issues N/A /Renal: Pre-op Cr: 0.9-1.0 Most recent Cr: 1.0 Rodriguez: Yes, reason: fluid monitoring Urine Output: 35-100mL/hr Chronic Issues: N/A Hematology: Hgb: 10.4 PLT: 105 INR: 1.3 ASA 81 Sub-q heparin 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 3/6 Received extra protamine post-op for elevated aPTT and unfractionated heparin levels Chronic Issues: N/A Neuro/P.T./O.T.: Intact Pain managed Chronic Issues: Prior CVA Infectious Disease MSSA+ treated with Bactroban pre-op Post-op Ancef Chronic Issues: N/A Endo: Insulin gtt Not diabetic Blood glucose stable Chronic Issues: N/A Plan: - On low dose levo for decreased BP during ectopy - HR too slow for beta avelino - D/C swan - D/C allison when no longer requiring levo - Wean O2 as able - D/C insulin gtt - Ambulate Rita Noyola PA-C ATTENDING STAFF I have seen and examined the patient. Doing well. Remove PA cath and art line. * Ancillary Progress Note - Spencer Musa, PHOTOENGRAVING PROOFER - 06/22/2024 8:35 PM EST PATIENT DRIVEN PROTOCOL - Respiratory Care Services [address] [address] Name: Ravi Yusuf [place] [facility] Date: 06/22/2024 Time: 8:35 PM Patient Driven Protocol Summary: Initial evaluation performed. This Treatment Plan and medications will be reviewed by the Primary Care Team for any contraindications. Respiratory Care Treatment Plan Pulmonary Volume Expansion Therapy: Incentive Spirometry BID to prevent or treat alveolar consolidation and atelectasis. Additional Pulmonary Volume Expansions: EzPAP Treatment: Total Performed: 30 with Device Settin Q6H with no medication to prevent or treat alveolar consolidation and atelectasis. Secretion Management Treatment: Flutter [id number] to enhance mobilization of secretions. The patient will be re-evaluated: within 48 hours. The Triage Level is: (Assessment Score = 6 -10) Level 4. Triage Level Definitions: Level 1 Severe Respiratory/Airway Compromise Level 2 Moderate Respiratory/Airway Compromise or high risk for pulmonary complications Level 3 Mild Respiratory/Airway Compromise or moderate risk for pulmonary complications Level 4 Episodic Respiratory/Airway Compromise or low risk for pulmonary complications Level 5 No Respiratory/Airway Compromise Triage 1 Triage 2 Triage 3 Triage 4 Triage 5 greater than 20 16 - 20 11 - 15 6 - 10 0 - 5 Medical Record Assessment Clinical Findings Pulmonary Status: 0 - No Smoking or quit greater than 10 years ago Surgical Status: 3 - Thoracic or Upper Abdominal Chest X-Ray: 0 - Clear Assessment Score: 3 Patient Assessment Clinical Findings Respiratory Pattern: 0 - RR 12 - 20; Patient only gets breathless with strenuous exercise. Breath Sounds: 2 - Diminished bilaterally Cough Effectiveness: 0 - Strong non-productive Sputum Production: 0 - No sputum production Level of Activity: 2 - Temporarily non-ambulatory O2 needed to keep SpO2 greater than or equal to 92%: 2 - Oxygen 4-6 LPM or FiO2 35-50% Assessment Score: 6 Total Assessment Score: 9 Breath Sounds: Inspiratory and expiratory clear and diminished bilaterally.. Cough and Sputum: An effective cough produced no sputum... CXR: FINDINGS Partially obscured distal endotracheal tube tip approximately 2-3 cm above the kristin. Right IJ approach pulmonary artery catheter tip in the region of the main pulmonary artery. Mediastinal drains/tubes. Sternotomy wires. Left costophrenic angle partially excluded from the field of view. No focal consolidation, pleural effusion, or pneumothorax. Unremarkable cardiomediastinal silhouette. Vascular calcifications. Degenerative changes. IMPRESSION IMPRESSION Postoperative chest with lines and tubes, as above. No acute findings. Vital Signs: Resp: 16 (06/22/241999) Pulse: 66 (06/22/241999) Temp: 35.4 C (95.7 F) (06/22/24 1207) BP: 165/89 (06/22/24 0625) SpO2: 96 % (06/22/241999) PFT: Minimal Predicted IC: 1.03 L. Inspiratory capacity: 1.0 L. Primary Service: Cardiac Surgery. Admitting Diagnosis: Aortic valve stenosis, unspecified etiology [I35.0] Pulmonary Diagnosis: Hypertension. Prescriptions/Home Medications/Durable Medical Equipment: none. Recommended New home medications/durable medical equipment/outpatient pulmonary/sleep referral none. documented in this encounter Plan of Treatment Upcoming Encounters Date Type Department Care Team (Late st Contact Info) Description 06/28/2024 6:30 AM EDT Anticoagulation Pharmacy, [facility] [place] [address] [facility] [place] [address] Pharmacist1, [facility] [address] [facility] [place] [id number] 06/29/2024 1:10 PM EDT Anticoagulation Pharmacy, [facility] [place] [address] [facility] [place] [address] Pharmacist1, [facility] [address] [facility] [place] [phone] 07/02/2024 1:30 PM EDT Telemedicine Cardiothoracic Surg [facility] [address] [place] [address] Esteban Mcdonald PA-C [address] [place] [address] 07/29/2024 11:45 AM EDT Office Visit Cardiothoracic Surg [facility] [place] [address] [place], [place] [id number] Faisal Guzman MD [address] [place] [address] Pending Results Name Type Priority Associated Diagnoses Date/Time CV ECHO, SONIDO INTRAOPERATIVE Echocardiology Routine Valvular heart disease 06/22/2024 11:52 AM EST CV ECHO, SONIDO INTRAOPERATIVE Echocardiology Routine Valvular heart disease 06/22/2024 4:13 PM EST Scheduled Orders Name Type Priority Associated Diagnoses Order Schedule CV ECHO, SONIDO INTRAOPERATIVE Echocardiology Routine Valvular heart disease One Time for 1 Occurrences starting 06/22/2024 until 06/22/2024 CV ECHO, SONIDO INTRAOPERATIVE Echocardiology Routine Valvular heart disease One Time for 1 Occurrences starting 06/22/2024 until 06/22/2024 EKG EKG STAT Status post surgery One Time for 1 Occurrences starting 06/22/2024 until 06/22/2024 EXTUBATION Procedures Routine One Time for 1 Occurrences starting 06/22/2024 until 06/22/2024 EKG EKG Routine Arrhythmia Perform Now for 1 Occurrences starting 06/24/2024 until 06/24/2024 Scheduled Referrals Name Type Priority Associated Diagnoses Orde r Schedule CARDIAC REHAB REFERRAL OP Referral Within 30 days (routine) S/P AVR (aortic valve replacement) Ordered: 06/22/2024 ANTI-COAGULATION REFERRAL OP Referral Within 3 days (urgent) Arrhythmia Ordered: 06/25/2024 Health Maintenance Due Date Last Done Comments Depression Screening 1967 Albumin/Creatinine Ratio 1973 Hepatitis C Screening 1973 DTap/Tdap Vaccines (1 - Tdap) 1974 Cologuard 02/23/2000 Colonoscopy 02/23/2000 Colorectal Cancer Screening 02/23/2000 Fecal Occult Blood Test 02/23/2000 Sigmoidoscopy 02/23/2000 Pneumococcal Vaccine: 50+ Years (1 of 1 - PCV) 2005 AAA Screening 02/23/2020 COVID-19 Vaccine (4 - 2023- season) 2023 03/13/2021, 07/10/2020, 06/19/2020 Influenza Vaccine (FLU shot) (#1) 2023 GFR 06/26/2025 06/26/2024, 03/10/2024, 06/24/2024, Additional history exists Diabetes Screening 06/27/2027 [...] this encounter Medical Devices Implanted Type Area Broaching Machine Repairer Device Identifier Shelf Expiration Date Model / Serial / Lot Suture Steel 6 B&S19 [id number] - [id number] Implanted:Qty: 8 on 06/22/2024 by Faisal Guzman MD [place] [facility] [place]: Sternum JNJ : [employer] 01/18/2029 [id number] / / [id number] Marker Coronary - [id number] Implanted:Qty: 1 on 06/22/2024 by Faisal Guzman MD [place] [facility] [place]: Aorta [employer] 03/20/2027 AM-SD / / [id number] Valve Aortic Avalus 25mm - [id number] - [id number] Implanted:Qty: 1 on 06/22/2024 by Faisal Guzman MD [place] [facility] [place]: Heart [employer] [id number] 01/18/2027 [id number] / [id number] / [id number] Patch Pericardium Bovine 8x14 - [id number] - [id number] Implanted:Qty: 1 on 06/22/2024 by Faisal Guzman MD [place] [facility] [place]: Aorta [employer] [id number] 09/15/2029 [id number] / [id number] / [id number] documented as of this encounter Procedures Procedure Name Priority Date/Time Associated Diagnosis Comments HEPARIN, UNFRACTIONATED STAT 06/26/2024 9:12 AM EST XR CHEST 1 VIEW Routine 06/26/2024 6:13 AM EST DIFFERENTIAL, AUTOMATED STAT 06/26/2024 3:28 AM EST BASIC METABOLIC PANEL STAT 06/26/2024 3:28 AM EST HEPARIN, UNFRACTIONATED STAT 06/26/2024 3:28 AM EST CBC STAT 06/26/2024 3:28 AM EST PT INR Routine 06/26/2024 3:28 AM EST CBC STAT 06/26/2024 3:28 AM EST MAGNESIUM STAT 06/26/2024 3:28 AM EST HEPARIN, UNFRACTIONATED STAT 06/25/2024 8:22 PM EST HEPARIN, UNFRACTIONATED STAT 06/25/2024 8:20 AM EST PT INR STAT 06/25/2024 8:20 AM EST APTT STAT 06/25/2024 8:20 AM EST XR CHEST 1 VIEW Routine 06/25/2024 5:32 AM EST DIFFERENTIAL, AUTOMATED STAT 06/25/2024 4:01 AM EST BASIC METABOLIC PANEL STAT 06/25/2024 4:01 AM EST CBC STAT 06/25/2024 4:01 AM EST CBC STAT 06/25/2024 4:01 AM EST MAGNESIUM STAT 06/25/2024 4:01 AM EST BASIC METABOLIC PANEL Routine 06/24/2024 12:53 PM EST XR CHEST 1 VIEW Routine 06/24/2024 6:20 AM EST Encounter for surgical aftercare following surgery on the circulatory system Other disorders of lung DIFFERENTIAL, AUTOMATED STAT 06/24/2024 4:50 AM EST BASIC METABOLIC PANEL STAT 06/24/2024 4:50 AM EST CBC STAT 06/24/2024 4:50 AM EST CBC STAT 06/24/2024 4:50 AM EST MAGNESIUM STAT 06/24/2024 4:50 AM EST XR CHEST 1 VIEW Routine 06/23/2024 6:12 AM EST Encounter for surgical aftercare following surgery on the circulatory system Other nonspecific abnormal finding of lung field HC ECG TRACING ONLY Routine 06/23/2024 4 :25 AM EST Status post surgery DIFFERENTIAL, AUTOMATED STAT 06/23/2024 3:51 AM EST BASIC METABOLIC PANEL STAT 06/23/2024 3:51 AM EST O2 SATURATION, VENOUS STAT 06/23/2024 3:51 AM EST CBC STAT 06/23/2024 3:51 AM EST CBC STAT 06/23/2024 3:51 AM EST DIFFERENTIAL, TECHNOLOGIST REVIEW Routine 06/23/2024 3:51 AM EST MAGNESIUM STAT 06/23/2024 3:51 AM EST GLUCOSE METER, POINT OF CARE [facility] RAFAEL 06/23/2024 3:50 AM EST GLUCOSE METER, POINT OF CARE [facility] RAFAEL 06/23/2024 2:06 AM EST GLUCOSE METER, POINT OF CARE JOSE RAFAEL 06/23/2024 12:02 AM EST GLUCOSE METER, POINT OF CARE [facility] 06/22/2024 10:00 PM EST GLUCOSE METER, POINT OF CARE JOSE RAFAEL 06/22/2024 8:16 PM EST BLOOD GAS, ARTERIAL STAT 06/22/2024 7 :03 PM EST GLUCOSE METER, POINT OF CARE [facility] 06/22/2024 5:51 PM EST BASIC METABOLIC PANEL STAT 06/22/2024 5:47 PM EST CBC STAT 06/22/2024 5:47 PM EST MAGNESIUM STAT 06/22/2024 5:47 PM EST GLUCOSE METER, POINT OF CARE JOSE RAFAEL 06/22/2024 3:49 PM EST WHOLE BLOOD PROFILE, ARTERIAL STAT 06/22/2024 3:49 PM EST PT INR STAT 06/22/2024 3:09 PM EST APTT STAT 06/22/2024 3:09 PM EST FIBRINOGEN STAT 06/22/2024 3:09 PM EST BLOOD GAS, ARTERIAL STAT 06/22/2024 1 :58 PM EST GLUCOSE METER, POINT OF CARE JOSE RAFAEL 06/22/2024 1:56 PM EST WHOLE BLOOD PROFILE, ARTERIAL STAT 06/22/2024 1:23 PM EST XR ABDOMEN 1 VIEW STAT 06/22/2024 1:1 0 PM EST Encounter for fitting and adjustment of other gastrointestinal appliance and device XR CHEST 1 VIEW STAT 06/22/2024 1:10 PM EST Encounter for surgical aftercare following surgery on the circulatory system Presence of other specified devices WHOLE BLOOD PROFILE, ARTERIAL STAT 06/22/2024 12:11 PM EST TEG (THOMROBOELASTOGRAPH) PANEL STAT 06/22/2024 12:09 PM EST BLOOD GAS WITH CHEMISTRY, POINT OF CARE JO[facility] RAFAEL 06/22/2024 12:09 PM EST GLUCOSE METER, POINT OF CARE JOSE RAFAEL 06/22/2024 12:09 PM EST TEG (THROMBOELASTOGRAPH), HEPARINASE STAT 06/22/2024 12:09 PM EST TEG (THROMBOELASTOGRAPH) STAT 06/22/2024 12:09 PM EST BASIC METABOLIC PANEL STAT 06/22/2024 12:09 PM EST HEPARIN, UNFRACTIONATED STAT 06/22/2024 12:09 PM EST ANTITHROMBIN III ACTIVITY STAT 06/22/2024 12:09 PM EST O2 SATURATION, VENOUS STAT 06/22/2024 12:09 PM EST PT INR STAT 06/22/2024 12:09 PM EST APTT STAT 06/22/2024 12:09 PM EST FIBRINOGEN STAT 06/22/2024 12:09 PM EST CBC STAT 06/22/2024 12:09 PM EST MAGNESIUM STAT 06/22/2024 12:09 PM EST ACT, POINT OF CARE JOSE RAFAEL 06/22/2024 11 :01 AM EST BLOOD GAS WITH CHEMISTRY, POINT OF CARE JOSE RAFAEL 06/22/2024 11:00 AM EST TEG (THOMROBOELASTOGRAPH) PANEL STAT 06/22/2024 10:54 AM EST TEG (THROMBOELASTOGRAPH), HEPARINASE STAT 06/22/2024 10:54 AM EST WHOLE BLOOD PROFILE, ARTERIAL STAT 06/22/2024 10:54 AM EST TEG (THROMBOELASTOGRAPH) STAT 06/22/2024 10:54 AM EST ANTITHROMBIN III ACTIVITY STAT 06/22/2024 10:54 AM EST PT INR STAT 06/22/2024 10:54 AM EST APTT STAT 06/22/2024 10:54 AM EST FIBRINOGEN STAT 06/22/2024 10:54 AM EST CBC STAT 06/22/2024 10:54 AM EST ACT, POINT OF CARE JOSE RAFAEL 06/22/2024 10 :27 AM EST BLOOD GAS WITH CHEMISTRY, POINT OF CARE JOSE RAFAEL 06/22/2024 10:22 AM EST ACT, POINT OF CARE JOSE RAFAEL 06/22/2024 10 :06 AM EST ACT, POINT OF CARE JOSE RAFAEL 06/22/2024 9: 42 AM EST ACT, POINT OF CARE JOSE RAFAEL 06/22/2024 9: 20 AM EST BLOOD GAS WITH CHEMISTRY, POINT OF CARE JOSE RAFAEL 06/22/2024 9:16 AM EST TEG (THOMROBOELASTOGRAPH) PANEL Routine 06/22/2024 9:15 AM EST TEG (THROMBOELASTOGRAPH), HEPARINASE Routine 06/22/2024 9:15 AM EST WHOLE BLOOD PROFILE, VENOUS Routine 06/22/2024 9:15 AM EST BLOOD GAS, ARTERIAL Routine 06/22/2024 9 :15 AM EST TEG (THROMBOELASTOGRAPH) Routine 06/22/2024 9:15 AM EST PLT Routine 06/22/2024 9:15 AM EST HCT Routine 06/22/2024 9:15 AM EST FIBRINOGEN Routine 06/22/2024 9:15 AM EST ACT, POINT OF CARE JOSE RAFAEL 06/22/2024 8: 57 AM EST ACT, POINT OF CARE JOSE RAFAEL 06/22/2024 8: 57 AM EST BLOOD GAS WITH CHEMISTRY, POINT OF CARE JOSE RAFAEL 06/22/2024 7:53 AM EST ACT, POINT OF CARE JOSE RAFAEL 06/22/2024 7: 53 AM EST GLUCOSE METER, POINT OF CARE JOSE RAFAEL 06/22/2024 6:51 AM EST ENDO,VIDEO ASSIST HARVEST JUAN CARLOS 06/22/2024 6:30 AM EST Aortic valve stenosis, unspecified etiology CORONARY ARTERY BYPASS, SINGLE 06/22/2024 6:30 AM EST Aortic valve stenosis, unspecified etiology Replacement Aortic Valve, Bypass with Prosthetic Valve 06/22/2024 6:30 AM EST Aortic valve stenosis, unspecified etiology HC ECG TRACING ONLY Routine 06/22/2024 5 :59 AM EST Pre-operative cardiovascular examination documented in this encounter Results * (ABNORMAL) HEPARIN, UNFRACTIONATED (06/26/2024 9:12 AM EST) [facility] Heparin, Unfractionated 0.34(H) <0.10 IU/mL 06/26/2024 9:51 AM EST [facility] [place]: Unfractionated therapeutic ranges for Anti Xa activity: For Cardiac/Neurologic treatment: 0.3 to 0.6 IU/mL. For treatment of DVT or Pulmonary Embolism: 0.3 to 0.7 IU/mL. Blood Venous blood specimen / Unknown Venipuncture / Unknown 06/26/2024 9:12 AM EST 06/26/2024 9:16 AM EST us Kelsi MENA LAB BLOOD ORDERABLES Final Re sult [facility] [address] [place] [address] * XR CHEST 1 VIEW (06/26/2024 6:13 AM EST) Anatomical Region Laterality Modality Chest Computed Radiogr aphy 06/26/2024 9:10 AM EST Impressions 06/26/2024 9:08 AM EST IMPRESSION Improved aeration in the lung bases with mild residual subsegmental atelectasis. Improved subsegmental atelectasis mild residual changes left side greater than right. Narrative 06/26/2024 9:08 AM EST EXAM XR CHEST 1 VIEW- 06/26/2024 6:13 am HISTORY follow up postop open heart COMPARISON XR CHEST 1 VIEW, ACC: [id number], dated 2024-06-25 05:02:15; XR CHEST 1 VIEW, ACC: [id number], dated 2024-06-24 06:00:15 TECHNIQUE Portable semi-upright AP view of the chest was obtained. FINDINGS Catheters: Right internal vascular sheath Tubes: None Foreign bodies: Mediastinal sutures Cardiac silhouette is prominent. None improved aeration in the lung bases with mild residual subsegmental atelectasis. Procedure Note Regi Jacome MD - 06/26/2024 EXAM XR CHEST 1 VIEW- 06/26/2024 6:13 am HISTORY follow up postop open heart COMPARISON XR CHEST 1 VIEW, ACC: [id number], dated 2024-06-25 05:02:15; XR CHEST 1 VIEW, ACC: [id number], dated 2024-06-24 06:00:15 TECHNIQUE Portable semi-upright AP view of the chest was obtained. FINDINGS Catheters: Right internal vascular sheath Tubes: None Foreign bodies: Mediastinal sutures Cardiac silhouette is prominent. None improved aeration in the lung baseswith mild residual subsegmental atelectasis. IMPRESSION IMPRESSION Improved aeration in the lung bases with mild residual subsegmentalatelectasis. Improved subsegmental atelectasis mild residual changes leftside greater than right. Spencer Castro PA-C RADIOLOGY ([facility]) Final Result * (ABNORMAL) HEPARIN, UNFRACTIONATED (06/26/2024 3:28 AM EST) [facility] Heparin, Unfractionated 0.32(H) <0.10 IU/mL 06/26/2024 3:47 AM EST [facility] [place]: Unfractionated therapeutic ranges for Anti Xa activity: For Cardiac/Neurologic treatment: 0.3 to 0.6 IU/mL. For treatment of DVT or Pulmonary Embolism: 0.3 to 0.7 IU/mL. Blood Venous blood specimen / Unknown Venipuncture / Unknown 06/26/2024 3:28 AM EST 06/26/2024 3:33 AM EST us Kelsi MENA LAB BLOOD ORDERABLES Final Re sult [facility] [address] [place] [address] * (ABNORMAL) DIFFERENTIAL, AUTOMATED (06/26/2024 3:28 AM EST) WBC 10.61 4.00 - 10.80 K/uL 06/26/2024 3:47 AM EST [facility] Neutrophils % 70.5 40.0 - 75.0 % 06/26/2024 3:47 AM EST [facility] Lymphocytes % 13.9(L) 18.0 - 42.0 % 06/26/2024 3:47 AM EST [facility] Monocytes % 11.7(H) 1.0 - 11.0 % 06/26/2024 3:47 AM EST [facility] Eosinophils % 3.0 0.0 - 6.0 % 06/26/2024 3:47 AM EST [facility] Basophils % 0.5 0.0 - 2.0 % 06/26/2024 3:47 AM EST [facility] Immature Granulocytes % 0.4 0.0 - 2.0 % 06/26/2024 3:47 AM EST [facility] Absolute Neutrophils 7.49 1.80 - 7.70 K/uL 06/26/2024 3:47 AM EST [facility] Absolute Lymphocytes 1.47 1.00 - 4.80 K/ul 06/26/2024 3:47 AM EST [facility] Absolute Monocytes 1.24(H) 0.00 - 1.10 K/uL 06/26/2024 3:47 AM EST [facility] Absolute Eosinophils 0.32 0.00 - 0.70 K/uL 06/26/2024 3:47 AM EST [facility] Absolute Basophils 0.05 0.00 - 0.20 K/uL 06/26/2024 3:47 AM EST [facility] Absolute Immature Granulocytes 0.04 0.00 - 0.20 K/uL 06/26/2024 3:47 AM EST [facility] Blood Venous blood specimen / Unknown Venipuncture / Unknown 06/26/2024 3:28 AM EST 06/26/2024 3:33 AM EST us Faisal Guzman MD LAB BLOOD ORDERABLES Final Result Performing Organization Address City/[facility]/ZIP Co de Phone Number LABORATORY [facility] [address], [place] [id number] * (ABNORMAL) CBC (06/26/2024 3:28 AM EST) [facility] WBC 10.61 4.00 - 10.80 K/uL 06/26/2024 3:47 AM EST [facility] RBC 3.42 4.50 - 5.25 M/uL 06/26/2024 3:47 AM EST [facility] HGB 10.7(L) 14.0 - 16.8 g/dL 06/26/2024 3:47 AM EST [facility] HCT 32.9(L) 40.0 - 48.4 % 06/26/2024 3:47 AM EST [facility] MCV 96.2 82.0 - 99.5 fL 06/26/2024 3:47 AM EST [facility] MCH 31.3 27.0 - 34.0 pg 06/26/2024 3:47 AM EST [facility] MCHC 32.5 32.0 - 36.0 g/dL 06/26/2024 3:47 AM EST [facility] RDW 12.7 11.5 - 15.5 % 06/26/2024 3:47 AM EST [facility] PLT 103(L) 140 - 400 K/uL 06/26/2024 3:47 AM EST [facility] MPV 11.3 6.6 - 11.1 fL 06/26/2024 3:47 AM EST [facility] nRBCs 0 <=0 /100 WBCs 06/26/2024 3:47 AM EST [facility] Blood Venous blood specimen / Unknown Venipuncture / Unknown 06/26/2024 3:28 AM EST 06/26/2024 3:33 AM EST us Fasial Guzman MD LAB BLOOD ORDERABLES Final Result [facility] [address], [place] [id number] * (ABNORMAL) PT INR (06/26/2024 3:28 AM EST) Prothrombin Time 15.3(H) 11.6 - 15.2 seconds 06/26/2024 3:46 AM EST [facility] INR 1.2 0.8 - 1.2 06/26/2024 3:46 AM EST [facility] Blood Venous blood specimen / Unknown Venipuncture / Unknown 06/26/2024 3:28 AM EST 06/26/2024 3:33 AM EST Narrative [facility] - 06/26/2024 3:46 AM EST Warfarin Therapy INR: 2.0-3.0 conventional anticoagulation INR: 2.5-3.5 high intensity anticoagulation us Kelsi MENA LAB BLOOD ORDERABLES Final Re sult Performing Organization Address City/[facility] Co de Phone Number [facility] [address] [place] [address] * MAGNESIUM (06/26/2024 3:28 AM EST) Pathologist [facility] Magnesium 1.9 1.5 - 2.6 mg/dL 06/26/2024 4:00 AM EST [facility] Blood Venous blood specimen / Unknown Venipuncture / Unknown 06/26/2024 3:28 AM EST 06/26/2024 3:33 AM EST Faisal Guzman MD LAB BLOOD ORDERABLES Final Result Performing Organization Address City/[facility]/ZIP Co de Phone Number [facility] [address] [place] [address] * (ABNORMAL) BASIC METABOLIC PANEL (06/26/2024 3:28 AM EST) Pathologist [facility] BUN 21(H) 6 - 20 mg/dL 06/26/2024 4:00 AM EST [facility] CREATININE 1.1 0.6 - 1.2 mg/dL 06/26/2024 4:00 AM EST [facility] EGFR 75 >=60 mL/min 06/26/2024 4:00 AM EST [facility] Comment:eGFR is calculated b ased on the CKD-EPI 2020 equation. SODIUM 139 135 - 146 mmol/L 06/26/2024 4:00 AM EST [facility] POTASSIUM 4.0 3.5 - 5.1 mmol/L 06/26/2024 4:00 AM EST [facility] CHLORIDE 102 98 - 107 mmol/L 06/26/2024 4:00 AM EST [facility] CO2 24 22 - 32 mmol/L 06/26/2024 4:00 AM EST [facility] ANION GAP 13 7 - 15 mmol/L 06/26/2024 4:00 AM EST [facility] GLUCOSE 122(H) 70 - 120 mg/dL 06/26/2024 4:00 AM EST [facility] CALCIUM 8.7 8.4 - 10.2 mg/dL 06/26/2024 4:00 AM EST LAB[facility]ATORY [facility] Blood Venous blood specimen / Unknown Venipuncture / Unknown 06/26/2024 3:28 AM EST 06/26/2024 3:33 AM EST Faisal Guzman MD LAB BLOOD ORDERABLES Final Result Performing Organization Address City/[facility]/ZIP Co de Phone Number LABORATORY [place] [address] [place] [address] * (ABNORMAL) HEPARIN, UNFRACTIONATED (06/25/2024 8:22 PM EST) [facility] Heparin, Unfractionated 0.13(H) <0.10 IU/mL 06/25/2024 8:43 PM EST [facility] [place]: Unfractionated therapeutic ranges for Anti Xa activity: For Cardiac/Neurologic treatment: 0.3 to 0.6 IU/mL. For treatment of DVT or Pulmonary Embolism: 0.3 to 0.7 IU/mL. Blood Venous blood specimen / Unknown Venipuncture / Unknown 06/25/2024 8:22 PM EST 06/25/2024 8:26 PM EST us Kelsi MENA LAB BLOOD ORDERABLES Final Re sult Performing Organization Address City/[facility]/ZIP Co de Phone Number [facility] [address] [place] [address] * HEPARIN, UNFRACTIONATED (06/25/2024 8:20 AM EST) Heparin, Unfractionated <0.10 <0.10 IU/mL 06/25/2024 8:56 AM EST [facility] [place]: Unfractionated therapeutic ranges for Anti Xa activity: For Cardiac/Neurologic treatment: 0.3 to 0.6 IU/mL. For treatment of DVT or Pulmonary Embolism: 0.3 to 0.7 IU/mL. Blood Venous blood specimen / Unknown Venipuncture / Unknown 06/25/2024 8:20 AM EST 06/25/2024 8:29 AM EST Kelsi MENA LAB BLOOD ORDERABLES Final Re sult Performing Organization Address [facility]/ZIP Co de Phone Number [facility] [address] [place] [address] * (ABNORMAL) APTT (06/25/2024 8:20 AM EST) aPTT 66(H) 21 - 38 seconds 06/25/2024 8:56 AM EST [facility] Blood Venous blood specimen / Unknown Venipuncture / Unknown 06/25/2024 8:20 AM EST 06/25/2024 8:29 AM EST Narrative [facility] - 06/25/2024 8:56 AM EST Anticoagulation may affect testing. Refer to [employer] for a list of effects. Kelsi MENA LAB BLOOD ORDERABLES Final Re sult [facility] [address] [place] [address] * PT INR (06/25/2024 8:20 AM EST) Prothrombin Time 14.5 11.6 - 15.2 seconds 06/25/2024 8:49 AM EST [facility] INR 1.1 0.8 - 1.2 06/25/2024 8:49 AM EST [facility] Blood Venous blood specimen / Unknown Venipuncture / Unknown 06/25/2024 8:20 AM EST 06/25/2024 8:29 AM EST Narrative [facility] - 06/25/2024 8:49 AM EST Warfarin Therapy INR: 2.0-3.0 conventional anticoagulation INR: 2.5-3.5 high intensity anticoagulation us Kelsi MENA LAB BLOOD ORDERABLES Final Re sult [facility] [address] [place] [address] * XR CHEST 1 VIEW (06/25/2024 5:32 AM EST) Anatomical Region Laterality Modality Chest Computed Radiogr aphy 06/25/2024 7:09 AM EST Impressions 06/25/2024 7:07 AM EST IMPRESSION Slight improvement in paramediastinal and bibasilar atelectatic changes. Narrative 06/25/2024 7:07 AM EST EXAM XR CHEST 1 VIEW - 06/25/2024 5:32 am HISTORY follow up postop open heart TECHNIQUE Single portable semi upright view the chest submitted for interpretation. COMPARISON 06/24/2024. FINDINGS Partially imaged right internal jugular sheath. Sternotomy wires unchanged. Cardiac size within normal limits. Paramediastinal and bibasilar atelectatic changes appear slightly improved from the previous examination. Blunting of the costophrenic angles is stable and could represent atelectasis or tiny effusions. No pneumothorax appreciated. Pulmonary vascularity normal. Osseous structures unchanged. Procedure Note Nate Robert MD - 06/25/2024 EXAM XR CHEST 1 VIEW - 06/25/2024 5:32 am HISTORY follow up postop open heart TECHNIQUE Single portable semi upright view the chest submitted forinterpretation. COMPARISON 06/24/2024. FINDINGS Partially imaged right internal jugular sheath. Sternotomy wiresunchanged. Cardiac size within normal limits. Paramediastinal and bibasilaratelectatic changes appear slightly improved from the previousexamination. Blunting of the costophrenic angles is stable and couldrepresent atelectasis or tiny effusions. No pneumothorax appreciated.Pulmonary vascularity normal. Osseous structures unchanged. IMPRESSION IMPRESSION Slight improvement in paramediastinal and bibasilar atelectatic changes. us Spencer Castro PA-C RADIOLOGY ([facility]) Final Result * (ABNORMAL) DIFFERENTIAL, AUTOMATED (06/25/2024 4:01 AM EST) WBC 11.70(H) 4.00 - 10.80 K/uL 06/25/2024 4:52 AM EST [facility] Neutrophils % 76.0(H) 40.0 - 75.0 % 06/25/2024 4:52 AM EST [facility] Lymphocytes % 11.9(L) 18.0 - 42.0 % 06/25/2024 4:52 AM EST [facility] Monocytes % 10.3 1.0 - 11.0 % 06/25/2024 4:52 AM EST [facility] Eosinophils % 0.9 0.0 - 6.0 % 06/25/2024 4:52 AM EST [facility] Basophils % 0.4 0.0 - 2.0 % 06/25/2024 4:52 AM EST [facility] Immature Granulocytes % 0.5 0.0 - 2.0 % 06/25/2024 4:52 AM EST [facility] Absolute Neutrophils 8.88(H) 1.80 - 7.70 K/uL 06/25/2024 4:52 AM EST [facility] Absolute Lymphocytes 1.39 1.00 - 4.80 K/ul 06/25/2024 4:52 AM EST [facility] Absolute Monocytes 1.21(H) 0.00 - 1.10 K/uL 06/25/2024 4:52 AM EST [facility] Absolute Eosinophils 0.11 0.00 - 0.70 K/uL 06/25/2024 4:52 AM EST [facility] Absolute Basophils 0.05 0.00 - 0.20 K/uL 06/25/2024 4:52 AM EST [facility] Absolute Immature Granulocytes 0.06 0.00 - 0.20 K/uL 06/25/2024 4:52 AM EST [facility] Blood Venous blood specimen / Unknown Venipuncture / Unknown 06/25/2024 4:01 AM EST 06/25/2024 4:06 AM EST us Faisal Guzman MD LAB BLOOD ORDERABLES Final Result [facility] [address] [place] [address] * (ABNORMAL) CBC (06/25/2024 4:01 AM EST) WBC 11.70(H) 4.00 - 10.80 K/uL 06/25/2024 4:52 AM EST [facility] RBC 3.44 4.50 - 5.25 M/uL 06/25/2024 4:52 AM EST [facility] HGB 10.9(L) 14.0 - 16.8 g/dL 06/25/2024 4:52 AM EST [facility] HCT 33.6(L) 40.0 - 48.4 % 06/25/2024 4:52 AM EST [facility] MCV 97.7 82.0 - 99.5 fL 06/25/2024 4:52 AM EST [facility] MCH 31.7 27.0 - 34.0 pg 06/25/2024 4:52 AM EST [facility] MCHC 32.4 32.0 - 36.0 g/dL 06/25/2024 4:52 AM EST [facility] RDW 12.7 11.5 - 15.5 % 06/25/2024 4:52 AM EST [facility] PLT 85(L) 140 - 400 K/uL 06/25/2024 4:52 AM EST [facility] MPV 11.4 6.6 - 11.1 fL 06/25/2024 4:52 AM EST [facility] nRBCs 0 <=0 /100 WBCs 06/25/2024 4:52 AM EST [facility] Blood Venous blood specimen / Unknown Venipuncture / Unknown 06/25/2024 4:01 AM EST 06/25/2024 4:06 AM EST us Faisal Guzman MD LAB BLOOD ORDERABLES Final Result [facility] [address] [place] [address] * MAGNESIUM (06/25/2024 4:01 AM EST) Magnesium 2.0 1.5 - 2.6 mg/dL 06/25/2024 4:55 AM EST [facility] Blood Venous blood specimen / Unknown Venipuncture / Unknown 06/25/2024 4:01 AM EST 06/25/2024 4:06 AM EST Faisal Guzman MD LAB BLOOD ORDERABLES Final Result LAB[facility]ATORY [facility] [address] [place] [address] * (ABNORMAL) BASIC METABOLIC PANEL (06/25/2024 4:01 AM EST) BUN 20 6 - 20 mg/dL 06/25/2024 4:55 AM EST [facility] CREATININE 1.2 0.6 - 1.2 mg/dL 06/25/2024 4:55 AM EST [facility] EGFR 67 >=60 mL/min 06/25/2024 4:55 AM EST [facility] Comment:eGFR is calculated b ased on the CKD-EPI 2020 equation. SODIUM 137 135 - 146 mmol/L 06/25/2024 4:55 AM EST [facility] POTASSIUM 4.3 3.5 - 5.1 mmol/L 06/25/2024 4:55 AM EST [facility] CHLORIDE 103 98 - 107 mmol/L 06/25/2024 4:55 AM EST [facility] CO2 26 22 - 32 mmol/L 06/25/2024 4:55 AM EST [facility] ANION GAP 8 7 - 15 mmol/L 06/25/2024 4:55 AM EST [facility] GLUCOSE 129(H) 70 - 120 mg/dL 06/25/2024 4:55 AM EST [facility] CALCIUM 8.6 8.4 - 10.2 mg/dL 06/25/2024 4:55 AM EST [facility] Blood Venous blood specimen / Unknown Venipuncture / Unknown 06/25/2024 4:01 AM EST 06/25/2024 4:06 AM EST us Faisal Guzman MD LAB BLOOD ORDERABLES Final Result [facility] [address] [place] [address] * (ABNORMAL) BASIC METABOLIC PANEL (06/24/2024 12:53 PM EST) BUN 21(H) 6 - 20 mg/dL 06/24/2024 1:33 PM EST [facility] CREATININE 1.3(H) 0.6 - 1.2 mg/dL 06/24/2024 1:33 PM EST [facility] EGFR 61 >=60 mL/min 06/24/2024 1:33 PM EST [facility] Comment:eGFR is calculated b ased on the CKD-EPI 2020 equation. SODIUM 138 135 - 146 mmol/L 06/24/2024 1:33 PM EST [facility] POTASSIUM 4.3 3.5 - 5.1 mmol/L 06/24/2024 1:33 PM EST [facility] CHLORIDE 102 98 - 107 mmol/L 06/24/2024 1:33 PM EST [facility] CO2 24 22 - 32 mmol/L 06/24/2024 1:33 PM EST [facility] ANION GAP 12 7 - 15 mmol/L 06/24/2024 1:33 PM EST [facility] GLUCOSE 141(H) 70 - 120 mg/dL 06/24/2024 1:33 PM EST [facility] CALCIUM 8.6 8.4 - 10.2 mg/dL 06/24/2024 1:33 PM EST [facility] Blood Venous blood specimen / Unknown Venipuncture / Unknown 06/24/2024 12:53 PM EST 06/24/2024 1:04 PM EST us Samina Sherman PA-C LAB BLOOD ORDERABLES Tri l Result [facility] [address] [place] [address] * XR CHEST 1 VIEW (06/24/2024 6:20 AM EST) Anatomical Region Laterality Modality Chest Computed Radiogr aphy 06/24/2024 7:47 AM EST Impressions 06/24/2024 7:44 AM EST IMPRESSION Mild bibasilar airspace disease, likely atelectasis. Narrative 06/24/2024 7:44 AM EST EXAM Chest 1 View - 06/24/2024 6:20 am HISTORY follow up postop open heart COMPARISON XR CHEST 1 VIEW, ACC: [id number], dated 2024-06-23 05:40:43 TECHNIQUE Portable semi-upright AP view of the chest was obtained. FINDINGS Lines and Tubes: Right IJ sheath. Right paramidline mediastinal drain. Foreign bodies: None. Mild stable bibasilar airspace disease likely representing atelectasis. No pneumothorax. No pleural effusion. Pulmonary vascularity is normal. Cardiomediastinal silhouette is stable. Procedure Note Omer Diane, DO - 06/24/2024 EXAM Chest 1 View - 06/24/2024 6:20 am HISTORY follow up postop open heart COMPARISON XR CHEST 1 VIEW, ACC: [id number], dated 2024-06-23 05:40:43 TECHNIQUE Portable semi-upright AP view of the chest was obtained. FINDINGS Lines and Tubes: Right IJ sheath. Right paramidline mediastinal drain. Foreign bodies: None. Mild stable bibasilar airspace disease likely representing atelectasis.No pneumothorax. No pleural effusion. Pulmonary vascularity is normal.Cardiomediastinal silhouette is stable. IMPRESSION IMPRESSION Mild bibasilar airspace disease, likely atelectasis. us Spencer Castro PA-C RADIOLOGY ([facility]) Final Result * (ABNORMAL) DIFFERENTIAL, AUTOMATED (06/24/2024 4:50 AM EST) WBC 10.85(H) 4.00 - 10.80 K/uL 06/24/2024 5:16 AM EST [facility] Neutrophils % 73.7 40.0 - 75.0 % 06/24/2024 5:16 AM EST [facility] Lymphocytes % 13.3(L) 18.0 - 42.0 % 06/24/2024 5:16 AM EST [facility] Monocytes % 11.5(H) 1.0 - 11.0 % 06/24/2024 5:16 AM EST [facility] Eosinophils % 0.3 0.0 - 6.0 % 06/24/2024 5:16 AM EST [facility] Basophils % 0.6 0.0 - 2.0 % 06/24/2024 5:16 AM EST [facility] Immature Granulocytes % 0.6 0.0 - 2.0 % 06/24/2024 5:16 AM EST [facility] Absolute Neutrophils 8.01(H) 1.80 - 7.70 K/uL 06/24/2024 5:16 AM EST [facility] Absolute Lymphocytes 1.44 1.00 - 4.80 K/ul 06/24/2024 5:16 AM EST [facility] Absolute Monocytes 1.25(H) 0.00 - 1.10 K/uL 06/24/2024 5:16 AM EST [facility] Absolute Eosinophils 0.03 0.00 - 0.70 K/uL 06/24/2024 5:16 AM EST [facility] Absolute Basophils 0.06 0.00 - 0.20 K/uL 06/24/2024 5:16 AM EST [facility] Absolute Immature Granulocytes 0.06 0.00 - 0.20 K/uL 06/24/2024 5:16 AM EST [facility] Blood Venous blood specimen / Unknown Venipuncture / Unknown 06/24/2024 4:50 AM EST 06/24/2024 5:02 AM EST us Faisal Guzman MD LAB BLOOD ORDERABLES Final Result Performing Organization Address City/State/[facility] Co de Phone Number LABORATORY [facility] [address] [place] [address] * (ABNORMAL) CBC (06/24/2024 4:50 AM EST) WBC 10.85(H) 4.00 - 10.80 K/uL 06/24/2024 5:16 AM EST [facility] RBC 3.33 4.50 - 5.25 M/uL 06/24/2024 5:16 AM EST [facility] HGB 10.5(L) 14.0 - 16.8 g/dL 06/24/2024 5:16 AM EST [facility] HCT 33.1(L) 40.0 - 48.4 % 06/24/2024 5:16 AM EST [facility] MCV 99.4 82.0 - 99.5 fL 06/24/2024 5:16 AM EST [facility] MCH 31.5 27.0 - 34.0 pg 06/24/2024 5:16 AM EST [facility] MCHC 31.7 32.0 - 36.0 g/dL 06/24/2024 5:16 AM EST [facility] RDW 13.1 11.5 - 15.5 % 06/24/2024 5:16 AM EST [facility] PLT 70(L) 140 - 400 K/uL 06/24/2024 5:16 AM EST [facility] MPV 11.2 6.6 - 11.1 fL 06/24/2024 5:16 AM EST [facility] nRBCs 0 <=0 /100 WBCs 06/24/2024 5:16 AM EST [facility] Blood Venous blood specimen / Unknown Venipuncture / Unknown 06/24/2024 4:50 AM EST 06/24/2024 5:02 AM EST Faisal Guzman MD LAB BLOOD ORDERABLES Final Result Performing Organization Address City/[facility]/ZIP Co de Phone Number [facility] [address] [place] [address] * MAGNESIUM (06/24/2024 4:50 AM EST) Magnesium 2.2 1.5 - 2.6 mg/dL 06/24/2024 5:37 AM EST [facility] Blood Venous blood specimen / Unknown Venipuncture / Unknown 06/24/2024 4:50 AM EST 06/24/2024 5:02 AM EST Faisal Guzman MD LAB BLOOD ORDERABLES Final Result Performing Organization Address City/[facility]/ZIP Co de Phone Number [facility] [address] [place] [address] * (ABNORMAL) BASIC METABOLIC PANEL (06/24/2024 4:50 AM EST) BUN 21(H) 6 - 20 mg/dL 06/24/2024 5:37 AM EST [facility] CREATININE 1.4(H) 0.6 - 1.2 mg/dL 06/24/2024 5:37 AM EST [facility] EGFR 53(L) >=60 mL/min 06/24/2024 5:37 AM EST [facility] Comment:eGFR is calculated b ased on the CKD-EPI 2020 equation. SODIUM 138 135 - 146 mmol/L 06/24/2024 5:37 AM EST [facility] POTASSIUM 4.6 3.5 - 5.1 mmol/L 06/24/2024 5:37 AM EST [facility] CHLORIDE 103 98 - 107 mmol/L 06/24/2024 5:37 AM EST [facility] CO2 25 22 - 32 mmol/L 06/24/2024 5:37 AM EST [facility] ANION GAP 10 7 - 15 mmol/L 06/24/2024 5:37 AM EST LABORATORY [facility] GLUCOSE 125(H) 70 - 120 mg/dL 06/24/2024 5:37 AM EST [facility] CALCIUM 8.8 8.4 - 10.2 mg/dL 06/24/2024 5:37 AM EST LABORATORY [facility] Blood Venous blood specimen / Unknown Venipuncture / Unknown 06/24/2024 4:50 AM EST 06/24/2024 5:02 AM EST Faisal Guzman MD LAB BLOOD ORDERABLES Final Result Performing Organization Address City/State/[facility] Co de Phone Number [facility] [address] [place] [address] * XR CHEST 1 VIEW (06/23/2024 6:12 AM EST) Anatomical Region Laterality Modality Chest Computed Radiogr aphy 06/23/2024 7:26 AM EST Impressions 06/23/2024 7:23 AM EST IMPRESSION: Hypoventilatory changes without acute findings. Narrative 06/23/2024 7:23 AM EST EXAM: XR CHEST 1 VIEW - 06/23/2024 6:12 am HISTORY: follow up postop open heart TECHNIQUE: Single portable AP view of the chest COMPARISON: Chest x-ray from yesterday FINDINGS: Catheters/tubes/devices/foreign bodies: Right IJ Cordis contains a [place] catheter with tip projecting in the expected location of the pulmonary artery. Sternotomy wires. Inferior approach mediastinal drains unchanged in position. Low lung volumes. No consolidation or effusion. No evidence of pneumothorax. Cardiomediastinal silhouette is within normal limits. Osseous structures are unremarkable. Procedure Note Clifton Wade DO - 06/23/2024 EXAM: XR CHEST 1 VIEW - 06/23/2024 6:12 am HISTORY: follow up postop open heart TECHNIQUE: Single portable AP view of the chest COMPARISON: Chest x-ray from yesterday FINDINGS: Catheters/tubes/devices/foreign bodies: Right IJ Cordis contains aSwan-Valentin catheter with tip projecting in the expected location of thepulmonary artery. Sternotomy wires. Inferior approach mediastinal drainsunchanged in position. Low lung volumes. No consolidation or effusion. No evidence of pneumothorax. Cardiomediastinal silhouette is within normal limits. Osseous structures are unremarkable. IMPRESSION IMPRESSION: Hypoventilatory changes without acute findings. Spencer Castro PA-C RADIOLOGY ([facility]) Final Result * EKG (06/23/2024 4:25 AM EST) 06/23/2024 4:25 AM EST Narrative Procedure Note Aaron Mcghee MD - 06/23/2024 4:25 AM EST REASON FOR STUDY: POST OP CONCLUSIONS: Sinus rhythm with Premature supraventricular complexes Anterior infarct , age undetermined T wave abnormality, consider inferolateral ischemia Abnormal ECG When compared with ECG of 22-Jun-2024 12:16, (unconfirmed) Premature supraventricular complexes are now Present Anterior infarct is now Present T wave inversion now evident in Inferior leads Inverted T waves have replaced nonspecific T wave abnormality in [place] Ventricular Rate: 61 Atrial Rate: 61 AR Interval: 158 QRS Duration: 82 QT/QTc: 470/473 ms P-R-T [place]: 72 : 16 : -41 degrees Spencer Castro PA-C EKG Final R esult Performing Organization Address [facility] de Phone Number [facility] CARDIOLOGY * DIFFERENTIAL, TECHNOLOGIST REVIEW (06/23/2024 3:51 AM EST) Blood Venous blood specimen / Unknown Venipuncture / Unknown 06/23/2024 3:51 AM EST 06/23/2024 3:57 AM EST Faisal Guzman MD LAB BLOOD ORDERABLES Final Result Performing Organization Address City/[facility] Co de Phone Number LABORATORY [facility] [address] [place] [address] * O2 SATURATION, VENOUS (06/23/2024 3:51 AM EST) O2, Saturation, Venous 63.7 40.0 - 85.0 % 06/23/2024 4:00 AM EST [facility]ORY [facility] Blood Venous blood specimen / Unknown Venipuncture / Unknown 06/23/2024 3:51 AM EST 06/23/2024 3:57 AM EST Spencer Castro PA-C LAB BLOOD ORDERABLES Fi nal Result Performing Organization Address [facility] de Phone Number LABORATORY [facility] [address] [place] [address] * (ABNORMAL) DIFFERENTIAL, AUTOMATED (06/23/2024 3:51 AM EST) WBC 10.15 4.00 - 10.80 K/uL 06/23/2024 5:08 AM EST LAB[facility]ORY [facility] Neutrophils % 81.0(H) 40.0 - 75.0 % 06/23/2024 5:08 AM EST [facility] Lymphocytes % 8.4(L) 18.0 - 42.0 % 06/23/2024 5:08 AM EST [facility] Monocytes % 9.7 1.0 - 11.0 % 06/23/2024 5:08 AM EST [facility] Eosinophils % 0.0 0.0 - 6.0 % 06/23/2024 5:08 AM EST [facility] Basophils % 0.3 0.0 - 2.0 % 06/23/2024 5:08 AM EST [facility] Immature Granulocytes % 0.6 0.0 - 2.0 % 06/23/2024 5:08 AM EST [facility] Absolute Neutrophils 8.23(H) 1.80 - 7.70 K/uL 06/23/2024 5:08 AM EST [facility] Absolute Lymphocytes 0.85(L) 1.00 - 4.80 K/ul 06/23/2024 5:08 AM EST [facility] Absolute Monocytes 0.98 0.00 - 1.10 K/uL 06/23/2024 5:08 AM EST [facility] Absolute Eosinophils 0.00 0.00 - 0.70 K/uL 06/23/2024 5:08 AM EST [facility] Absolute Basophils 0.03 0.00 - 0.20 K/uL 06/23/2024 5:08 AM EST [facility] Absolute Immature Granulocytes 0.06 0.00 - 0.20 K/uL 06/23/2024 5:08 AM EST [facility] Blood Venous blood specimen / Unknown Venipuncture / Unknown 06/23/2024 3:51 AM EST 06/23/2024 3:57 AM EST Faisal Guzman MD LAB BLOOD ORDERABLES Final Result Performing Organization Address City/State/[facility] Co de Phone Number LAB[facility]ATORY [facility] [address] [place] [address] * (ABNORMAL) CBC (06/23/2024 3:51 AM EST) WBC 10.15 4.00 - 10.80 K/uL 06/23/2024 5:08 AM EST [facility] RBC 3.23 4.50 - 5.25 M/uL 06/23/2024 5:08 AM EST [facility] HGB 10.0(L) 14.0 - 16.8 g/dL 06/23/2024 5:08 AM EST [facility] HCT 31.8(L) 40.0 - 48.4 % 06/23/2024 5:08 AM EST [facility] MCV 98.5 82.0 - 99.5 fL 06/23/2024 5:08 AM EST [facility] MCH 31.0 27.0 - 34.0 pg 06/23/2024 5:08 AM EST LAB[facility] MCHC 31.4 32.0 - 36.0 g/dL 06/23/2024 5:08 AM EST LAB[facility] RDW 12.9 11.5 - 15.5 % 06/23/2024 5:08 AM EST LAB[facility] PLT 82(L) 140 - 400 K/uL 06/23/2024 5:08 AM EST LAB[facility] MPV 10.7 6.6 - 11.1 fL 06/23/2024 5:08 AM EST [facility] nRBCs 0 <=0 /100 WBCs 06/23/2024 5:08 AM EST [facility] Blood Venous blood specimen / Unknown Venipuncture / Unknown 06/23/2024 3:51 AM EST 06/23/2024 3:57 AM EST Faisal Guzman MD LAB BLOOD ORDERABLES Final Result Performing Organization Address City/[facility]/ZIP Co de Phone Number LAB[facility]ATORY [facility] [address] [place] [address] * MAGNESIUM (06/23/2024 3:51 AM EST) Magnesium 2.3 1.5 - 2.6 mg/dL 06/23/2024 4:31 AM EST [facility] Blood Venous blood specimen / Unknown Venipuncture / Unknown 06/23/2024 3:51 AM EST 06/23/2024 3:57 AM EST Faisal Guzman MD LAB BLOOD ORDERABLES Final Result Performing Organization Address City/[facility]/ZIP Co de Phone Number LABORATORY [facility] [address] [place] [address] * (ABNORMAL) BASIC METABOLIC PANEL (06/23/2024 3:51 AM EST) BUN 12 6 - 20 mg/dL 06/23/2024 4:31 AM EST LAB[facility] CREATININE 1.0 0.6 - 1.2 mg/dL 06/23/2024 4:31 AM EST [facility] EGFR 79 >=60 mL/min 06/23/2024 4:31 AM EST [facility] Comment:eGFR is calculated b ased on the CKD-EPI 2020 equation. SODIUM 141 135 - 146 mmol/L 06/23/2024 4:31 AM EST [facility] POTASSIUM 4.6 3.5 - 5.1 mmol/L 06/23/2024 4:31 AM EST [facility] CHLORIDE 109(H) 98 - 107 mmol/L 06/23/2024 4:31 AM EST [facility] CO2 23 22 - 32 mmol/L 06/23/2024 4:31 AM EST [facility] ANION GAP 9 7 - 15 mmol/L 06/23/2024 4:31 AM EST [facility] GLUCOSE 119 70 - 120 mg/dL 06/23/2024 4:31 AM EST [facility] CALCIUM 8.2(L) 8.4 - 10.2 mg/dL 06/23/2024 4:31 AM EST [facility] Blood Venous blood specimen / Unknown Venipuncture / Unknown 06/23/2024 3:51 AM EST 06/23/2024 3:57 AM EST us Faisal Guzman MD LAB BLOOD ORDERABLES Final Result Performing Organization Address City/[facility]/ZIP Co de Phone Number LAB[facility]ATORY [facility] [address] [place] [address] * GLUCOSE METER, POINT OF CARE (06/23/2024 3:50 AM EST) [facility] Glucose - POCT 115 70 - 120 mg/dL 06/23/2024 3:52 AM EST [employer] Blood Whole blood specimen / Unknown 06/23/2024 3:50 AM EST 06/23/2024 3:52 AM EST us Faisal Guzman MD LAB POINT OF CARE T EST DOCKED DEVICE UNSOLICITED RESULTS Final Result [facility] [address] [place] [address] * GLUCOSE METER, POINT OF CARE (06/23/2024 2:06 AM EST) Glucose - POCT 114 70 - 120 mg/dL 06/23/2024 2:08 AM EST [employer] Blood Whole blood specimen / Unknown 06/23/2024 2:06 AM EST 06/23/2024 2:08 AM EST us Faisal Guzman MD LAB POINT OF CARE T EST DOCKED DEVICE UNSOLICITED RESULTS Final Result [facility] [address] [place] [address] * GLUCOSE METER, POINT OF CARE (06/23/2024 12:02 AM EST) Glucose - POCT 107 70 - 120 mg/dL 06/23/2024 2:04 AM EST [employer] Blood Whole blood specimen / Unknown 06/23/2024 12:02 AM EST 06/23/2024 2:04 AM EST us Faisal Guzman MD LAB POINT OF CARE T EST DOCKED DEVICE UNSOLICITED RESULTS Final Result Performing Organization Address City/[facility]/ZIP Co de Phone Number [facility] [address] [place] [address] * GLUCOSE METER, POINT OF CARE (06/22/2024 10:00 PM EST) Glucose - POCT 96 70 - 120 mg/dL 06/23/2024 2:04 AM EST [employer] Blood Whole blood specimen / Unknown 06/22/2024 10:00 PM EST 06/23/2024 2:04 AM EST us Faisal Guzman MD LAB POINT OF CARE T EST DOCKED DEVICE UNSOLICITED RESULTS Final Result Performing Organization Address City/[facility]/ZIP Co de Phone Number [facility] [address] [place] [address] * (ABNORMAL) GLUCOSE METER, POINT OF CARE (06/22/2024 8:16 PM EST) Glucose - POCT 135(H) 70 - 120 mg/dL 06/23/2024 2:04 AM EST [employer] [facility] [employer] Blood Whole blood specimen / Unknown 06/22/2024 8:16 PM EST 06/23/2024 2:04 AM EST Faisal Guzman MD LAB POINT OF CARE T EST DOCKED DEVICE UNSOLICITED RESULTS Final Result [facility] [address] [place] [address] * (ABNORMAL) BLOOD GAS, ARTERIAL (06/22/2024 7:03 PM EST) Pathologist [facility] Temperature 37.0 C 06/22/2024 7:14 PM EST LAB[facility]ATORY [facility] pH, Arterial 7.354 7.350 - 7.450 units 06/22/2024 7:14 PM EST [facility] pCO2, Arterial 42.1 35.0 - 45.0 mmHg 06/22/2024 7:14 PM EST [facility] pO2, Arterial 162.0(H) 75.0 - 100.0 mmHg 06/22/2024 7:14 PM EST LAB[facility] Base Excess, Arterial -2.0 -2.0 - 2.0 mmol/L 06/22/2024 7:14 PM EST [facility] HGB 10.7(L) 14.0 - 16.8 g/dL 06/22/2024 7:14 PM EST [facility] Oxyhemoglobin, Arterial 97.3 94.0 - 99.0 % total Hgb 06/22/2024 7:14 PM EST LAB[facility] Carboxyhemoglob in, Whole Blood 1.0 <=1.5 % total Hgb 06/22/2024 7:14 PM EST LAB[facility] Comment:Smokers: 0-9.0 % Methemoglobin, Whole Blood 0.9 <=1.5 % total Hgb 06/22/2024 7:14 PM EST [facility] Reduced Hemoglobin, Arterial 0.8 0.0 - 5.0 % total Hgb 06/22/2024 7:14 PM EST [facility] O2 Content, Arterial 14.9(L) 15.0 - 24.0 %vol 06/22/2024 7:14 PM EST [facility] FiO2 vent 40% % 06/22/2024 7:14 PM EST [facility] O2 Flow, Arterial Not Provided L/min 06/22/2024 7:14 PM EST [facility] Bicarbonate, Whole Blood 22.9(L) 23.0 - 31.0 mmol/L 06/22/2024 7:14 PM EST LABORATORY C Blood Arterial blood specimen / Unknown Arterial Puncture / Unknown 06/22/2024 7:03 PM EST 06/22/2024 7:08 PM EST Spencer Castro PA-C LAB BLOOD ORDERABLES Fi nal Result [facility] [address] [place] [address] * GLUCOSE METER, POINT OF CARE (06/22/2024 5:51 PM EST) Glucose - POCT 88 70 - 120 mg/dL 06/22/2024 9:[address] [facility] Blood Whole blood specimen / Unknown 06/22/2024 5:51 PM EST 06/22/2024 9:56 PM EST Faisal Guzman MD LAB POINT OF CARE T EST DOCKED DEVICE UNSOLICITED RESULTS Final Result [facility] [address] [place] [address] * MAGNESIUM (06/22/2024 5:47 PM EST) Magnesium 2.6 1.5 - 2.6 mg/dL 06/22/2024 6:23 PM EST [facility] Blood Venous blood specimen / Unknown Venipuncture / Unknown 06/22/2024 5:47 PM EST 06/22/2024 5:54 PM EST Spencer M Dickerman PA-C LAB BLOOD ORDERABLES Fi nal Result [facility] [address] [place] [address] * (ABNORMAL) CBC (06/22/2024 5:47 PM EST) [facility] WBC 10.97(H) 4.00 - 10.80 K/uL 06/22/2024 6:02 PM EST [facility] RBC 3.30 4.50 - 5.25 M/uL 06/22/2024 6:02 PM EST [facility] HGB 10.4(L) 14.0 - 16.8 g/dL 06/22/2024 6:02 PM EST [facility] HCT 31.4(L) 40.0 - 48.4 % 06/22/2024 6:02 PM EST [facility] MCV 95.2 82.0 - 99.5 fL 06/22/2024 6:02 PM EST [facility] MCH 31.5 27.0 - 34.0 pg 06/22/2024 6:02 PM EST [facility] MCHC 33.1 32.0 - 36.0 g/dL 06/22/2024 6:02 PM EST [facility] RDW 12.8 11.5 - 15.5 % 06/22/2024 6:02 PM EST [facility] PLT 105(L) 140 - 400 K/uL 06/22/2024 6:02 PM EST [facility] MPV 10.5 6.6 - 11.1 fL 06/22/2024 6:02 PM EST [facility] nRBCs 0 <=0 /100 WBCs 06/22/2024 6:02 PM EST [facility] Blood Venous blood specimen / Unknown Venipuncture / Unknown 06/22/2024 5:47 PM EST 06/22/2024 5:54 PM EST Spencer Castro PA-C LAB BLOOD ORDERABLES Fi nal Result LABORATORY [facility] [address] [place] [address] * BASIC METABOLIC PANEL (06/22/2024 5:47 PM EST) BUN 11 6 - 20 mg/dL 06/22/2024 6:23 PM EST [facility] CREATININE 1.0 0.6 - 1.2 mg/dL 06/22/2024 6:23 PM EST LAB[facility] EGFR 78 >=60 mL/min 06/22/2024 6:23 PM EST [facility] Comment:eGFR is calculated b ased on the CKD-EPI 2020 equation. SODIUM 139 135 - 146 mmol/L 06/22/2024 6:23 PM EST [facility] POTASSIUM 4.1 3.5 - 5.1 mmol/L 06/22/2024 6:23 PM EST [facility] CHLORIDE 107 98 - 107 mmol/L 06/22/2024 6:23 PM EST [facility] CO2 23 22 - 32 mmol/L 06/22/2024 6:23 PM EST LABORATORY C ANION GAP 9 7 - 15 mmol/L 06/22/2024 6:23 PM EST LABORATORY C GLUCOSE 101 70 - 120 mg/dL 06/22/2024 6:23 PM EST LABORATORY C CALCIUM 9.1 8.4 - 10.2 mg/dL 06/22/2024 6:23 PM EST [facility] Blood Venous blood specimen / Unknown Venipuncture / Unknown 06/22/2024 5:47 PM EST 06/22/2024 5:54 PM EST Spencer Castro PA-C LAB BLOOD ORDERABLES Fi nal Result Performing Organization Address City/[facility] Co de Phone Number [facility]ATORY [facility] [address], [place] [id number] * GLUCOSE METER, POINT OF CARE (06/22/2024 3:49 PM EST) Pathologist [facility] Glucose - POCT 116 70 - 120 mg/dL 06/22/2024 9:55 PM EST [employer] Blood Whole blood specimen / Unknown 06/22/2024 3:49 PM EST 06/22/2024 9:55 PM EST Faisal Guzman MD LAB POINT OF CARE T EST DOCKED DEVICE UNSOLICITED RESULTS Final Result [facility] [address] [place] [address] * (ABNORMAL) WHOLE BLOOD PROFILE, ARTERIAL (06/22/2024 3:49 PM EST) Temperature 37.0 C 06/22/2024 4:00 PM EST [facility] pH, Arterial 7.420 7.350 - 7.450 units 06/22/2024 4:00 PM EST [facility] pCO2, Arterial 37.5 35.0 - 45.0 mmHg 06/22/2024 4:00 PM EST [facility] pO2, Arterial 186.0(H) 75.0 - 100.0 mmHg 06/22/2024 4:00 PM EST [facility] Base Excess, Arterial 0.1 -2.0 - 2.0 mmol/L 06/22/2024 4:00 PM EST [facility] HGB 11.5(L) 14.0 - 16.8 g/dL 06/22/2024 4:00 PM EST [facility] Oxyhemoglobin, Arterial 98.2 94.0 - 99.0 % total Hgb 06/22/2024 4:00 PM EST [facility] Carboxyhemoglob in, Whole Blood 1.2 <=1.5 % total Hgb 06/22/2024 4:00 PM EST [facility] Comment:Smokers: 0-9.0 % Methemoglobin, Whole Blood 0.5 <=1.5 % total Hgb 06/22/2024 4:00 PM EST [facility] Reduced Hemoglobin, Arterial 0.1 0.0 - 5.0 % total Hgb 06/22/2024 4:00 PM EST [facility] O2 Content, Arterial 16.3 15.0 - 24.0 %vol 06/22/2024 4:00 PM EST [facility] Potassium 4.1 3.5 - 5.1 mmol/L 06/22/2024 4:00 PM EST [facility] Sodium 138 135 - 146 mmol/L 06/22/2024 4:00 PM EST [facility] Chloride 109(H) 98 - 107 mmol/L 06/22/2024 4:00 PM EST [facility] Calcium, Ionized 1.12(L) 1.13 - 1.32 mmol/L 06/22/2024 4:00 PM EST [facility] Anion Gap 5.9(L) 7.0 - 15.0 mmol/L 06/22/2024 4:00 PM EST [facility] Glucose 140(H) 70 - 120 mg/dL 06/22/2024 4:00 PM EST [facility] FiO2 40% vent % 06/22/2024 4:00 PM EST [facility] O2 Flow, Arterial Not Provided L/min 06/22/2024 4:00 PM EST [facility] Bicarbonate, Whole Blood 23.8 23.0 - 31.0 mmol/L 06/22/2024 4:00 PM EST [facility] Blood Arterial blood specimen / Unknown Arterial Puncture / Unknown 06/22/2024 3:49 PM EST 06/22/2024 3:54 PM EST Spencer Castro PA-C LAB BLOOD ORDERABLES Fi nal Result Performing Organization Address City/[facility]/ZIP Co de Phone Number [facility] [address] [place] [address] * (ABNORMAL) FIBRINOGEN (06/22/2024 3:09 PM EST) Fibrinogen 175(L) 178 - 467 mg/dL 06/22/2024 3:39 PM EST [facility] Blood Venous blood specimen / Unknown Venipuncture / Unknown 06/22/2024 3:09 PM EST 06/22/2024 3:12 PM EST Sylvia Wilson PA-C LAB BLOOD ORDERABL ES Final Result [facility] [address] [place] [address] * (ABNORMAL) APTT (06/22/2024 3:09 PM EST) aPTT 94(H) 21 - 38 seconds 06/22/2024 3:42 PM EST LABORATORY C Blood Venous blood specimen / Unknown Venipuncture / Unknown 06/22/2024 3:09 PM EST 06/22/2024 3:12 PM EST Narrative [facility] - 06/22/2024 3:42 PM EST Anticoagulation may affect testing. Refer to [employer] for a list of effects. Sylvia Butt Bowersox PA-C LAB BLOOD ORDERABL ES Final Result Performing Organization Address [facility] de Phone Number LABORATORY [address] [address] * (ABNORMAL) PT INR (06/22/2024 3:09 PM EST) Prothrombin Time 16.5(H) 11.6 - 15.2 seconds 06/22/2024 3:38 PM EST [facility] INR 1.3(H) 0.8 - 1.2 06/22/2024 3:38 PM EST LABORATORY [facility] Blood Venous blood specimen / Unknown Venipuncture / Unknown 06/22/2024 3:09 PM EST 06/22/2024 3:12 PM EST Narrative [facility] - 06/22/2024 3:38 PM EST Warfarin Therapy INR: 2.0-3.0 conventional anticoagulation INR: 2.5-3.5 high intensity anticoagulation Sylvia Butt Tunaspotersox PA-C LAB BLOOD ORDERABL ES Final Result Performing Organization Address [facility] Phone Number LABORATORY [address] [address] * (ABNORMAL) BLOOD GAS, ARTERIAL (06/22/2024 1:58 PM EST) Temperature 37.0 C 06/22/2024 2:05 PM EST [facility] pH, Arterial 7.501(H) 7.350 - 7.450 units 06/22/2024 2:05 PM EST [facility] pCO2, Arterial 29.5(L) 35.0 - 45.0 mmHg 06/22/2024 2:05 PM EST [facility] pO2, Arterial 223.0(H) 75.0 - 100.0 mmHg 06/22/2024 2:05 PM EST [facility] Base Excess, Arterial 0.8 -2.0 - 2.0 mmol/L 06/22/2024 2:05 PM EST [facility] HGB 12.4(L) 14.0 - 16.8 g/dL 06/22/2024 2:05 PM EST [facility] Oxyhemoglobin, Arterial 97.9 94.0 - 99.0 % total Hgb 06/22/2024 2:05 PM EST [facility] Carboxyhemoglob in, Whole Blood 1.2 <=1.5 % total Hgb 06/22/2024 2:05 PM EST [facility] Comment:Smokers: 0-9.0 % Methemoglobin, Whole Blood 0.9 <=1.5 % total Hgb 06/22/2024 2:05 PM EST [facility] Reduced Hemoglobin, Arterial 0.0 0.0 - 5.0 % total Hgb 06/22/2024 2:05 PM EST [facility] O2 Content, Arterial 17.5 15.0 - 24.0 %vol 06/22/2024 2:05 PM EST [facility] FiO2 vent 50% % 06/22/2024 2:05 PM EST [facility] O2 Flow, Arterial Not Provided L/min 06/22/2024 2:05 PM EST [facility] Bicarbonate, Whole Blood 22.9(L) 23.0 - 31.0 mmol/L 06/22/2024 2:05 PM EST [facility] Blood Arterial blood specimen / Unknown Arterial Puncture / Unknown 06/22/2024 1:58 PM EST 06/22/2024 2:01 PM EST us Spencer Castro PA-C LAB BLOOD ORDERABLES Fi nal Result [facility] [address], [place] [id number] * GLUCOSE METER, POINT OF CARE (06/22/2024 1:56 PM EST) [facility] Glucose - POCT 104 70 - 120 mg/dL 06/22/2024 9:55 PM EST [employer] Blood Whole blood specimen / Unknown 06/22/2024 1:56 PM EST 06/22/2024 9:55 PM EST us Faisal Guzman MD LAB POINT OF CARE T EST DOCKED DEVICE UNSOLICITED RESULTS Final Result [facility] [address] [place] [address] * (ABNORMAL) WHOLE BLOOD PROFILE, ARTERIAL (06/22/2024 1:23 PM EST) Temperature 37.0 C 06/22/2024 1:33 PM EST [facility] pH, Arterial 7.504(H) 7.350 - 7.450 units 06/22/2024 1:33 PM EST LAB[facility] pCO2, Arterial 29.6(L) 35.0 - 45.0 mmHg 06/22/2024 1:33 PM EST [facility] pO2, Arterial 210.0(H) 75.0 - 100.0 mmHg 06/22/2024 1:33 PM EST [facility] Base Excess, Arterial 1.0 -2.0 - 2.0 mmol/L 06/22/2024 1:33 PM EST [facility] HGB 11.4(L) 14.0 - 16.8 g/dL 06/22/2024 1:33 PM EST [facility] Oxyhemoglobin, Arterial 98.0 94.0 - 99.0 % total Hgb 06/22/2024 1:33 PM EST [facility] Carboxyhemoglob in, Whole Blood 0.9 <=1.5 % total Hgb 06/22/2024 1:33 PM EST [facility] Comment:Smokers: 0-9.0 % Methemoglobin, Whole Blood 0.8 <=1.5 % total Hgb 06/22/2024 1:33 PM EST [facility] Reduced Hemoglobin, Arterial 0.3 0.0 - 5.0 % total Hgb 06/22/2024 1:33 PM EST [facility] O2 Content, Arterial 16.2 15.0 - 24.0 %vol 06/22/2024 1:33 PM EST [facility] Potassium 4.0 3.5 - 5.1 mmol/L 06/22/2024 1:33 PM EST [facility] Sodium 137 135 - 146 mmol/L 06/22/2024 1:33 PM EST [facility] Chloride 110(H) 98 - 107 mmol/L 06/22/2024 1:33 PM EST [facility] Calcium, Ionized 1.08(L) 1.13 - 1.32 mmol/L 06/22/2024 1:33 PM EST [facility] Anion Gap 3.9(L) 7.0 - 15.0 mmol/L 06/22/2024 1:33 PM EST [facility] Glucose 113 70 - 120 mg/dL 06/22/2024 1:33 PM EST LAB[facility] FiO2 vent 50% % 06/22/2024 1:33 PM EST [facility] O2 Flow, Arterial Not Provided L/min 06/22/2024 1:33 PM EST [facility] Bicarbonate, Whole Blood 23.1 23.0 - 31.0 mmol/L 06/22/2024 1:33 PM EST LABORATORY [facility] Blood Arterial blood specimen / Unknown Arterial Puncture / Unknown 06/22/2024 1:23 PM EST 06/22/2024 1:29 PM EST us Spencer Castro PA-C LAB BLOOD ORDERABLES Fi nal Result [facility] [address], [place] [id number] * XR CHEST 1 VIEW (06/22/2024 1:10 PM EST) Anatomical Region Laterality Modality Chest Computed Radiogr aphy 06/22/2024 2:51 PM EST Impressions 06/22/2024 2:49 PM EST IMPRESSION Postoperative chest with lines and tubes, as above. No acute findings. Narrative 06/22/2024 2:49 PM EST EXAM XR CHEST 1 VIEW - 06/22/2024 1:10 pm HISTORY basline initial xray after open heart surgery TECHNIQUE Frontal radiograph of the chest. COMPARISON None. FINDINGS Partially obscured distal endotracheal tube tip approximately 2-3 cm above the kristin. Right IJ approach pulmonary artery catheter tip in the region of the main pulmonary artery. Mediastinal drains/tubes. Sternotomy wires. Left costophrenic angle partially excluded from the field of view. No focal consolidation, pleural effusion, or pneumothorax. Unremarkable cardiomediastinal silhouette. Vascular calcifications. Degenerative changes. Procedure Note Edi Ferguson MD - 06/22/2024 EXAM XR CHEST 1 VIEW - 06/22/2024 1:10 pm HISTORY basline initial xray after open heart surgery TECHNIQUE Frontal radiograph of the chest. COMPARISON None. FINDINGS Partially obscured distal endotracheal tube tip approximately 2-3 cm abovethe kristin. Right IJ approach pulmonary artery catheter tip in the regionof the main pulmonary artery. Mediastinal drains/tubes. Sternotomywires. Left costophrenic angle partially excluded from the field of view. Nofocal consolidation, pleural effusion, or pneumothorax. Unremarkablecardiomediastinal silhouette. Vascular calcifications. Degenerativechanges. IMPRESSION IMPRESSION Postoperative chest with lines and tubes, as above. No acute findings. us Spencer Castro PA-C RADIOLOGY (RAD GENERAL) Final Result * XR ABDOMEN 1 VIEW (06/22/2024 1:10 PM EST) Anatomical Region Laterality Modality Abdomen, Pelvis Computed Radiogr aphy 06/22/2024 2:47 PM EST Impressions 06/22/2024 2:45 PM EST IMPRESSION Enteric tube tip projects over the proximal stomach with side hole in the region of the gastroesophageal junction. Recommendation: Consider advancing enteric tube by 5 cm. Narrative 06/22/2024 2:45 PM EST EXAM XR ABDOMEN 1 VIEW - 06/22/2024 1:10 pm HISTORY Gastric Tube placement verification TECHNIQUE Frontal abdominal radiograph. COMPARISON None. FINDINGS Transesophageal enteric tube tip projects over the left upper abdominal quadrant in the region of the proximal stomach with side hole in the region of the gastroesophageal junction. Chest/mediastinal tubes. Pacing wires. Partially imaged sternotomy wires. Procedure Note Edi Ferguson MD - 06/22/2024 EXAM XR ABDOMEN 1 VIEW - 06/22/2024 1:10 pm HISTORY Gastric Tube placement verification TECHNIQUE Frontal abdominal radiograph. COMPARISON None. FINDINGS Transesophageal enteric tube tip projects over the left upper abdominalquadrant in the region of the proximal stomach with side hole in theregion of the gastroesophageal junction. Chest/mediastinal tubes. Pacingwires. Partially imaged sternotomy wires. IMPRESSION IMPRESSION Enteric tube tip projects over the proximal stomach with side hole in theregion of the gastroesophageal junction. Recommendation: Consider advancing enteric tube by 5 cm. us Spencer Castro PA-C RADIOLOGY ([facility]) Final Result * (ABNORMAL) WHOLE BLOOD PROFILE, ARTERIAL (06/22/2024 12:11 PM EST) Temperature 37.0 C 06/22/2024 12:25 PM EST [facility] pH, Arterial 7.420 7.350 - 7.450 units 06/22/2024 12:25 PM EST [facility] pCO2, Arterial 38.3 35.0 - 45.0 mmHg 06/22/2024 12:25 PM EST [facility] pO2, Arterial 340.0(H) 75.0 - 100.0 mmHg 06/22/2024 12:25 PM EST [facility] Base Excess, Arterial 0.6 -2.0 - 2.0 mmol/L 06/22/2024 12:25 PM EST [facility] HGB 11.9(L) 14.0 - 16.8 g/dL 06/22/2024 12:25 PM EST [facility] Oxyhemoglobin, Arterial 98.6 94.0 - 99.0 % total Hgb 06/22/2024 12:25 PM EST [facility] Carboxyhemoglob in, Whole Blood 1.0 <=1.5 % total Hgb 06/22/2024 12:25 PM EST [facility] Comment:Smokers: 0-9.0 % Methemoglobin, Whole Blood 0.5 <=1.5 % total Hgb 06/22/2024 12:25 PM EST [facility] Reduced Hemoglobin, Arterial 0.0 0.0 - 5.0 % total Hgb 06/22/2024 12:25 PM EST [facility] O2 Content, Arterial 06/22/2024 12:25 PM EST [facility] Comment:Not calculated. Potassium 4.3 3.5 - 5.1 mmol/L 06/22/2024 12:25 PM EST [facility] Sodium 136 135 - 146 mmol/L 06/22/2024 12:25 PM EST [facility] Chloride 108(H) 98 - 107 mmol/L 06/22/2024 12:25 PM EST [facility] Calcium, Ionized 1.14 1.13 - 1.32 mmol/L 06/22/2024 12:25 PM EST [facility] Anion Gap 3.1(L) 7.0 - 15.0 mmol/L 06/22/2024 12:25 PM EST [facility] Glucose 140(H) 70 - 120 mg/dL 06/22/2024 12:25 PM EST [facility] FiO2 vent 100% % 06/22/2024 12:25 PM EST [facility] O2 Flow, Arterial Not Provided L/min 06/22/2024 12:25 PM EST [facility] Bicarbonate, Whole Blood 24.4 23.0 - 31.0 mmol/L 06/22/2024 12:25 PM EST [facility] Blood Arterial blood specimen / Unknown Arterial Puncture / Unknown 06/22/2024 12:11 PM EST 06/22/2024 12:16 PM EST us Spencer Castro PA-C LAB BLOOD ORDERABLES Fi nal Result [facility] [address] [place] [address] * (ABNORMAL) GLUCOSE METER, POINT OF CARE (06/22/2024 12:09 PM EST) [facility] Glucose - POCT 122(H) 70 - 120 mg/dL 06/22/2024 9:53 PM EST [employer] [facility]DealsAnd[facility] Blood Whole blood specimen / Unknown 06/22/2024 12:09 PM EST 06/22/2024 9:53 PM EST Faisal Guzman MD LAB POINT OF CARE T EST DOCKED DEVICE UNSOLICITED RESULTS Final Result [facility] [address] [place] [address] * (ABNORMAL) BLOOD GAS WITH CHEMISTRY, POINT OF CARE (06/22/2024 12:09 PM EST) [facility] Draw Site Arterial Draw 06/22/2024 12:[address] [facility] pH i-STAT 7.392 7.350 - 7.450 06/22/2024 12:[address] [facility] pCO2 i-STAT 36.4 35.0 - 45.0 mm Hg 06/22/2024 12:[address] [facility] pO2 i-STAT 425(H) 75 - 100 mm Hg 06/22/2024 12:[address] [facility] Base Excess i-STAT -2 -2 - 2 mmol/L 06/22/2024 12:[address] [facility] Bicarbonate, Whole Blood 22.1(L) 23.0 - 31.0 mmol/L 06/22/2024 12:[address] [facility] O2 Saturation i-STAT 100.0(H) 94.0 - 98.0 % 06/22/2024 12:[address] [facility] Glucose - POCT 125(H) 70 - 120 mg/dL 06/22/2024 12:[address] [facility] POTASSIUM - POCT 4.1 3.5 - 5.1 mmol/L 06/22/2024 12:[address] [facility] SODIUM - POCT 139 135 - 146 mmol/L 06/22/2024 12:[address] [facility] Calcium, ionized 1.18 1.13 - 1.32 mmol/L 06/22/2024 12:[address] [facility] Hemoglobin i-STAT 10.9(L) 14.0 - 16.8 g/dL 06/22/2024 12:[address] [facility] Hematocrit i-STAT 32(L) 40 - 48 % 06/22/2024 12:[address] [facility] FiO2 100 % 06/22/2024 12:[address] [facility] Arterial Draw 06/22/2024 12: 09 PM EST 06/22/2024 12:24 PM EST us Faisal Guzman MD LAB POINT OF CARE T EST DOCKED DEVICE UNSOLICITED RESULTS Final Result [facility] [address] [place] [address] * TEG (THROMBOELASTOGRAPH), HEPARINASE (06/22/2024 12:09 PM EST) Reaction Time 5.6 2.5 - 8.3 minutes 06/22/2024 1:39 PM EST [facility] Kinetics Time 2.1 0.5 - 3.7 minutes 06/22/2024 1:39 PM EST [facility] Alpha Angle 61.5 46.8 - 78.4 degrees 06/22/2024 1:39 PM EST [facility] Maximum Amplitude 56.5 50.6 - 72.5 mm 06/22/2024 1:39 PM EST [facility] Coagulation Index -0.5 -3.0 - 3.0 06/22/2024 1:39 PM EST [facility] Percent Lysis 30 0.0 0.0 - 7.5 % 025 1:39 PM EST [facility] Blood Venous blood specimen / Unknown Venipuncture / Unknown 06/22/2024 12:09 PM EST 06/22/2024 12:16 PM EST us Spencer Castro PA-C LAB BLOOD ORDERABLES Fi nal Result [facility] [address] [place] [address] * TEG (THROMBOELASTOGRAPH) (06/22/2024 12:09 PM EST) Reaction Time 6.7 2.5 - 8.3 minutes 06/22/2024 1:39 PM EST [facility] Kinetics Time 2.4 0.5 - 3.7 minutes 06/22/2024 1:39 PM EST [facility] Alpha Angle 59.4 46.8 - 78.4 degrees 06/22/2024 1:39 PM EST [facility] Maximum Amplitude 55.7 50.6 - 72.5 mm 06/22/2024 1:39 PM EST [facility] Coagulation Index -1.7 -3.0 - 3.0 06/22/2024 1:39 PM EST [facility] Percent Lysis 30 0.0 0.0 - 7.5 % 025 1:39 PM EST [facility] Blood Venous blood specimen / Unknown Venipuncture / Unknown 06/22/2024 12:09 PM EST 06/22/2024 12:16 PM EST Spencer Castro PA-C LAB BLOOD ORDERABLES Fi nal Result Performing Organization Address [facility]/ZIP Co de Phone Number [facility]ORY [facility] [address] [place] [address] * (ABNORMAL) PT INR (06/22/2024 12:09 PM EST) Prothrombin Time 17.5(H) 11.6 - 15.2 seconds 06/22/2024 12:58 PM EST [facility] INR 1.4(H) 0.8 - 1.2 06/22/2024 12:58 PM EST LABORATORY C Blood Venous blood specimen / Unknown Venipuncture / Unknown 06/22/2024 12:09 PM EST 06/22/2024 12:16 PM EST Narrative [facility] - 06/22/2024 12:58 PM EST Warfarin Therapy INR: 2.0-3.0 conventional anticoagulation INR: 2.5-3.5 high intensity anticoagulation Spencer Castro PA-C LAB BLOOD ORDERABLES Fi nal Result Performing Organization Address [facility] Co de Phone Number [facility]ATORY [facility] [address] [place] [address] * O2 SATURATION, VENOUS (06/22/2024 12:09 PM EST) O2, Saturation, Venous 76.3 40.0 - 85.0 % 06/22/2024 12:21 PM EST LABORATORY C Blood Venous blood specimen / Unknown Venipuncture / Unknown 06/22/2024 12:09 PM EST 06/22/2024 12:16 PM EST Spencer Castro PA-C LAB BLOOD ORDERABLES Fi nal Result Performing Organization Address City/[facility]/ZIP Co de Phone Number LABORATORY [facility] [address] [place] [address] * (ABNORMAL) MAGNESIUM (06/22/2024 12:09 PM EST) Magnesium 3.0(H) 1.5 - 2.6 mg/dL 06/22/2024 12:52 PM EST [facility] Blood Venous blood specimen / Unknown Venipuncture / Unknown 06/22/2024 12:09 PM EST 06/22/2024 12:17 PM EST Spencer Castro PA-C LAB BLOOD ORDERABLES Fi nal Result Performing Organization Address [facility] de Phone Number LABORATORY [address] [address] * (ABNORMAL) HEPARIN, UNFRACTIONATED (06/22/2024 12:09 PM EST) Pathologist [facility] Heparin, Unfractionated 0.12(H) <0.10 IU/mL 06/22/2024 12:58 PM EST [facility]ORY [facility] Comment: Unfractionated therapeutic ranges for Anti Xa activity: For Cardiac/Neurologic treatment: 0.3 to 0.6 IU/mL. For treatment of DVT or Pulmonary Embolism: 0.3 to 0.7 IU/mL. Blood Venous blood specimen / Unknown Venipuncture / Unknown 06/22/2024 12:09 PM EST 06/22/2024 12:16 PM EST Spencer Castro PA-C LAB BLOOD ORDERABLES Fi nal Result Performing Organization Address [facility] Co de Phone Number LABORATORY [address] [address] * (ABNORMAL) FIBRINOGEN (06/22/2024 12:09 PM EST) [facility] Fibrinogen 151(L) 178 - 467 mg/dL 06/22/2024 12:58 PM EST [facility]ORY [facility] Blood Venous blood specimen / Unknown Venipuncture / Unknown 06/22/2024 12:09 PM EST 06/22/2024 12:16 PM EST Spencer Castro PA-C LAB BLOOD ORDERABLES Fi nal Result Performing Organization Address City/[facility]/ZIP Co de Phone Number LABORATORY [facility] [address] [place] [address] * (ABNORMAL) CBC (06/22/2024 12:09 PM EST) [facility] WBC 15.23(H) 4.00 - 10.80 K/uL 06/22/2024 12:30 PM EST [facility] RBC 3.63 4.50 - 5.25 M/uL 06/22/2024 12:30 PM EST [facility] HGB 11.3(L) 14.0 - 16.8 g/dL 06/22/2024 12:30 PM EST [facility] HCT 34.5(L) 40.0 - 48.4 % 06/22/2024 12:30 PM EST [facility] MCV 95.0 82.0 - 99.5 fL 06/22/2024 12:30 PM EST [facility] MCH 31.1 27.0 - 34.0 pg 06/22/2024 12:30 PM EST [facility] MCHC 32.8 32.0 - 36.0 g/dL 06/22/2024 12:30 PM EST [facility] RDW 12.7 11.5 - 15.5 % 06/22/2024 12:30 PM EST [facility] PLT 135(L) 140 - 400 K/uL 06/22/2024 12:30 PM EST [facility] MPV 10.4 6.6 - 11.1 fL 06/22/2024 12:30 PM EST [facility] nRBCs 0 <=0 /100 WBCs 06/22/2024 12:30 PM EST [facility] Blood Venous blood specimen / Unknown Venipuncture / Unknown 06/22/2024 12:09 PM EST 06/22/2024 12:16 PM EST Spencer Castro PA-C LAB BLOOD ORDERABLES Fi nal Result LABORATORY [facility] [address] [place] [address] * (ABNORMAL) BASIC METABOLIC PANEL (06/22/2024 12:09 PM EST) BUN 10 6 - 20 mg/dL 06/22/2024 12:52 PM EST LABORATORY [facility] CREATININE 1.0 0.6 - 1.2 mg/dL 06/22/2024 12:52 PM EST LABORATORY [facility] EGFR 81 >=60 mL/min 06/22/2024 12:52 PM EST [facility] Comment:eGFR is calculated b ased on the CKD-EPI 2020 equation. SODIUM 140 135 - 146 mmol/L 06/22/2024 12:52 PM EST [facility] POTASSIUM 4.5 3.5 - 5.1 mmol/L 06/22/2024 12:52 PM EST [facility] CHLORIDE 107 98 - 107 mmol/L 06/22/2024 12:52 PM EST [facility] CO2 23 22 - 32 mmol/L 06/22/2024 12:52 PM EST [facility] ANION GAP 10 7 - 15 mmol/L 06/22/2024 12:52 PM EST LAB[facility]ORY [facility] GLUCOSE 134(H) 70 - 120 mg/dL 06/22/2024 12:52 PM EST [facility] CALCIUM 8.4 8.4 - 10.2 mg/dL 06/22/2024 12:52 PM EST LABORATORY [facility] Blood Venous blood specimen / Unknown Venipuncture / Unknown 06/22/2024 12:09 PM EST 06/22/2024 12:17 PM EST Spencer Castro PA-C LAB BLOOD ORDERABLES Fi nal Result Performing Organization Address City/State/[facility] Co de Phone Number LAB[facility]ATORY [facility] [address] [place] [address] * (ABNORMAL) APTT (06/22/2024 12:09 PM EST) aPTT 156(HH) 21 - 38 seconds 06/22/2024 12:58 PM EST LABORATORY [facility] Blood Venous blood specimen / Unknown Venipuncture / Unknown 06/22/2024 12:09 PM EST 06/22/2024 12:16 PM EST Narrative [facility] - 06/22/2024 12:58 PM EST Anticoagulation may affect testing. Refer to [employer] for a list of effects. Spencer Castro PA-C LAB BLOOD ORDERABLES Fi nal Result Performing Organization Address City/[facility]/ZIP Co de Phone Number LABORATORY [facility] [address] [place] [address] * (ABNORMAL) ANTITHROMBIN III ACTIVITY (06/22/2024 12:09 PM EST) [facility] Antithrombin III Activity 58(L) 80 - 120 % 06/22/2024 12:58 PM EST [facility]ORY [facility] Blood Venous blood specimen / Unknown Venipuncture / Unknown 06/22/2024 12:09 PM EST 06/22/2024 12:16 PM EST Spencer Castro PA-C LAB BLOOD ORDERABLES Fi nal Result Performing Organization Address [facility] Phone Number LABORATORY [facility] [address] [place] [address] * ACT, POINT OF CARE (06/22/2024 11:01 AM EST) [facility] ACT 101 50 - 1,000 secs 06/22/2024 11:24 AM EST [employer] Blood 06/22/2024 11:0 1 AM EST 06/22/2024 11:24 AM EST Narrative [employer] - 06/22/2024 11:24 AM EST NORMAL (NON-HEPARINIZED) 74-137 SECONDS HEPARINIZED 200+ SECONDS CRITICAL GREATER THAN 1000 SECONDS us Faisal Guzman MD LAB POINT OF CARE T EST DOCKED DEVICE UNSOLICITED RESULTS Final Result Performing Organization Address [facility] Co de Phone Number [facility] [employer] [facility] [address] [place] [address] * (ABNORMAL) BLOOD GAS WITH CHEMISTRY, POINT OF CARE (06/22/2024 11:00 AM EST) [facility] Draw Site Arterial Draw 06/22/2024 11:[address] [facility] pH i-STAT 7.370 7.350 - 7.450 06/22/2024 11:[address] [facility] pCO2 i-STAT 38.9 35.0 - 45.0 mm Hg 06/22/2024 11:[address] [facility] pO2 i-STAT 488(H) 75 - 100 mm Hg 06/22/2024 11:[address] [facility] Base Excess i-STAT -3(L) -2 - 2 mmol/L 06/22/2024 11:[address] [facility] Bicarbonate, Whole Blood 22.5(L) 23.0 - 31.0 mmol/L 06/22/2024 11:[address] [facility] O2 Saturation i-STAT 100.0(H) 94.0 - 98.0 % 06/22/2024 11:[address] [facility] Glucose - POCT 148(H) 70 - 120 mg/dL 06/22/2024 11:[address] [facility] POTASSIUM - POCT 4.6 3.5 - 5.1 mmol/L 06/22/2024 11:[address] [facility] SODIUM - POCT 139 135 - 146 mmol/L 06/22/2024 11:[address] [facility] Calcium, ionized 1.02(L) 1.13 - 1.32 mmol/L 06/22/2024 11:[address] [facility] Hemoglobin i-STAT 10.9(L) 14.0 - 16.8 g/dL 06/22/2024 11:[address] [facility] Hematocrit i-STAT 32(L) 40 - 48 % 06/22/2024 11:[address] [facility] Arterial Draw 06/22/2024 11: 00 AM EST 06/22/2024 11:24 AM EST us Faisal Guzman MD LAB POINT OF CARE T EST DOCKED DEVICE UNSOLICITED RESULTS Final Result [facility] [address] [place] [address] * TEG (THROMBOELASTOGRAPH), HEPARINASE (06/22/2024 10:54 AM EST) Reaction Time 3.2 2.5 - 8.3 minutes 06/22/2024 12:31 PM EST [facility] Kinetics Time 1.4 0.5 - 3.7 minutes 06/22/2024 12:31 PM EST [facility] Alpha Angle 72.8 46.8 - 78.4 degrees 06/22/2024 12:31 PM EST [facility] Maximum Amplitude 60.6 50.6 - 72.5 mm 06/22/2024 12:31 PM EST [facility] Coagulation Index 2.6 -3.0 - 3.0 06/22/2024 12:31 PM EST [facility] Percent Lysis 30 0.0 0.0 - 7.5 % 025 12:31 PM EST [facility] Blood Arterial blood specimen / Unknown 06/22/2024 10:54 AM EST 06/22/2024 11:05 AM EST us Vikki Calloway MD LAB BLOOD ORDERABLES Final Resul t LAB[facility]ATORY [facility] [address] [place] [address] * TEG (THROMBOELASTOGRAPH) (06/22/2024 10:54 AM EST) Reaction Time 3.2 2.5 - 8.3 minutes 06/22/2024 12:31 PM EST [facility] Kinetics Time 1.8 0.5 - 3.7 minutes 06/22/2024 12:31 PM EST [facility] Alpha Angle 66.5 46.8 - 78.4 degrees 06/22/2024 12:31 PM EST [facility] Maximum Amplitude 55.8 50.6 - 72.5 mm 06/22/2024 12:31 PM EST [facility] Coagulation Index 1.3 -3.0 - 3.0 06/22/2024 12:31 PM EST [facility] Percent Lysis 30 0.0 0.0 - 7.5 % 025 12:31 PM EST [facility] Blood Arterial blood specimen / Unknown 06/22/2024 10:54 AM EST 06/22/2024 11:05 AM EST us Vikki Calloway MD LAB BLOOD ORDERABLES Final Resul t Performing Organization Address City/[facility]/ZIP Co de Phone Number LABORATORY [facility] [address], [place] [id number] * (ABNORMAL) CBC (06/22/2024 10:54 AM EST) WBC 10.01 4.00 - 10.80 K/uL 06/22/2024 11:21 AM EST [facility] RBC 3.51 4.50 - 5.25 M/uL 06/22/2024 11:21 AM EST [facility] HGB 11.2(L) 14.0 - 16.8 g/dL 06/22/2024 11:21 AM EST [facility] HCT 33.6(L) 40.0 - 48.4 % 06/22/2024 11:21 AM EST [facility] MCV 95.7 82.0 - 99.5 fL 06/22/2024 11:21 AM EST [facility] MCH 31.9 27.0 - 34.0 pg 06/22/2024 11:21 AM EST [facility] MCHC 33.3 32.0 - 36.0 g/dL 06/22/2024 11:21 AM EST [facility] RDW 12.5 11.5 - 15.5 % 06/22/2024 11:21 AM EST [facility] PLT 110(L) 140 - 400 K/uL 06/22/2024 11:21 AM EST [facility] MPV 10.3 6.6 - 11.1 fL 06/22/2024 11:21 AM EST [facility] nRBCs 0 <=0 /100 WBCs 06/22/2024 11:21 AM EST [facility] Blood Arterial blood specimen / Unknown 06/22/2024 10:54 AM EST 06/22/2024 11:05 AM EST us Vikki Calloway MD LAB BLOOD ORDERABLES Final Resul t LAB[facility]ORY [facility] [address] [place] [address] * (ABNORMAL) PT INR (06/22/2024 10:54 AM EST) Prothrombin Time 18.8(H) 11.6 - 15.2 seconds 06/22/2024 11:27 AM EST [facility] INR 1.6(H) 0.8 - 1.2 06/22/2024 11:27 AM EST LABORATORY C Blood Arterial blood specimen / Unknown 06/22/2024 10:54 AM EST 06/22/2024 11:05 AM EST Narrative [facility] - 06/22/2024 11:27 AM EST Warfarin Therapy INR: 2.0-3.0 conventional anticoagulation INR: 2.5-3.5 high intensity anticoagulation us Vikki Calloway MD LAB BLOOD ORDERABLES Final Resul t Performing Organization Address City/[facility] de Phone Number LABORATORY [address] [address] * (ABNORMAL) FIBRINOGEN (06/22/2024 10:54 AM EST) Fibrinogen 163(L) 178 - 467 mg/dL 06/22/2024 11:27 AM EST [facility] Blood Arterial blood specimen / Unknown 06/22/2024 10:54 AM EST 06/22/2024 11:05 AM EST us Vikki Calloway MD LAB BLOOD ORDERABLES Final Resul t Performing Organization Address [facility] Phone Number LABORATORY [place] [address] [place] [address] * (ABNORMAL) APTT (06/22/2024 10:54 AM EST) aPTT 81(H) 21 - 38 seconds 06/22/2024 11:27 AM EST [facility] Blood Arterial blood specimen / Unknown 06/22/2024 10:54 AM EST 06/22/2024 11:05 AM EST Narrative [facility] - 06/22/2024 11:27 AM EST Anticoagulation may affect testing. Refer to [employer] for a list of effects. us Vikki Calloway MD LAB BLOOD ORDERABLES Final Resul t Performing Organization Address City/[facility]/ZIP Co de Phone Number [facility]ATORY [facility] [address] [place] [address] * (ABNORMAL) ANTITHROMBIN III ACTIVITY (06/22/2024 10:54 AM EST) Pathologist [facility] Antithrombin III Activity 59(L) 80 - 120 % 06/22/2024 11:27 AM EST LAB[facility]ORY [facility] Blood Arterial blood specimen / Unknown 06/22/2024 10:54 AM EST 06/22/2024 11:05 AM EST us Vikki Calloway MD LAB BLOOD ORDERABLES Final Resul t Performing Organization Address [facility] de Phone Number [facility]ORY [facility] [address] [place] [address] * (ABNORMAL) WHOLE BLOOD PROFILE, ARTERIAL (06/22/2024 10:54 AM EST) Temperature 37.0 C 06/22/2024 11:14 AM EST [facility]ORY [facility] pH, Arterial 7.388 7.350 - 7.450 units 06/22/2024 11:14 AM EST LAB[facility] pCO2, Arterial 39.8 35.0 - 45.0 mmHg 06/22/2024 11:14 AM EST [facility] pO2, Arterial 437.0(H) 75.0 - 100.0 mmHg 06/22/2024 11:14 AM EST [facility] Base Excess, Arterial -0.8 -2.0 - 2.0 mmol/L 06/22/2024 11:14 AM EST [facility] HGB 11.6(L) 14.0 - 16.8 g/dL 06/22/2024 11:14 AM EST [facility] Oxyhemoglobin, Arterial 98.2 94.0 - 99.0 % total Hgb 06/22/2024 11:14 AM EST LAB[facility] Carboxyhemoglob in, Whole Blood 0.8 <=1.5 % total Hgb 06/22/2024 11:14 AM EST LAB[facility]ORY [facility] Comment:Smokers: 0-9.0 % Methemoglobin, Whole Blood 0.9 <=1.5 % total Hgb 06/22/2024 11:14 AM EST [facility] Reduced Hemoglobin, Arterial 0.1 0.0 - 5.0 % total Hgb 06/22/2024 11:14 AM EST [facility] O2 Content, Arterial 17.1 15.0 - 24.0 %vol 06/22/2024 11:14 AM EST [facility] Potassium 4.8 3.5 - 5.1 mmol/L 06/22/2024 11:14 AM EST [facility] Sodium 137 135 - 146 mmol/L 06/22/2024 11:14 AM EST [facility] Chloride 105 98 - 107 mmol/L 06/22/2024 11:14 AM EST [facility] Calcium, Ionized 1.05(L) 1.13 - 1.32 mmol/L 06/22/2024 11:14 AM EST LAB[facility] Anion Gap 8.1 7.0 - 15.0 mmol/L 06/22/2024 11:14 AM EST [facility] Glucose 162(H) 70 - 120 mg/dL 06/22/2024 11:14 AM EST LAB[facility] FiO2 Not Provided % 06/22/2024 11:14 AM EST [facility] O2 Flow, Arterial Not Provided L/min 06/22/2024 11:14 AM EST [facility] Bicarbonate, Whole Blood 23.5 23.0 - 31.0 mmol/L 06/22/2024 11:14 AM EST [facility] Blood Arterial blood specimen / Unknown 06/22/2024 10:54 AM EST 06/22/2024 11:04 AM EST us Vikki Calloway MD LAB BLOOD ORDERABLES Final Resul t LABOR[facility]ORY [facility] [address] [place] [address] * ACT, POINT OF CARE (06/22/2024 10:27 AM EST) ACT 441 50 - 1,000 secs 06/22/2024 11:23 AM EST [employer] Blood 06/22/2024 10:2 7 AM EST 06/22/2024 11:23 AM EST Narrative [employer] [facility] [employer] - 06/22/2024 11:23 AM EST NORMAL (NON-HEPARINIZED) 74-137 SECONDS HEPARINIZED 200+ SECONDS CRITICAL GREATER THAN 1000 SECONDS us Faisal Guzman MD LAB POINT OF CARE T EST DOCKED DEVICE UNSOLICITED RESULTS Final Result [facility] [address] [place] [address] * (ABNORMAL) BLOOD GAS WITH CHEMISTRY, POINT OF CARE (06/22/2024 10:22 AM EST) Draw Site Arterial Draw 06/22/2024 11:24 AM EST [facility] [employer] [facility] pH i-STAT 7.384 7.350 - 7.450 06/22/2024 11:24 AM EST [facility] [employer] pCO2 i-STAT 39.4 35.0 - 45.0 mm Hg 06/22/2024 11:[address] [facility] ([place], [place])[employer] pO2 i-STAT 223(H) 75 - 100 mm Hg 06/22/2024 11:24 AM EST [facility] [employer] Base Excess i-STAT -1 -2 - 2 mmol/L 06/22/2024 11:24 AM EST [facility] [employer] Bicarbonate, Whole Blood 23.5 23.0 - 31.0 mmol/L 06/22/2024 11:24 AM EST [facility] [employer] O2 Saturation i-STAT 100.0(H) 94.0 - 98.0 % 06/22/2024 11:24 AM EST [employer] Glucose - POCT 171(H) 70 - 120 mg/dL 06/22/2024 11:24 AM EST [facility] [employer] POTASSIUM - POCT 5.1 3.5 - 5.1 mmol/L 06/22/2024 11:24 AM EST [employer] [facility] SODIUM - POCT 136 135 - 146 mmol/L 06/22/2024 11:[address] [facility] ([place], [place])[employer] Calcium, ionized 1.05(L) 1.13 - 1.32 mmol/L 06/22/2024 11:24 AM EST [employer] Hemoglobin i-STAT 11.2(L) 14.0 - 16.8 g/dL 06/22/2024 11:24 AM EST [employer] Hematocrit i-STAT 33(L) 40 - 48 % 06/22/2024 11:24 AM EST [employer] Arterial Draw 06/22/2024 10: 22 AM EST 06/22/2024 11:24 AM EST Faisal Guzman MD LAB POINT OF CARE T EST DOCKED DEVICE UNSOLICITED RESULTS Final Result Performing Organization Address City/[facility]/ZIP Co de Phone Number [address] [address] * ACT, POINT OF CARE (06/22/2024 10:06 AM EST) ACT 487 50 - 1,000 secs 06/22/2024 11:23 AM EST [employer] Blood 06/22/2024 10:0 6 AM EST 06/22/2024 11:23 AM EST Narrative [facility] - 06/22/2024 11:23 AM EST NORMAL (NON-HEPARINIZED) 74-137 SECONDS HEPARINIZED 200+ SECONDS CRITICAL GREATER THAN 1000 SECONDS Faisal Guzman MD LAB POINT OF CARE T EST DOCKED DEVICE UNSOLICITED RESULTS Final Result Performing Organization Address [facility] Co de Phone Number [place] [address] [place] [address] * ACT, POINT OF CARE (06/22/2024 9:42 AM EST) ACT 481 50 - 1,000 secs 06/22/2024 11:24 AM EST [employer] Blood 06/22/2024 9:42 AM EST 06/22/2024 11:24 AM EST Narrative [employer] [facility] - 06/22/2024 11:24 AM EST NORMAL (NON-HEPARINIZED) 74-137 SECONDS HEPARINIZED 200+ SECONDS CRITICAL GREATER THAN 1000 SECONDS Faisal Guzman MD LAB POINT OF CARE T EST DOCKED DEVICE UNSOLICITED RESULTS Final Result [facility] [address] [place] [address] * ACT, POINT OF CARE (06/22/2024 9:20 AM EST) Pathologist [facility] ACT 441 50 - 1,000 secs 06/22/2024 11:24 AM EST [employer] Blood 06/22/2024 9:20 AM EST 06/22/2024 11:24 AM EST Narrative [employer] - 06/22/2024 11:24 AM EST NORMAL (NON-HEPARINIZED) 74-137 SECONDS HEPARINIZED 200+ SECONDS CRITICAL GREATER THAN 1000 SECONDS us Faisal Guzman MD LAB POINT OF CARE T EST DOCKED DEVICE UNSOLICITED RESULTS Final Result Performing Organization Address City/[facility]/ZIP Co de Phone Number [facility] [address] [place] [address] * (ABNORMAL) BLOOD GAS WITH CHEMISTRY, POINT OF CARE (06/22/2024 9:16 AM EST) [facility] Draw Site Arterial Draw 06/22/2024 11:24 AM EST [employer] pH i-STAT 7.400 7.350 - 7.450 06/22/2024 11:24 AM EST [employer] pCO2 i-STAT 37.3 35.0 - 45.0 mm Hg 06/22/2024 11:24 AM EST [employer] pO2 i-STAT 268(H) 75 - 100 mm Hg 06/22/2024 11:24 AM EST [employer] Base Excess i-STAT -1 -2 - 2 mmol/L 06/22/2024 11:24 AM EST [employer] Bicarbonate, Whole Blood 23.1 23.0 - 31.0 mmol/L 06/22/2024 11:24 AM EST [employer] O2 Saturation i-STAT 100.0(H) 94.0 - 98.0 % 06/22/2024 11:24 AM EST [employer] Glucose - POCT 120 70 - 120 mg/dL 06/22/2024 11:[address] [facility] POTASSIUM - POCT 5.2(H) 3.5 - 5.1 mmol/L 06/22/2024 11:[address] [facility] SODIUM - POCT 137 135 - 146 mmol/L 06/22/2024 11:[address] [facility] Calcium, ionized 1.00(L) 1.13 - 1.32 mmol/L 06/22/2024 11:[address] [facility] Hemoglobin i-STAT 10.5(L) 14.0 - 16.8 g/dL 06/22/2024 11:[address] [facility] Hematocrit i-STAT 31(L) 40 - 48 % 06/22/2024 11:[address] [facility] Arterial Draw 06/22/2024 9:1 6 AM EST 06/22/2024 11:24 AM EST Faisal Guzman MD LAB POINT OF CARE T EST DOCKED DEVICE UNSOLICITED RESULTS Final Result [facility] [address] [place] [address] * TEG (THROMBOELASTOGRAPH), HEPARINASE (06/22/2024 9:15 AM EST) Reaction Time 7.2 2.5 - 8.3 minutes 06/22/2024 11:25 AM EST [facility] Kinetics Time 2.2 0.5 - 3.7 minutes 06/22/2024 11:25 AM EST [facility] Alpha Angle 60.3 46.8 - 78.4 degrees 06/22/2024 11:25 AM EST [facility] Maximum Amplitude 56.8 50.6 - 72.5 mm 06/22/2024 11:25 AM EST [facility] Coagulation Index -1.8 -3.0 - 3.0 06/22/2024 11:25 AM EST [facility] Percent Lysis 30 0.0 0.0 - 7.5 % 025 11:25 AM EST [facility] Blood Venous blood specimen / Unknown Venipuncture / Unknown 06/22/2024 9:15 AM EST 06/22/2024 9:28 AM EST Faisal Guzman MD LAB BLOOD ORDERABLES Final Result Performing Organization Address [facility] Phone Number LABORATORY [address] [address] * (ABNORMAL) TEG (THROMBOELASTOGRAPH) (06/22/2024 9:15 AM EST) Reaction Time >20.0(H) 2.5 - 8.3 minutes 06/22/2024 10:46 AM EST [facility] [place] Venous blood specimen / Unknown Venipuncture / Unknown 06/22/2024 9:15 AM EST 06/22/2024 9:28 AM EST Narrative [facility] - 06/22/2024 10:46 AM EST If R time > 20 minutes and no clot formed suggesting hypocoagulable state or interfering substance (anticoagulation). Consider resubmitting a new sample and/or checking PT/INR, aPTT, fibrinogen, and platelet count. Faisal Guzman MD LAB BLOOD ORDERABLES Final Result Performing Organization Address [facility] Phone Number LABORATORY [address] [address] * (ABNORMAL) WHOLE BLOOD PROFILE, VENOUS (06/22/2024 9:15 AM EST) Temperature 37.0 C 06/22/2024 9:32 AM EST [facility] pH, Venous 7.363 7.320 - 7.430 units 06/22/2024 9:32 AM EST [facility] pCO2, Venous 47.7 40.0 - 60.0 mmHg 06/22/2024 9:32 AM EST [facility] pO2, Venous 45.3 25.0 - 50.0 mmHg 06/22/2024 9:32 AM EST [facility] Base Excess, Venous 1.2 -2.0 - 2.0 mmol/L 06/22/2024 9:32 AM EST [facility] HGB 10.2(L) 14.0 - 16.8 g/dL 06/22/2024 9:32 AM EST [facility] Oxyhemoglobin, Venous 78.4 40.0 - 85.0 % total Hgb 06/22/2024 9:32 AM EST [facility] Carboxyhemoglobi n, Whole Blood 1.4 <=1.5 % total Hgb 06/22/2024 9:32 AM EST [facility] Comment:Smokers: 0-9.0 % Methemoglobin, Whole Blood 0.6 <=1.5 % total Hgb 06/22/2024 9:32 AM EST [facility] Reduced Hemoglobin, Venous 19.6 % total Hgb 06/22/2024 9:32 AM EST [facility] O2 Content, Venous 11.2 7.0 - 18.0 %vol 06/22/2024 9:32 AM EST [facility] Potassium 4.7 3.5 - 5.1 mmol/L 06/22/2024 9:32 AM EST [facility] Sodium 132(L) 135 - 146 mmol/L 06/22/2024 9:32 AM EST [facility] Chloride 100 98 - 107 mmol/L 06/22/2024 9:32 AM EST [facility] Calcium, Ionized 1.02(L) 1.13 - 1.32 mmol/L 06/22/2024 9:32 AM EST [facility] Anion Gap 4.9(L) 7.0 - 15.0 mmol/L 06/22/2024 9:32 AM EST [facility] Glucose 128(H) 70 - 120 mg/dL 06/22/2024 9:32 AM EST [facility] Bicarbonate, Whole Blood 26.4 23.0 - 31.0 mmol/L 06/22/2024 9:32 AM EST [facility] Blood Venous blood specimen / Unknown Venipuncture / Unknown 06/22/2024 9:15 AM EST 06/22/2024 9:28 AM EST us Faisal Guzman MD LAB BLOOD ORDERABLES Final Result [facility] [address] [place] [address] * (ABNORMAL) BLOOD GAS, ARTERIAL (06/22/2024 9:15 AM EST) [facility] Temperature 37.0 C 06/22/2024 9:34 AM EST [facility] pH, Arterial 7.408 7.350 - 7.450 units 06/22/2024 9:34 AM EST [facility] pCO2, Arterial 40.1 35.0 - 45.0 mmHg 06/22/2024 9:34 AM EST [facility] pO2, Arterial 237.0(H) 75.0 - 100.0 mmHg 06/22/2024 9:34 AM EST [facility] Base Excess, Arterial 0.7 -2.0 - 2.0 mmol/L 06/22/2024 9:34 AM EST [facility] HGB 10.1(L) 14.0 - 16.8 g/dL 06/22/2024 9:34 AM EST [facility] Oxyhemoglobin, Arterial 98.2 94.0 - 99.0 % total Hgb 06/22/2024 9:34 AM EST [facility] Carboxyhemoglob in, Whole Blood 1.2 <=1.5 % total Hgb 06/22/2024 9:34 AM EST [facility] Comment:Smokers: 0-9.0 % Methemoglobin, Whole Blood 0.6 <=1.5 % total Hgb 06/22/2024 9:34 AM EST [facility] Reduced Hemoglobin, Arterial 0.0 0.0 - 5.0 % total Hgb 06/22/2024 9:34 AM EST [facility] O2 Content, Arterial 14.4(L) 15.0 - 24.0 %vol 06/22/2024 9:34 AM EST [facility] FiO2 Not Provided % 06/22/2024 9:34 AM EST [facility] O2 Flow, Arterial Not Provided L/min 06/22/2024 9:34 AM EST [facility] Bicarbonate, Whole Blood 24.8 23.0 - 31.0 mmol/L 06/22/2024 9:34 AM EST [facility] Blood Arterial blood specimen / Unknown Arterial Puncture / Unknown 06/22/2024 9:15 AM EST 06/22/2024 9:28 AM EST Faisal Guzman MD LAB BLOOD ORDERABLES Final Result Performing Organization Address City/[facility]/ZIP Co de Phone Number [facility] [address] [place] [address] * (ABNORMAL) PLT (06/22/2024 9:15 AM EST) PLT 130(L) 140 - 400 K/uL 06/22/2024 9:45 AM EST [facility] Blood Venous blood specimen / Unknown Venipuncture / Unknown 06/22/2024 9:15 AM EST 06/22/2024 9:28 AM EST Faisal Guzman MD LAB BLOOD ORDERABLES Final Result Performing Organization Address [facility] Co de Phone Number [facility] [address] [place] [address] * (ABNORMAL) HCT (06/22/2024 9:15 AM EST) HCT 30.3(L) 40.0 - 48.4 % 06/22/2024 9:45 AM EST [facility] Blood Venous blood specimen / Unknown Venipuncture / Unknown 06/22/2024 9:15 AM EST 06/22/2024 9:28 AM EST us Faisal Guzman MD LAB BLOOD ORDERABLES Final Result Performing Organization Address [facility]/ZIP Co de Phone Number [facility] [address] [place] [address] * (ABNORMAL) FIBRINOGEN (06/22/2024 9:15 AM EST) Fibrinogen 145(L) 178 - 467 mg/dL 06/22/2024 10:24 AM EST [facility] Blood Venous blood specimen / Unknown Venipuncture / Unknown 06/22/2024 9:15 AM EST 06/22/2024 9:28 AM EST Faisal Guzman MD LAB BLOOD ORDERABLES Final Result Performing Organization Address City/[facility]/ZIP Co de Phone Number [facility] [address] [place] [address] * ACT, POINT OF CARE (06/22/2024 8:57 AM EST) ACT 648 50 - 1,000 secs 06/22/2024 11:24 AM EST [employer] Blood 06/22/2024 8:57 AM EST 06/22/2024 11:24 AM EST [facility] - 06/22/2024 11:24 AM EST NORMAL (NON-HEPARINIZED) 74-137 SECONDS HEPARINIZED 200+ SECONDS CRITICAL GREATER THAN 1000 SECONDS Faisal Guzman MD LAB POINT OF CARE T EST DOCKED DEVICE UNSOLICITED RESULTS Final Result [employer] [facility] [address] [place] [address] * ACT, POINT OF CARE (06/22/2024 8:57 AM EST) [facility] ACT 619 50 - 1,000 secs 06/22/2024 11:23 AM EST [employer] Blood 06/22/2024 8:57 AM EST 06/22/2024 11:23 AM EST [facility] - 06/22/2024 11:23 AM EST NORMAL (NON-HEPARINIZED) 74-137 SECONDS HEPARINIZED 200+ SECONDS CRITICAL GREATER THAN 1000 SECONDS Faisal Guzman MD LAB POINT OF CARE T EST DOCKED DEVICE UNSOLICITED RESULTS Final Result [facility] [facility] [address] [place] [address] * (ABNORMAL) BLOOD GAS WITH CHEMISTRY, POINT OF CARE (06/22/2024 7:53 AM EST) [facility] Draw Site Arterial Draw 06/22/2024 11:24 AM EST [employer] pH i-STAT 7.407 7.350 - 7.450 06/22/2024 11:24 AM EST [employer] pCO2 i-STAT 37.5 35.0 - 45.0 mm Hg 06/22/2024 11:[address] [facility] pO2 i-STAT 448(H) 75 - 100 mm Hg 06/22/2024 11:[address] [facility] Base Excess i-STAT -1 -2 - 2 mmol/L 06/22/2024 11:[address] [facility] Bicarbonate, Whole Blood 23.6 23.0 - 31.0 mmol/L 06/22/2024 11:[address] [facility] O2 Saturation i-STAT 100.0(H) 94.0 - 98.0 % 06/22/2024 11:[address] [facility] Glucose - POCT 99 70 - 120 mg/dL 06/22/2024 11:[address] [facility] POTASSIUM - POCT 4.0 3.5 - 5.1 mmol/L 06/22/2024 11:[address] [facility] SODIUM - POCT 139 135 - 146 mmol/L 06/22/2024 11:[address] [facility] Calcium, ionized 1.15 1.13 - 1.32 mmol/L 06/22/2024 11:24 AM [facility] Hemoglobin i-STAT 12.9(L) 14.0 - 16.8 g/dL 06/22/2024 11:[address] [facility] Hematocrit i-STAT 38(L) 40 - 48 % 06/22/2024 11:[address] [facility] Arterial Draw 06/22/2024 7:5 3 AM EST 06/22/2024 11:24 AM EST us Faisal Guzman MD LAB POINT OF CARE T EST DOCKED DEVICE UNSOLICITED RESULTS Final Result [facility] [address] [place] [address] * ACT, POINT OF CARE (06/22/2024 7:53 AM EST) ACT 124 50 - 1,000 secs 06/22/2024 11:[address] [facility] Blood 06/22/2024 7:53 AM EST 06/22/2024 11:23 AM EST Narrative [facility] [employer] LABORATORIES - 06/22/2024 11:23 AM EST NORMAL (NON-HEPARINIZED) 74-137 SECONDS HEPARINIZED 200+ SECONDS CRITICAL GREATER THAN 1000 SECONDS Faisal Guzman MD LAB POINT OF CARE T EST DOCKED DEVICE UNSOLICITED RESULTS Final Result Performing Organization Address [facility] Co de Phone Number [facility] [address] [place] [address] * GLUCOSE METER, POINT OF CARE (06/22/2024 6:51 AM EST) [facility] Glucose - POCT 93 70 - 120 mg/dL 06/22/2024 6:52 AM EST [facility] [employer] [facility] Blood Whole blood specimen / Unknown 06/22/2024 6:51 AM EST 06/22/2024 6:52 AM EST us Faisal Guzman MD LAB POINT OF CARE T EST DOCKED DEVICE UNSOLICITED RESULTS Final Result Performing Organization Address [facility] Co de Phone Number [address] [address] * EKG (06/22/2024 5:59 AM EST) 06/22/2024 5:59 AM EST Narrative Procedure Note Shabbir William MD - 06/22/2024 5:59 AM EST REASON FOR STUDY: PREOP CONCLUSIONS: Sinus rhythm with Premature supraventricular complexes T wave abnormality, consider anterolateral ischemia Abnormal ECG No previous ECGs available Ventricular Rate: 62 Atrial Rate: 62 AR Interval: 132 QRS Duration: 90 QT/QTc: 432/438 ms P-R-T [place]: 69 : 18 : 51 degrees us Adela MENA EKG Final Result Performing Organization Address City/[facility]/ZIP Co de Phone Number [facility] CARDIOLOGY documented in this encounter Visit Diagnoses Diagnosis Aortic valve stenosis, unspecified etiology- Primary Aortic valve stenosis, unspecified etiology Valvular heart disease Endocarditis, valve unspecified, unspecified cause Pre-operative cardiovascular examination S/P AVR (aortic valve replacement) Heart valve replaced by other means Status post surgery Arrhythmia Cardiac dysrhythmia, unspecified Encounter for fitting and adjustment of other gastrointestinal appliance and device Encounter for surgical aftercare following surgery on the circulatory system Presence of other specified devices Other nonspecific abnormal finding of lung field Other disorders of lung Primary hypertension Unspecified essential hypertension Hyperlipidemia Other and unspecified hyperlipidemia CVA (cerebral vascular accident) (HCC) Unspecified cerebral artery occlusion with cerebral infarction Dyslipidemia Other and unspecified hyperlipidemia LVH (left ventricular hypertrophy) Cardiomegaly Nonsustained supraventricular tachycardia (HCC) Other specified cardiac dysrhythmias JEANA (obstructive sleep apnea) Obstructive sleep apnea (adult) (pediatric) Sensorineural hearing loss (SNHL) of both ears Vertebral artery stenosis Occlusion and stenosis of vertebral artery without mention of cerebral infarction S/P AVR (aortic valve replacement) Heart valve replaced by other means documented in this encounter Administered Medications Inactive Administered Medications - up to 3 most recent administrations Medication Order MAR Action Action Date Dose Rate Site Acetaminophen (Ofirmev) inj 1,000 mg 1,000 mg, Intravenous, ONCE, 1 dose, On Fri06/22/24 at 2014, Administer over 15 Minutes, Administer undiluted over 15 minutes! NOTE: Maximum of 4000 mg per 24 hours of acetaminophen from all acetaminophen containing products., Indication: Patient is strictly NPO New Bag 06/22/2024 8:07 PM EST 1,000 mg 400 mL/hr Acetaminophen (Tylenol) tab 975 mg 975 mg, Oral, Q8H, First dose on Fri06/22/24 at 1400, Last dose on Fri06/27/24 at 0600, For 5 days, Avoid in patients with severe hepatic impairment or severe active liver disease. Use for 5 days, Post-op Given 06/26/2024 1:31 PM EST 975 mg Given 06/26/2024 5:12 AM EST 975 mg Given 06/25/2024 8:20 PM EST 975 mg Acetaminophen (Tylenol) tab 975 mg 975 mg, Oral, Q6H PRN Pain, Mild, Starting on 06/27/24 at 0000, Until 06/26/24 at 1748, Begin after around the clock acetaminophen order discontinued (S+5). Maximum 4 g acetaminophen/day. Avoid in patients with severe hepatic impairment or severe active liver disease., Post-op albumin (human) (Plasbumin-5) 5 % infusion 12.5 g Intravenous, Please scan groover and turner "square" 2D barcode to record Lot/ Expiration, ONCE, 1 dose, On Fri06/22/24 at 2100 Rate Verify 06/22/2024 9:00 PM EST 250 mL/hr New Bag 06/22/2024 8:37 PM EST 12.5 g 250 mL/hr albumin (human) (Plasbumin-5) 5 % infusion 12.5 g Intravenous, Please scan groover and turner "square" 2D barcode to record Lot/ Expiration, ONCE, 1 dose, On Fri06/23/24 at 0130 Rate Verify 06/23/2024 2:00 AM EST 250 mL/hr New 06/23/2024 1:14 AM EST 12.5 g 250 mL/hr albumin (human) (Plasbumin-5) 5 % infusion 12.5 g Intravenous, Please scan [employer]over and [employer]er "square" 2D barcode to record Lot/ Expiration, ONCE, 1 dose, On Fri06/23/24 at 1945 New Bag 06/23/2024 7:49 PM EST 12.5 g 500 mL/hr albumin (human) (Plasbumin-5) 5 % infusion 25 g Intravenous, Please scan groover and turner "square" 2D barcode to record Lot/ Expiration, ONCE, 1 dose, On Fri06/22/24 at 1545 New Bag 06/22/2024 3:14 PM EST 25 g 500 mL/hr albumin (human) (Plasbumin-5) 5 % infusion 25 g Intravenous, Please scan groover and turner "square" 2D barcode to record Lot/ Expiration, ONCE, 1 dose, On Fri06/22/24 at 1645 New Bag 06/22/2024 4:32 PM EST 25 g 500 mL/hr Amiodarone (Cordarone) 150 mg in dextrose 100 mL BOLUS 150 mg, Central IV, ONCE, 1 dose, On Fri06/24/24 at 0930, Administer over 10 Minutes, USE 0.22 micron inline filter New Bag 06/24/2024 9:01 AM EST 150 mg 600 mL/hr Amiodarone (Cordarone) 150 mg in dextrose 100 mL BOLUS 150 mg, Central IV, ONCE, 1 dose, On Fri06/24/24 at 1330, Administer over 10 Minutes, USE 0.22 micron inline filter New Bag 06/24/2024 1:23 PM EST 150 mg 600 mL/hr Amiodarone (Cordarone) 150 mg in dextrose 100 mL BOLUS 150 mg, Central IV, ONCE, 1 dose, On Fri06/24/24 at 2300, Administer over 10 Minutes, USE 0.22 micron inline filter Give over a half hour 06/24/2024 11:14 PM EST 150 mg 600 mL/hr Amiodarone (Cordarone) 150 mg in dextrose 100 mL BOLUS 150 mg, Central IV, ONCE, 1 dose, On Fri06/25/24 at 0445, Administer over 10 Minutes, USE 0.22 micron inline filter New Bag 06/25/2024 4:35 AM EST 150 mg 600 mL/hr Amiodarone (Cordarone) 150 mg in dextrose 100 mL BOLUS 150 mg, Central IV, ONCE, 1 dose, On Fri06/25/24 at 1500, Administer over 10 Minutes, Run over 30 minutes USE 0.22 micron inline filter New Bag 06/25/2024 2:28 PM EST 150 mg 600 mL/hr amiodarone (Cordarone) 900 mg in NSS 500 mL INFUSION Central IV, 1 mg/min (33.3333 mL/hr, rounded to 33.33 mL/hr), Amiodarone to be run using Smart pump mode: Pump is programmed to *ALERT* at 200 ml to notify of RATE change from 1mg/min to go to 0.5 mg/min. Use 0.22 micron filter., CONTINUOUS, Starting on Fri06/24/24 at 0930, Until Fri06/24/24 at 1529 New 06/24/2024 9:40 AM EST 1 mg/min 33.33 mL/hr amiodarone (Cordarone) 900 mg in NSS 500 mL INFUSION Central IV, 0.5 mg/min (16.6667 mL/hr, rounded to 16.67 mL/hr), Amiodarone to be run using Smart pump mode: Pump is programmed to *ALERT* at 200 ml to notify of RATE change from 1mg/min to go to 0.5 mg/min. Use 0.22 micron filter., CONTINUOUS CALL PHARMACY TO DISPENSE, Starting on Fri06/24/24 at 1500, Until Fri06/25/24 at 0635 New Bag 06/24/2024 3:00 PM EST 0.5 mg/min 16.67 mL/hr amiodarone (Cordarone) 900 mg in NSS 500 mL INFUSION Central IV, 0.5 mg/min (16.6667 mL/hr, rounded to 16.67 mL/hr), DO NOT RENEW Amiodarone to be run using Smart pump mode: Pump is programmed to *ALERT* at 200 ml to notify of RATE change from 1mg/min to go to 0.5 mg/min. Use 0.22 micron filter., CONTINUOUS CALL PHARMACY TO DISPENSE, Starting on Fri06/25/24 at 0715, Until Fri06/25/24 at 1314 Rate Verify 06/25/2024 12:00 PM EST 0.5 mg/min 16.66 mL/hr Rate Verify 06/25/2024 11:00 AM EST 0.5 mg/min 16.66 mL/hr Rate Verify 06/25/2024 10:00 AM EST 0.5 mg/min 16.66 mL/hr amiodarone (Cordarone) tab 200 mg 200 mg, Oral, BID (AM/PM MEALS), First dose (after last modification) on Fri06/26/24 at 0800, Until Discontinued Given 06/26/2024 8:25 AM EST 200 mg amiodarone (Cordarone) tab 400 mg 400 mg, Oral, WITH MEALS, First dose (after last modification) on Fri06/24/24 at 0930, Until Discontinued Given 06/25/2024 4:49 PM EST 400 mg Given 06/25/2024 12:48 PM EST 400 mg Given 06/25/2024 8:58 AM EST 400 mg aspirin chew tab 81 mg 81 mg, Oral, Daily(AM), First dose on Fri06/23/24 at 0900, Until Discontinued, Start on POD#1, Post-op Given 06/25/2024 8:58 AM EST 81 mg Given 06/24/2024 8:18 AM EST 81 mg Given 06/23/2024 9:12 AM EST 81 mg atorvaSTATin (Lipitor) tab 40 mg 40 mg, Oral, Daily(AM), First dose on Fri06/23/24 at 0900, Until Discontinued Given 06/26/2024 8:25 AM EST 40 mg Given 06/25/2024 8:58 AM EST 40 mg Given 06/24/2024 8:19 AM EST 40 mg atropine sulfate inj 1 mg 1 mg, IV Push, PRN Other, X1 PRN hemodynamically significant bradydysrythmias and call CT Surgeon mony CAPUTO, Starting on Fri06/22/24 at 1204, Until 06/26/24 at 1748, For 1 dose, Post-op Bisacodyl (Dulcolax) supp 10 mg 10 mg, Rectal, DAILY PRN Constipation, Starting on Dona 06/24/24 at 0800, Until 06/26/24 at 1748, Post-op calcium CHLORide 10 % inj 1 g 1 g, IV Push, PRN Other, Calcium Replacement, Starting on Fri06/22/24 at 1204, Until 06/26/24 at 1748, For 1 dose, Ionized calcium is less than 1 and MAP less than 80, Post-op calcium CHLORide 10 % inj 1 g 1 g, Intravenous, ONCE, On Fri06/22/24 at 1645, For 1 dose Given 06/22/2024 4:32 PM EST 1 g ceFAZolin in dextrose (Ancef) ivpb 2 g 2 g, IV Piggyback, ONCALL, 1 dose, Starting on Fri06/22/24 at 0700, Until Fri06/22/24 at 1547 New Bag 06/22/2024 3:17 PM EST 2 g 100 mL/hr ceFAZolin in dextrose (Ancef) ivpb 2 g 2 g, IV Piggyback, Q8HNOW, 5 doses, First dose on Fri06/22/24 at 1600, Last dose on Fri06/24/24 at 0000, Post-op New Bag 06/23/2024 11:31 PM EST 2 g 100 mL/hr New Bag 06/23/2024 4:06 PM EST 2 g 100 mL/hr New Bag 06/23/2024 9:18 AM EST 2 g 100 mL/hr clopidogrel (pLAVix) tab 75 mg 75 mg, Oral, Daily(AM), First dose on Fri06/24/24 at 0900, Until Discontinued, Post-op Given 06/26/2024 8:25 AM EST 75 mg Given 06/25/2024 8:58 AM EST 75 mg Given 06/24/2024 8:18 AM EST 75 mg Docusate Sodium (Colace) cap 100 mg 100 mg, Oral, BID (.AM/PM), First dose on Fri06/23/24 at 0900, Until Discontinued, Hold and administer syrup formulation if not able to take this tab PO., Post-op Given 06/25/2024 8:20 PM EST 100 mg Given 06/25/2024 8:58 AM EST 100 mg Given 06/24/2024 8:38 PM EST 100 mg Famotidine (Pepcid) inj 20 mg 20 mg, Intravenous, Q12H, First dose on Fri06/22/24 at 2100, Last dose on Fri06/23/24 at 0900, For 2 doses, Start at first dose interval postop. Give IV push over 2 minutes., Post-op Given 06/23/2024 9:12 AM EST 20 mg Given 06/22/2024 8:37 PM EST 20 mg Famotidine (Pepcid) tab 20 mg 20 mg, Oral, Daily(AM), First dose on Fri06/24/24 at 0900, Until Discontinued, Post-op Given 06/26/2024 8:25 AM EST 20 mg Given 06/25/2024 8:58 AM EST 20 mg Given 06/24/2024 8:19 AM EST 20 mg Furosemide (Lasix) inj 40 mg 40 mg, IV Push, BID (0900, 1600), First dose on Fri06/24/24 at 0900, Last dose on Fri06/24/24 at 1600, For 2 doses Given 06/24/2024 3:07 PM EST 40 mg Given 06/24/2024 8:19 AM EST 40 mg Furosemide (Lasix) inj 40 mg 40 mg, IV Push, ONCE, On Fri06/25/24 at 0615, For 1 dose Given 06/25/2024 6:15 AM EST 40 mg Furosemide (Lasix) inj 40 mg 40 mg, IV Push, ONCE, On Fri06/26/24 at 0600, For 1 dose Given 06/26/2024 6:28 AM EST 40 mg Glycopyrrolate (Robinul) inj 0.6 mg 0.6 mg, Intravenous, ONCE PRN Other, Reversal of neuromuscular avelino, Starting on Fri06/22/24 at 1730, Until Fri06/22/24 at 2129, For 4 hours, Available in [employer]. If still chemically paralyzed after dose has been administered, contact provider for further guidance. WASTE INFO: Return waste medication to pharmacy in zip lock bag - SPC container., Post-op Given 06/22/2024 5:30 PM EST 0.6 mg hEParin 1000 UNIT/ML inj 1,100 Units 1,100 Units (rounded from 1,126.5 Units = 15 Units/kg 75.1 kg Adjusted weight), IV Push, PRN Other, If most recent Heparin Assay result is between 0.21 and 0.29 units/mL, Starting on Fri06/25/24 at 0754, Until 06/26/24 at 1748, Repeat Heparin Assay 6 hours after bolus is administered. hEParin 1000 UNIT/ML inj 2,300 Units 2,300 Units (rounded from 2,253 Units = 30 Units/kg 75.1 kg Adjusted weight), IV Push, PRN Other, If most recent Heparin Assay result is less than or equal to 0.2 units/mL, Starting on Fri06/25/24 at 0754, Until 06/26/24 at 1748, Repeat Heparin Assay 6 hours after bolus is administered. Given 06/25/2024 9:08 PM EST 2,300 Units hEParin 25,000 units in 250 mL (Xa-Cardiac) infusion Intravenous, at 0-22.53 mL/hr, Start heparin as soon as baseline labs are drawn. Please select this medication from the infusion pump library! Concentration: 100 units/mL Expires 96 hours after spiking on (date) at (hour) , TITRATE, Starting on Fri06/25/24 at 0830, Until 06/26/24 at 1748 Rate Verify 06/26/2024 9:56 AM EST 15 Units/kg/hr 11.27 mL/hr Nurse Change 06/26/2024 7:32 AM EST 15 Units/kg/hr 11.27 m L/hr Rate Verify 06/26/2024 6:00 AM EST 15 Units/kg/hr 11.26 mL /hr insulin REGULAR human 100 units in NSS 100 mL INFUSION Final Conc = 1 unit / mL Intravenous, at 1 mL/hr, Target Range for Blood Glucose = 100 to 130 mg/dl, CONTINUOUS, Starting on Fri06/22/24 at 1245, Until Fri06/23/24 at [id number], Post-op Rate Verify 06/23/2024 5:00 AM EST 1 Units/hr 1 mL/hr Rate Verify 06/23/2024 4:00 AM EST 1 Units/hr 1 mL/hr Rate Verify 06/23/2024 3:00 AM EST 1 Units/hr 1 mL/hr Isolyte-S pH 7.4 infusion Intravenous, at 1,000 mL/hr, During 1st 12hrs postop may give Isolyte, 500ml over 30 minutes x 1. If Systolic BP less than 100 and PA diastolic less than 15: may repeat x [address] Surgeon or PA-C if not immediately effective. Plasma-LYTE 148, isolyte-S, and isolyte-S pH 7.4 are considered equivalent - including for MAR barcode scanning., PRN, 2 doses, Starting on Fri06/22/24 at 1204, Until Fri06/22/24 at 1245, Post-op New Bag 06/22/2024 12:45 PM EST 500 mL 1000 mL/hr New Bag 06/22/2024 12:31 PM EST 500 mL 1000 mL/hr magnesium sulfate 1 g in d5w 100mL LOCKED DOSE 1 g, IV Piggyback, PRN Other, Magnesium replacement, Starting on Fri06/22/24 at 1204, Until 06/26/24 at 1748, For 4 doses, 1. Serum creatinine must be less than 1.5 2. Current urine output must be greater than 30 mL/hr. Magnesium level 1.5 - 2.2: Give 1 gm over 1 hour x 1 dose Magnesium level less than 1.5: Give 1 gm over 1 hour x 2 doses Repeat serum magnesium level 1 hour after completion of 2nd dose, Post-op New Bag 06/26/2024 8:32 AM EST 1 g 100 mL/hr morphine sulfate inj 1 mg 1 mg, IV Push, Q2H PRN Other, Pain, Moderate; If NPO or unable to take oral medication, Starting on Fri06/22/24 at 1204, Until 06/26/24 at 1748, Post-op morphine sulfate inj 2 mg 2 mg, IV Push, Q2H PRN Other, Pain, Severe; If NPO or unable to take oral medication, Starting on Fri06/22/24 at 1204, Until 06/26/24 at 1748, Post-op Given 06/22/2024 9:54 PM EST 2 mg Given 06/22/2024 7:37 PM EST 2 mg naloxone (Narcan) 0.4 MG/ML inj 0.08 mg 0.08 mg, IV Push, PRN Other, If patient is oversedated or Respiratory Rate less than 8, Starting on Fri06/22/24 at 1204, Until 06/26/24 at 1748, Call provider if patient is oversedated or Respiratory Rate is less than 8, Post-op Neostigmine Methylsulfate 10 MG/10ML inj 3 mg 3 mg, Intravenous, ONCE PRN Other, Reversal of neuromuscular avelino, Starting on Fri06/22/24 at 1730, Until Fri06/22/24 at 2129, For 4 hours, Available in [employer]. If still chemically paralyzed after dose has been administered, contact provider for further guidance., Post-op Given 06/22/2024 5:32 PM EST 3 mg NORepinephrine (Levophed) 4 mg in 250 ml [id number] STANDARD CONCENTRATION 16 mcg/ml Order Mode: Custom Provider Titration Order, Starting Rate (mcg/min): 2, Clinical Target: Custom MAP, Custom SBP, Custom Target MAP Range: Greater than 65, Custom Target SBP Range (mmHG): Less than 120, Increase or Decrease Infusion by up to (mcg/min): 1 mcg/min, Titrate no more frequently than (mins): Every 5 seconds, Maximum Dose (mcg/min): 20, Patient Transfer: Patient should be transferred to a higher level of care if rate exceeds nursing unit specific guidelines., 0-10 mcg/min (0-37.5 mL/hr), If you have reached the max rate, call for the on-call CVTS NITIN, TITRATE, Starting on Fri06/22/24 at 1245, Until Dona 06/24/24 at 1726, Central IV, Post-op Rate Verify 06/23/2024 1:00 AM EST 1 mcg/min 3.75 mL/hr Rate Verify 06/23/2024 12:00 AM EST 1 mcg/min 3.75 mL/hr Rate Change 06/22/2024 11:56 PM EST 1 mcg/min 3.75 mL/hr ondansetron (Zofran) inj 4 mg 4 mg, IV Push, Q6H PRN Other, May use for nausea or vomiting if patient unable to take oral ondansetron, Starting on Fri06/22/24 at 1204, Until 06/26/24 at 1748, Post-op Given 06/23/2024 6:20 AM EST 4 mg ondansetron ODT (Zofran) tab 4 mg 4 mg, On Tongue, Q6H PRN Nausea, Vomiting, Starting on Fri06/22/24 at 1204, Until 06/26/24 at 1748, Post-op Oral Hygiene: Mouth Swab with dentifrice Oral, Q4H LIMITED (00;04;12;16), First dose on Fri06/22/24 at 1600, Until Discontinued, To be used with 1.5% hydrogen peroxide solution or 0.05% cetylpyridium chloride oral rinse, Post-op Given 06/22/2024 4:00 PM EST oxyCODONE (Oxy IR) tab 5 mg 5 mg, Oral, Q4H PRN Pain, Severe, Starting on Fri06/22/24 at 1206, Until 06/26/24 at 1748, Post-op Given 06/24/2024 8:38 PM EST 5 mg Given 06/24/2024 1:48 AM EST 5 mg Given 06/23/2024 7:51 PM EST 5 mg oxygen GAS Inhalation, OXYGEN, First dose on Fri06/22/24 at 1600, Until Discontinued, Device/Managed by: NIV or Ventilator Device, Goal SPO2 (%): 94 or greater, Notify Provider: For sudden DECREASE in resting SPO2 to less than 85% and when escalating delivery device., Initial FiO2 (%): 100, Titration Interval: Q2 minutes and as needed., If PO2 is greater than 300, decrease to 50% FiO2. If PO2 is 200-300, decrease to 60% FiO2. If PO2 is 150-200, decrease to 70% FiO2. If PO2 is 100-150, decrease to 80% FiO2. Always maintain saturations 95% or greater Changes can also be made by Resp Therapy per Vent Weaning Protocol Oxygen On 06/22/2024 4:00 PM EST oxygen GAS Inhalation, OXYGEN, First dose on Fri06/22/24 at 1600, Until Discontinued, Device/Managed by: Low Flow Device, Goal SPO2 (%): 91-95, Starting Device: Nasal Cannula, Initial Flow Rate (LPM): 2. Apply post extubation., Lowest Support: Nasal Cannula: Flow 0-6 LPM. Titrate up/down by 1 LPM., Titration Interval: Q2 minutes and as needed., Notify Provider: For sudden DECREASE in resting SPO2 to less than 85% and when escalating delivery device., Wean patient off Oxygen when the oxygen saturation is greater than or equal to 93% Oxygen On 06/25/2024 12:00 AM EST Oxygen On 06/24/2024 12:00 AM EST Oxygen On 06/23/2024 8:00 AM EST Polyethylene Glycol 3350 (Miralax) oral powder 17 g 17 g (1 Packet), Oral, Daily(AM), First dose on Fri06/25/24 at 0900, Until Discontinued, Mix in 8 oz of water, juice, soda, coffee, or tea. Given 06/25/2024 8:59 AM EST 17 g potassium chloride 20 mEq in 50 mL ivpb LOCKED DOSE 20 mEq, Central IV, PRN, Starting on Fri06/22/24 at 1204, Until Fri06/26/24 at 1748, Other, Potassium repletion, Administer over 60 Minutes, Patients MUST meet ALL the following criteria. IF ANY criteria are not met, Do Not Administer, and call covering provider for orders 1. Serum creatinine must be less than 1.5 2. Current urine output must be greater than 30 mL/hr. Potassium repletion based on level 4.0 - 4.2: infuse 20mEq/50mL over one hour x 1 dose 3.5 - 3.9: infuse 20mEq/50mL over one hour x 2 doses 3.0 - 3.4: infuse 20mEq/50mL over one hour x 3 doses If Potassium less than 3.0, Begin 20mEq/50mL over 30 minutes x 1 dose and Immediately call covering provider for orders., Post-op Rate Verify 06/22/2024 8:00 PM EST 20 mEq/hr 50 mL/hr New Bag 06/22/2024 7:15 PM EST 20 mEq 50 mL/hr potassium chloride ER tab 20 mEq 20 mEq, Oral, PRN Other, Potassium repletion, Starting on Fri06/22/24 at 1204, Until Fri06/26/24 at 1748, Patients MUST meet ALL the following criteria. IF ANY criteria are not met, Do Not Administer, and call covering provider for orders 1. Serum creatinine must be less than 1.5 2. Current urine output must be greater than 30 mL/hr. 3. Patient is taking medications by mouth (PO). Potassium repletion based on level 4.0 - 4.2, Give 20mEq x 1 dose 3.5 - 3.9, Give 20mEq every 2 hours x 2 doses 3.0 - 3.4, Give 20mEq every 2 hours x 3 doses If potassium is less than 3.0, Give 20mEq x1 dose and immediately call the covering provider for orders. 4. BMP result must be no older than 24 hours., Post-op Given 06/26/2024 8:25 AM EST 20 mEq potassium chloride ER tab 20 mEq 20 mEq, Oral, BID (.AM/PM), First dose on Fri06/24/24 at 0900, Last dose on Fri06/24/24 at 2100, For 2 doses, This med should NOT be Crushed or Chewed Given 06/24/2024 8:39 PM EST 20 mEq Given 06/24/2024 8:18 AM EST 20 mEq potassium chloride ER tab 20 mEq 20 mEq, Oral, ONCE, On Fri06/25/24 at 0615, For 1 dose, This med should NOT be Crushed or Chewed Given 06/25/2024 6:13 AM EST 20 mEq potassium chloride ER tab 20 mEq 20 mEq, Oral, ONCE, On Fri06/26/24 at 0600, For 1 dose, This med should NOT be Crushed or Chewed Given 06/26/2024 6:28 AM EST 20 mEq vitamins plus 1 mg folic acid tab 1 Tablet 1 Tablet, Oral, DAILY NOON, First dose on Fri06/23/24 at 1200, Until Discontinued, Post-op Given 06/26/2024 1:31 PM EST 1 Tablet Given 06/25/2024 12:48 PM EST 1 Tablet Given 06/24/2024 11:14 AM EST 1 Tablet Propofol 10 mg/mL (1%) infusion Order Mode: Standard Titration, Starting Rate (mcg/kg/min): 10, Infusion Titration Adjustments: Increase or decrease by up to 10 mcg/kg/min no more frequently than every 5 minutes to maintain specified goal RASS, Maximum Dose: 50 mcg/kg/min for nurse titration. Dose titrations 51-80 mcg/kg/min require provider order., Notes to Nursing: Reorient the patient, assess and treat pain separately. Abort acute agitation by seeking provider assistance., 0-50 mcg/kg/min 86.2 kg (0-25.86 mL/hr), Wean to off when patient meets criteria outlined in the Cardiac Surgery Ventilator Weaning Protocol. Sedation Vacation Daily., TITRATE, Starting on Fri06/22/24 at 1245, Until Fri06/22/24 at 2030, Intravenous, Post-op Rate Change 06/22/2024 5:46 PM EST 10 mcg/kg/min 5.17 mL/hr Rate Change 06/22/2024 5:39 PM EST 20 mcg/kg/min 10.34 mL/ hr New Bag 06/22/2024 3:30 PM EST 30 mcg/kg/min 15.52 mL/h r protamine sulfate inj 50 mg 50 mg, IV Push, ONCE, On Fri06/22/24 at 1345, For 1 dose, Administer no faster than 50 mg over 10 minutes. Given 06/22/2024 1:16 PM EST 50 mg senna (Senokot) 1 Tablet 1 Tablet, Oral, BID (.AM/PM), First dose on Fri06/23/24 at 0900, Until Discontinued, Hold if patient develops diarrhea or has greater than 2 BMs in any one day., Post-op Given 06/25/2024 8:20 PM EST 1 Tablet Given 06/25/2024 8:58 AM EST 1 Tablet Given 06/24/2024 8:38 PM EST 1 Tablet sodium chloride 0.9 % flush central line 10 mL 10 mL, IV Push, Q8H, First dose on Fri06/22/24 at 1400, Until Discontinued, Capped Central Line Ports, Post-op Given 06/26/2024 6:00 AM EST 10 mL Given 06/25/2024 10:00 PM EST 10 mL Given 06/25/2024 1:15 PM EST 10 mL sodium chloride 0.9 % flush peripheral leana 3 mL 3 mL, IV Push, Q8H, First dose on Fri06/22/24 at 1400, Until Discontinued, Do not flush if lock, PICC, or central line not in place; IV infusing or unable to flush., Post-op Given 06/26/2024 6:00 AM EST 3 mL Given 06/25/2024 10:00 PM EST 3 mL Given 06/25/2024 1:15 PM EST 3 mL traMADol (Ultram) tab 25 mg 25 mg, Oral, Q6H, First dose on Fri06/23/24 at 0600, Last dose on Fri06/24/24 at 0000, For 4 doses, Post-op Given 06/23/2024 11:29 PM EST 25 mg Given 06/23/2024 5:30 PM EST 25 mg Given 06/23/2024 11:22 AM EST 25 mg traMADol (Ultram) tab 25 mg 25 mg, Oral, Q6H PRN Pain, Moderate, Starting on Fri06/23/24 at 0600, Until Fri06/26/24 at 1748, Post-op warfarin check daily dose (PHARMACIST MANAGED) [id number], First dose on Fri06/25/24 at 1500, Until Discontinued, Routine, Contact the pharmacy if there is not a warfarin dose entered by 1500 and document with whom it was discussed. Warfarin Sodium (Coumadin) tab 5 mg 5 mg, Oral, QPM-1999, First dose on Fri06/25/24 at 1999, Last dose on Fri06/25/24 at 1999, For 1 day, WASTE INFO: Return packaging and waste medication in zip lock bag to pharmacy - [facility] container. Given 06/25/2024 8:20 PM EST 5 mg Warfarin Sodium (Coumadin) tab 5 mg 5 mg, Oral, QPM-1999, First dose on Fri06/26/24 at 2000, Last dose on Fri06/26/24 at 1999, For 1 day, WASTE INFO: Return packaging and waste medication in zip lock bag to pharmacy - [facility] container. documented in this encounter Active and Recently Administered Medications Times are shown in EST. Scheduled Medication Order 06/24/2024 06/25/2024 06/26/2024 Acetaminophen (Tylenol) tab 975 mg 975 mg, Oral, Q8H, First dose on Fri06/22/24 at 1400, Last dose on Fri06/27/24 at 0600, For 5 days, Avoid in patients with severe hepatic impairment or severe active liver disease. Use for 5 days, Post-op 0630 (Given - Provider: Marli Blackmon, OLVIN)1317 (Given - Provider: Barbara Sinha RN)2036 (Given - Provider: Marli Blackmon RN) 06 (Given - Provider: Marli Blackmon, OLVIN)131 (Given - Provider: Eber Colindres, OLVIN)2019 (Given - Provider: Christiano Stewart, OLVIN) 05 (Given - Provider: Christiano Stewart, OLVIN)1331 (Given - Provider: Anne Hughes RN) Amiodarone (Cordarone) 150 mg in dextrose 100 mL BOLUS (COMPLETED) 150 mg, Central IV, ONCE, 1 dose, On Dona 06/24/24 at 0930, Administer over 10 Minutes, USE 0.22 micron inline filter 0901 (New Bag - Provider: Barbara Sinha RN) Amiodarone (Cordarone) 150 mg in dextrose 100 mL BOLUS (COMPLETED) 150 mg, Central IV, ONCE, 1 dose, On Dona 06/24/24 at 1330, Administer over 10 Minutes, USE 0.22 micron inline filter 1323 (New Bag - Provider: Barbara Sinha RN) Amiodarone (Cordarone) 150 mg in dextrose 100 mL BOLUS (COMPLETED) 150 mg, Central IV, ONCE, 1 dose, On Dona 06/24/24 at 2300, Administer over 10 Minutes, USE 0.22 micron inline filter Give over a half hour 2314 (New Bag - Provider: Marli Blackmon RN)2323 (Stopped - Provider: Marli Blackmon RN) Amiodarone (Cordarone) 150 mg in dextrose 100 mL BOLUS (COMPLETED) 150 mg, Central IV, ONCE, 1 dose, On Fri06/25/24 at 0445, Administer over 10 Minutes, USE 0.22 micron inline filter 0435 (New Bag - Provider: Marli Blackmon RN)0445 (Stopped - Provider: Marli Blackmon RN) Amiodarone (Cordarone) 150 mg in dextrose 100 mL BOLUS (COMPLETED) 150 mg, Central IV, ONCE, 1 dose, On Fri06/25/24 at 1500, Administer over 10 Minutes, Run over 30 minutes USE 0.22 micron inline filter 1428 (New Bag - Provider: Eber Colindres RN) amiodarone (Cordarone) tab 200 mg 200 mg, Oral, BID (AM/PM MEALS), First dose (after last modification) on Fri06/26/24 at 0800, Until Discontinued 08 (Given - Provider: Anne Hughes RN) amiodarone (Cordarone) tab 400 mg (CANCELED) 400 mg, Oral, WITH MEALS, First dose (after last modification) on Dona 06/24/24 at 0930, Until Discontinued 0903 (Given - Provider: Barbara Sinha RN)1606 (Given - Provider: Barbara Sinha RN) 0858 (Given - Provider: Eber Colindres RN)1248 (Given - Provider: Eber Colindres, OLVIN)1649 (Given - Provider: Eber Colindres RN) aspirin chew tab 81 mg (CANCELED) 81 mg, Oral, Daily(AM), First dose on Fri06/23/24 at 0900, Until Discontinued, Start on POD#1, Post-op 0818 (Given - Provider: Barbara Sinha RN) 0858 (Given - Provider: Eber Colindres RN) atorvaSTATin (Lipitor) tab 40 mg 40 mg, Oral, Daily(AM), First dose on Fri06/23/24 at 0900, Until Discontinued 0819 (Given - Provider: Barbara Sinha RN) 0858 (Given - Provider: Eber Colindres RN) 0825 (Given - Provider: Anne Hughes RN) clopidogrel (pLAVix) tab 75 mg 75 mg, Oral, Daily(AM), First dose on Dona 06/24/24 at 0900, Until Discontinued, Post-op 0818 (Given - Provider: Barbara Sinha RN) 0858 (Given - Provider: Eber Colindres, OLVIN) 0825 (Given - Provider: Anne Hughes, OLVIN) Docusate Sodium (Colace) cap 100 mg(Linked Group 1) 100 mg, Oral, BID (.AM/PM), First dose on Fri06/23/24 at 0900, Until Discontinued, Hold and administer syrup formulation if not able to take this tab PO., Post-op 817 (Given - Provider: Barbara Sinha RN)2037 (Given - Provider: Marli Blackmon, OLVIN) 0858 (Given - Provider: Eber Colindres, OLVIN)2019 (Given - Provider: Christiano Stewart, OLVIN) 0900 (Not Given - Provider: Anne Hughes RN - Reason: Parameter(s) Not Met) Famotidine (Pepcid) tab 20 mg(Linked Group 2) 20 mg, Oral, Daily(AM), First dose on Fri06/24/24 at 0900, Until Discontinued, Post-op 818 (Given - Provider: Barbara Sinha RN) 0858 (Given - Provider: Eber Colindres, OLVIN) 0825 (Given - Provider: Anne Hughes, OLVIN) Furosemide (Lasix) inj 40 mg (COMPLETED) 40 mg, IV Push, BID (0900, 1600), First dose on Fri06/24/24 at 0900, Last dose on Fri06/24/24 at 1600, For 2 doses 0819 (Given - Provider: Barbara Sinha RN)1507 (Given - Provider: Barbara Sinha RN) Furosemide (Lasix) inj 40 mg (COMPLETED) 40 mg, IV Push, ONCE, On Fri06/25/24 at 0615, For 1 dose 0615 (Given - Provider: Marli Blackmon RN) Furosemide (Lasix) inj 40 mg (COMPLETED) 40 mg, IV Push, ONCE, On Fri06/26/24 at 0600, For 1 dose 0628 (Given - Provider: Christinao Stewart, OLVIN) oxygen GAS Inhalation, OXYGEN, First dose on Fri06/22/24 at 1600, Until Discontinued, Device/Managed by: Low Flow Device, Goal SPO2 (%): 91-95, Starting Device: Nasal Cannula, Initial Flow Rate (LPM): 2. Apply post extubation., Lowest Support: Nasal Cannula: Flow 0-6 LPM. Titrate up/down by 1 LPM., Titration Interval: Q2 minutes and as needed., Notify Provider: For sudden DECREASE in resting SPO2 to less than 85% and when escalating delivery device., Wean patient off Oxygen when the oxygen saturation is greater than or equal to 93% 0000 (Oxygen On - Provider: Marli Blackmon RN)0800 (Oxygen Off - Provider: Barbara Sinha RN)1600 (Oxygen Off - Provider: Barbara Sinha RN) 0000 (Oxygen On - Provider: Marli Blackmon RN)0800 (Oxygen Off - Provider: Eber Colindres RN)1600 (Oxygen Off - Provider: Eber Colindres RN) 0000 (Oxygen Off - Provider: Christiano Stewart RN)0800 (Oxygen Off - Provider: Anne Hughes RN) Polyethylene Glycol 3350 (Miralax) oral powder 17 g 17 g (1 Packet), Oral, Daily(AM), First dose on Fri06/25/24 at 0900, Until Discontinued, Mix in 8 oz of water, juice, soda, coffee, or tea. 0859 (Given - Provider: Eber Colindres RN) 0900 (Not Given - Provider: Anne Hughes RN - Reason: Parameter(s) Not Met) potassium chloride ER tab 20 mEq (COMPLETED) 20 mEq, Oral, BID (.AM/PM), First dose on Fri06/24/24 at 0900, Last dose on Fri06/24/24 at 2100, For 2 doses, This med should NOT be Crushed or Chewed 0818 (Given - Provider: Barbara Sinha RN)2038 (Given - Provider: Marli Blackmon, OLVIN) potassium chloride ER tab 20 mEq (COMPLETED) 20 mEq, Oral, ONCE, On Fri06/25/24 at 0615, For 1 dose, This med should NOT be Crushed or Chewed 06 (Given - Provider: Marli A Lorri, RN) potassium chloride ER tab 20 mEq (COMPLETED) 20 mEq, Oral, ONCE, On Fri06/26/24 at 0600, For 1 dose, This med should NOT be Crushed or Chewed 0628 (Given - Provider: Christiano Stewart RN) vitamins plus 1 mg folic acid tab 1 Tablet 1 Tablet, Oral, DAILY NOON, First dose on Fri06/23/24 at 1200, Until Discontinued, Post-op 1114 (Given - Provider: Barbara Sinha RN) 1248 (Given - Provider: Eber Colindres RN) 1331 (Given - Provider: Anne Hughes RN) senna (Senokot) 1 Tablet(Linked Group 3) 1 Tablet, Oral, BID (.AM/PM), First dose on Fri06/23/24 at 0900, Until Discontinued, Hold if patient develops diarrhea or has greater than 2 BMs in any one day., Post-op 08 (Given - Provider: Barbara Sinha RN)2037 (Given - Provider: Marli Blackmon RN) 0858 (Given - Provider: Eber Colindres RN)2019 (Given - Provider: Christiano Stewart RN) 0900 (Not Given - Provider: Anne Hughes RN - Reason: Parameter(s) Not Met) sodium chloride 0.9 % flush central line 10 mL 10 mL, IV Push, Q8H, First dose on Fri06/22/24 at 1400, Until Discontinued, Capped Central Line Ports, Post-op 0600 (Given - Provider: Marli Blackmon RN)1400 (Given - Provider: Barbara Sinha RN)2200 (Given - Provider: Marli Blackmon RN) 0600 (Not Given - Provider: Marli Blackmon RN - Reason: Parameter(s) Not Met)1315 (Given - Provider: Eber Colindres RN)2200 (Given - Provider: Christiano Stewart, OLVIN) 0600 (Given - Provider: Christiano Stewart, OLVIN) sodium chloride 0.9 % flush peripheral leana 3 mL 3 mL, IV Push, Q8H, First dose on Fri06/22/24 at 1400, Until Discontinued, Do not flush if lock, PICC, or central line not in place; IV infusing or unable to flush., Post-op 0600 (Given - Provider: Marli Blackmon RN)1400 (Given - Provider: Barbara Sinha, OLVIN)2200 (Given - Provider: Marli Blackmon RN) 0600 (Not Given - Provider: Marli Blackmon RN - Reason: Parameter(s) Not Met)1315 (Given - Provider: Eber Colindres RN)2200 (Given - Provider: Christiano Stewart, OLVIN) 0600 (Given - Provider: Christiano Stewart, OLVIN) warfarin check daily dose (PHARMACIST MANAGED) [id number], First dose on Fri06/25/24 at 1500, Until Discontinued, Routine, Contact the pharmacy if there is not a warfarin dose entered by 1500 and document with whom it was discussed. 1500 (Order Check Addressed - Provider: Eber Colindres RN) Warfarin Sodium (Coumadin) tab 5 mg (COMPLETED) 5 mg, Oral, QPM-1999, First dose on Fri06/25/24 at 1999, Last dose on Fri06/25/24 at 1999, For 1 day, WASTE INFO: Return packaging and waste medication in zip lock bag to pharmacy - [facility] container. 2019 (Given - Provider: Christiano Stewart, OLVIN) Warfarin Sodium (Coumadin) tab 5 mg 5 mg, Oral, QPM-1999, First dose on Fri06/26/24 at 1999, Last dose on Fri06/26/24 at 1999, For 1 day, WASTE INFO: Return packaging and waste medication in zip lock bag to pharmacy - [facility] container. Continuous Medication Order 06/24/2024 06/25/2024 06/26/2024 amiodarone (Cordarone) 900 mg in NSS 500 mL INFUSION () Central IV, 1 mg/min (33.3333 mL/hr, rounded to 33.33 mL/hr), Amiodarone to be run using Smart pump mode: Pump is programmed to *ALERT* at 200 ml to notify of RATE change from 1mg/min to go to 0.5 mg/min. Use 0.22 micron filter., CONTINUOUS, Starting on Dona 3/6/25 at 0930, Until Fri06/24/24 at 1529 0940 (New Bag - Provider: Barbara Sinha RN) amiodarone (Cordarone) 900 mg in NSS 500 mL INFUSION (CANCELED) Central IV, 0.5 mg/min (16.6667 mL/hr, rounded to 16.67 mL/hr), Amiodarone to be run using Smart pump mode: Pump is programmed to *ALERT* at 200 ml to notify of RATE change from 1mg/min to go to 0.5 mg/min. Use 0.22 micron filter., CONTINUOUS CALL PHARMACY TO DISPENSE, Starting on Fri06/24/24 at 1500, Until Fri06/25/24 at 0635 1500 (New Bag - Provider: Barbara Sinha RN) 0635 (Stopped - Provider: Marli Blackmon RN) amiodarone (Cordarone) 900 mg in NSS 500 mL INFUSION () Central IV, 0.5 mg/min (16.6667 mL/hr, rounded to 16.67 mL/hr), DO NOT RENEW Amiodarone to be run using Smart pump mode: Pump is programmed to *ALERT* at 200 ml to notify of RATE change from 1mg/min to go to 0.5 mg/min. Use 0.22 micron filter., CONTINUOUS CALL PHARMACY TO DISPENSE, Starting on Fri06/25/24 at 0715, Until Fri06/25/24 at 1314 0701 (New Order/Same Bag - Provider: Marli Blackmon RN)0719 (Rate Verify - Provider: Eber Colindres RN)0942 (Rate Verify - Provider: Eber Colindres RN)1000 (Rate Verify - Provider: Eber Colindres RN)1100 (Rate Verify - Provider: Eber Colindres RN)1200 (Rate Verify - Provider: Eber Colindres RN)1243 (Stopped - Provider: Eber Colindres RN) hEParin 25,000 units in 250 mL (Xa-Cardiac) infusion Intravenous, at 0-22.53 mL/hr, Start heparin as soon as baseline labs are drawn. Please select this medication from the infusion pump library! Concentration: 100 units/mL Expires 96 hours after spiking on (date) at (hour) , TITRATE, Starting on 06/25/24 at 0830, Until 06/26/24 at 1748 0935 (New Bag - Provider: Eber Colindres, RN)0941 (Stopped - Provider: Eber Colindres RN - Comment: paused per CT surg kelsi stump)1329 (Restarted - Provider: Eber Colindres RN)1700 (Rate Verify - Provider: Eber Colindres RN)1800 (Rate Verify - Provider: Eber Colindres RN)1903 (Nurse Change - Provider: Eber Colindres RN)1916 (Nurse Change - Provider: Quique Irizarry RN)2000 (Rate Verify - Provider: Christiano Stewart RN)2108 (Rate Change - Provider: Christiano Stewart RN)2200 (Rate Verify - Provider: Christiano Stewart RN)2300 (Rate Verify - Provider: Christiano Stewart RN) 0000 (Rate Verify - Provider: Christiano Stewart RN)0200 (Rate Verify - Provider: Christiano Stewart RN)0300 (Rate Verify - Provider: Christiano Stewart RN)0400 (Rate Verify - Provider: Christiano Stewart RN)0500 (Rate Verify - Provider: Christiano Stewart RN)0600 (Rate Verify - Provider: Christiano Stewart RN)0732 (Nurse Change - Provider: Christiano Stewart RN)0956 (Rate Verify - Provider: Anne Hughes RN)1748 (Due: Stopped) PRN Medication Order 06/24/2024 06/25/2024 06/26/2024 Acetaminophen (Tylenol) tab 975 mg 975 mg, Oral, Q6H PRN Pain, Mild, Starting on 06/27/24 at 0000, Until 06/26/24 at 1748, Begin after around the clock acetaminophen order discontinued (S+5). Maximum 4 g acetaminophen/day. Avoid in patients with severe hepatic impairment or severe active liver disease., Post-op atropine sulfate inj 1 mg 1 mg, IV Push, PRN Other, X1 PRN hemodynamically significant bradydysrythmias and call CT Surgeon mony CAPUTO, Starting on Fri06/22/24 at 1204, Until 06/26/24 at 1748, For 1 dose, Post-op Bisacodyl (Dulcolax) supp 10 mg 10 mg, Rectal, DAILY PRN Constipation, Starting on Dona 06/24/24 at 0800, Until 06/26/24 at 1748, Post-op calcium CHLORide 10 % inj 1 g 1 g, IV Push, PRN Other, Calcium Replacement, Starting on Fri06/22/24 at 1204, Until 06/26/24 at 1748, For 1 dose, Ionized calcium is less than 1 and MAP less than 80, Post-op hEParin 1000 UNIT/ML inj 1,100 Units 1,100 Units (rounded from 1,126.5 Units = 15 Units/kg 75.1 kg Adjusted weight), IV Push, PRN Other, If most recent Heparin Assay result is between 0.21 and 0.29 units/mL, Starting on Fri06/25/24 at 0754, Until 06/26/24 at 1748, Repeat Heparin Assay 6 hours after bolus is administered. hEParin 1000 UNIT/ML inj 2,300 Units 2,300 Units (rounded from 2,253 Units = 30 Units/kg 75.1 kg Adjusted weight), IV Push, PRN Other, If most recent Heparin Assay result is less than or equal to 0.2 units/mL, Starting on Fri06/25/24 at 0754, Until 06/26/24 at 1748, Repeat Heparin Assay 6 hours after bolus is administered. 2107 (Given - Provider: Christiano Stewart RN) magnesium sulfate 1 g in d5w 100mL LOCKED DOSE 1 g, IV Piggyback, PRN Other, Magnesium replacement, Starting on Fri06/22/24 at 1204, Until 06/26/24 at 1748, For 4 doses, 1. Serum creatinine must be less than 1.5 2. Current urine output must be greater than 30 mL/hr. Magnesium level 1.5 - 2.2: Give 1 gm over 1 hour x 1 dose Magnesium level less than 1.5: Give 1 gm over 1 hour x 2 doses Repeat serum magnesium level 1 hour after completion of 2nd dose, Post-op 0832 (New Bag - Provider: Anne Hughes RN)931 (Stopped - Provider: Anne Hughes RN) morphine sulfate inj 1 mg 1 mg, IV Push, Q2H PRN Other, Pain, Moderate; If NPO or unable to take oral medication, Starting on e 06/22/24 at 1204, Until 06/26/24 at 1748, Post-op morphine sulfate inj 2 mg 2 mg, IV Push, Q2H PRN Other, Pain, Severe; If NPO or unable to take oral medication, Starting on e 06/22/24 at 1204, Until 06/26/24 at 1748, Post-op naloxone (Narcan) 0.4 MG/ML inj 0.08 mg 0.08 mg, IV Push, PRN Other, If patient is oversedated or Respiratory Rate less than 8, Starting on Fri06/22/24 at 1204, Until 06/26/24 at 1748, Call provider if patient is oversedated or Respiratory Rate is less than 8, Post-op ondansetron (Zofran) inj 4 mg(Linked Group 4) 4 mg, IV Push, Q6H PRN Other, May use for nausea or vomiting if patient unable to take oral ondansetron, Starting on Fri06/22/24 at 1204, Until 06/26/24 at 1748, Post-op ondansetron ODT (Zofran) tab 4 mg(Linked Group 4) 4 mg, On Tongue, Q6H PRN Nausea, Vomiting, Starting on 06/22/24 at 1204, Until 06/26/24 at 1748, Post-op oxyCODONE (Oxy IR) tab 5 mg 5 mg, Oral, Q4H PRN Pain, Severe, Starting on 06/22/24 at 1206, Until 06/26/24 at 1748, Post-op 014 (Given - Provider: Marli Blackmon RN)2037 (Given - Provider: Marli A Lorri, RN) potassium chloride 20 mEq in 50 mL ivpb LOCKED DOSE 20 mEq, Central IV, PRN, Starting on Fri06/22/24 at 1204, Until 06/26/24 at 1748, Other, Potassium repletion, Administer over 60 Minutes, Patients MUST meet ALL the following criteria. IF ANY criteria are not met, Do Not Administer, and call covering provider for orders 1. Serum creatinine must be less than 1.5 2. Current urine output must be greater than 30 mL/hr. Potassium repletion based on level 4.0 - 4.2: infuse 20mEq/50mL over one hour x 1 dose 3.5 - 3.9: infuse 20mEq/50mL over one hour x 2 doses 3.0 - 3.4: infuse 20mEq/50mL over one hour x 3 doses If Potassium less than 3.0, Begin 20mEq/50mL over 30 minutes x 1 dose and Immediately call covering provider for orders., Post-op potassium chloride ER tab 20 mEq 20 mEq, Oral, PRN Other, Potassium repletion, Starting on Fri06/22/24 at 1204, Until 06/26/24 at 1748, Patients MUST meet ALL the following criteria. IF ANY criteria are not met, Do Not Administer, and call covering provider for orders 1. Serum creatinine must be less than 1.5 2. Current urine output must be greater than 30 mL/hr. 3. Patient is taking medications by mouth (PO). Potassium repletion based on level 4.0 - 4.2, Give 20mEq x 1 dose 3.5 - 3.9, Give 20mEq every 2 hours x 2 doses 3.0 - 3.4, Give 20mEq every 2 hours x 3 doses If potassium is less than 3.0, Give 20mEq x1 dose and immediately call the covering provider for orders. 4. BMP result must be no older than 24 hours., Post-op 0825 (Given - Provider: Anne Hughes RN) traMADol (Ultram) tab 25 mg 25 mg, Oral, Q6H PRN Pain, Moderate, Starting on Fri06/23/24 at 0600, Until 06/26/24 at 1748, Post-op Linked Groups Order Group 1: Docusate Sodium (Colace) cap 100 mgJump to med 100 mg, Oral, BID (.AM/PM), First dose on Fri06/23/24 at 0900, Until Discontinued, Hold and administer syrup formulation if not able to take this tab PO., Post-op Or Docusate Sodium (Colace) oral liquid 100 mg (CANCELED) 100 mg, NG Tube, BID (.AM/PM), First dose on Fri06/23/24 at 0900, Until Discontinued, Post-op Group 2: Famotidine (Pepcid) inj 20 mg (COMPLETED) 20 mg, Intravenous, Q12H, First dose on Fri06/22/24 at 2100, Last dose on Fri06/23/24 at 0900, For 2 doses, Start at first dose interval postop. Give IV push over 2 minutes., Post-op Followed by Famotidine (Pepcid) tab 20 mgJump to med 20 mg, Oral, Daily(AM), First dose on Fri06/24/24 at 0900, Until Discontinued, Post-op Group 3: senna (Senokot) 1 TabletJump to med 1 Tablet, Oral, BID (.AM/PM), First dose on Fri06/23/24 at 0900, Until Discontinued, Hold if patient develops diarrhea or has greater than 2 BMs in any one day., Post-op Or senna (Senokot) 1 Tablet (CANCELED) 1 Tablet, NG Tube, BID (.AM/PM), First dose on Fri06/23/24 at 0900, Until Discontinued, Hold if patient develops diarrhea or has greater than 2 bm's in any one day., Post-op Group 4: ondansetron ODT (Zofran) tab 4 mgJump to med 4 mg, On Tongue, Q6H PRN Nausea, Vomiting, Starting on Fri06/22/24 at 1204, Until 06/26/24 at 1748, Post-op Or ondansetron (Zofran) inj 4 mgJump to med 4 mg, IV Push, Q6H PRN Other, May use for nausea or vomiting if patient unable to take oral ondansetron, Starting on Fri06/22/24 at 1204, Until 06/26/24 at 1748, Post-op documented in this encounter Advance Directives * Full Code (Latest Code Status on File) Date Activated Date Inactivated Comments 06/22/2024 12:07 PM 06/26/2024 5:53 PM This order re flects the patients wishes and were consensually agreed upon. Question Answer Comments Discussion of Advance Directives occurred with: Patient Care Teams Hand Bookbinder Relationship Specialty Start Date End Date Lynn Gibson MD [address] [place] [address] BESSIE MENDOZA [id number] PCP - General Family Medicine 06/10/24 documented as of this encounter
--- OUTSIDE RECORDS SUMMARY | 2024-07-01 13:53 | External Medical Summary ---
Author Name Unknown Address Unknown Organization K01:LABORATORY [facility] [place] - [address] [place] [address] Laboratory Report Ordering Provider Test Date Status SUZANNE DING 06/26/2024 03:28:00 Final Observation Date Value Abnormality Reference (Units ) Status WBC, Total 06/26/2024 03:28:00 10.61 4.00-10.80 (K/uL) Final RBC 06/26/2024 03:28:00 3.42 4.50-5.25 (M/uL) Final Hemoglobin 06/26/2024 03:28:00 10.7 Below low normal 14.0-16.8 (g/dL) Final HCT 06/26/2024 03:28:00 32.9 Below low normal 40.0-48.4 (%) Final MCV 06/26/2024 03:28:00 96.2 82.0-99.5 (fL) Final MCH 06/26/2024 03:28:00 31.3 27.0-34.0 (pg) Final MCHC 06/26/2024 03:28:00 32.5 32.0-36.0 (g/dL) Final RDW 06/26/2024 03:28:00 12.7 11.5-15.5 (%) Final Platelets 06/26/2024 03:28:00 103 Below low normal 140-400 (K/uL) Final MPV 06/26/2024 03:28:00 11.3 6.6-11.1 (fL) Final Nucleated erythrocytes/100 leukocytes [Ratio] in Blood by Automated count 06/26/2024 03:28:00 0 <=0 (/100 WBCs) Final Performing Location LABORATORY [facility] [place] - [address] [place] [address]
--- OUTSIDE RECORDS SUMMARY | 2024-07-01 13:53 | External Medical Summary ---
Author Name Unknown Address Unknown Organization K01:[place] [place] [address] [place] [address] Laboratory Report Ordering Provider Test Date Status BARBRA SAEZ 06/24/2024 12:53:00 Final Observation Date Value Abnormality Reference (Units ) Status BUN 06/24/2024 12:53:00 21 Above high normal 6-20 (mg/dL) Final Creatinine 06/24/2024 12:53:00 1.3 Above high normal 0.6-1.2 (mg/dL) Final Glomerular filtration rate/1.73 sq M.predicted [Volume Rate/Area] in Serum, Plasma or Blood by Creatinine-based formula (CKD-EPI) 06/24/2024 12:53:00 61 >=60 (mL/min) Final eGFR is calculated based on the CKD-EPI 2020 equation. Sodium 06/24/2024 12:53:00 138 135-146 (m mol/L) Final Potassium 06/24/2024 12:53:00 4.3 3.5-5.1 (m mol/L) Final Cl 06/24/2024 12:53:00 102 98-107 (mm ol/L) Final CO2 06/24/2024 12:53:00 24 22-32 (mmo l/L) Final Anion gap 06/24/2024 12:53:00 12 7-15 (mmol /L) Final Glucose 06/24/2024 12:53:00 141 Above high normal 70 -120 (mg/dL) Final Calcium 06/24/2024 12:53:00 8.6 8.4-10.2 ( mg/dL) Final Performing Location [facility] [place] [address] [place] [address]
--- OUTSIDE RECORDS SUMMARY | 2024-07-01 13:53 | External Medical Summary ---
Author Name Unknown Address Unknown Organization K01:[place] [place] [address] [facility] [address] Laboratory Report Ordering Provider Test Date Status SUZANNE DING 06/26/2024 03:28:00 Final Observation Date Value Abnormality Reference (Units ) Status SYNC LEUKOCYTES IN BLOOD BY AUTOMATED COUNT 06/26/2024 03:28:00 10.61 4.00-10.80 (K/uL) Final Segs 06/26/2024 03:28:00 70.5 40.0-75.0 (%) Final Lymphs % 06/26/2024 03:28:00 13.9 Below low normal 18.0-42.0 (%) Final Monos 06/26/2024 03:28:00 11.7 Above high normal 1.0-11.0 (%) Final Eosinophils 06/26/2024 03:28:00 3.0 0.0-6.0 (%) Final Basos 06/26/2024 03:28:00 0.5 0.0-2.0 (%) Final Immature Granulocyte, Percent 06/26/2024 03:28:00 0.4 0.0-2.0 (%) Final Absolute Segs 06/26/2024 03:28:00 7.49 1.80-7.70 (K/uL) Final Lymphs, absolute 06/26/2024 03:28:00 1.47 1.00-4.80 (K/ul) Final Monos, Abs 06/26/2024 03:28:00 1.24 Above high normal 0.00-1.10 (K/uL) Final Eos, Abs 06/26/2024 03:28:00 0.32 0.00-0.70 (K/uL) Final Basos, Abs 06/26/2024 03:28:00 0.05 0.00-0.20 (K/uL) Final Immature Granulocytes, Number 06/26/2024 03:28:00 0.04 0.00-0.20 (K/uL) Final Performing Location [facility] [place] [facility] [place] [address]
--- OUTSIDE RECORDS SUMMARY | 2024-07-01 13:53 | External Medical Summary ---
Author Name Unknown Address Unknown Organization K01:LAB[facility]ATORY [facility] - [address] [place] [address] Laboratory Report Ordering Provider Test Date Status SUZANNE DING 06/26/2024 03:28:00 Final Observation Date Value Abnormality Reference (Units ) Status Magnesium 06/26/2024 03:28:00 1.9 1.5-2.6 (m g/dL) Final Performing Location LABORATORY [facility] - [address] [place] [address]
--- OUTSIDE RECORDS SUMMARY | 2024-07-01 13:54 | External Medical Summary ---
Author Name Unknown Address Unknown Organization K01:LABORATORY [facility] [place] - [address] [facility] [address] Laboratory Report Ordering Provider Test Date Status TAYLOR SOLIZOX 06/22/2024 15:09:20 Final Anticoagulation may affect t esting. Refer to [employer] Test Catalog for a list of effects. Observation Date Value Abnormality Reference (Units ) Status aPTT panel - Platelet poor plasma 06/22/2024 15:09:20 94 Above high normal 21-38 (seconds) Final Performing Location LABORATORY [facility] [place] - [address] [facility] [address]
--- OUTSIDE RECORDS SUMMARY | 2024-07-01 13:54 | External Medical Summary ---
Author Name Unknown Address Unknown Organization K01:[place] [place] [address] [address] Laboratory Report Ordering Provider Test Date Status SUZANNE DING 06/23/2024 03:51:19 Final Observation Date Value Abnormality Reference (Units ) Status BUN 06/23/2024 03:51:19 12 6-20 (mg/dL) Final Creatinine 06/23/2024 03:51:19 1.0 0.6-1.2 (mg/dL) Final Glomerular filtration rate/1.73 sq M.predicted [Volume Rate/Area] in Serum, Plasma or Blood by Creatinine-based formula (CKD-EPI) 06/23/2024 03:51:19 79 >=60 (mL/min) Final eGFR is calculated based on the CKD-EPI 2020 equation. Sodium 06/23/2024 03:51:19 141 135-146 (m mol/L) Final Potassium 06/23/2024 03:51:19 4.6 3.5-5.1 (m mol/L) Final Cl 06/23/2024 03:51:19 109 Above high normal 98 -107 (mmol/L) Final CO2 06/23/2024 03:51:19 23 22-32 (mmo l/L) Final Anion gap 06/23/2024 03:51:19 9 7-15 (mmol /L) Final Glucose 06/23/2024 03:51:19 119 70-120 (mg /dL) Final Calcium 06/23/2024 03:51:19 8.2 Below low normal 8.4 -10.2 (mg/dL) Final Performing Location [facility] [place] [address] [place] [address]
--- OUTSIDE RECORDS SUMMARY | 2024-07-01 13:54 | External Medical Summary ---
Author Name Unknown Address Unknown Organization K01:LABORATORY [facility] [place] - [address] [place] [address] Laboratory Report Ordering Provider Test Date Status DAGOBERT[address] L[address] 06/22/2024 17:47:05 Final 6 hours after surgery and af ter NOW BMP draw. Observation Date Value Abnormality Reference (Units ) Status BUN 06/22/2024 17:47:05 11 6-20 (mg/dL) Final Creatinine 06/22/2024 17:47:05 1.0 0.6-1.2 (mg/dL) Final Glomerular filtration rate/1.73 sq M.predicted [Volume Rate/Area] in Serum, Plasma or Blood by Creatinine-based formula (CKD-EPI) 06/22/2024 17:47:05 78 >=60 (mL/min) Final eGFR is calculated based on the CKD-EPI 2020 equation. Sodium 06/22/2024 17:47:05 139 135-146 (m mol/L) Final Potassium 06/22/2024 17:47:05 4.1 3.5-5.1 (m mol/L) Final Cl 06/22/2024 17:47:05 107 98-107 (mm ol/L) Final CO2 06/22/2024 17:47:05 23 22-32 (mmo l/L) Final Anion gap 06/22/2024 17:47:05 9 7-15 (mmol /L) Final Glucose 06/22/2024 17:47:05 101 70-120 (mg /dL) Final Calcium 06/22/2024 17:47:05 9.1 8.4-10.2 ( mg/dL) Final Performing Location LABORATORY [facility] [place] - [address] [place] [address]
--- OUTSIDE RECORDS SUMMARY | 2024-07-01 13:54 | External Medical Summary ---
Author Name Unknown Address Unknown Organization K01:LAB[facility]ATORY [facility] [place] - [address] [facility] [address] Laboratory Report Ordering Provider Test Date Status [address]AGOB[address] 06/22/2024 15:49:57 Final Observation Date Value Abnormality Reference (Units ) Status Body temperature 06/22/2024 15:49:57 37.0 (C) Final pH of Arterial blood 06/22/2024 15:49:57 7.420 7.350-7.450 (units) Final Carbon dioxide [Partial pressure] in Arterial blood 06/22/2024 15:49:57 37.5 35.0-45.0 (mmHg) Final Oxygen [Partial pressure] in Arterial blood 06/22/2024 15:49:57 186.0 Above high normal 75.0-100.0 (mmHg) Final Base excess, Arterial 06/22/2024 15:49:57 0.1 -2.0-2.0 (mmol/L) Final Hemoglobin [Mass/volume] in Blood by Oximetry 06/22/2024 15:49:57 11.5 Below low normal 14.0-16.8 (g/dL) Final Oxyhemoglobin, Arterial (FO2HB) 06/22/2024 15:49:57 98.2 94.0-99.0 (% total Hgb) Final Carboxyhemoglobin 06/22/2024 15:49:57 1.2 <=1.5 (% total Hgb) Final Smokers: 0-9.0 % Methemoglobin 06/22/2024 15:49:57 0.5 <=1.5 (% total Hgb) Final Deoxyhemoglobin/Hemog lobin.total in Arterial blood 06/22/2024 15:49:57 0.1 0.0-5.0 (% total Hgb) Final Oxygen content in Arterial blood 06/22/2024 15:49:57 16.3 15.0-24.0 (%vol) Final Potassium, Whole Blood 06/22/2024 15:49:57 4.1 3.5-5.1 (mmol/L) Final Sodium, Whole Blood 06/22/2024 15:49:57 138 135-146 (mmol/L) Final Chloride, Whole Blood 06/22/2024 15:49:57 109 Above high normal 98-107 (mmol/L) Final Calcium.ionized [Moles/volume] in Blood by Ion-selective membrane electrode (ISE) 06/22/2024 15:49:57 1.12 Below low normal 1.13-1.32 (mmol/L) Final Anion gap, Whole Blood 06/22/2024 15:49:57 5.9 Below low normal 7.0-15.0 (mmol/L) Final Glucose, whole blood 06/22/2024 15:49:57 140 Above high normal 70-120 (mg/dL) Final Oxygen/Total gas setting [Volume Fraction] Ventilator 06/22/2024 15:49:57 40% vent (%) Final O2 FLOW, ARTERIAL - [facility] 06/22/2024 15:49:57 Not Provided (L/min) Final Bicarbonate, Venous, POC (i-STAT) 06/22/2024 15:49:57 23.8 23.0-31.0 (mmol/L) Final Performing Location LABORATORY [facility] [place] - [address] [facility] [address]
--- OUTSIDE RECORDS SUMMARY | 2024-07-01 13:54 | External Medical Summary ---
Author Name Unknown Address Unknown Organization K01:LABORATORY [facility] [place] - [address] [facility] [address] Laboratory Report Ordering Provider Test Date Status [address]AG[address] 06/22/2024 13:23:16 Final Observation Date Value Abnormality Reference (Units ) Status Body temperature 06/22/2024 13:23:16 37.0 (C) Final pH of Arterial blood 06/22/2024 13:23:16 7.504 Above high normal 7.350-7.450 (units) Final Carbon dioxide [Partial pressure] in Arterial blood 06/22/2024 13:23:16 29.6 Below low normal 35.0-45.0 (mmHg) Final Oxygen [Partial pressure] in Arterial blood 06/22/2024 13:23:16 210.0 Above high normal 75.0-100.0 (mmHg) Final Base excess, Arterial 06/22/2024 13:23:16 1.0 -2.0-2.0 (mmol/L) Final Hemoglobin [Mass/volume] in Blood by Oximetry 06/22/2024 13:23:16 11.4 Below low normal 14.0-16.8 (g/dL) Final Oxyhemoglobin, Arterial (FO2HB) 06/22/2024 13:23:16 98.0 94.0-99.0 (% total Hgb) Final Carboxyhemoglobin 06/22/2024 13:23:16 0.9 <=1.5 (% total Hgb) Final Smokers: 0-9.0 % Methemoglobin 06/22/2024 13:23:16 0.8 <=1.5 (% total Hgb) Final Deoxyhemoglobin/Hemog lobin.total in Arterial blood 06/22/2024 13:23:16 0.3 0.0-5.0 (% total Hgb) Final Oxygen content in Arterial blood 06/22/2024 13:23:16 16.2 15.0-24.0 (%vol) Final Potassium, Whole Blood 06/22/2024 13:23:16 4.0 3.5-5.1 (mmol/L) Final Sodium, Whole Blood 06/22/2024 13:23:16 137 135-146 (mmol/L) Final Chloride, Whole Blood 06/22/2024 13:23:16 110 Above high normal 98-107 (mmol/L) Final Calcium.ionized [Moles/volume] in Blood by Ion-selective membrane electrode (ISE) 06/22/2024 13:23:16 1.08 Below low normal 1.13-1.32 (mmol/L) Final Anion gap, Whole Blood 06/22/2024 13:23:16 3.9 Below low normal 7.0-15.0 (mmol/L) Final Glucose, whole blood 06/22/2024 13:23:16 113 70-120 (mg/dL) Final Oxygen/Total gas setting [Volume Fraction] Ventilator 06/22/2024 13:23:16 vent 50% (%) Final O2 FLOW, ARTERIAL - [facility] 06/22/2024 13:23:16 Not Provided (L/min) Final Bicarbonate, Venous, POC (i-STAT) 06/22/2024 13:23:16 23.1 23.0-31.0 (mmol/L) Final Performing Location LABORATORY [facility] [place] - [address] [facility] [address]
--- OUTSIDE RECORDS SUMMARY | 2024-07-01 13:54 | External Medical Summary ---
Author Name Unknown Address Unknown Organization K01:LABORATORY [facility] - [address] [place] [address] Laboratory Report Ordering Provider Test Date Status [address]AGOB[address] 06/22/2024 17:47:05 Final Observation Date Value Abnormality Reference (Units ) Status Magnesium 06/22/2024 17:47:05 2.6 1.5-2.6 (m g/dL) Final Performing Location LAB[facility]ATORY [facility] - [address] [facility] [address]
--- OUTSIDE RECORDS SUMMARY | 2024-07-01 13:54 | External Medical Summary ---
Author Name Unknown Address Unknown Organization : Laboratory Report Ordering Provider Test Date Status SUZANNE DING 06/23/2024 00:02:33 Final Observation Date Value Abnormality Reference (Units ) Status Glucose Point of Care 06/23/2024 00:02:33 107 70-120 (mg/dL) Final Performing Location
--- OUTSIDE RECORDS SUMMARY | 2024-07-01 13:54 | External Medical Summary ---
Author Name Unknown Address Unknown Organization K01:[place] [facility] [place] [address] [facility] [address] Laboratory Report Ordering Provider Test Date Status [address]AG[address] 06/22/2024 19:03:15 Final Observation Date Value Abnormality Reference (Units ) Status Body temperature 06/22/2024 19:03:15 37.0 (C) Final pH of Arterial blood 06/22/2024 19:03:15 7.354 7.350-7.450 (units) Final Carbon dioxide [Partial pressure] in Arterial blood 06/22/2024 19:03:15 42.1 35.0-45.0 (mmHg) Final Oxygen [Partial pressure] in Arterial blood 06/22/2024 19:03:15 162.0 Above high normal 75.0-100.0 (mmHg) Final Base excess, Arterial 06/22/2024 19:03:15 -2.0 -2.0-2.0 (mmol/L) Final Hemoglobin [Mass/volume] in Blood by Oximetry 06/22/2024 19:03:15 10.7 Below low normal 14.0-16.8 (g/dL) Final Oxyhemoglobin, Arterial (FO2HB) 06/22/2024 19:03:15 97.3 94.0-99.0 (% total Hgb) Final Carboxyhemoglobin 06/22/2024 19:03:15 1.0 <=1.5 (% total Hgb) Final Smokers: 0-9.0 % Methemoglobin 06/22/2024 19:03:15 0.9 <=1.5 (% total Hgb) Final Deoxyhemoglobin/Hemog lobin.total in Arterial blood 06/22/2024 19:03:15 0.8 0.0-5.0 (% total Hgb) Final Oxygen content in Arterial blood 06/22/2024 19:03:15 14.9 Below low normal 15.0-24.0 (%vol) Final Oxygen/Total gas setting [Volume Fraction] Ventilator 06/22/2024 19:03:15 vent 40% (%) Final O2 FLOW, ARTERIAL - [facility] 06/22/2024 19:03:15 Not Provided (L/min) Final Bicarbonate, Venous, POC (i-STAT) 06/22/2024 19:03:15 22.9 Below low normal 23.0-31.0 (mmol/L) Final Performing Location [place] [facility] [place] [address] [facility] [address]
--- OUTSIDE RECORDS SUMMARY | 2024-07-01 13:54 | External Medical Summary ---
Author Name Unknown Address Unknown Organization K01:LABORATORY [facility] [place] - [address] [facility] [address] Laboratory Report Ordering Provider Test Date Status DAGOBERT[address] L[address] 06/22/2024 12:09:46 Final Warfarin Therapy
INR: 2 .0-3.0 conventional anticoagulation
INR: 2.5- 3.5 high intensity anticoagulation Observation Date Value Abnormality Reference (Units ) Status PT 06/22/2024 12:09:46 17.5 Above high normal 11 .6-15.2 (seconds) Final INR 06/22/2024 12:09:46 1.4 Above high normal 0. 8-1.2 Final Performing Location LABOR[facility]ORY [facility] [place] [facility] [address] [facility] [address]
--- OUTSIDE RECORDS SUMMARY | 2024-07-01 13:54 | External Medical Summary | Summary of Care ---
Author Name Unknown Organization [facility] Address [address] [place] [address] Phone [phone] Care Team Providers Care Family Program Specialist Name Role Phone Lynn Gibson MD Primary Care Provider [phone] Reason for Visit * Auth/Cert Specialty Diagnoses [...] HARVEST VEIN Faisal Guzman MD [address] [place] [address] Phone: tel: fax: [place] [facility] [place] [facility] [place] [facility] [address] [place] [address] Phone: tel: Referral ID Status Reason Start Date Expiration Date Visits Re quested Visits Authorized [id number] Encounter Details Date Type Department Care Team (Latest Contact Info) Description 06/22/2024 11:48 AM EST - 06/22/2024 11:59 PM EST Hospital Encounter Cardiac Studies [facility] [address] [place] [address] Discharge Disposition: Home - Self Care Allergies No known active allergiesdocumented as of this encounter (statuses as of 06/23/2024) Medications triamcinolone acetonide (ARISTOCORT) 0.1 % creamIndication [...] as of this encounter (statuses as of 06/23/2024) Active Problems Problem Noted Date Diagnosed Date Primary hypertension 06/22/2024 Hyperlipidemia 06/22/2024 CVA (cerebral vascular accident) 06/22/2024 Aortic valve stenosis, unspecified etiology 05/22 documented as of this encounter (statuses as of 06/23/2024) Social History Tobacco Use Types Packs/Day Years [...] as of this encounter Plan of Treatment Pending Results Name Type Priority Associated Diagnoses Date/Time CV ECHO, SONIDO INTRAOPERATIVE Echocardiology Routine Valvular heart disease 06/22/2024 11:52 AM EST Health Maintenance Due Date Last Done Comments [...] Influenza Vaccine (FLU shot) (#1) 2023 GFR 06/23/2025 06/23/2024, 0307/2024, 06/22/2024, Additional history exists Diabetes Screening 06/24/2027 06/23/2024, 0 06/22/2024, 06/22/2024, Additional history exists Zoster Vaccines Completed 02/06/2022, [...] this encounter Medical Devices Implanted Type Area [id number] Device Identifier Shelf Expiration Date Model / Serial / Lot Suture Steel 6 B&S19 M654g - [id number] Implanted:Qty: 8 on 06/22/2024 by Faisal Guzman [place] [facility] [place] Sternum JNJ : [employer] 01/18/2029 [id number] / / [id number] Marker Coronary - [id number] Implanted:Qty: 1 on 06/22/2024 by Faisal Guzman MD at [place] [facility] [place]: Aorta [employer] 03/20/2027 AM-SD / / [id number] Valve Aortic Avalus 25mm - [id number] - [id number] Implanted:Qty: 1 on 06/22/2024 by Faisal Guzman MD at [place] [facility] [place]: Heart [employer] [id number] 01/18/2027 [id number] / [id number] / [id number] Patch Pericardium Bovine 8x14 - [id number] - [id number] Implanted:Qty: 1 on 06/22/2024 by Faisal Guzman MD at [place] [facility] [place]: Aorta [employer] [id number] 09/15/2029 E8P14 / [id number] / [id number] documented as of this encounter Advance Directives * Full Code (Latest Code Status on File) Date Activated Date Inactivated Comments 06/22/2024 12:07 PM This order ref lects the patients wishes and were consensually agreed upon. Question Answer Comments Discussion of Advance Directives occurred with: Patient Care Teams Family Program Specialist Relationship Specialty Start Date End Date Lynn Gibson MD [address] [place] [address] B[place] [id number] PCP - General Family Medicine 06/10/24 documented as of this encounter
--- OUTSIDE RECORDS SUMMARY | 2024-07-01 13:54 | External Medical Summary ---
Author Name Unknown Address Unknown Organization : Laboratory Report Ordering Provider Test Date Status SUZANNE DING 06/22/2024 17:51:21 Final Observation Date Value Abnormality Reference (Units ) Status Glucose Point of Care 06/22/2024 17:51:21 88 70-120 (mg/dL) Final Performing Location
--- OUTSIDE RECORDS SUMMARY | 2024-07-01 13:54 | External Medical Summary ---
Author Name Unknown Address Unknown Organization : Laboratory Report Ordering Provider Test Date Status SUZANNE DING 06/22/2024 15:49:25 Final Observation Date Value Abnormality Reference (Units ) Status Glucose Point of Care 06/22/2024 15:49:25 116 70-120 (mg/dL) Final Performing Location
--- OUTSIDE RECORDS SUMMARY | 2024-07-01 13:54 | External Medical Summary ---
Author Name Unknown Address Unknown Organization K01:[facility] - [address] [place] [address] Laboratory Report Ordering Provider Test Date Status TAYLOR SOLIZOX 06/22/2024 15:09:20 Final Observation Date Value Abnormality Reference (Units ) Status Fibrinogen 06/22/2024 15:09:20 175 Below low normal 17 8-467 (mg/dL) Final Performing Location [facility] - [address] [place] [address]
--- OUTSIDE RECORDS SUMMARY | 2024-07-01 13:54 | External Medical Summary ---
Author Name Unknown Address Unknown Organization [id number]:LABORATORY [facility] [place] - [address] [facility] [address] Laboratory Report Ordering Provider Test Date Status SUZANNE DING 06/23/2024 03:51:19 Final Observation Date Value Abnormality Reference (Units ) Status WBC, Total 06/23/2024 03:51:19 10.15 4.00-10.80 (K/uL) Final RBC 06/23/2024 03:51:19 3.23 4.50-5.25 (M/uL) Final Hemoglobin 06/23/2024 03:51:19 10.0 Below low normal 14.0-16.8 (g/dL) Final HCT 06/23/2024 03:51:19 31.8 Below low normal 40.0-48.4 (%) Final MCV 06/23/2024 03:51:19 98.5 82.0-99.5 (fL) Final MCH 06/23/2024 03:51:19 31.0 27.0-34.0 (pg) Final MCHC 06/23/2024 03:51:19 31.4 32.0-36.0 (g/dL) Final RDW 06/23/2024 03:51:19 12.9 11.5-15.5 (%) Final Platelets 06/23/2024 03:51:19 82 Below low normal 140-400 (K/uL) Final MPV 06/23/2024 03:51:19 10.7 6.6-11.1 (fL) Final Nucleated erythrocytes/100 leukocytes [Ratio] in Blood by Automated count 06/23/2024 03:51:19 0 <=0 (/100 WBCs) Final Performing Location LABORATORY [facility] [place] - [address] [facility] [address]
--- OUTSIDE RECORDS SUMMARY | 2024-07-01 13:54 | External Medical Summary ---
Author Name Unknown Address Unknown Organization : Laboratory Report Ordering Provider Test Date Status SUZANNE DING 06/22/2024 12:09:14 Final Observation Date Value Abnormality Reference (Units) Status Blood draw [PhenX] 06/22/2024 12:09:14 Arterial Draw Final pH, POC (i-STAT) 06/22/2024 12:09:14 7.392 7.350-7.450 Final PCO2 POC (i-STAT) 06/22/2024 12:09:14 36.4 35.0-45.0 (mm Hg) Final PO2 POC (i-STAT) 06/22/2024 12:09:14 425 Above high normal 75-100 (mm Hg) Final Base excess standard in Arterial blood by calculation 06/22/2024 12:09:14 -2 -2-2 (mmol/L) Final Bicarbonate, Venous, POC (i-STAT) 06/22/2024 12:09:14 22.1 Below low normal 23.0-31.0 (mmol/L) Final O2 Sat, calculated POC (i-STAT) 06/22/2024 12:09:14 100.0 Above high normal 94.0-98.0 (%) Final Glucose, whole blood 06/22/2024 12:09:14 125 Above high normal 70-120 (mg/dL) Final Potassium, Whole Blood 06/22/2024 12:09:14 4.1 3.5-5.1 (mmol/L) Final Sodium, Whole Blood 06/22/2024 12:09:14 139 135-146 (mmol/L) Final Calcium, Ionized, Whole Blood 06/22/2024 12:09:14 1.18 1.13-1.32 (mmol/L) Final Hemoglobin POC (i-STAT) 06/22/2024 12:09:14 10.9 Below low normal 14.0-16.8 (g/dL) Final HCT 06/22/2024 12:09:14 32 Below low normal 40-48 (%) Final Oxygen/Total gas setting [Volume Fraction] Ventilator 06/22/2024 12:09:14 100 (%) Final Performing Location
--- OUTSIDE RECORDS SUMMARY | 2024-07-01 13:54 | External Medical Summary ---
Author Name Unknown Address Unknown Organization K01:LABORATORY [facility] [place] - [address] [facility] [address] Laboratory Report Ordering Provider Test Date Status KHANG SOLIZ 06/22/2024 15:09:20 Final Warfarin Therapy
INR: 2 .0-3.0 conventional anticoagulation
INR: 2.5- 3.5 high intensity anticoagulation Observation Date Value Abnormality Reference (Units ) Status PT 06/22/2024 15:09:20 16.5 Above high normal 11 .6-15.2 (seconds) Final INR 06/22/2024 15:09:20 1.3 Above high normal 0. 8-1.2 Final Performing Location LABORATORY [facility] [place] [facility] [address] [facility] [address]
--- OUTSIDE RECORDS SUMMARY | 2024-07-01 13:54 | External Medical Summary ---
Author Name Unknown Address Unknown Organization : Laboratory Report Ordering Provider Test Date Status SUZANNE DING 06/22/2024 13:56:17 Final Observation Date Value Abnormality Reference (Units ) Status Glucose Point of Care 06/22/2024 13:56:17 104 70-120 (mg/dL) Final Performing Location
--- OUTSIDE RECORDS SUMMARY | 2024-07-01 13:54 | External Medical Summary ---
Author Name Unknown Address Unknown Organization K01:LABORATORY [facility] [place] - [address] [place] [address] Laboratory Report Ordering Provider Test Date Status ARIANADAGOBERTO 06/22/2024 12:09:46 Final Stop Collection after Vernon poole is removed Observation Date Value Abnormality Reference (Units ) Status Oxygen saturation in Venous blood 06/22/2024 12:09:46 76.3 40.0-85.0 (%) Final Performing Location LABORATORY [facility] [place] - [address] [place] [address]
--- OUTSIDE RECORDS SUMMARY | 2024-07-01 13:54 | External Medical Summary ---
Author Name Unknown Address Unknown Organization K01:[facility]ORY [facility] [place] [address] [place] [address] Laboratory Report Ordering Provider Test Date Status ARIANADAGOBERTO 06/23/2024 03:51:19 Final Stop Collection after Vernon poole is removed Observation Date Value Abnormality Reference (Units ) Status Oxygen saturation in Venous blood 06/23/2024 03:51:19 63.7 40.0-85.0 (%) Final Performing Location LAB[facility]ORY [facility] [place] - [address] [place] [address]
--- OUTSIDE RECORDS SUMMARY | 2024-07-01 13:54 | External Medical Summary ---
Author Name Unknown Address Unknown Organization K01:[facility] - [address] [place] [address] Laboratory Report Ordering Provider Test Date Status SUZANNE DING 06/23/2024 03:51:19 Final Observation Date Value Abnormality Reference (Units ) Status Magnesium 06/23/2024 03:51:19 2.3 1.5-2.6 (m g/dL) Final Performing Location [facility] - [address] [place] [address]
--- OUTSIDE RECORDS SUMMARY | 2024-07-01 13:54 | External Medical Summary ---
Author Name Unknown Address Unknown Organization K01:LABORATORY [facility] [place] [facility] [place] - [address] [facility] [address] Laboratory Report Ordering Provider Test Date Status SUZANNE DING 06/24/2024 04:50:00 Final Observation Date Value Abnormality Reference (Units ) Status SYNC LEUKOCYTES IN BLOOD BY AUTOMATED COUNT 06/24/2024 04:50:00 10.85 Above high normal 4.00-10.80 (K/uL) Final Segs 06/24/2024 04:50:00 73.7 40.0-75.0 (%) Final Lymphs % 06/24/2024 04:50:00 13.3 Below low normal 18.0-42.0 (%) Final Monos 06/24/2024 04:50:00 11.5 Above high normal 1.0-11.0 (%) Final Eosinophils 06/24/2024 04:50:00 0.3 0.0-6.0 (%) Final Basos 06/24/2024 04:50:00 0.6 0.0-2.0 (%) Final Immature Granulocyte, Percent 06/24/2024 04:50:00 0.6 0.0-2.0 (%) Final Absolute Segs 06/24/2024 04:50:00 8.01 Above high normal 1.80-7.70 (K/uL) Final Lymphs, absolute 06/24/2024 04:50:00 1.44 1.00-4.80 (K/ul) Final Monos, Abs 06/24/2024 04:50:00 1.25 Above high normal 0.00-1.10 (K/uL) Final Eos, Abs 06/24/2024 04:50:00 0.03 0.00-0.70 (K/uL) Final Basos, Abs 06/24/2024 04:50:00 0.06 0.00-0.20 (K/uL) Final Immature Granulocytes, Number 06/24/2024 04:50:00 0.06 0.00-0.20 (K/uL) Final Performing Location LAB[facility]ORY [facility] [place] [facility] [place] [facility] [place] [address]
--- OUTSIDE RECORDS SUMMARY | 2024-07-01 13:54 | External Medical Summary | Summary of Care ---
Author Name Unknown Organization [facility] Address [address] [place] [address] Phone [phone] Care Team Providers Care Community Sports Coordinator Name Role Phone Lynn Gibson MD Primary Care Provider [phone] Reason for Visit * Auth/Cert Specialty Diagnoses [...] HARVEST VEIN Faisal Guzman MD [address] [place] [address] Phone: tel: fax: OR [facility] [place], OPERATING ROOM [facility] [place], [facility] [address] [place] [address] Phone: tel: Referral ID Status Reason Start Date Expiration Date Visits Re quested Visits Authorized [id number] Encounter Details Date Type Department Care Team (Latest Contact Info) Description 06/22/2024 11:48 AM EST - 06/22/2024 11:59 PM EST Hospital Encounter Cardiac Studies [facility] [address] [place] [address] Discharge Disposition: Home - Self [...] Valvular heart disease 06/22/2024 4:13 PM EST Health Maintenance Due Date Last Done [...] this encounter Medical Devices Implanted Type Area Chick Room Supervisor Device Identifier Shelf Expiration Date Model / Serial / Lot Suture Steel 6 B&S19 M654g - [id number] Implanted:Qty: 8 on 06/22/2024 by Faisal Guzman MD at OR [facility] [place] N/A: Sternum JNJ : [employer] 01/18/2029 M654G / / [id number] Marker Coronary - [id number] Implanted:Qty: 1 on 06/22/2024 by Faisal Guzman MD at OR [facility] [place] N/A: Aorta [employer] 03/20/2027 AM-SD / / [id number] Valve Aortic Avalus 25mm - [id number] - [id number] Implanted:Qty: 1 on 06/22/2024 by Faisal Guzman MD at OR [facility] [place] N/A: Heart [employer] [id number] 01/18/2027 [id number] / [id number] / [id number] Patch Pericardium Bovine 8x14 - [id number] - [id number] Implanted:Qty: 1 on 06/22/2024 by Faisal Guzman MD at OR [facility] [place] N/A: Aorta [employer] [id number] 09/15/2029 E8P14 / [id number] / [id number] documented as of this encounter Advance Directives * Full Code (Latest Code Status on File) Date Activated Date Inactivated Comments 06/22/2024 12:07 PM This order ref lects the patients wishes and were consensually agreed upon. Question Answer Comments Discussion of Advance Directives occurred with: Patient Care Teams Community Sports Coordinator Relationship Specialty Start Date End Date Lynn Gibson MD [address] [place] [address] [place] [address] PCP - General Family Medicine 06/10/24 documented as of this encounter
--- OUTSIDE RECORDS SUMMARY | 2024-07-01 13:54 | External Medical Summary ---
Author Name Unknown Address Unknown Organization K01:[place] [place] [address] [facility] [place] [address] Laboratory Report Ordering Provider Test Date Status SUZANNE DING 06/23/2024 03:51:19 Final Observation Date Value Abnormality Reference (Units ) Status SYNC LEUKOCYTES IN BLOOD BY AUTOMATED COUNT 06/23/2024 03:51:19 10.15 4.00-10.80 (K/uL) Final Segs 06/23/2024 03:51:19 81.0 Above high normal 40.0-75.0 (%) Final Lymphs % 06/23/2024 03:51:19 8.4 Below low normal 18.0-42.0 (%) Final Monos 06/23/2024 03:51:19 9.7 1.0-11.0 (%) Final Eosinophils 06/23/2024 03:51:19 0.0 0.0-6.0 (%) Final Basos 06/23/2024 03:51:19 0.3 0.0-2.0 (%) Final Immature Granulocyte, Percent 06/23/2024 03:51:19 0.6 0.0-2.0 (%) Final Absolute Segs 06/23/2024 03:51:19 8.23 Above high normal 1.80-7.70 (K/uL) Final Lymphs, absolute 06/23/2024 03:51:19 0.85 Below low normal 1.00-4.80 (K/ul) Final Monos, Abs 06/23/2024 03:51:19 0.98 0.00-1.10 (K/uL) Final Eos, Abs 06/23/2024 03:51:19 0.00 0.00-0.70 (K/uL) Final Basos, Abs 06/23/2024 03:51:19 0.03 0.00-0.20 (K/uL) Final Immature Granulocytes, Number 06/23/2024 03:51:19 0.06 0.00-0.20 (K/uL) Final Performing Location [facility] [place] [facility] [place] [address]
--- OUTSIDE RECORDS SUMMARY | 2024-07-01 13:54 | External Medical Summary ---
Author Name Unknown Address Unknown Organization K01:[facility]ATORY [facility] - [address] [facility] [address] Laboratory Report Ordering Provider Test Date Status DAGOBERTO L[address] 06/22/2024 12:11:39 Final Observation Date Value Abnormality Reference (Units ) Status Body temperature 06/22/2024 12:11:39 37.0 (C) Final pH of Arterial blood 06/22/2024 12:11:39 7.420 7.350-7.450 (units) Final Carbon dioxide [Partial pressure] in Arterial blood 06/22/2024 12:11:39 38.3 35.0-45.0 (mmHg) Final Oxygen [Partial pressure] in Arterial blood 06/22/2024 12:11:39 340.0 Above high normal 75.0-100.0 (mmHg) Final Base excess, Arterial 06/22/2024 12:11:39 0.6 -2.0-2.0 (mmol/L) Final Hemoglobin [Mass/volume] in Blood by Oximetry 06/22/2024 12:11:39 11.9 Below low normal 14.0-16.8 (g/dL) Final Oxyhemoglobin, Arterial (FO2HB) 06/22/2024 12:11:39 98.6 94.0-99.0 (% total Hgb) Final Carboxyhemoglobin 06/22/2024 12:11:39 1.0 <=1.5 (% total Hgb) Final Smokers: 0-9.0 % Methemoglobin 06/22/2024 12:11:39 0.5 <=1.5 (% total Hgb) Final Deoxyhemoglobin/Hemoglobin.t potato chip fryer l in Arterial blood 06/22/2024 12:11:39 0.0 0.0-5.0 (% tot al Hgb) Final Oxygen content in Arterial blood 06/22/2024 12:11:39 Final Not calculated.
Potassium, Whole Blood 06/22/2024 12:11:39 4.3 3.5-5.1 (mmol/L) Final Sodium, Whole Blood 06/22/2024 12:11:39 136 135-146 (mmol/L) Final Chloride, Whole Blood 06/22/2024 12:11:39 108 Above high normal 98-107 (mmol/L) Final Calcium.ionized [Moles/volume] in Blood by Ion-selective membrane electrode (ISE) 06/22/2024 12:11:39 1.14 1.13-1.32 (mmol/L) Final Anion gap, Whole Blood 06/22/2024 12:11:39 3.1 Below low normal 7.0-15.0 (mmol/L) Final Glucose, whole blood 06/22/2024 12:11:39 140 Above high normal 70-120 (mg/dL) Final Oxygen/Total gas setting [Volume Fraction] Ventilator 06/22/2024 12:11:39 vent 100% (%) Final O2 FLOW, ARTERIAL - [facility] 06/22/2024 12:11:39 Not Provided (L/min) Final Bicarbonate, Venous, POC (i-STAT) 06/22/2024 12:11:39 24.4 23.0-31.0 (mmol/L) Final Performing Location LABORATORY [place] - [address] [facility] [address]
--- OUTSIDE RECORDS SUMMARY | 2024-07-01 13:54 | External Medical Summary ---
Author Name Unknown Address Unknown Organization : Laboratory Report Ordering Provider Test Date Status SUZANNE DING 06/22/2024 22:00:03 Final Observation Date Value Abnormality Reference (Units ) Status Glucose Point of Care 06/22/2024 22:00:03 96 70-120 (mg/dL) Final Performing Location
--- OUTSIDE RECORDS SUMMARY | 2024-07-01 13:54 | External Medical Summary ---
Author Name Unknown Address Unknown Organization : Laboratory Report Ordering Provider Test Date Status SUZANNE DING 06/23/2024 02:06:46 Final Observation Date Value Abnormality Reference (Units ) Status Glucose Point of Care 06/23/2024 02:06:46 114 70-120 (mg/dL) Final Performing Location
--- OUTSIDE RECORDS SUMMARY | 2024-07-01 13:54 | External Medical Summary ---
Author Name Unknown Address Unknown Organization K01:LABORATORY [facility] [place] - [facility] [address] [facility] [address] [facility] [address] Laboratory Report Ordering Provider Test Date Status SUZANNE DING 06/24/2024 04:50:00 Final Observation Date Value Abnormality Reference (Units ) Status WBC, Total 06/24/2024 04:50:00 10.85 Above high normal 4.00-10.80 (K/uL) Final RBC 06/24/2024 04:50:00 3.33 4.50-5.25 (M/uL) Final Hemoglobin 06/24/2024 04:50:00 10.5 Below low normal 14.0-16.8 (g/dL) Final HCT 06/24/2024 04:50:00 33.1 Below low normal 40.0-48.4 (%) Final MCV 06/24/2024 04:50:00 99.4 82.0-99.5 (fL) Final MCH 06/24/2024 04:50:00 31.5 27.0-34.0 (pg) Final MCHC 06/24/2024 04:50:00 31.7 32.0-36.0 (g/dL) Final RDW 06/24/2024 04:50:00 13.1 11.5-15.5 (%) Final Platelets 06/24/2024 04:50:00 70 Below low normal 140-400 (K/uL) Final MPV 06/24/2024 04:50:00 11.2 6.6-11.1 (fL) Final Nucleated erythrocytes/100 leukocytes [Ratio] in Blood by Automated count 06/24/2024 04:50:00 0 <=0 (/100 WBCs) Final Performing Location LABORATORY [facility] [place] - [address] [place] [address]
--- OUTSIDE RECORDS SUMMARY | 2024-07-01 13:54 | External Medical Summary ---
Author Name Unknown Address Unknown Organization : Laboratory Report Ordering Provider Test Date Status SUZANNE DING 06/23/2024 03:50:56 Final Observation Date Value Abnormality Reference (Units ) Status Glucose Point of Care 06/23/2024 03:50:56 115 70-120 (mg/dL) Final Performing Location
--- OUTSIDE RECORDS SUMMARY | 2024-07-01 13:55 | External Medical Summary ---
Author Name Unknown Address Unknown Organization K01:LABORATORY [facility] [place] [facility] [place] [address] [place] [address] Laboratory Report Ordering Provider Test Date Status DAGOBERTO L[address] 06/22/2024 12:09:46 Final Observation Date Value Abnormality Reference (Units ) Status BUN 06/22/2024 12:09:46 10 6-20 (mg/dL) Final Creatinine 06/22/2024 12:09:46 1.0 0.6-1.2 (mg/dL) Final Glomerular filtration rate/1.73 sq M.predicted [Volume Rate/Area] in Serum, Plasma or Blood by Creatinine-based formula (CKD-EPI) 06/22/2024 12:09:46 81 >=60 (mL/min) Final eGFR is calculated based on the CKD-EPI 2020 equation. Sodium 06/22/2024 12:09:46 140 135-146 (m mol/L) Final Potassium 06/22/2024 12:09:46 4.5 3.5-5.1 (m mol/L) Final Cl 06/22/2024 12:09:46 107 98-107 (mm ol/L) Final CO2 06/22/2024 12:09:46 23 22-32 (mmo l/L) Final Anion gap 06/22/2024 12:09:46 10 7-15 (mmol /L) Final Glucose 06/22/2024 12:09:46 134 Above high normal 70 -120 (mg/dL) Final Calcium 06/22/2024 12:09:46 8.4 8.4-10.2 ( mg/dL) Final Performing Location LABORATORY [facility] [place] - [address] [facility] [address]
--- OUTSIDE RECORDS SUMMARY | 2024-07-01 13:55 | External Medical Summary ---
Author Name Unknown Address Unknown Organization K01:LABORATORY [facility] - [address] [place] [address] Laboratory Report Ordering Provider Test Date Status DAGOBERT[address] L[address] 06/22/2024 12:09:46 Final Observation Date Value Abnormality Reference (Units ) Status Fibrinogen 06/22/2024 12:09:46 151 Below low normal 17 8-467 (mg/dL) Final Performing Location [facility] - [address] [facility] [address]
--- OUTSIDE RECORDS SUMMARY | 2024-07-01 13:55 | External Medical Summary ---
Author Name Unknown Address Unknown Organization K01:LABORATORY [facility] [place] - [address] [facility] [address] Laboratory Report Ordering Provider Test Date Status SUZANNE DING 06/22/2024 09:15:00 Final Observation Date Value Abnormality Reference (Units ) Status Body temperature 06/22/2024 09:15:00 37.0 (C) Final pH of Venous blood 06/22/2024 09:15:00 7.363 7.320-7.430 (units) Final Carbon dioxide [Partial pressure] in Venous blood 06/22/2024 09:15:00 47.7 40.0-60.0 (mmHg) Final Oxygen [Partial pressure] in Venous blood 06/22/2024 09:15:00 45.3 25.0-50.0 (mmHg) Final Base excess, Capillary 06/22/2024 09:15:00 1.2 -2.0-2.0 (mmol/L) Final Hemoglobin [Mass/volume] in Blood by Oximetry 06/22/2024 09:15:00 10.2 Below low normal 14.0-16.8 (g/dL) Final Oxyhemoglobin, Venous (FO2HB) 06/22/2024 09:15:00 78.4 40.0-85.0 (% total Hgb) Final Carboxyhemoglobin 06/22/2024 09:15:00 1.4 <=1.5 (% total Hgb) Final Smokers: 0-9.0 % Methemoglobin 06/22/2024 09:15:00 0.6 <= 1.5 (% total Hgb) Final Deoxyhemoglobin/Hemoglo bin.total in Venous blood 06/22/2024 09:15:00 19.6 (% total Hgb) Final Oxygen content in Venous blood 06/22/2024 09:15:00 11.2 7.0-18.0 (%vol) Final Potassium, Whole Blood 06/22/2024 09:15:00 4.7 3.5-5.1 (mmol/L) Final Sodium, Whole Blood 06/22/2024 09:15:00 132 Below l ow normal 135-146 (mmol/L) Final Chloride, Whole Blood 06/22/2024 09:15:00 100 98-107 (mmol/L) Final Calcium.ionized [Moles/volume] in Blood by Ion-selective membrane electrode (ISE) 06/22/2024 09:15:00 1.02 Below low normal 1.13-1.32 (mmol/L) Final Anion gap, Whole Blood 06/22/2024 09:15:00 4.9 Belo w low normal 7.0-15.0 (mmol/L) Final Glucose, whole blood 06/22/2024 09:15:00 128 Above high normal 70-120 (mg/dL) Final Bicarbonate, Venous, POC (i-STAT) 06/22/2024 09:15:00 26.4 23.0-31.0 (mmol/L) Final Performing Location LABORATORY [facility] [place] - [address] [facility] [address]
--- OUTSIDE RECORDS SUMMARY | 2024-07-01 13:55 | External Medical Summary ---
Author Name Unknown Address Unknown Organization K01:LABORATORY [place] [address] [facility] [address] Laboratory Report Ordering Provider Test Date Status LALA KLINE 06/22/2024 10:54:50 Final Observation Date Value Abnormality Reference (Units ) Status Clot formation [Time] in Blood by Thromboelastography 06/22/2024 10:54:50 3.2 2.5-8.3 (minutes) Final Clot strength in Blood by Thromboelastography 06/22/2024 10:54:50 1.8 0.5-3.7 (minutes) Final Clot angle in Blood by Thromboelastography 06/22/2024 10:54:50 66.5 46.8-78.4 (degrees) Final Maximum clot firmness [Length] in Blood by Thromboelastography 06/22/2024 10:54:50 55.8 50.6-72.5 (mm) Final Coagulation index in Blood b y Thromboelastography 06/22/2024 10:54:50 1.3 -3.0-3.0 Final Clot Lysis [Length fraction] in Blood by Thromboelastography --30 minutes post maximum clot amplitude 06/22/2024 10:54:50 0.0 0.0-7.5 (%) Final Performing Location LABORATORY [place] [address] [facility] [address]
--- OUTSIDE RECORDS SUMMARY | 2024-07-01 13:55 | External Medical Summary ---
Author Name Unknown Address Unknown Organization : Laboratory Report Ordering Provider Test Date Status SUZANNE DING 06/22/2024 11:00:36 Final Observation Date Value Abnormality Reference (Units) Status Blood draw [PhenX] 06/22/2024 11:00:36 Arterial Draw Final pH, POC (i-STAT) 06/22/2024 11:00:36 7.370 7.350-7.450 Final PCO2 POC (i-STAT) 06/22/2024 11:00:36 38.9 35.0-45.0 (mm Hg) Final PO2 POC (i-STAT) 06/22/2024 11:00:36 488 Above high normal 75-100 (mm Hg) Final Base excess standard in Arterial blood by calculation 06/22/2024 11:00:36 -3 Below low normal -2-2 (mmol/L) Final Bicarbonate, Venous, POC (i-STAT) 06/22/2024 11:00:36 22.5 Below low normal 23.0-31.0 (mmol/L) Final O2 Sat, calculated POC (i-STAT) 06/22/2024 11:00:36 100.0 Above high normal 94.0-98.0 (%) Final Glucose, whole blood 06/22/2024 11:00:36 148 Above high normal 70-120 (mg/dL) Final Potassium, Whole Blood 06/22/2024 11:00:36 4.6 3.5-5.1 (mmol/L) Final Sodium, Whole Blood 06/22/2024 11:00:36 139 135-146 (mmol/L) Final Calcium, Ionized, Whole Blood 06/22/2024 11:00:36 1.02 Below low normal 1.13-1.32 (mmol/L) Final Hemoglobin POC (i-STAT) 06/22/2024 11:00:36 10.9 Below low normal 14.0-16.8 (g/dL) Final HCT 06/22/2024 11:00:36 32 Below low normal 40-48 (%) Final Performing Location
--- OUTSIDE RECORDS SUMMARY | 2024-07-01 13:55 | External Medical Summary ---
Author Name Unknown Address Unknown Organization K01:[place] [facility] [place] [address] [place] [address] Laboratory Report Ordering Provider Test Date Status SUZANNE DING 06/22/2024 09:15:00 Final If R time > 20 minutes and n o clot formed suggesting hypocoagulable state or interfering substance (anticoagulation). Consider resubmitting a new sample and/or checking PT/INR, aPTT, fibrinogen, and platelet count. Observation Date Value Abnormality Reference (Units) Status Clot formation [Time] in Blood by Thromboelastography 06/22/2024 09:15:00 >20.0 Above high normal 2.5-8.3 (minutes) Final Performing Location LAB[facility]ATORY [facility] - [address] [place] [address]
--- OUTSIDE RECORDS SUMMARY | 2024-07-01 13:55 | External Medical Summary | Summary of Care ---
Author Name Unknown Organization [facility] Address [address] [place] [address] Phone [phone] Care Team Providers Care Pheresis Nurse Name Role Phone Lynn Gibson MD Primary Care Provider [phone] Reason for Referral * Evaluate & Treat - Unlimited Visits (Within 10 days (routine)) Specialty Diagnoses / Procedures Referred By Julian lam Referred To Contact Anatomic Pathology Diagnoses Aortic valve disorder Esteban Mcdonald PA-C [address] [place] [address] Phone: tel: fax: Referral ID Status Reason Start Date Expiration Date Visits Re quested Visits Authorized Question Answer Referral Priority Within 10 days (routine) Where should this appointment be scheduled? [facility] Reason for Visit * Reason Comments Follow Up Encounter Details Date Type Department Care Team (Late st Contact Info) Description 06/10/2024 11:00 AM EST Office Visit Cardiothoracic Surg [facility] [employer] [address] [place] [address] Faisal Guzman MD [address], [place] [id number] Aortic valve disorder* Allergies No known active allergiesdocumented as of this encounter (statuses as of 06/15/2024) Medications triamcinolone acetonide (ARISTOCORT) 0.1 % creamIndication s:Rash and nonspecific skin eruption Apply topically to affected area 2 times a day. To affected area. 45 g 1 7 Active Lisinopril 40 MG Oral Tablet Take 1 Tablet by mouth every evening. 5 Active Atorvastatin Calcium 40 MG Oral Tablet (Lipitor) Take 1 Tablet by mouth in the morning. 4 Active Clopidogrel Bisulfate 75 MG Oral Tablet (pLAVix) Take 1 Tablet by mouth in the morning. 4 Active hydrochlorothia zide (HYDRODIURIL) 25 MG Tablet 7 06/10/19 Discontinu ed(Medicat ion/Dose Changed) lisinopril (PRINIVIL) 20 MG Tablet 7 06/10/19 Discontinu ed(Medicat ion/Dose Changed) documented as of this encounter (statuses as of 06/15/2024) Active Problems Problem Noted Date Diagnosed Date Aortic valve stenosis, unspecified etiology 05/22 documented as of this encounter (statuses as of 06/15/2024) Social History Tobacco Use Types Packs/Day Years Used Date Smoking Tobacco: Never Smokeless Tobacco: Current Alcohol Use Standard Drinks/Week [...] Sign Reading Time Taken Comments Blood Pressure 126/84 06/10/2024 10:50 AM EST Pulse 56 06/10/2024 10:50 AM EST Temperature - - Respiratory Rate - - Oxygen Saturation 96% 06/10/2024 10: 50 AM EST Inhaled Oxygen Concentration - - Weight 88.4 kg (194 lb 14.4 oz) 025 10:50 AM EST Height 172.7 cm (5' 8") 06/10/2024 10:5 0 AM EST Body Mass Index 29.63 06/10/2024 10:50 AM EST documented in this encounter Progress Notes * Regina Murphy RN - 06/10/2024 11:29 AM EST Patient chose a surgical date of 06/22/2024. Patient was given preoperative Cardiac Surgery booklet. Chlorhexidine wash provided and instructions given to include if staph screen is positive bactroban will be prescribed and patient will need towash with chlorhexidine 5 days prior to surgery . All questions answered at this time. Patient was instructed to avoid the following medications and foods one week prior to surgery to decrease risk for bleeding: Multivitamins, Vit E, Herbal teas and supplements, olive oil and garlic, [place] 3s and NSAIDs. Patient instructed to hold Plavix 7 days prior to surgery and hold Lisinopril 3 days prior to surgery per Dr. Guzman. Recent dental visit, no concerns. I asked patient to have a dental clearance letter faxed to us, fax number provided. Patient interested in cardiac rehab at [facility]. Regina Murphy RN 06/10/2024 11:29 AM * Faisal Guzman MD - 06/10/2024 11:25 AM EST CARDIAC SURGERY I have seen and examined the patient with Alireza. I am seeing Ravi E Nareshsandip as an evaluation for /CAD, referred by Dr. Strickland. Ravi has symptoms of progressive dyspnea with exertion. Also reports dizzyness when standing up. No chest pain or syncope. 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 None since. 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 PE demonstrates systolic murmur, clear lungs. STS risk is 1.4% for mortality for AVR/CAB No new changes. TAVR CTA reviewed 04/08/24 Exercise stress TTE reviewed, which demonstrates [...] calcium -- adequate transfemoral access IMPRESSION Ravi has symptomatic severe with normal LV function. We discussed the natural history, risk factors, and treatment options for aortic stenosis, including transcatheter approaches. I recommend aortic valve replacement, in line with the 2022 ACC/AHA guidelines. We discussed the choice of valve and need for manager intermediate anticoagulation with a mechanical valve andthe need for future valve re-replacement with a bioprosthetic valve. We discussed the lifestyle changes associated with warfarin. He would like to have a tissue valve, which I agree with, and accepts the risk of valve deterioration and need for another surgery. We discussed the risks, benefits, and alternatives to surgery. The plan of surgery will be aortic valve replacement with tissue valve. OM looks too small for bypass, but we will check. I discussed that the risks of heart surgery specifically include, but aren't limited to: Major life threatening complications like: - bleeding (which could require blood transfusion, additional incisions, or additional surgery), - infection of the sternum requiring antibiotics or repeated surgeries - stroke, - heart damage or heart attack - lung problems like pneumonia, pulmonary embolism, need for prolonged mechanical ventilation - kidney failure which could require dialysis - if any of these happen, you can during the procedure or in the weeks following Minor complications like: - minor infections would could require antibiotics or wound care - fluid build up around the heart or lungs requiring drains or additional surgery - abnormal heart rhythms which could require additional medicines, or even a pacemaker - bone healing problems requiring reoperation - nerve damage like injury to the phrenic nerve leading to dyspnea, or the nerves going to the hands or legs We discussed the expected pain and estimated recovery time for the operation. I pointed out the effect that the various complications can have on the recovery and quoted a major complication rate of 5-10%, in accordance with the online STS risk calculator. All questions were answered and the patient consents to the procedure. The following family members were present for the discussion: . Faisal Guzman M.D. Associate, Thoracic and Cardiac Surgery [facility] [address] [place] [address] Office [phone] documented in this encounter Plan of Treatment Upcoming Encounters Date Type Department Care Team (Latest Contact Info) Description 06/22/2024 10:13 AM EST Hospital Encounter OR [facility], OPERATING ROOM [facility] [address] [place] [facility] [phone] Faisal Guzman MD [address] [place] [address] 06/22/2024 10:13 AM EST Anesthesia Event OR [facility], OPERATING ROOM [facility] [address] [place] [phone] Darrian Jauregui CRNP [address], [place] [phone] 06/22/2024 10:13 AM EST - 06/22/2024 4:12 PM EST Surgery OR [facility], OPERATING ROOM [facility], [facility] [address] [place] [phone] Faisal Guzman MD [address], [place] [phone] REPLACEMENT AORTIC VALVE, BYPASS WITH PROSTHETIC VALVE Scheduled Orders Name Type Priority Associated Diagnoses Orde r Schedule PREPARE PACKED RED BLOOD CELLS Blood Bank - Prepare Product Routine Aortic valve disorder Ordered: 06/10/2024 EKG EKG Routine Aortic valve disorder Expected: 06/10/2024, Expires: 07/08/2025 Scheduled Procedures Name Priority Associated Diagnoses Date/Ti me REPLACEMENT AORTIC VALVE, BYPASS WITH PROSTHETIC VALVE Aortic valve stenosis, unspecified etiology 06/22/2024 10:13 AM EST CORONARY ARTERY BYPASS GRAFT USING ARTERY 1 GRAFT Aortic valve stenosis, unspecified etiology 06/22/2024 10:13 AM EST CORONARY ARTERY BYPASS GRAFT ARTERIAL AND VENOUS 2 GRAFTS Aortic valve stenosis, unspecified etiology 06/22/2024 10:13 AM EST ENDOSCOPY VIDEO ASSISTED HARVEST VEIN Aortic valve stenosis, unspecified etiology 06/22/2024 10:13 AM EST Scheduled Referrals Name Type Priority Associated Diagnoses Orde r Schedule BLOOD MANAGEMENT REFERRAL Referral Within 10 days (routine) Aortic valve disorder Ordered: 06/10/2024 Health Maintenance Due Date Last Done Comments Depression Screening 1967 Hepatitis C Screening 1973 DTap/Tdap Vaccines (1 - Tdap) 1974 Cologuard 02/23/2000 Colonoscopy 02/23/2000 Colorectal Cancer Screening 02/23/2000 Fecal Occult Blood Test 02/23/2000 Sigmoidoscopy 02/23/2000 Pneumococcal Vaccine: 50+ Years (1 of 1 - PCV) 2005 Lipid Panel 06/28/2009 06/28/2004, 06/19, 09/15/2001, Additional history exists COVID-19 Vaccine ( season) 2023 03/13/2021, 07/10/2020, 06/19/2020 Influenza Vaccine (FLU shot) (#1) 2023 Diabetes Screening 06/10/2027 06/10/2024, 0 06/10/2024, 06/28/2004, Additional history exists Zoster Vaccines Completed 02/06/2022, [...] documented as of this encounter Medical Devices Not on filedocumented as of this encounter Procedures Procedure Name Priority Date/Time Associated Diagnosis Comments STAPH AUREUS PCR Routine 06/10/2024 11:5 9 AM EST Aortic valve disorder documented in this encounter Results * ABO/RH (06/10/2024 12:29 PM EST) ABO O 06/10/2024 1:40 PM EST LABORATORY [facility] BLOOD BANK Rh Positive 06/10/2024 1:40 PM EST LABORATORY [facility] BLOOD [facility] Blood Venous blood specimen / Unknown Venipuncture / Unknown 06/10/2024 12:29 PM EST 06/10/2024 1:20 PM EST Esteban LA-C LAB BLOOD BANK KRISTI T ORDERABLES Final Result Performing Organization Address City/[facility]/ZIP Co de Phone Number LABORATORY [facility] BLOOD BANK [address] [place] [address] * TSH (06/10/2024 12:21 PM EST) TSH 0.91 0.27 - 4.20 uIU/mL 06/10/2024 1:50 PM EST LABORATORY C Blood Venous blood specimen / Unknown Venipuncture / Unknown 06/10/2024 12:21 PM EST 06/10/2024 12:53 PM EST Esteban LA-C LAB BLOOD ORDERABL ES Final Result Performing Organization Address [facility] Phone Number LABORATORY [facility] [address] [place] [address] * TYPE AND SCREEN (06/10/2024 12:21 PM EST) ABO O 06/10/2024 1:56 PM EST LABORATORY [facility] BLOOD BANK Rh Positive 06/10/2024 1:56 PM EST LABORATORY [facility] BLOOD BANK Red Blood Cell Antibody Screen Negative 06/10/2024 1:56 PM EST LABORATORY [facility] BLOOD BANK Specimen Expiration Date 06/25/2024 23:59 06/10/2024 1:56 PM EST LABORATORY [facility] BLOOD BANK Blood Venous blood specimen / Unknown Venipuncture / Unknown 06/10/2024 12:21 PM EST 06/10/2024 12:39 PM EST Raimundojostin Shefali LA-C LAB BLOOD BANK KRISTI T ORDERABLES Final Result Performing Organization Address [facility]/ZIP Co de Phone Number LABORATORY [facility] BLOOD BANK [address] [place] [address] * (ABNORMAL) IRON SCREEN, INCLUDING TIBC (06/10/2024 12:21 PM EST) Iron 131 45 - 176 ug/dL 06/10/2024 1:23 PM EST [facility] Iron Binding Capacity 238(L) 250 - 425 ug/dL 06/10/2024 1:23 PM EST [facility] Transferrin Saturation Percent 55 15 - 55 % 06/10/2024 1:23 PM EST [facility] Blood Venous blood specimen / Unknown Venipuncture / Unknown 06/10/2024 12:21 PM EST 06/10/2024 12:53 PM EST Esteban Mcdonald PA-C LAB BLOOD ORDERABL ES Final Result Performing Organization Address City/[facility]/ZIP Co de Phone Number LABORATORY [facility] [address], [place] [id number] * (ABNORMAL) HEPATIC FUNCTION PANEL (06/10/2024 12:21 PM EST) Albumin 4.0 3.8 - 5.0 g/dL 06/10/2024 1:23 PM EST [facility] AST 37 10 - 50 U/L 06/10/2024 1:23 PM EST [facility] Alkaline Phosphatase 90 35 - 130 U/L 06/10/2024 1:23 PM EST [facility] ALT 57(H) 10 - 50 U/L 06/10/2024 1:23 PM EST [facility] Bilirubin, Total 0.9 <=1.2 mg/dL 06/10/2024 1:23 PM EST [facility] Bilirubin, Direct 0.3 0.0 - 0.3 mg/dL 06/10/2024 1:23 PM EST [facility] Protein 6.8 6.0 - 8.3 g/dL 06/10/2024 1:23 PM EST [facility] Blood Venous blood specimen / Unknown Venipuncture / Unknown 06/10/2024 12:21 PM EST 06/10/2024 12:53 PM EST Esteban Mcdonald PA-C LAB BLOOD ORDERABL ES Final Result [facility] [address] [place] [address] * URINALYSIS, REFLEX TO MICROSCOPIC (06/10/2024 12:21 PM EST) Color, Urine Yellow Colorless, Light Yellow, Yellow, Dark Yellow 06/10/2024 1:22 PM EST LABORATORY C Clarity, Urine Clear Clear 06/10/2024 1:22 PM EST LABORATORY C Glucose, Urine Negative Negative mg/dL 06/10/2024 1:22 PM EST LABORATORY C Bilirubin, Urine Negative Negative 06/10/2024 1:22 PM EST LABORATORY C Ketone, Urine Negative Negative mg/dL 06/10/2024 1:22 PM EST LABORATORY [facility] Specific [place], Urine 1.025 1.003 - 1.030 06/10/2024 1:22 PM EST LABORATORY [facility] Blood, Urine Negative Negative 06/10/2024 1:22 PM EST LABORATORY [facility] pH, Urine 6.0 5.0 - 7.5 Units 06/10/2024 1:22 PM EST LABORATORY [facility] Protein, Urine Negative Negative mg/dL 06/10/2024 1:22 PM EST LABORATORY [facility] Urobilinogen, Urine Normal Normal mg/dL 06/10/2024 1:22 PM EST LABORATORY C Nitrite, Urine Negative Negative 06/10/2024 1:22 PM EST LABORATORY [facility] Esterase, Urine Negative Negative 1:22 PM EST LABORATORY [facility] Comment, Urine 06/10/2024 1:22 PM EST LABORATORY [facility] Comment:Screen negative - Mi croscopic not performed. Urine Urine specimen obtained by clean catch procedure / Unknown Non-blood Collection / Unknown 06/10/2024 12:21 PM EST 06/10/2024 12:39 PM EST us Esteban Mcdonald PA-C LAB URINE ORDERABL ES Final Result LABORATORY [facility] [address] [place] [address] * BASIC METABOLIC PANEL (06/10/2024 12:21 PM EST) BUN 13 6 - 20 mg/dL 06/10/2024 1:23 PM EST LABORATORY [facility] CREATININE 1.1 0.6 - 1.2 mg/dL 06/10/2024 1:23 PM EST [facility] EGFR 71 >=60 mL/min 06/10/2024 1:23 PM EST LABORATORY [facility] Comment:eGFR is calculated b ased on the CKD-EPI 2020 equation. SODIUM 142 135 - 146 mmol/L 06/10/2024 1:23 PM EST [facility] POTASSIUM 4.9 3.5 - 5.1 mmol/L 06/10/2024 1:23 PM EST [facility] CHLORIDE 107 98 - 107 mmol/L 06/10/2024 1:23 PM EST [facility] CO2 27 22 - 32 mmol/L 06/10/2024 1:23 PM EST LABORATORY C ANION GAP 8 7 - 15 mmol/L 06/10/2024 1:23 PM EST [facility] GLUCOSE 104 70 - 120 mg/dL 06/10/2024 1:23 PM EST [facility] CALCIUM 9.2 8.4 - 10.2 mg/dL 06/10/2024 1:23 PM EST LABORATORY [facility] Blood Venous blood specimen / Unknown Venipuncture / Unknown 06/10/2024 12:21 PM EST 06/10/2024 12:53 PM EST us Esteban Mcdonald PA-C LAB BLOOD ORDERABL ES Final Result LABORATORY [facility] [address] [place] [address] * PT INR (06/10/2024 12:21 PM EST) Prothrombin Time 13.6 11.6 - 15.2 seconds 06/10/2024 1:15 PM EST [facility] INR 1.0 0.8 - 1.2 06/10/2024 1:15 PM EST LABORATORY [facility] Blood Venous blood specimen / Unknown Venipuncture / Unknown 06/10/2024 12:21 PM EST 06/10/2024 12:53 PM EST Narrative [facility] - 06/10/2024 1:15 PM EST Warfarin Therapy INR: 2.0-3.0 conventional anticoagulation INR: 2.5-3.5 high intensity anticoagulation Esteban Mcdonald PA-C LAB BLOOD ORDERABL ES Final Result Performing Organization Address [facility] Co de Phone Number LABORATORY [place] [address] [place] [address] * (ABNORMAL) HEMOGLOBIN A1C (06/10/2024 12:21 PM EST) Pathologist [facility] Hemoglobin A1C 5.7(H) 4.0 - 5.6 % 06/10/2024 1:15 PM EST LABORATORY [facility] Comment:The use of HbA1c to monitor glycemic status is based on normal hemoglobin and HbA composition. This test should not be used in patients with abnormal hemoglobin that affects the half life of the red blood cell or the in vivo glycation rates. Estimated Average Glucose 117 <126 mg/dL 06/10/2024 1:15 PM EST LABORATORY [facility] Blood Venous blood specimen / Unknown Venipuncture / Unknown 06/10/2024 12:21 PM EST 06/10/2024 12:53 PM EST Result [facility] Esteban Mcdonald PA-C LAB BLOOD ORDERABL ES Final Result Performing Organization Address [facility] de Phone Number LABORATORY [address] [address] * (ABNORMAL) STAPH AUREUS PCR (06/10/2024 11:59 AM EST) Pathologist [facility] MRSA PCR Result Negative Negative 2:46 PM EST LABORATORY [facility] Comment:No Methicillin resis tant Staphylococcus aureus detected by PCR (amplified probe). Staphylococcus aureus PCR Result Positive(A) Negative 06/10/2024 2:46 PM EST LABORATORY [facility] Comment:Staphylococcus aureu s detected by PCR (amplified probe). Upper Respiratory Swab of internal nose / Unknown Non-blood Collection / Unknown 06/10/2024 11:59 AM EST 06/10/2024 1:32 PM EST Result [facility] Esteban Mcdonald PA-C LAB MICRO - GENERA L ORDERABLES Final Result LABORATORY [facility] [address] [facility] [place] [address] documented in this encounter Visit Diagnoses Diagnosis Aortic valve stenosis, unspecified etiology- Primary Aortic valve disorder- Primary Aortic valve disorders Aortic valve stenosis, unspecified etiology documented in this encounter Care Teams Pheresis Nurse Relationship Specialty Start Date End Date Lynn Gibson MD [address] [place] [address] [place] [id number] PCP - General Family Medicine 06/10/24 documented as of this encounter
--- OUTSIDE RECORDS SUMMARY | 2024-07-01 13:55 | External Medical Summary ---
Author Name Unknown Address Unknown Organization K01:LABORATORY [facility] [place] - [address] [facility] [address] Laboratory Report Ordering Provider Test Date Status LALA KLINE 06/22/2024 10:54:50 Final Warfarin Therapy
INR: 2 .0-3.0 conventional anticoagulation
INR: 2.5- 3.5 high intensity anticoagulation Observation Date Value Abnormality Reference (Units ) Status PT 06/22/2024 10:54:50 18.8 Above high normal 11 .6-15.2 (seconds) Final INR 06/22/2024 10:54:50 1.6 Above high normal 0. 8-1.2 Final Performing Location LABORATORY [facility] - [address] [place] [id number]
--- OUTSIDE RECORDS SUMMARY | 2024-07-01 13:55 | External Medical Summary ---
Author Name Unknown Address Unknown Organization : Laboratory Report Ordering Provider Test Date Status SUZANNE DING 06/22/2024 09:16:07 Final Observation Date Value Abnormality Reference (Units) Status Blood draw [PhenX] 06/22/2024 09:16:07 Arterial Draw Final pH, POC (i-STAT) 06/22/2024 09:16:07 7.400 7.350-7.450 Final PCO2 POC (i-STAT) 06/22/2024 09:16:07 37.3 35.0-45.0 (mm Hg) Final PO2 POC (i-STAT) 06/22/2024 09:16:07 268 Above high normal 75-100 (mm Hg) Final Base excess standard in Arterial blood by calculation 06/22/2024 09:16:07 -1 -2-2 (mmol/L) Final Bicarbonate, Venous, POC (i-STAT) 06/22/2024 09:16:07 23.1 23.0-31.0 (mmol/L) Final O2 Sat, calculated POC (i-STAT) 06/22/2024 09:16:07 100.0 Above high normal 94.0-98.0 (%) Final Glucose, whole blood 06/22/2024 09:16:07 120 70-120 (mg/dL) Final Potassium, Whole Blood 06/22/2024 09:16:07 5.2 Above high normal 3.5-5.1 (mmol/L) Final Sodium, Whole Blood 06/22/2024 09:16:07 137 135-146 (mmol/L) Final Calcium, Ionized, Whole Blood 06/22/2024 09:16:07 1.00 Below low normal 1.13-1.32 (mmol/L) Final Hemoglobin POC (i-STAT) 06/22/2024 09:16:07 10.5 Below low normal 14.0-16.8 (g/dL) Final HCT 06/22/2024 09:16:07 31 Below low normal 40-48 (%) Final Performing Location
--- OUTSIDE RECORDS SUMMARY | 2024-07-01 13:55 | External Medical Summary ---
Author Name Unknown Address Unknown Organization K01:LAB[facility]ATORY [facility] [place] [address] [facility] [address] Laboratory Report Ordering Provider Test Date Status DAGOBERTO L[address] 06/22/2024 12:09:46 Final Observation Date Value Abnormality Reference (Units ) Status Magnesium 06/22/2024 12:09:46 3.0 Above high normal 1. 5-2.6 (mg/dL) Final Performing Location LAB[facility]ATORY [facility] - [address] [place] [address]
--- OUTSIDE RECORDS SUMMARY | 2024-07-01 13:55 | External Medical Summary | Summary of Care ---
Author Name Unknown Organization [facility] Address [address] [place] [address] Phone [phone] Care Team Providers Care Information Security Name Role Phone Lynn Gibson MD Primary Care Provider [phone] Reason for Visit * Reason Comments Blood Management Program Encounter Details Date Type Department Care Team (Late st Contact Info) Description 06/11/2024 Documentation Patient Blood Management, Rohan Clarke [address] [facility] [address] [facility] [place] [address] Nikki Conte, OLVIN Allergies No known active allergiesdocumented as of this encounter (statuses as of 06/11/2024) Medications triamcinolone acetonide (ARISTOCORT) 0.1 % creamIndications :Rash and nonspecific skin eruption Apply topically to [...] by mouth in the morning. 4 Active Mupirocin 2 % External Ointment (Bactroban) Apply pea sized amount to cotton swab and swab each nasal passage twice daily for the five days leading up to surgery. Do not start before June 17, 2024. 22 g Active documented as of this encounter (statuses as of 06/11/2024) Active Problems Problem Noted Date Diagnosed Date Aortic valve stenosis, unspecified etiology 05/22 documented as of this encounter (statuses as of 06/11/2024) Social History Tobacco Use Types Packs/Day Years [...] as of this encounter Progress Notes * Nikki Conte RN - 06/11/2024 11:52 AM EST REFERRAL - Patient Blood Management Name: Ravi Ortega REQUESTING SERVICE: [facility] REASON FOR REFERRAL: new evaluation outpatient, pre-surgery Latest Reference Range & Units 06/10/24 12:21 HGB 14.0 - 16.8 g/dL 14.6 HCT 40.0 - 48.4 % 45.6 IRON SCREEN, INCLUDING TIBC Rpt ! Iron 45 - 176 ug/dL 131 Iron Binding Capacity 250 - 425 ug/dL 238 (L) Transferrin Saturation Percent 15 - 55 % 55 (L): Data is abnormally low Chart reviewed. In absence of anemia or personal beliefs that prohibit blood transfusion would not recommend urgent therapy with iron, vitamins, or erythroid stimulating agents at this time. If no active hemorrhage, consider PRBC transfusion only for severe anemia and use a 1 unit PRBC dose followed by a repeat clinical assessment. For reversal of anticoagulation therapy, use Reversal of Anticoagulation order set. Please recommend outpatient follow up that includes repeat assessment of hemoglobin when stable fordischarge. Thank you for allowing Blood Management to participate in the care of this patient. documented in this encounter Plan of Treatment Upcoming Encounters Date Type Department Care Team (Latest Contact Info) Description 06/22/2024 10:13 AM EST Hospital Encounter [place] [facility], OPERATING ROOM [facility] [address] [place] [address] Faisal Guzman MD [address] [place] [address] 06/22/2024 10:13 AM EST Anesthesia Event OR [facility], OPERATING ROOM [facility] [address] [place] [address] Darrian Jauregui CRNP [address] [place] [address] 06/22/2024 10:13 AM EST - 06/22/2024 4:12 PM EST Surgery OR [facility], OPERATING ROOM [facility], [facility] [address] [place] [phone] Faisal Guzman MD [address], [place] [id number] REPLACEMENT AORTIC VALVE, BYPASS WITH PROSTHETIC VALVE Scheduled Procedures Name Priority Associated Diagnoses Date/Ti [...] stenosis, unspecified etiology 06/22/2024 10:13 AM EST Health Maintenance Due Date Last [...] Not on filedocumented as of this encounter Care Teams Information Security Relationship Specialty Start Date End Date Lynn Gibson MD [address] [facility] [place] [id number] PCP - General Family Medicine 06/10/24 documented as of this encounter
--- OUTSIDE RECORDS SUMMARY | 2024-07-01 13:55 | External Medical Summary ---
Author Name Unknown Address Unknown Organization K01:LABORATORY [facility] [place] - [facility][note 3] [address] [facility] [address] Laboratory Report Ordering Provider Test Date Status DAGOBERTO L[address] 06/22/2024 12:09:46 Final Observation Date Value Abnormality Reference (Units ) Status WBC, Total 06/22/2024 12:09:46 15.23 Above high normal 4.00-10.80 (K/uL) Final RBC 06/22/2024 12:09:46 3.63 4.50-5.25 (M/uL) Final Hemoglobin 06/22/2024 12:09:46 11.3 Below low normal 14.0-16.8 (g/dL) Final HCT 06/22/2024 12:09:46 34.5 Below low normal 40.0-48.4 (%) Final MCV 06/22/2024 12:09:46 95.0 82.0-99.5 (fL) Final MCH 06/22/2024 12:09:46 31.1 27.0-34.0 (pg) Final MCHC 06/22/2024 12:09:46 32.8 32.0-36.0 (g/dL) Final RDW 06/22/2024 12:09:46 12.7 11.5-15.5 (%) Final Platelets 06/22/2024 12:09:46 135 Below low normal 140-400 (K/uL) Final MPV 06/22/2024 12:09:46 10.4 6.6-11.1 (fL) Final Nucleated erythrocytes/100 leukocytes [Ratio] in Blood by Automated count 06/22/2024 12:09:46 0 <=0 (/100 WBCs) Final Performing Location LABORATORY [facility] [place] - [address] [place] [address]
--- OUTSIDE RECORDS SUMMARY | 2024-07-01 13:55 | External Medical Summary ---
Author Name Unknown Address Unknown Organization K01:LABORATORY [place] [address] [place] [address] Laboratory Report Ordering Provider Test Date Status ELIUDLALA 06/22/2024 10:54:50 Final Observation Date Value Abnormality Reference (Units ) Status Clot formation [Time] in Blood by Thromboelastography 06/22/2024 10:54:50 3.2 2.5-8.3 (minutes) Final Clot strength in Blood by Thromboelastography 06/22/2024 10:54:50 1.4 0.5-3.7 (minutes) Final Clot angle in Blood by Thromboelastography 06/22/2024 10:54:50 72.8 46.8-78.4 (degrees) Final Maximum clot firmness [Length] in Blood by Thromboelastography 06/22/2024 10:54:50 60.6 50.6-72.5 (mm) Final Coagulation index in Blood b y Thromboelastography 06/22/2024 10:54:50 2.6 -3.0-3.0 Final Clot Lysis [Length fraction] in Blood by Thromboelastography --30 minutes post maximum clot amplitude 06/22/2024 10:54:50 0.0 0.0-7.5 (%) Final Performing Location LABORATORY [place] [address] [place] [address]
--- OUTSIDE RECORDS SUMMARY | 2024-07-01 13:55 | External Medical Summary ---
Author Name Unknown Address Unknown Organization K01:[facility]ATORY [facility] [place] [address] [facility] [address] Laboratory Report Ordering Provider Test Date Status DAGOBERT[address] L[address] 06/22/2024 12:09:46 Final Observation Date Value Abnormality Reference (Units ) Status Heparin, unfractionated level 06/22/2024 12:09:46 0.12 Above high normal <0.10 (IU/mL) Final Unfractionated therapeutic r anges for Anti Xa activity:
For Cardiac/Neurologic treatment: 0.3 to 0.6 IU/mL.
For treatment of DVT or Pulmonary Embolism: 0.3 to 0.7 IU/mL. Performing Location [facility] [place] [address] [facility] [address]
--- OUTSIDE RECORDS SUMMARY | 2024-07-01 13:55 | External Medical Summary ---
Author Name Unknown Address Unknown Organization K01:LABORATORY [facility] - [address] [place] [address] Laboratory Report Ordering Provider Test Date Status SUZANNE DING 06/22/2024 09:15:00 Final Observation Date Value Abnormality Reference (Units ) Status HCT 06/22/2024 09:15:00 30.3 Below low normal 40. 0-48.4 (%) Final Performing Location LAB[facility] - [address] [place] [address]
--- OUTSIDE RECORDS SUMMARY | 2024-07-01 13:55 | External Medical Summary ---
Author Name Unknown Address Unknown Organization : Laboratory Report Ordering Provider Test Date Status SUZANNE DING 06/22/2024 08:57:42 Final NORMAL (NON-HEPARINIZED) 74- 137 SECONDS
HEPARINIZED 200+ SECONDS
CRITICAL GREATER THAN 1000 SECONDS
null Observation Date Value Abnormality Reference (Units ) Status Kaolin activated time [Units/volume] in Blood 06/22/2024 08:57:42 648 50-1000 (secs) Final Performing Location
--- OUTSIDE RECORDS SUMMARY | 2024-07-01 13:55 | External Medical Summary ---
Author Name Unknown Address Unknown Organization K01:LABORATORY [facility] - [address] [place] [address] Laboratory Report Ordering Provider Test Date Status SUZANNE DING 06/22/2024 09:15:00 Final Observation Date Value Abnormality Reference (Units ) Status Fibrinogen 06/22/2024 09:15:00 145 Below low normal 17 8-467 (mg/dL) Final Performing Location LAB[facility]AT[facility] - [address] [place] [address]
--- OUTSIDE RECORDS SUMMARY | 2024-07-01 13:55 | External Medical Summary ---
Author Name Unknown Address Unknown Organization K01:[facility]ORY [facility] [place] [address] [facility] [address] Laboratory Report Ordering Provider Test Date Status [address]AG[address] 06/22/2024 12:09:46 Final Anticoagulation may affect t esting. Refer to [employer] Test Catalog for a list of effects. Observation Date Value Abnormality Reference (Units ) Status aPTT panel - Platelet poor plasma 06/22/2024 12:09:46 156 Above upper panic limits 21-38 (seconds) Final Performing Location LABOR[facility]ORY [facility] - [address] [facility] [address]
--- OUTSIDE RECORDS SUMMARY | 2024-07-01 13:55 | External Medical Summary ---
Author Name Unknown Address Unknown Organization K01:LABORATORY [facility] - [address] [place] [address] [address] Laboratory Report Ordering Provider Test Date Status LALA KLINE 06/22/2024 10:54:50 Final Observation Date Value Abnormality Reference (Units ) Status Fibrinogen 06/22/2024 10:54:50 163 Below low normal 17 8-467 (mg/dL) Final Performing Location LAB[facility] - [address] [place] [address]
--- OUTSIDE RECORDS SUMMARY | 2024-07-01 13:55 | External Medical Summary ---
Author Name Unknown Address Unknown Organization K01:LABORATORY [facility] - [address] [place] [address] Laboratory Report Ordering Provider Test Date Status LALA KLINE 06/22/2024 10:54:50 Final Observation Date Value Abnormality Reference (Units ) Status Antithrombin III 06/22/2024 10:54:50 59 Below low nor mal 80-120 (%) Final Performing Location LAB[facility] - [address] [place] [address]
--- OUTSIDE RECORDS SUMMARY | 2024-07-01 13:55 | External Medical Summary ---
Author Name Unknown Address Unknown Organization : Laboratory Report Ordering Provider Test Date Status SUZANNE DING 06/22/2024 07:53:43 Final NORMAL (NON-HEPARINIZED) 74- 137 SECONDS
HEPARINIZED 200+ SECONDS
CRITICAL GREATER THAN 1000 SECONDS
null Observation Date Value Abnormality Reference (Units ) Status Kaolin activated time [Units/volume] in Blood 06/22/2024 07:53:43 124 50-1000 (secs) Final Performing Location
--- OUTSIDE RECORDS SUMMARY | 2024-07-01 13:55 | External Medical Summary ---
Author Name Unknown Address Unknown Organization : Laboratory Report Ordering Provider Test Date Status SUZANNE DING 06/22/2024 06:51:22 Final Observation Date Value Abnormality Reference (Units ) Status Glucose Point of Care 06/22/2024 06:51:22 93 70-120 (mg/dL) Final Performing Location
--- OUTSIDE RECORDS SUMMARY | 2024-07-01 13:55 | External Medical Summary ---
Author Name Unknown Address Unknown Organization K01:LABORATORY [place] [address] [place] [address] Laboratory Report Ordering Provider Test Date Status DAG[address] 06/22/2024 12:09:46 Final Observation Date Value Abnormality Reference (Units ) Status Clot formation [Time] in Blood by Thromboelastography 06/22/2024 12:09:46 6.7 2.5-8.3 (minutes) Final Clot strength in Blood by Thromboelastography 06/22/2024 12:09:46 2.4 0.5-3.7 (minutes) Final Clot angle in Blood by Thromboelastography 06/22/2024 12:09:46 59.4 46.8-78.4 (degrees) Final Maximum clot firmness [Length] in Blood by Thromboelastography 06/22/2024 12:09:46 55.7 50.6-72.5 (mm) Final Coagulation index in Blood b y Thromboelastography 06/22/2024 12:09:46 -1.7 -3.0-3.0 Final Clot Lysis [Length fraction] in Blood by Thromboelastography --30 minutes post maximum clot amplitude 06/22/2024 12:09:46 0.0 0.0-7.5 (%) Final Performing Location LABORATORY [facility] [place] - [facility] [address] [facility] [address]
--- OUTSIDE RECORDS SUMMARY | 2024-07-01 13:55 | External Medical Summary ---
Author Name Unknown Address Unknown Organization K01:LABORATORY [facility] - [address] [facility] [address] Laboratory Report Ordering Provider Test Date Status SUZANNE DING 06/22/2024 09:15:00 Final Observation Date Value Abnormality Reference (Units ) Status Body temperature 06/22/2024 09:15:00 37.0 (C) Final pH of Arterial blood 06/22/2024 09:15:00 7.408 7.350-7.450 (units) Final Carbon dioxide [Partial pressure] in Arterial blood 06/22/2024 09:15:00 40.1 35.0-45.0 (mmHg) Final Oxygen [Partial pressure] in Arterial blood 06/22/2024 09:15:00 237.0 Above high normal 75.0-100.0 (mmHg) Final Base excess, Arterial 06/22/2024 09:15:00 0.7 -2.0-2.0 (mmol/L) Final Hemoglobin [Mass/volume] in Blood by Oximetry 06/22/2024 09:15:00 10.1 Below low normal 14.0-16.8 (g/dL) Final Oxyhemoglobin, Arterial (FO2HB) 06/22/2024 09:15:00 98.2 94.0-99.0 (% total Hgb) Final Carboxyhemoglobin 06/22/2024 09:15:00 1.2 <=1.5 (% total Hgb) Final Smokers: 0-9.0 % Methemoglobin 06/22/2024 09:15:00 0.6 <=1.5 (% total Hgb) Final Deoxyhemoglobin/Hemog lobin.total in Arterial blood 06/22/2024 09:15:00 0.0 0.0-5.0 (% total Hgb) Final Oxygen content in Arterial blood 06/22/2024 09:15:00 14.4 Below low normal 15.0-24.0 (%vol) Final Oxygen/Total gas setting [Volume Fraction] Ventilator 06/22/2024 09:15:00 Not Provided (%) Final O2 FLOW, ARTERIAL - [facility] 06/22/2024 09:15:00 Not Provided (L/min) Final Bicarbonate, Venous, POC (i-STAT) 06/22/2024 09:15:00 24.8 23.0-31.0 (mmol/L) Final Performing Location LABORATORY [facility] - [address] [facility] [address]
--- OUTSIDE RECORDS SUMMARY | 2024-07-01 13:55 | External Medical Summary ---
Author Name Unknown Address Unknown Organization : Laboratory Report Ordering Provider Test Date Status SUZANNE DING 06/22/2024 08:57:13 Final NORMAL (NON-HEPARINIZED) 74- 137 SECONDS
HEPARINIZED 200+ SECONDS
CRITICAL GREATER THAN 1000 SECONDS
null Observation Date Value Abnormality Reference (Units ) Status Kaolin activated time [Units/volume] in Blood 06/22/2024 08:57:13 619 50-1000 (secs) Final Performing Location
--- OUTSIDE RECORDS SUMMARY | 2024-07-01 13:55 | External Medical Summary ---
Author Name Unknown Address Unknown Organization : Laboratory Report Ordering Provider Test Date Status SUZANNE DING 06/22/2024 12:09:31 Final Observation Date Value Abnormality Reference (Units ) Status Glucose Point of Care 06/22/2024 12:09:31 122 Above high normal 70-120 (mg/dL) Final Performing Location
--- OUTSIDE RECORDS SUMMARY | 2024-07-01 13:55 | External Medical Summary ---
Author Name Unknown Address Unknown Organization : Laboratory Report Ordering Provider Test Date Status SUZANNE DING 06/22/2024 09:20:20 Final NORMAL (NON-HEPARINIZED) 74- 137 SECONDS
HEPARINIZED 200+ SECONDS
CRITICAL GREATER THAN 1000 SECONDS
null Observation Date Value Abnormality Reference (Units ) Status Kaolin activated time [Units/volume] in Blood 06/22/2024 09:20:20 441 50-1000 (secs) Final Performing Location
--- OUTSIDE RECORDS SUMMARY | 2024-07-01 13:55 | External Medical Summary ---
Author Name Unknown Address Unknown Organization : Laboratory Report Ordering Provider Test Date Status SUZANNE DING 06/22/2024 07:53:50 Final Observation Date Value Abnormality Reference (Units) Status Blood draw [PhenX] 06/22/2024 07:53:50 Arterial Draw Final pH, POC (i-STAT) 06/22/2024 07:53:50 7.407 7.350-7.450 Final PCO2 POC (i-STAT) 06/22/2024 07:53:50 37.5 35.0-45.0 (mm Hg) Final PO2 POC (i-STAT) 06/22/2024 07:53:50 448 Above high normal 75-100 (mm Hg) Final Base excess standard in Arterial blood by calculation 06/22/2024 07:53:50 -1 -2-2 (mmol/L) Final Bicarbonate, Venous, POC (i-STAT) 06/22/2024 07:53:50 23.6 23.0-31.0 (mmol/L) Final O2 Sat, calculated POC (i-STAT) 06/22/2024 07:53:50 100.0 Above high normal 94.0-98.0 (%) Final Glucose, whole blood 06/22/2024 07:53:50 99 70-120 (mg/dL) Final Potassium, Whole Blood 06/22/2024 07:53:50 4.0 3.5-5.1 (mmol/L) Final Sodium, Whole Blood 06/22/2024 07:53:50 139 135-146 (mmol/L) Final Calcium, Ionized, Whole Blood 06/22/2024 07:53:50 1.15 1.13-1.32 (mmol/L) Final Hemoglobin POC (i-STAT) 06/22/2024 07:53:50 12.9 Below low normal 14.0-16.8 (g/dL) Final HCT 06/22/2024 07:53:50 38 Below low normal 40-48 (%) Final Performing Location
--- OUTSIDE RECORDS SUMMARY | 2024-07-01 13:55 | External Medical Summary ---
Author Name Unknown Address Unknown Organization : Laboratory Report Ordering Provider Test Date Status SUZANNE DING 06/22/2024 10:22:33 Final Observation Date Value Abnormality Reference (Units) Status Blood draw [PhenX] 06/22/2024 10:22:33 Arterial Draw Final pH, POC (i-STAT) 06/22/2024 10:22:33 7.384 7.350-7.450 Final PCO2 POC (i-STAT) 06/22/2024 10:22:33 39.4 35.0-45.0 (mm Hg) Final PO2 POC (i-STAT) 06/22/2024 10:22:33 223 Above high normal 75-100 (mm Hg) Final Base excess standard in Arterial blood by calculation 06/22/2024 10:22:33 -1 -2-2 (mmol/L) Final Bicarbonate, Venous, POC (i-STAT) 06/22/2024 10:22:33 23.5 23.0-31.0 (mmol/L) Final O2 Sat, calculated POC (i-STAT) 06/22/2024 10:22:33 100.0 Above high normal 94.0-98.0 (%) Final Glucose, whole blood 06/22/2024 10:22:33 171 Above high normal 70-120 (mg/dL) Final Potassium, Whole Blood 06/22/2024 10:22:33 5.1 3.5-5.1 (mmol/L) Final Sodium, Whole Blood 06/22/2024 10:22:33 136 135-146 (mmol/L) Final Calcium, Ionized, Whole Blood 06/22/2024 10:22:33 1.05 Below low normal 1.13-1.32 (mmol/L) Final Hemoglobin POC (i-STAT) 06/22/2024 10:22:33 11.2 Below low normal 14.0-16.8 (g/dL) Final HCT 06/22/2024 10:22:33 33 Below low normal 40-48 (%) Final Performing Location
--- OUTSIDE RECORDS SUMMARY | 2024-07-01 13:55 | External Medical Summary ---
Author Name Unknown Address Unknown Organization : Laboratory Report Ordering Provider Test Date Status SUZANNE DING 06/22/2024 10:06:10 Final NORMAL (NON-HEPARINIZED) 74- 137 SECONDS
HEPARINIZED 200+ SECONDS
CRITICAL GREATER THAN 1000 SECONDS
null Observation Date Value Abnormality Reference (Units ) Status Kaolin activated time [Units/volume] in Blood 06/22/2024 10:06:10 487 50-1000 (secs) Final Performing Location
--- OUTSIDE RECORDS SUMMARY | 2024-07-01 13:55 | External Medical Summary ---
Author Name Unknown Address Unknown Organization K01:LABORATORY [facility] [place] - [address] [facility] [address] Laboratory Report Ordering Provider Test Date Status LALA KLINE 06/22/2024 10:54:50 Final Anticoagulation may affect t esting. Refer to [employer] Test Catalog for a list of effects. Observation Date Value Abnormality Reference (Units ) Status aPTT panel - Platelet poor plasma 06/22/2024 10:54:50 81 Above high normal 21-38 (seconds) Final Performing Location LABORATORY [facility] [place] - [address] [facility] [address]
--- OUTSIDE RECORDS SUMMARY | 2024-07-01 13:56 | External Medical Summary ---
Author Name Unknown Address Unknown Organization K01:LABORATORY [facility] [place] - [address] [place] [address] Laboratory Report Ordering Provider Test Date Status LIZET SHARIF 06/10/2024 12:21:42 Final Observation Date Value Abnormality Reference (Units ) Status Albumin 06/10/2024 12:21:42 4.0 3.8-5.0 (g/dL) Final AST (Aspartate aminotransferase) 06/10/2024 12:21:42 37 10-50 (U/L) Final Alk Phos 06/10/2024 12:21:42 90 35-130 (U/L) Final ALT (Alanine aminotransferase) 06/10/2024 12:21:42 57 Above high normal 10-50 (U/L) Final Bilirubin, Total 06/10/2024 12:21:42 0.9 <=1.2 (mg/dL) Final Bilirubin, Direct 06/10/2024 12:21:42 0.3 0.0-0.3 (mg/dL) Final Protein 06/10/2024 12:21:42 6.8 6.0-8.3 (g/dL) Final Performing Location LABORATORY [facility] [place] - [address] [place] [address]
--- OUTSIDE RECORDS SUMMARY | 2024-07-01 13:56 | External Medical Summary ---
Author Name Unknown Address Unknown Organization K01:[place] [facility] [facility] [place] [facility] [address] [facility] [address] Laboratory Report Ordering Provider Test Date Status LIZET SHARIF 06/10/2024 12:21:42 Final Observation Date Value Abnormality Reference (Units ) Status Color of Urine by Auto 06/10/2024 12:21:42 Yellow Colorless, Light Yellow, Yellow, Dark Yellow Final Clarity, Urine 06/10/2024 12:21:42 Clear Clear Final Glucose [Mass/volume] in Urine by Automated test strip 06/10/2024 12:21:42 Negative Negative (mg/dL) Final Bilirubin.total [Presence] in Urine by Automated test strip 06/10/2024 12:21:42 Negative Negative Final Ketones [Mass/volume] in Urine by Automated test strip 06/10/2024 12:21:42 Negative Negative (mg/dL) Final Specific gravity, Urine 06/10/2024 12:21:42 1.025 1.003-1.030 Final Hemoglobin [Presence] in Urine by Automated test strip 06/10/2024 12:21:42 Negative Negative Final pH, Urine 06/10/2024 12:21:42 6.0 5.0-7.5 (Units) Final Protein [Mass/volume] in Urine by Automated test strip 06/10/2024 12:21:42 Negative Negative (mg/dL) Final Urobilinogen [Mass/volume] in Urine by Automated test strip 06/10/2024 12:21:42 Normal Normal (mg/dL) Final Nitrite [Presence] in Urine by Automated test strip 06/10/2024 12:21:42 Negative Negative Final Leukocyte esterase [Presence] in Urine by Automated test strip 06/10/2024 12:21:42 Negative Negative Final Annotation Comment 06/10/2024 12:21:42 Final Screen negative - Microscopi c not performed. Performing Location LABORATORY C - [address] [facility] [address]
--- OUTSIDE RECORDS SUMMARY | 2024-07-01 13:56 | External Medical Summary ---
Author Name Unknown Address Unknown Organization [id number]:LABORATORY [facility] [place] - [address] [facility] [place] [address] Laboratory Report Ordering Provider Test Date Status LIZET SHARIF 06/10/2024 12:21:42 Final Observation Date Value Abnormality Reference (Units ) Status SYNC LEUKOCYTES IN BLOOD BY AUTOMATED COUNT 06/10/2024 12:21:42 6.74 4.00-10.80 (K/uL) Final Segs 06/10/2024 12:21:42 61.5 40.0-75.0 (%) Final Lymphs % 06/10/2024 12:21:42 24.8 18.0-42.0 (%) Final Monos 06/10/2024 12:21:42 9.3 1.0-11.0 (%) Final Eosinophils 06/10/2024 12:21:42 3.1 0.0-6.0 (%) Final Basos 06/10/2024 12:21:42 1.2 0.0-2.0 (%) Final Immature Granulocyte, Percent 06/10/2024 12:21:42 0.1 0.0-2.0 (%) Final Absolute Segs 06/10/2024 12:21:42 4.14 1.80-7.70 (K/uL) Final Lymphs, absolute 06/10/2024 12:21:42 1.67 1.00-4.80 (K/ul) Final Monos, Abs 06/10/2024 12:21:42 0.63 0.00-1.10 (K/uL) Final Eos, Abs 06/10/2024 12:21:42 0.21 0.00-0.70 (K/uL) Final Basos, Abs 06/10/2024 12:21:42 0.08 0.00-0.20 (K/uL) Final Immature Granulocytes, Number 06/10/2024 12:21:42 0.01 0.00-0.20 (K/uL) Final Performing Location LABORATORY [facility] [place] - [address] [facility] [address]
--- OUTSIDE RECORDS SUMMARY | 2024-07-01 13:56 | External Medical Summary | Summary of Care ---
Author Name Unknown Organization [facility] Address [address] [place] [address] Phone [phone] Care Team Providers Care Coordinator Hotels Name Role Phone Chaz Portillo MD Primary Care Provide r Encounter Details Date Type Department Care Team (Late st Contact Info) Description 05/31/2024 Orders Only PATIENT PORTAL DO NOT DELETE THIS DEPT USED BY BESSIE GARCIA [id number] Allergies No known active allergiesdocumented as of this encounter (statuses as of 05/31/2024) Medications hydrochlorothiaz harini (HYDRODIURIL) 25 MG Tablet 7 Active lisinopril (PRINIVIL) 20 MG Tablet 7 Active triamcinolone acetonide (ARISTOCORT) 0.1 % creamIndications :Rash and nonspecific skin eruption Apply topically to affected area 2 times a day. To affected area. 45 g 1 7 Active documented as of this encounter (statuses as of 05/31/2024) Social History Tobacco Use Types Packs/Day Years Used Date Smoking Tobacco: Never Smokeless Tobacco: Current Alcohol Use Standard Drinks/Week Comments Not Asked 0 (1 standard drink = 0.6 oz pur e alcohol) occ Sex and Gender Information Value Date Recorded Sex Assigned at Male 05/25/2024 8:20 AM EST Legal Sex Male 5:07 AM EST Gender Identity Male 05/25/2024 8:20 AM EST Sexual Orientation Straight 05/25/2024 8: 20 AM EST documented as of this encounter Plan of Treatment Health Maintenance Due Date Last Done Comments Depression Screening 1967 Hepatitis C Screening 1973 DTap/Tdap Vaccines (1 - Tdap) 1974 Cologuard 02/23/2000 Colonoscopy 02/23/2000 Colorectal Cancer Screening 02/23/2000 Fecal Occult Blood Test 02/23/2000 Sigmoidoscopy 02/23/2000 Pneumococcal Vaccine: 50+ Years (1 of 1 - PCV) 2005 Diabetes Screening 06/29/2007 06/28/2004, 0 09/15/2001, 06/19/2000, Additional history exists Lipid Panel 06/28/2009 06/28/2004, 06/19, 09/15/2001, Additional history exists COVID-19 Vaccine ( season) 2023 03/13/2021, 07/10/2020, 06/19/2020 Influenza Vaccine (FLU shot) (#1) 2023 Zoster Vaccines Completed 02/06/2022, 11/27/2021 HPV (Gardasil) [...] filedocumented as of this encounter Care Teams Coordinator Hotels Relationship Specialty Start Date End Date Chaz Portillo MD PCP - General Family Medicine 07/14/13 documented as of this encounter
--- OUTSIDE RECORDS SUMMARY | 2024-07-01 13:56 | External Medical Summary | Summary of Care ---
Author Name Unknown Organization [facility] Address [address] [place] [address] Phone [phone] Care Team Providers Care Ferryboat Pilot Name Role Phone Lynn Gibson MD Primary Care Provider [phone] Reason for Visit * Reason Onset Date Comments Follow Up 06/11/2024 Encounter Details Date Type Department Care Team (Late st Contact Info) Description 06/11/2024 Telephone Cardiothoracic Surg [facility] [place] [address] [place], [place] [phone] Esteban Mcdonald PA-C [address] [place] [address] Follow Up Allergies No known active allergiesdocumented as of [...] before June 17, 2024. 22 g 5 Active documented as of this encounter (statuses [...] AM EST documented as of this encounter Miscellaneous Notes * Telephone Encounter - Esteban Mcdonald PA-C - 06/11/2024 11:09 AM EST Called patient re: staph in nasal screen.Will order bactroban. Pt instructed in use. documented in this encounter Plan of Treatment Upcoming Encounters Date Type Department Care Team (Latest Contact Info) Description 06/22/2024 10:13 AM EST Hospital Encounter [place] [facility] [place] OPER[place] ROOM [facility] [address] [place] [address] Faisal Guzman MD [address] [place], [place] [phone] 06/22/2024 10:13 AM EST Anesthesia Event [place] [facility] [place] [facility]OM [facility] [address] [place] [address] Darrian Jauregui CRNP [address] [place] [address] 06/22/2024 10:13 AM EST - 06/22/2024 4:12 PM EST Surgery [facility], OPERATING ROOM [facility], [facility] [address] [place] [address] Faisal Guzman MD [address] [place] [address] REPLACEMENT AORTIC VALVE, BYPASS WITH PROSTHETIC VALVE [...] 06/19, 09/15/2001, Additional history exists COVID-19 Vaccine (2023- season) 2023 03/13/2021, 07/10/2020, 06/19/2020 Influenza Vaccine [...] filedocumented as of this encounter Care Teams Ferryboat Pilot Relationship Specialty Start Date End Date Lynn Gibson MD [address] [place] [address] BESSIE MENDOZA [address] PCP - General Family Medicine 06/10/24 documented as of this encounter
--- OUTSIDE RECORDS SUMMARY | 2024-07-01 13:56 | External Medical Summary ---
Author Name Unknown Address Unknown Organization K01:LABORATORY [facility] [place] - [address] [facility] [address] Laboratory Report Ordering Provider Test Date Status SUZANNE DING 06/10/2024 09:47:00 Final Observation Date Value Abnormality Reference (Units ) Status Body temperature 06/10/2024 09:47:00 37.0 (C) Final pH of Arterial blood 06/10/2024 09:47:00 7.400 7.350-7.450 (units) Final Carbon dioxide [Partial pressure] in Arterial blood 06/10/2024 09:47:00 39.4 35.0-45.0 (mmHg) Final Oxygen [Partial pressure] in Arterial blood 06/10/2024 09:47:00 93.5 75.0-100.0 (mmHg) Final Base excess, Arterial 06/10/2024 09:47:00 -0.3 -2.0-2.0 (mmol/L) Final Hemoglobin [Mass/volume] in Blood by Oximetry 06/10/2024 09:47:00 15.0 14.0-16.8 (g/dL) Final Oxyhemoglobin, Arterial (FO2HB) 06/10/2024 09:47:00 96.3 94.0-99.0 (% total Hgb) Final Carboxyhemoglobin 06/10/2024 09:47:00 1.0 <=1.5 (% total Hgb) Final Smokers: 0-9.0 % Methemoglobin 06/10/2024 09:47:00 0.6 <= 1.5 (% total Hgb) Final Deoxyhemoglobin/Hemoglobin .total in Arterial blood 06/10/2024 09:47:00 2.1 0.0 -5.0 (% total Hgb) Final Oxygen content in Arterial blood 06/10/2024 09:47:00 20.4 15.0-24.0 (%vol) Tri l Oxygen/Total gas setting [Volume Fraction] Ventilator 06/10/2024 09:47:00 Not Provided (%) Final O2 FLOW, ARTERIAL - [facility] 06/10/2024 09:47:00 Not Provided (L/min) Final Bicarbonate, Venous, POC (i-STAT) 06/10/2024 09:47:00 23.8 23.0-31.0 (mmol/L) Fi nal Performing Location LABORATORY [facility] [place] - [facility] [address] [facility] [address]
--- OUTSIDE RECORDS SUMMARY | 2024-07-01 13:56 | External Medical Summary ---
Author Name Unknown Address Unknown Organization K01:LAB[facility]ATORY [facility] [place] [facility] - [address] [place] [address] Laboratory Report Ordering Provider Test Date Status LIZET SHARIF 06/10/2024 12:29:39 Final Observation Date Value Abnormality Reference (Units ) Status ABO 06/10/2024 12:29:39 O Final RH 06/10/2024 12:29:39 Positive Final Performing Location LAB[facility]ORY [facility] [place] [facility] - [address] [place] [address]
--- OUTSIDE RECORDS SUMMARY | 2024-07-01 13:56 | External Medical Summary | Summary of Care ---
Author Name Unknown Organization [facility] Address [address] [place] [address] Phone [phone] Care Team Providers Care Records Technician Name Role Phone Chaz Portillo MD Primary Care Provide r Reason for Referral * Evaluate & Treat - Unlimited Visits (Within 10 days (routine)) - Authorized Specialty Diagnoses / Procedures Referred By Julian lam Referred To Contact Anesthesiology Diagnoses Aortic valve stenosis, unspecified etiology Faisal Guzman MD [address] [place] [address] Phone: tel: fax: Referral ID Status Reason Start Date Expiration Date Visits Requested Visits Authorized [id number] Authorized Specialty Services Required 06/02/2024 1 1 Question Answer Referral Priority: Within 28 days (routine) Where should this appointment be scheduled? [facility] Encounter Details Date Type Department Care Team (Late st Contact Info) Description 06/02/2024 Telephone Cardiothoracic Surg [facility] [place] [address] [place] [address] Faisal Guzman MD [address] [place] [address] Allergies No known active allergiesdocumented as of this encounter (statuses as of 06/02/2024) Medications hydrochlorothiaz harini (HYDRODIURIL) 25 MG Tablet 7 Active lisinopril (PRINIVIL) 20 MG Tablet 7 Active triamcinolone acetonide (ARISTOCORT) 0.1 % creamIndications :Rash and nonspecific skin eruption Apply topically to affected area 2 times a day. To affected area. 45 g 1 7 Active documented as of this encounter (statuses as of 06/02/2024) Active Problems Problem Noted Date Diagnosed Date Aortic valve stenosis, unspecified etiology 05/22 documented as of this encounter (statuses as of 06/02/2024) Social History Tobacco Use Types Packs/Day Years [...] as of this encounter Miscellaneous Notes * Addendum Note - Regina Murphy RN - 06/02/2024 10:44 AM ESTAddended by: REGINA MURPHY on: 06/02/2024 10:44 AM Modules accepted: Orders * Telephone Encounter - Regina Murphy RN - 06/02/2024 10:35 AM EST I called and spoke with Mr. Ortega. He accepted an appointment with Dr. Guzman on 06/10 at 110:[address] Guzman followed by a PAT appointment at 12:30 pm. Patient had a carotid duplex completed 05/11/2024 at [facility], results and images in Epic. Will order PFTs and ABG. Regina Murphy RN 06/02/2024 10:43 AM * Telephone Encounter - Faisal Guzman MD - 06/02/2024 10:10 AM EST I spoke with Ravi, he would like to proceed with surgical AVR. We selected a date of 06/22/2024. Regina- can you arrange return visit before then with PATs. Will also need preop testing. Cath andCT are already done. Thanks * Telephone Encounter - Young Floyd OSA - 06/02/2024 8:[address] Guzman, [facility] AP's, Regina & Ravi Musa called back this am and does NOT want to have the TAVR done. He prefer's to have the open heart surgery if someone could please call and get him set up for this. Young Floyd 06/02/2024,8:21 AM documented in this encounter Plan of Treatment Upcoming Encounters Date Type Department Care Team (Late st Contact Info) Description 06/02/2024 11:59 PM EST Anesthesia Event [facility], OPERATING ROOM [facility] [place] [address] [place] [address] Darrian Jauregui CRNP [address] [place] [address] 06/10/2024 10:00 AM EST PulmDiagnostic Pulmonary [facility], [place] [address] [place] [address] 3, Pft Room [address] [place] [id number] 06/10/2024 11:00 AM EST Office Visit Cardiothoracic Surg [facility] [place] [address] [place] [address] Faisal Guzman MD [address] [place] [address] 06/10/2024 12:30 PM EST Office Visit Pre Surgery Center, [place] [address] [place] [address] Darrian Jauregui CRNP [address] [place] [address] 06/22/2024 Hospital Encounter OR [facility] [place], OPERATING ROOM [facility] [place], [facility] [address] [place] [phone] Faisal Guzman MD [address] [place], [place] [phone] Scheduled Orders Name Type Priority Associated Diagnoses Orde r Schedule BASIC SPIROMETRY Procedures Routine Aortic valve stenosis, unspecified etiology Expected: 06/09/2024, Expires: 06/30/2025 BLOOD GAS, ARTERIAL Lab Routine Aortic valve stenosis, unspecified etiology Expected: 06/09/2024, Expires: 06/02/2025 Scheduled Procedures Name Priority Associated Diagnoses Date/Ti me REPLACEMENT AORTIC VALVE, BY PASS WITH PROSTHETIC VALVE Aortic valve stenosis, unspecified etiology Scheduled Referrals Name Type Priority Associated Diagnoses Orde r Schedule RAPID PREP ANES SURG (RPAS) REFERRAL OP Referral Routine Aortic valve stenosis, unspecified etiology Ordered: 06/02/2024 Health Maintenance Due Date Last Done Comments [...] Not on filedocumented as of this encounter Visit Diagnoses Diagnosis Aortic valve stenosis, unspecified etiology- Primary Aortic valve stenosis, unspecified etiology- Primary documented in this encounter Care Teams Records Technician Relationship Specialty Start Date End Date Chaz Portillo MD PCP - General Family Medicine 07/14/13 documented as of this encounter
--- OUTSIDE RECORDS SUMMARY | 2024-07-01 13:56 | External Medical Summary ---
Author Name Unknown Address Unknown Organization K01:LAB[facility]ATORY [facility] [place] [address] [facility] [address] Laboratory Report Ordering Provider Test Date Status LIZET SHARIF 06/10/2024 12:21:42 Final Observation Date Value Abnormality Reference (Units ) Status WBC, Total 06/10/2024 12:21:42 6.74 4.00-10.8 0 (K/uL) Final RBC 06/10/2024 12:21:42 4.73 4.50-5.25 (M/uL) Final Hemoglobin 06/10/2024 12:21:42 14.6 14.0-16.8 (g/dL) Final Anemia reflex testing trigge rs on a HGB < 12.0 for Females and HGB < 13.0 for Males in accordance with the WHO Anemia Guidelines
Anemia reflex testing triggers on a HGB < 12.0 for Females and HGB < 13.0 for Males in accordance with the WHO Anemia Guidelines HCT 06/10/2024 12:21:42 45.6 40.0-48.4 (%) Final MCV 06/10/2024 12:21:42 96.4 82.0-99.5 (fL) Final MCH 06/10/2024 12:21:42 30.9 27.0-34.0 (pg) Final MCHC 06/10/2024 12:21:42 32.0 32.0-36.0 (g/dL) Final RDW 06/10/2024 12:21:42 12.4 11.5-15.5 (%) Final Platelets 06/10/2024 12:21:42 208 140-400 (K /uL) Final MPV 06/10/2024 12:21:42 10.9 6.6-11.1 ( fL) Final Nucleated erythrocytes/100 leukocytes [Ratio] in Blood by Automated count 06/10/2024 12:21:42 0 <=0 (/100 WBCs) Abner mayer Performing Location LAB[facility]ATORY [facility] [place] [address] [facility] [address]
--- OUTSIDE RECORDS SUMMARY | 2024-07-01 13:56 | External Medical Summary | Summary of Care ---
Author Name Unknown Organization [facility] Address [address] [place] [address] Phone [phone] Care Team Providers Care Machine Hostler Name Role Phone Chaz Portillo MD Primary Care Provide r Reason for Referral * Evaluate & Treat - Unlimited Visits (Within 10 days (routine)) - Authorized Specialty Diagnoses / Procedures Referred By Julian alm Referred To Contact Anesthesiology Diagnoses Aortic valve stenosis, unspecified etiology Faisal Guzman MD [address] [place] [address] Phone: tel: fax: Referral ID Status Reason Start Date Expiration Date Visits Requested Visits Authorized [id number] Authorized Specialty Services Required 06/02/2024 1 1 Question Answer Referral Priority: Within 28 days (routine) Where should this appointment be scheduled? [facility] Encounter Details Date Type Department Care Team (Late st Contact Info) Description 06/02/2024 Telephone Cardiothoracic Surg [facility] [place] [address] [place] [address] Faisal Guzman MD [address] [place] [address] Allergies No known active allergiesdocumented [...] had a carotid duplex completed 05/11/2024 at [facility], results and images in Epic. Will order [...] EST Anesthesia Event [facility], OPERATING ROOM [facility] [address] [place] [address] Darrian Jauregui CRNP [address] [place] [address] 06/10/2024 10:00 AM EST PulmDiagnostic Pulmonary Function Lab, [place] [address] [place] [address] 3, Pft Room [address] [place] [id number] 06/10/2024 11:00 AM EST Office Visit Cardiothoracic Surg [facility] [place] [address] [place] [address] Faisal Guzman MD [address] [place] [address] 06/10/2024 12:30 PM EST Office Visit Pre Surgery Center, [place] [address] [place] [address] Darrian Jauregui CRNP [address] [place] [address] 06/22/2024 Hospital Encounter OR [facility], OPERATING ROOM [facility], [facility] [address] [place] [address] Faisal Guzman MD [address] [place], [place] [phone] Scheduled Orders Name Type Priority Associated Diagnoses [...] Primary documented in this encounter Care Teams Machine Hostler Relationship Specialty Start Date End Date Chaz Portillo MD PCP - General Family Medicine 07/14/13 documented as of this encounter
--- OUTSIDE RECORDS SUMMARY | 2024-07-01 13:56 | External Medical Summary ---
Author Name Unknown Address Unknown Organization K01:LABORATORY [facility] [place] - [address] [facility] [address] [facility] [address] Laboratory Report Ordering Provider Test Date Status LIZET SHARIF 06/10/2024 12:21:42 Final Observation Date Value Abnormality Reference (Units ) Status TSH 06/10/2024 12:21:42 0.91 0.27-4.20 (uIU/mL) Final Performing Location LABORATORY [facility] - [address] [facility] [address]
--- OUTSIDE RECORDS SUMMARY | 2024-07-01 13:56 | External Medical Summary | Summary of Care ---
Author Name Unknown Organization [facility] Address [address] [place] [address] Phone [phone] Care Team Providers Care Vice Squad Police Officer Name Role Phone Chaz Portillo MD Primary Care Provide r Reason for Referral * Evaluate & Treat - Unlimited Visits (Within 10 days (routine)) - Authorized Specialty Diagnoses / Procedures Referred By Julian lam Referred To Contact Anesthesiology Diagnoses Aortic valve stenosis, unspecified etiology Faisal Guzman MD [address] [place] [address] Phone: tel: fax: Referral ID Status Reason Start Date Expiration Date Visits Requested Visits Authorized [id number] Authorized Specialty Services Required 06/02/2024 1 1 Question Answer Referral Priority: Within 28 days (routine) Where should this appointment be scheduled? [facility] Encounter Details Date Type Department Care Team (Late st Contact Info) Description 06/02/2024 Telephone Cardiothoracic Surg [facility] [place] [place] [address] [place] [address] Faisal Guzman MD [address] [place] [address] Allergies No known active allergiesdocumented [...] had a carotid duplex completed 05/11/2024 at [facility], results and images in Epic. Will order [...] EST Anesthesia Event [facility], [facility]PER[facility] [address] [place] [address] Darrian Jauregui CRNP [address] [place] [address] 06/10/2024 10:00 AM EST PulmDiagnostic Pulmonary Function Lab, [place] [address] [place] [address] 3, Pft Room [address] [place] [id number] 06/10/2024 11:00 AM EST Office Visit Cardiothoracic Surg [facility] [place] [address] [place] [address] Faisal Guzman MD [address] [place] [address] 06/10/2024 12:30 PM EST Office Visit Pre Surgery Center, [place] [address] [place] [address] Darrian Jauregui CRNP [address] [place] [address] 06/22/2024 Hospital Encounter OR [facility], OPERATING ROOM [facility] [address] [place] [address] Faisal Guzman MD [address] [place], [place] [phone] Scheduled Orders Name Type Priority Associated Diagnoses [...] Primary documented in this encounter Care Teams Vice Squad Police Officer Relationship Specialty Start Date End Date Chaz Portillo MD PCP - General Family Medicine 07/14/13 documented as of this encounter
--- OUTSIDE RECORDS SUMMARY | 2024-07-01 13:56 | External Medical Summary | Summary of Care ---
Author Name Unknown Organization [facility] Address [address] [place] [address] Phone [phone] Care Team Providers Care Picker Box Operator Name Role Phone Chaz Portillo MD Primary Care Provide r Encounter Details Date Type Department Care Team (Late st Contact Info) Description 05/28/2024 New Patient Triage (ORTHO NURSE USE ONLY) Cardiology [facility] [address] [place] [address] Dimple Bassett, RN Allergies No known active allergiesdocumented as of this encounter (statuses as of 05/28/2024) Medications hydrochlorothiaz harini (HYDRODIURIL) 25 MG Tablet 7 Active lisinopril (PRINIVIL) 20 MG Tablet 7 Active triamcinolone acetonide (ARISTOCORT) 0.1 % creamIndications :Rash and nonspecific skin eruption Apply topically to affected area 2 times a day. To affected area. 45 g 1 7 Active documented as of this encounter (statuses as of 05/28/2024) Social History Tobacco Use Types Packs/Day Years [...] as of this encounter Progress Notes * Dimple Bassett, RN - 05/28/2024 1:09 PM EST New Patient Triage What is the diagnosis/reason for referral?: / CAD Enter order ID here: [id number] Specialty specific documentation: Cardiology Structural Heart Triage - Mod / Severe , CAD, worsening FGIUEROA and dizziness, normal EF, work up completed and saw Friscia Schedule first possible clinic opening - Chris Eng if able CHARITY Iniguez Interventional Valve Nurse Navigator documented in this encounter Plan of Treatment Health Maintenance [...] filedocumented as of this encounter Care Teams Picker Box Operator Relationship Specialty Start Date End Date Chaz Portillo MD PCP - General Family Medicine 07/14/13 documented as of this encounter
--- OUTSIDE RECORDS SUMMARY | 2024-07-01 13:56 | External Medical Summary | Summary of Care ---
Author Name Unknown Organization [facility] Address [address] [place] [address] Phone [phone] Care Team Providers Care Decorator Inspector Name Role Phone Lynn Gibson MD Primary Care Provider Reason for Visit * Reason Comments Pulmonary Function Test Encounter Details Date Type Department Care Team (Latest Contact Info) Description 06/10/2024 10:00 AM EST PulmDiagnostic Pulmonary Function Lab, [place] [address], [place] [id number] 3, [address]ft [address] [place] [address] Aortic valve stenosis, unspecified etiology* Allergies No known active allergiesdocumented as of this encounter (statuses as of 06/10/2024) Medications triamcinolone acetonide (ARISTOCORT) 0.1 % creamIndications [...] by mouth in the morning. 4 Active documented as of this encounter (statuses as of 06/10/2024) Active Problems Problem Noted Date Diagnosed Date Aortic valve stenosis, unspecified etiology 05/22 documented as of this encounter (statuses as of 06/10/2024) Social History Tobacco Use Types Packs/Day Years [...] AM EST documented as of this encounter Nursing Notes * Christie Chaney RRT - 06/10/2024 11:23 AM EST Patient identified by name and date of . Abg drawn from left radial artery on room air. Positive alla test. Spirometry performed. documented in this encounter Plan of Treatment Upcoming Encounters Date Type Department Care Team (Latest Contact Info) Description 06/22/2024 7:00 AM EST Hospital Encounter [place] [facility], OPERATING ROOM [facility] [address] [place] [phone] Faisal Guzman MD [address], [place] [phone] 06/22/2024 7:00 AM EST Anesthesia Event OR [facility], OPERATING ROOM [facility], [facility] [address] [place] [phone] Darrian Jauregui CRNP [address], [place] [phone] 06/22/2024 7:00 AM EST - 06/22/2024 12:39 PM EST Surgery OR [facility], OPERATING ROOM [facility], [facility] [address] [place] [phone] Faisal Guzman MD [address] [place] [address] REPLACEMENT AORTIC VALVE, BYPASS WITH PROSTHETIC VALVE Pending Results Name Type Priority Associated Diagnoses Date /Time BASIC SPIROMETRY Procedures Routine Aortic valve stenosis, unspecified etiology 06/10/2024 9:32 AM EST Scheduled Procedures Name Priority Associated Diagnoses Date/Ti me REPLACEMENT AORTIC VALVE, BYPASS WITH PROSTHETIC VALVE Aortic valve stenosis, unspecified etiology 06/22/2024 7:00 AM EST CORONARY ARTERY BYPASS GRAFT USING ARTERY 1 GRAFT Aortic valve stenosis, unspecified etiology 06/22/2024 7:00 AM EST CORONARY ARTERY BYPASS GRAFT ARTERIAL AND VENOUS 2 GRAFTS Aortic valve stenosis, unspecified etiology 06/22/2024 7:00 AM EST ENDOSCOPY VIDEO ASSISTED HARVEST VEIN Aortic valve stenosis, unspecified etiology 06/22/2024 7:00 AM EST Health Maintenance Due Date Last [...] Procedure Name Priority Date/Time Associated Diagnosis Comments BLOOD GAS, ARTERIAL Routine 06/10/2024 9 :47 AM EST Aortic valve stenosis, unspecified etiology BASIC SPIROMETRY Routine 06/10/2024 9:32 AM EST Aortic valve stenosis, unspecified etiology documented in this encounter Results * BLOOD GAS, ARTERIAL (06/10/2024 9:47 AM EST) Temperature 37.0 C 06/10/2024 10:05 AM EST [facility] pH, Arterial 7.400 7.350 - 7.450 units 06/10/2024 10:05 AM EST [facility] pCO2, Arterial 39.4 35.0 - 45.0 mmHg 06/10/2024 10:05 AM EST [facility] pO2, Arterial 93.5 75.0 - 100.0 mmHg 06/10/2024 10:05 AM EST [facility] Base Excess, Arterial -0.3 -2.0 - 2.0 mmol/L 06/10/2024 10:05 AM EST [facility] HGB 15.0 14.0 - 16.8 g/dL 06/10/2024 10:05 AM EST [facility] Oxyhemoglobin, Arterial 96.3 94.0 - 99.0 % total Hgb 06/10/2024 10:05 AM EST [facility] Carboxyhemoglob in, Whole Blood 1.0 <=1.5 % total Hgb 06/10/2024 10:05 AM EST [facility] Comment:Smokers: 0-9.0 % Methemoglobin, Whole Blood 0.6 <=1.5 % total Hgb 06/10/2024 10:05 AM EST [facility] Reduced Hemoglobin, Arterial 2.1 0.0 - 5.0 % total Hgb 06/10/2024 10:05 AM EST [facility] O2 Content, Arterial 20.4 15.0 - 24.0 %vol 06/10/2024 10:05 AM EST [facility] FiO2 Not Provided % 06/10/2024 10:05 AM EST [facility] O2 Flow, Arterial Not Provided L/min 06/10/2024 10:05 AM EST [facility] Bicarbonate, Whole Blood 23.8 23.0 - 31.0 mmol/L 06/10/2024 10:05 AM EST [facility] Blood Arterial blood specimen / Unknown Arterial Puncture / Unknown 06/10/2024 9:47 AM EST 06/10/2024 10:01 AM EST Faisal Guzman MD LAB BLOOD ORDERABLES Final Result [facility] [address] [facility] [place] [address] documented in this encounter Visit Diagnoses Diagnosis Aortic valve stenosis, unspecified etiology- Primary Aortic valve stenosis, unspecified etiology- Primary Aortic valve stenosis, unspecified etiology documented in this encounter Care Teams Decorator Inspector Relationship Specialty Start Date End Date Lynn Gibson MD [address] [place] [address] [place] [address] PCP - General Family Medicine 06/10/24 documented as of this encounter
--- OUTSIDE RECORDS SUMMARY | 2024-07-01 13:56 | External Medical Summary ---
Author Name Unknown Address Unknown Organization K01:LAB[facility]ATORY [facility] [place] [address] [facility] [address] Laboratory Report Ordering Provider Test Date Status LIZET SHARIF 06/10/2024 12:21:42 Final Observation Date Value Abnormality Reference (Units ) Status HbA1C 06/10/2024 12:21:42 5.7 Above high normal 4. 0-5.6 (%) Final The use of HbA1c to monitor glycemic status is based on normal hemoglobin and HbA composition. This test should not be used in patients with abnormal hemoglobin that affects the half life of the red blood cell or the in vivo glycation rates. Glucose, estimated average 06/10/2024 12:21:42 117 <126 (mg/dL) Final Performing Location [facility]ORY [facility] [place] [address] [place] [facility] [address] [facility] [address]
--- OUTSIDE RECORDS SUMMARY | 2024-07-01 13:56 | External Medical Summary | Summary of Care ---
Author Name Unknown Organization [facility] Address [address] [place] [address] Phone [phone] Care Team Providers Care Tunnel Heading Supervisor Name Role Phone Lynn Gibson MD Primary Care Provider [phone] Reason for Visit * Reason Comments Outpatient Testing Encounter Details Date Type Department Care Team (Late st Contact Info) Description 06/10/2024 1:30 PM EST Laboratory Outpatient Laboratory, [place] [address] [place] [address] [facility], Lab [facility] [address] [place] [address] Aortic valve disorder Allergies No known active allergiesdocumented as of [...] 06/22/2024 10:13 AM EST Hospital Encounter [place] [facility] [facility] [address] [place] [phone] Faisal Guzman MD [address], [place] [phone] 06/22/2024 10:13 AM EST Anesthesia Event [place] [facility] OPER[place] [facility] [address] [place] [phone] Darrian Jauregui CRNP [address] [place] [address] 06/22/2024 10:13 AM EST - 06/22/2024 4:12 PM EST Surgery [place] [facility], OPERATING ROOM [facility] [address] [place] [address] Faisal Guzman MD [address], [place] [phone] REPLACEMENT AORTIC VALVE, BYPASS WITH PROSTHETIC VALVE [...] Procedure Name Priority Date/Time Associated Diagnosis Comments ABO/RH Routine 06/10/2024 12:29 PM EST Aortic valve disorder ANEMIA REFLEX CHEMISTRY HOLD Routine 06/10/2024 12:21 PM EST Aortic valve disorder ANEMIA CBC Routine 06/10/2024 12:21 PM EST Aortic valve disorder DIFFERENTIAL, AUTOMATED Routine 06/10/2024 12:21 PM EST Aortic valve disorder DIFFERENTIAL, AUTOMATED Routine 06/10/2024 12:21 PM EST Aortic valve disorder HEMOGLOBIN A1C Routine 06/10/2024 12:21 PM EST Aortic valve disorder HEPATIC FUNCTION PANEL Today 06/10/2024 12:21 PM EST Aortic valve disorder BASIC METABOLIC PANEL Today 06/10/2024 12:21 PM EST Aortic valve disorder TYPE AND SCREEN Routine 06/10/2024 12:21 PM EST Aortic valve disorder IRON SCREEN, INCLUDING TIBC Today 06/10/2024 12:21 PM EST Aortic valve disorder PT INR Today 06/10/2024 12:21 PM EST Aortic valve disorder TSH Routine 06/10/2024 12:21 PM EST Aortic valve disorder URINALYSIS, REFLEX TO MICROSCOPIC Today 06/10/2024 12:21 PM EST Aortic valve disorder documented in this encounter Results * ABO/RH (06/10/2024 12:29 PM EST) ABO O 06/10/2024 1:40 PM EST LABORATORY [facility] BLOOD [facility] Rh Positive 06/10/2024 1:40 PM EST LABORATORY [facility] Blood Venous blood specimen / Unknown Venipuncture / Unknown 06/10/2024 12:29 PM EST 06/10/2024 1:20 PM EST us Esteban Mcdonald PA-C LAB BLOOD BANK KRISTI T ORDERABLES Final Result LABORATORY [facility] [address] [place] [address] * ANEMIA REFLEX CHEMISTRY HOLD (06/10/2024 12:21 PM EST) Blood Venous blood specimen / Unknown Venipuncture / Unknown 06/10/2024 12:21 PM EST 06/10/2024 12:53 PM EST us Esteban Mcdonald PA-C LAB BLOOD ORDERABL ES Final Result [facility] [address] [place] [address] * DIFFERENTIAL, AUTOMATED (06/10/2024 12:21 PM EST) WBC 6.74 4.00 - 10.80 K/uL 06/10/2024 1:05 PM EST [facility] Neutrophils % 61.5 40.0 - 75.0 % 06/10/2024 1:05 PM EST [facility] Lymphocytes % 24.8 18.0 - 42.0 % 06/10/2024 1:05 PM EST [facility] Monocytes % 9.3 1.0 - 11.0 % 06/10/2024 1:05 PM EST [facility] Eosinophils % 3.1 0.0 - 6.0 % 06/10/2024 1:05 PM EST [facility] Basophils % 1.2 0.0 - 2.0 % 06/10/2024 1:05 PM EST [facility] Immature Granulocytes % 0.1 0.0 - 2.0 % 06/10/2024 1:05 PM EST [facility] Absolute Neutrophils 4.14 1.80 - 7.70 K/uL 06/10/2024 1:05 PM EST [facility] Absolute Lymphocytes 1.67 1.00 - 4.80 K/ul 06/10/2024 1:05 PM EST [facility] Absolute Monocytes 0.63 0.00 - 1.10 K/uL 06/10/2024 1:05 PM EST [facility] Absolute Eosinophils 0.21 0.00 - 0.70 K/uL 06/10/2024 1:05 PM EST [facility] Absolute Basophils 0.08 0.00 - 0.20 K/uL 06/10/2024 1:05 PM EST [facility] Absolute Immature Granulocytes 0.01 0.00 - 0.20 K/uL 06/10/2024 1:05 PM EST [facility] Blood Venous blood specimen / Unknown Venipuncture / Unknown 06/10/2024 12:21 PM EST 06/10/2024 12:53 PM EST us Esteban Mcdonald PA-C LAB BLOOD ORDERABL ES Final Result [facility] [address] [place] [address] * ANEMIA CBC (06/10/2024 12:21 PM EST) Pathologist [facility] WBC 6.74 4.00 - 10.80 K/uL 06/10/2024 1:05 PM EST [facility] RBC 4.73 4.50 - 5.25 M/uL 06/10/2024 1:05 PM EST [facility] HGB 14.6 14.0 - 16.8 g/dL 06/10/2024 1:05 PM EST [facility] Comment: Anemia reflex testing triggers on a HGB < 12.0 for Females and HGB < 13.0 for Males in accordance with the WHO Anemia Guidelines Anemia reflex testing triggers on a HGB < 12.0 for Females and HGB < 13.0 for Males in accordance with the WHO Anemia Guidelines HCT 45.6 40.0 - 48.4 % 06/10/2024 1:05 PM EST [facility] MCV 96.4 82.0 - 99.5 fL 06/10/2024 1:05 PM EST [facility] MCH 30.9 27.0 - 34.0 pg 06/10/2024 1:05 PM EST [facility] MCHC 32.0 32.0 - 36.0 g/dL 06/10/2024 1:05 PM EST [facility] RDW 12.4 11.5 - 15.5 % 06/10/2024 1:05 PM EST [facility] PLT 208 140 - 400 K/uL 06/10/2024 1:05 PM EST [facility] MPV 10.9 6.6 - 11.1 fL 06/10/2024 1:05 PM EST [facility] nRBCs 0 <=0 /100 WBCs 06/10/2024 1:05 PM EST [facility] Blood Venous blood specimen / Unknown Venipuncture / Unknown 06/10/2024 12:21 PM EST 06/10/2024 12:53 PM EST Esteban LA-C LAB BLOOD ORDERABL ES Final Result Performing Organization Address [facility]/ZIP Co de Phone Number LABORATORY [facility] [address] [place] [address] * TSH (06/10/2024 12:21 PM EST) TSH 0.91 0.27 - 4.20 uIU/mL 06/10/2024 1:50 PM EST [facility] Blood Venous blood specimen / Unknown Venipuncture / Unknown 06/10/2024 12:21 PM EST 06/10/2024 12:53 PM EST Esteban LA-C LAB BLOOD ORDERABL ES Final Result Performing Organization Address [facility] de Phone Number LABORATORY [facility] [address] [place] [address] * TYPE AND SCREEN (06/10/2024 12:21 PM EST) ABO O 06/10/2024 1:56 PM EST LABOR[facility] Rh Positive 06/10/2024 1:56 PM EST LAB[facility]ORY [facility] Red Blood Cell Antibody Screen Negative 06/10/2024 1:56 PM EST LABORATORY [facility] B[facility] Specimen Expiration Date 06/25/2024 23:59 06/10/2024 1:56 PM EST LAB[facility] Blood Venous blood specimen / Unknown Venipuncture / Unknown 06/10/2024 12:21 PM EST 06/10/2024 12:39 PM EST Esteban LA-C LAB BLOOD BANK KRISTI T ORDERABLES Final Result Performing Organization Address City/[facility] Co de Phone Number LABORATORY [facility] [address] [place] [address] * (ABNORMAL) IRON SCREEN, INCLUDING TIBC (06/10/2024 [...] ORDERABL ES Final Result [facility] [address] [place] [address] * (ABNORMAL) HEPATIC FUNCTION PANEL (06/10/2024 12:21 [...] 12:21 PM EST 06/10/2024 12:53 PM EST Christopher G Malafronte PA-C LAB BLOOD ORDERABL ES Final Result [facility] [address] [place] [address] * URINALYSIS, REFLEX TO MICROSCOPIC (06/10/2024 12:21 PM EST) Color, Urine Yellow Colorless, Light Yellow, Yellow, Dark Yellow 06/10/2024 1:22 PM EST [facility] Clarity, Urine Clear Clear 06/10/2024 1:22 PM EST LABORATORY C Glucose, Urine Negative Negative mg/dL 06/10/2024 1:22 PM EST LABORATORY C Bilirubin, Urine Negative Negative 06/10/2024 1:22 PM EST LABORATORY C Ketone, Urine Negative Negative mg/dL 06/10/2024 1:22 PM EST LABOR[facility]ORY [facility] Specific [place], Urine 1.025 1.003 - 1.030 06/10/2024 1:22 PM EST [facility] Blood, Urine Negative Negative 06/10/2024 1:22 PM EST LAB[facility] pH, Urine 6.0 5.0 - 7.5 Units 06/10/2024 1:22 PM EST LAB[facility]ORY [facility] Protein, Urine Negative Negative mg/dL 06/10/2024 1:22 PM EST LAB[facility]ORY [facility] Urobilinogen, Urine Normal Normal mg/dL 06/10/2024 1:22 PM EST LABORATORY C Nitrite, Urine Negative Negative 06/10/2024 1:22 PM EST LABORATORY C Esterase, Urine Negative Negative 1:22 PM EST LABORATORY C Comment, Urine 06/10/2024 1:22 PM EST LAB[facility]ORY [facility] Comment:Screen negative - Mi croscopic not performed. Urine Urine specimen obtained by clean catch procedure / Unknown Non-blood Collection / Unknown 06/10/2024 12:21 PM EST 06/10/2024 12:39 PM EST us Esteban Mcdonald PA-C LAB URINE ORDERABL ES Final Result [facility] [address] [place] [address] * BASIC METABOLIC PANEL (06/10/2024 12:21 PM EST) BUN 13 6 - 20 mg/dL 06/10/2024 1:23 PM EST [facility] CREATININE 1.1 0.6 - 1.2 mg/dL 06/10/2024 1:23 PM EST [facility] EGFR 71 >=60 mL/min 06/10/2024 1:23 PM EST [facility] Comment:eGFR is calculated b ased on the CKD-EPI 2020 equation. SODIUM 142 135 - 146 mmol/L 06/10/2024 1:23 PM EST [facility] POTASSIUM 4.9 3.5 - 5.1 mmol/L 06/10/2024 1:23 PM EST [facility] CHLORIDE 107 98 - 107 mmol/L 06/10/2024 1:23 PM EST [facility] CO2 27 22 - 32 mmol/L 06/10/2024 1:23 PM EST [facility] ANION GAP 8 7 - 15 mmol/L 06/10/2024 1:23 PM EST [facility] GLUCOSE 104 70 - 120 mg/dL 06/10/2024 1:23 PM EST [facility] CALCIUM 9.2 8.4 - 10.2 mg/dL 06/10/2024 1:23 PM EST LABORATORY C Blood Venous blood specimen / Unknown Venipuncture / Unknown 06/10/2024 12:21 PM EST 06/10/2024 12:53 PM EST Esteban Mcdonald PA-C LAB BLOOD ORDERABL ES Final Result [facility] [address], [place] [id number] * PT INR (06/10/2024 12:21 PM EST) Prothrombin Time 13.6 11.6 - 15.2 seconds 06/10/2024 1:15 PM EST [facility] INR 1.0 0.8 - 1.2 06/10/2024 1:15 PM EST LABORATORY GM Blood Venous blood specimen / Unknown Venipuncture / Unknown 06/10/2024 12:21 PM EST 06/10/2024 12:53 PM EST Narrative LAB[facility] - 06/10/2024 1:15 PM EST Warfarin Therapy INR: 2.0-3.0 conventional anticoagulation INR: 2.5-3.5 high intensity anticoagulation Raimundopaulinolatia LA-Pat LAB BLOOD ORDERABL ES Final Result Performing Organization Address [facility] de Phone Number LAB[facility]ORY [facility] [address] [place] [address] * (ABNORMAL) HEMOGLOBIN A1C (06/10/2024 12:21 PM EST) Pathologist [facility] Hemoglobin A1C 5.7(H) 4.0 - 5.6 % 06/10/2024 1:15 PM EST [facility] Comment:The use of HbA1c to monitor glycemic status is based on normal hemoglobin and HbA composition. This test should not be used in patients with abnormal hemoglobin that affects the half life of the red blood cell or the in vivo glycation rates. Estimated Average Glucose 117 <126 mg/dL 06/10/2024 1:15 PM EST [facility] Blood Venous blood specimen / Unknown Venipuncture / Unknown 06/10/2024 12:21 PM EST 06/10/2024 12:53 PM EST Esteban Mcdonald PA-C LAB BLOOD ORDERABL ES Final Result Performing Organization Address [facility] Co de Phone Number LABORATORY [place] [address] [place] [address] documented in this encounter Visit Diagnoses Diagnosis Aortic valve stenosis, unspecified etiology- Primary Aortic valve disorder Aortic valve disorders Aortic valve stenosis, unspecified etiology documented in this encounter Care Teams Tunnel Heading Supervisor Relationship Specialty Start Date End Date Lynn Gibson MD [address] [place] [address] BESSIE MENDOZA [id number] PCP - General Family Medicine 06/10/24 documented as of this encounter
--- OUTSIDE RECORDS SUMMARY | 2024-07-01 13:56 | External Medical Summary ---
Author Name Unknown Address Unknown Organization K01:LABORATORY [facility] - [facility] [address] [place] [facility] [address] Laboratory Report Ordering Provider Test Date Status DORENE SHARIFPARISJv 06/10/2024 11:59:00 Final Observation Date Value Abnormality Reference (Units ) Status Staphylococcus aureus methicillin resistance SCCmec [Presence] in Nose by SAW with probe detection 06/10/2024 11:59:00 Negative Negative Final No Methicillin resistant Sta phylococcus aureus detected by PCR (amplified probe). Methicillin susceptible Staphylococcus aureus DNA [Presence] in Specimen by SAW with probe detection 06/10/2024 11:59:00 Positive Abnormal Negative Final Staphylococcus aureus detect ed by PCR (amplified probe). Performing Location LABORATORY [facility] - [address] [facility] [address]
--- OUTSIDE RECORDS SUMMARY | 2024-07-01 13:56 | External Medical Summary | Summary of Care ---
Author Name Unknown Organization [facility] Address [address] [place] [address] Phone [phone] Care Team Providers Care Inspector Process Name Role Phone Chaz Portillo MD Primary Care Provide r Encounter Details Date Type Department Care Team (Late st Contact Info) Description 05/28/2024 New Patient Triage (REFERENCE LIBRARY ASSISTANT USE ONLY) Cardiology [facility] [address] [place] [address] Dimple Bassett, RN Allergies No known active allergiesdocumented as of this encounter (statuses as of 06/03/2024) Medications hydrochlorothiaz harini (HYDRODIURIL) 25 MG Tablet 7 Active lisinopril (PRINIVIL) 20 MG Tablet 7 Active triamcinolone acetonide (ARISTOCORT) 0.1 % creamIndications :Rash and nonspecific skin eruption Apply topically to affected area 2 times a day. To affected area. 45 g 1 7 Active documented as of this encounter (statuses as of 06/03/2024) Active Problems Problem Noted Date Diagnosed Date Aortic valve stenosis, unspecified etiology 05/22 documented as of this encounter (statuses as of 06/03/2024) Social History Tobacco Use Types Packs/Day Years [...] as of this encounter Progress Notes * Elsi Schneider OSA - 06/03/2024 2:19 PM EST Spoke with Ravi. He stated he no longer needs this appointment he decided to go with the open heart with Megan Thank you JEANA Bush * Dimple Bassett, RN - 05/28/2024 1:09 PM EST New Patient Triage What is the diagnosis/reason for referral?: / CAD Enter order ID here: [id number] Specialty specific documentation: Cardiology Structural Heart Triage - Mod / Severe , CAD, worsening FIGUEROA and dizziness, normal EF, work up completed and saw Megan Schedule first possible clinic opening - Chris Eng if able CHARITY Iniguez Interventional Valve Nurse Navigator documented in this encounter Plan of Treatment Upcoming Encounters Date Type Department Care Team (Late st Contact Info) Description 06/02/2024 11:59 PM EST Anesthesia Event [facility], OPERATING ROOM [facility], [facility] [address] [place] [phone] Darrian Jauregui CRNP [address] [place] [address] 06/10/2024 10:00 AM EST PulmDiagnostic Pulmonary Function Lab, [place] [address] [place] [address] 3, Pft Room [address] [place], [place] [id number] 06/10/2024 11:00 AM EST Office Visit Cardiothoracic Surg [facility], [place] [address] [place] [address] Faisal Guzman MD [address] [place] [address] 06/10/2024 12:30 PM EST Office Visit Pre Surgery Center, [place] [address] [place] [phone] Darrian Jauregui CRNP [address] [place], [place] [phone] 06/22/2024 Hospital Encounter [facility], OPERATING ROOM [facility] [place] [address] [place] [address] Faisal Guzman MD [facility] [place] [address] Scheduled Procedures Name Priority Associated Diagnoses Date/Ti me REPLACEMENT AORTIC VALVE, BY PASS WITH PROSTHETIC VALVE Aortic valve stenosis, unspecified etiology Health Maintenance Due Date Last Done Comments [...] filedocumented as of this encounter Care Teams Inspector Process Relationship Specialty Start Date End Date Chaz Portillo MD PCP - General Family Medicine 07/14/13 documented as of this encounter
--- OUTSIDE RECORDS SUMMARY | 2024-07-01 13:56 | External Medical Summary | Summary of Care ---
Author Name Unknown Organization [facility] Address [address] [place] [address] Phone [phone] Care Team Providers Care Buffet Attendant Name Role Phone Chaz Portillo MD Primary Care Provide r Reason for Referral * Evaluate & Treat - Unlimited Visits (Within 30 days (routine)) - Authorized Specialty Diagnoses / Procedures Referred By Contac t Referred To Contact Cardiovascular Medicine Diagnoses Aortic valve stenosis, unspecified etiology Esteban Mcdonald PA-C [address] [place] [address] Phone: tel: fax: Francisco Vega MD [address] [place] [address] Phone: tel:[phone] fax:[phone] Referral ID Status Reason Start Date Expiration Date Visits Requested Visits Authorized [id number] Authorized Specialty Services Required 05/27/2024 999 999 Question Answer Referral Priority Within 30 days (routine) Where should this appointment be scheduled? [facility] * Precert (Within 10 days (routine)) - Authorized Specialty Diagnoses / Procedures Referred By Contac t Referred To Contact Radiology Diagnoses Aortic valve stenosis, unspecified etiology Procedures CTA TAVR GATED STUDY Esteban Mcdonald PA-C [address] [place] [address] Phone: tel: fax: Referral ID Status Reason Start Date Expiration Date V isits Requested Visits Authorized [id number] Authorized Precert 05/27/2024 11/23/2024 999 999 Reason for Visit * Reason Comments NEW PATIENT * Evaluate & Treat - Unlimited Visits (Within 10 days (routine)) - Authorized Specialty Diagnoses / Procedures Referred By Julian t Referred To Contact Cardiovascular Surgery / Cardiothoracic Surgery Diagnoses Coronary atherosclerosis Aortic valve stenosis, etiology of cardiac valve disease unspecified Santos Strickland MD [address] [address] Phone: tel: fax: Referral ID Status Reason Start Date Expiration Date Visits Requested Visits Authorized [id number] Authorized Specialty Services Required 05/21/2024 999 [id number] Encounter Details Date Type Department Care Team (Late st Contact Info) Description 05/27/2024 10:00 AM EST Office Visit Cardiothoracic Surg [facility] [address] [place] [address] Faisal Guzman MD [address] [place] [address] Aortic valve stenosis, unspecified etiology* Allergies No known active allergiesdocumented as of this encounter (statuses as of 05/28/2024) Medications hydrochlorothia zide (HYDRODIURIL) 25 MG Tablet 7 Active lisinopril (PRINIVIL) 20 MG Tablet 7 Active triamcinolone acetonide (ARISTOCORT) 0.1 % creamIndication s:Rash and nonspecific skin eruption Apply topically to affected area 2 times a day. To affected area. 45 g 1 7 Active PredniSONE (DELTASONE) 10 MG TabletIndicatio ns:Rash and nonspecific skin eruption Take 5 tabs by mouth once daily for 2 days, then 4 tabs for 2 days, 3 tabs for 2 days, 2 tabs for 2 days 1 tab for 2 days. Take with food. 30 Tab 7 05/27/19 25 Discontinu ed(Medicat ion List Clean Up) documented as of this encounter (statuses as [...] Sign Reading Time Taken Comments Blood Pressure 144/86 05/27/2024 9:40 AM EST Pulse 46 05/27/2024 9:35 AM EST Temperature - - Respiratory Rate - - Oxygen Saturation 97% 05/27/2024 9:35 AM EST Inhaled Oxygen Concentration - - Weight 89.5 kg (197 lb 4.8 oz) 05/27/2024 9:35 A M EST Height 173.4 cm (5' 8.25") 05/27/2024 9:35 AM ES T Body Mass Index 29.78 05/27/2024 9:35 AM EST documented in this encounter Progress Notes * Faisal Guzman MD - 05/27/2024 10:00 AM EST CARDIAC SURGERY I have seen and examined the patient with Alireza. I am seeing Ravi Ortega as an evaluation for /CAD, referred by Dr. Strickland. Ravi has symptoms of progressive dyspnea with exertion. Also reports dizzyness when standing up. No chest pain or syncope. 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 None since. 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 PE demonstrates systolic murmur, clear lungs. STS [...] calcium -- adequate transfemoral access IMPRESSION Ravi Ortega has severe with symptoms. We discussed the [...] Guzman M.D. Associate, Thoracic and Cardiac Surgery [place] [address] [place] [address] Office [phone] documented in this encounter Plan of Treatment Pending Results Name Type Priority Associated Diagnoses Date /Time CTA TAVR GATED STUDY Medical Imaging Routine Aortic valve stenosis, unspecified etiology 05/27/2024 11:23 AM EST Scheduled Orders Name Type Priority Associated Diagnoses Orde r Schedule CTA TAVR GATED STUDY Medical Imaging Routine Aortic valve stenosis, unspecified etiology Expected: 05/27/2024, Expires: 06/24/2025 CREATININE Lab Routine Aortic valve stenosis, unspecified etiology Expected: 05/27/2024, Expires: 05/27/2025 Scheduled Referrals Name Type Priority Associated Diagnoses Orde r Schedule VALVE CLINIC REFERRAL OP Referral Within 30 days (routine) Aortic valve stenosis, unspecified etiology Ordered: 05/27/2024 Health Maintenance Due Date Last Done Comments [...] Diagnosis Aortic valve stenosis, unspecified etiology- Primary documented in this encounter Care Teams Buffet Attendant Relationship Specialty Start Date End Date Chaz Portillo MD PCP - General Family Medicine 07/14/13 documented as of this encounter
--- OUTSIDE RECORDS SUMMARY | 2024-07-01 13:56 | External Medical Summary ---
Author Name Unknown Address Unknown Organization K01:[facility] [place] [address] [place] [address] Laboratory Report Ordering Provider Test Date Status LIZET SHARIF 06/10/2024 12:21:42 Final Observation Date Value Abnormality Reference (Units ) Status Iron 06/10/2024 12:21:42 131 45-176 (ug/dL) Final Iron-binding capacity 06/10/2024 12:21:42 238 Below low normal 250-425 (ug/dL) Final Transferrin Sat % 06/10/2024 12:21:42 55 15-55 (%) Final Performing Location [facility] [place] [address] [place] [address]
--- OUTSIDE RECORDS SUMMARY | 2024-07-01 13:56 | External Medical Summary ---
Author Name Unknown Address Unknown Organization K01[place] [facility] [place] [address] [place] [address] Laboratory Report Ordering Provider Test Date Status LIZET SHARIF 06/10/2024 12:21:42 Final Warfarin Therapy
INR: 2 .0-3.0 conventional anticoagulation
INR: 2.5- 3.5 high intensity anticoagulation Observation Date Value Abnormality Reference (Units ) Status PT 06/10/2024 12:21:42 13.6 11.6-15.2 (seconds) Final INR 06/10/2024 12:21:42 1.0 0.8-1.2 Final Performing Location [facility] [facility] [place] [address] [place] [address]
--- OUTSIDE RECORDS SUMMARY | 2024-07-01 13:56 | External Medical Summary | Summary of Care ---
Author Name Unknown Organization [facility] Address [address] [place] [address] Phone [phone] Care Team Providers Care Community Mental Health Worker Name Role Phone Chaz Portillo MD Primary Care Provide r Encounter Details Date Type Department Care Team (Late st Contact Info) Description 05/11/2024 Orders Only Cardiothoracic Surg [facility] [address] [place] [address] Faisal Guzman MD [address] [place] [address] Allergies No known active allergiesdocumented as of this encounter (statuses as of 05/21/2024) Medications hydrochlorothiaz harini (HYDRODIURIL) 25 MG Tablet 7 Active lisinopril (PRINIVIL) 20 MG Tablet 7 Active triamcinolone acetonide (ARISTOCORT) 0.1 % creamIndications :Rash and nonspecific skin eruption Apply topically to affected area 2 times a day. To affected area. 45 g 1 7 Active PredniSONE (DELTASONE) 10 MG TabletIndication s:Rash and nonspecific skin eruption Take 5 tabs by mouth once daily for 2 days, then 4 tabs for 2 days, 3 tabs for 2 days, 2 tabs for 2 days 1 tab for 2 days. Take with food. 30 Tab 7 Active documented as of this encounter (statuses as of 05/21/2024) Social History Tobacco Use Types Packs/Day Years Used Date Smoking Tobacco: Never Smokeless Tobacco: Current Alcohol Use Standard Drinks/Week Comments Not Asked 0 (1 standard drink = 0.6 oz pur e alcohol) Utilities Answer Date Recorded Do you have trouble paying y our heating, water, or electric bill? (Adult - for ages 18 years and over) Not on file 10/07/2023 Is your family able to pay t he heat, water, or electric bill? (Household - for ages 0-17 years) Not on file 10/07/2023 Does your family have access to good internet? (Household - for ages 0-17 years) Not on file 10/07/2023 Social Connections Answer Date Recorded How often do you feel lonely or isolated from those around you? (Adult - for ages 18 years and over) Not on file 10/07/2023 Sex and Gender Information Value Date Recorded Sex Assigned at Not on file Legal Sex Male 5:07 AM EST Gender Identity Not on file Sexual Orientation Not on file documented as of this encounter Plan of Treatment Upcoming Encounters Date Type Department Care Team (Late st Contact Info) Description 05/27/2024 10:00 AM EST Office Visit Cardiothoracic Surg [facility] [address] [place] [address] Faisal Guzman MD [address] [place] [address] Health Maintenance Due Date Last Done Comments Depression Screening 1967 Hepatitis C Screening 1973 DTap/Tdap Vaccines (1 - Tdap) 1974 Cologuard 02/23/2000 Colonoscopy 02/23/2000 Colorectal Cancer Screening 02/23/2000 Fecal Occult Blood Test 02/23/2000 Sigmoidoscopy 02/23/2000 Pneumococcal Vaccine: 50+ Years (1 of 1 - PCV) 2005 Zoster Vaccines (1 of 2) 2005 Lipid Panel 06/28/2009 06/28/2004, 06/19, 09/15/2001, Additional history exists COVID-19 Vaccine ( - season) 2023 Influenza Vaccine (FLU shot) (#1) 2023 HPV (Gardasil) Vaccine Aged Out No lo [...] Procedure Name Priority Date/Time Associated Diagnosis Comments RADIOLOGY EXAM - US (IMAGES ONLY, NO REPORT) Routine 05/11/2024 8:25 AM EST documented in this encounter Results * RADIOLOGY EXAM - US (IMAGES ONLY, NO REPORT) (05/11/2024 8:25 AM EST) 05/11/2024 8:24 AM EST Narrative Scheduling, Silent - 05/21/2024 12:59 PM EST This is an imaging study not interpreted or resulted by a [facility] or [employer] contracted radiologist. us Faisal Guzman MD RAD ULTRASOUND Final Resul t documented in this encounter Care Teams Community Mental Health Worker Relationship Specialty Start Date End Date Chaz Portillo MD PCP - General Family Medicine 07/14/13 documented as of this encounter
--- OUTSIDE RECORDS SUMMARY | 2024-07-01 13:56 | External Medical Summary | Summary of Care ---
Author Name Unknown Organization [facility] Address [address] [place] [address] Phone [phone] Care Team Providers Care Packaging Sales Representative Name Role Phone Chaz Portillo MD Primary Care Provide r Encounter Details Date Type Department Care Team (Latest Contact Info) Description 05/11/2024 8:25 AM EST - 05/11/2024 11:59 PM [facility] Encounter Radiology Film File [address] [place] [address] Discharge Disposition: Home - Self Care Allergies No known active allergiesdocumented as of this encounter (statuses as of 05/22/2024) Medications hydrochlorothiaz harini (HYDRODIURIL) 25 MG Tablet [...] as of this encounter (statuses as of 05/22/2024) Social History Tobacco Use Types Packs/Day Years [...] 10:00 AM EST Office Visit Cardiothoracic Surg [facility] [address] [place] [address] Faisal Guzman MD [address] [place] [address] Health Maintenance Due Date Last Done Comments [...] Additional history exists COVID-19 Vaccine ( - 2023- season) 2023 Influenza Vaccine (FLU shot) (#1) [...] study not interpreted or resulted by a [facility] or [employer] contracted radiologist. us Faisal Guzman MD RAD ULTRASOUND Final Resul t documented in this encounter Care Teams Packaging Sales Representative Relationship Specialty Start Date End Date Chaz Portillo MD PCP - General Family Medicine 07/14/13 documented as of this encounter
--- OUTSIDE RECORDS SUMMARY | 2024-07-01 13:56 | External Medical Summary | Summary of Care ---
Author Name Unknown Organization [facility] Address [address] [place] [address] Phone [phone] Care Team Providers Care Rn Teacher Name Role Phone Chaz Portillo MD Primary Care Provide r Encounter Details Date Type Department Care Team (Late st Contact Info) Description 05/28/2024 New Patient Triage (MEDIUM CYCLE SALESPERSON USE ONLY) Cardiology [facility] [address] [place] [address] Dimple Bassett, RN Allergies No known active allergiesdocumented as of this encounter (statuses as of 06/06/2024) Medications hydrochlorothiaz harini (HYDRODIURIL) 25 MG Tablet 7 Active lisinopril (PRINIVIL) 20 MG Tablet 7 Active triamcinolone acetonide (ARISTOCORT) 0.1 % creamIndications :Rash and nonspecific skin eruption Apply topically to affected area 2 times a day. To affected area. 45 g 1 7 Active documented as of this encounter (statuses as of 06/06/2024) Active Problems Problem Noted Date Diagnosed Date Aortic valve stenosis, unspecified etiology 05/22 documented as of this encounter (statuses as of 06/06/2024) Social History Tobacco Use Types Packs/Day Years [...] as of this encounter Progress Notes * Ines Plasencia DNP - 06/06/2024 4:11 PM EST Does patient need to be seen?: No and no need for further evaluation Discussed care plan with patient or proxy?: Yes, patient declined referral Communicated with patient on Date (mm/dd/ykamilay): 05/28/2024 at Time ([facility]): 1419 Pt opted for open heart surgery. Ines Plasencia [place], [place] [address] [facility] * Elsi Schneider OSA - 06/03/2024 2:19 PM EST Spoke with Ravi. He stated he no longer needs this appointment he decided to go with the open heart with Friscia Thank you JEANA Bush * Dimple Bassett, RN - 05/28/2024 1:09 PM EST New Patient Triage What is the diagnosis/reason for referral?: / CAD Enter order ID here: [id number] Specialty specific documentation: Cardiology Structural Heart Triage [...] 06/02/2024 11:59 PM EST Anesthesia Event OR [facility], OPERATING ROOM [facility], [facility] [address] [place] [phone] Darrian Jauregui CRNP [facility] [address] [place], [place] [id number] 06/10/2024 10:00 AM EST PulmDiagnostic Pulmonary Function Lab, [address] [address], Pft Room [address] [place] [id number] 06/10/2024 11:00 AM EST Office Visit Cardiothoracic Surg [facility], [address] [id number] Faisal Guzman MD [facility] [place] [address] 06/10/2024 12:30 PM EST Office Visit [facility], [place] [address] [place], [place] [id number] Darrian Jauregui CRNP [address] [place], [place] [id number] 06/22/2024 Hospital Encounter OR [facility], OPERATING ROOM [facility] [address] [place] [phone] Faisal Guzman MD [facility] [address] [place], [place] [id number] Scheduled Procedures Name Priority Associated Diagnoses Date/Ti [...] filedocumented as of this encounter Care Teams Rn Teacher Relationship Specialty Start Date End Date Chaz Portillo MD PCP - General Family Medicine 07/14/13 documented as of this encounter
--- OUTSIDE RECORDS SUMMARY | 2024-07-01 13:56 | External Medical Summary | Summary of Care ---
Author Name Unknown Organization [facility] Address [address] [place] [address] Phone [phone] Care Team Providers Care Public Services Assistant Name Role Phone Chaz Portillo MD Primary Care Provide r Reason for Referral * Precert (Within 10 days (routine)) - Authorized Specialty Diagnoses / Procedures Referred By Contac t Referred To Contact Radiology Diagnoses Aortic valve stenosis, unspecified etiology Procedures CTA TAVR GATED STUDY Esteban Mcdonald PA-C [address] [place] [address] Phone: tel: fax: Referral ID Status Reason Start Date Expiration Date V isits Requested Visits Authorized [id number] Authorized Precert 05/27/2024 11/23/2024 999 999 Reason for Visit * Precert (Within 10 days (routine)) - Authorized Specialty Diagnoses / Procedures Referred By Contac t Referred To Contact Radiology Diagnoses Aortic valve stenosis, unspecified etiology Procedures CTA TAVR GATED STUDY Esteban Mcdonald PA-C [address] [place] [address] Phone: tel: fax: Referral ID Status Reason Start Date Expiration Date V isits Requested Visits Authorized [id number] Authorized Precert 05/27/2024 11/23/2024 999 999 Encounter Details Date Type Department Care Team (Latest Contact Info) Description 05/27/2024 10:55 AM EST - 05/27/2024 11:59 PM EST Hospital Encounter Radiology, [place] [address] [place] [address] Arrived Discharge Disposition: Home - Self Care Allergies [...] Imaging Routine Aortic valve stenosis, unspecified etiology 1 Occurrences starting 05/27/2024 until 05/27/2024 Health Maintenance Due Date Last Done [...] Visit Diagnoses Diagnosis Aortic valve stenosis, unspecified etiology documented in this encounter Administered Medications Inactive Administered Medications - up to 3 most recent administrations Medication Order MAR Action Action Date Dose Rate Site Iopamidol (Isovue 370) inj 100 mL 100 mL, Intravenous, ONCE, On Dona 05/27/24 at 1126, For 1 dose, Radiology Medication Routing (Non-IR) Given 05/27/2024 11:26 AM EST 79 mL documented in this encounter Care Teams Public Services Assistant Relationship Specialty Start Date End Date Chaz Portillo MD PCP - General Family Medicine 07/14/13 documented as of this encounter
--- OUTSIDE RECORDS SUMMARY | 2024-07-01 13:57 | External Medical Summary | Summary of Care ---
Author Name Unknown Organization [facility] Address [address] [place] [address] Phone [phone] Care Team Providers Care E Commerce Director Name Role Phone Chaz Portillo MD Primary Care Provide r Reason for Referral * Evaluate & Treat - Unlimited Visits (Within 10 days (routine)) - Authorized Specialty Diagnoses / Procedures Referred By Julian lam Referred To Contact Cardiovascular Surgery / Cardiothoracic Surgery Diagnoses Coronary atherosclerosis Aortic valve stenosis, etiology of cardiac valve disease unspecified Santos Strickland MD [address] [facility] [address] [place] [address] Phone: tel: fax: Referral ID Status Reason Start Date Expiration Date Visits Requested Visits Authorized [id number] Authorized Specialty Services Required 05/21/2024 999 999 Question Answer Referral Priority Within 10 days (routine) Where should this appointment be scheduled? [facility] Does your patient require surgical evaluation and/or treatment for known heart disease? Yes Reason for Visit * Reason Onset Date Comments Referral 05/21/2024 Encounter Details Date Type Department Care Team (Late st Contact Info) Description 05/21/2024 New Patient Triage (SOFT METALS ENGRAVER HAND USE ONLY) Cardiothoracic Surg [facility] [place] [address] [place] [address] Rgeina Murphy dietary internship (/) Allergies No known active allergiesdocumented as of [...] on file documented as of this encounter Progress Notes * Esteban Mcdonald PA-C - 05/21/2024 10:24 AM EST Does patient need to be seen?: Yes Modality: Patient preference Urgency: Within 30 days (routine) Discussed care plan with patient or proxy?: Yes Sarai Murphy Communicated with patient on Date (mm/dd/yyyy): 05/21/2024 at Time ([facility]): 0852 * Regina Murphy RN - 05/21/2024 8:52 AM EST New Patient Triage What is the diagnosis/reason for referral?: CAD, severe Enter order ID here: [id number] Specialty specific documentation: Cardiac and Thoracic Surgery Records scanned into chart. Will call for echo and cath images. Patient can be scheduled in next available slot with Dr. Guzman as requested. Discussed care plan with patient or proxy?: Yes I called and spoke with Mrs. Ortega. Ravi is currently at work, but she was aware Dr. Strickland sent a referral to Dr. Guzman for /CAD. She accepted an appointment on 05/27/2024 at 10:[address] Guzman. I provided directions to our clinic and my call back number. Communicated with patient on Date (mm/dd/yyyy): 05/21/2024 at Time ([facility]): 0852 Regina Murphy RN 05/21/2024 9:06 AM documented in this encounter Plan of Treatment Upcoming Encounters Date Type Department Care Team (Late st Contact Info) Description 05/27/2024 10:00 AM EST Office Visit Cardiothoracic Surg [facility] [address] [place] [address] Faisal Guzman MD [address] [place] [address] Scheduled Referrals Name Type Priority Associated Diagnoses Orde r Schedule CARDIOVASCULAR SURGERY REFERRAL OP Referral Within 10 days (routine) Coronary atherosclerosis Aortic valve stenosis, etiology of cardiac valve disease unspecified Ordered: 05/21/2024 Health Maintenance Due Date Last Done Comments [...] encounter Visit Diagnoses Diagnosis Aortic valve stenosis, etiology of cardiac valve disease unspecified- Primary Coronary atherosclerosis Coronary atherosclerosis of unspecified type of vessel, soboba or graft documented in this encounter Care Teams E Commerce Director Relationship Specialty Start Date End Date Chaz Portillo MD PCP - General Family Medicine 07/14/13 documented as of this encounter
--- NOTE | 2024-07-01 15:00 | XCELERA ---
[id number] \\[email or web address]_[email or web address]\[id number]
--- NOTE | 2024-07-01 15:01 | Cardiology Consultation ---
Date of Consultation July 01, 2024 Assessment & Plan (1) Atrial flutter with rapid ventricular response: (2) CAD (coronary artery disease): (3) Hx of CABG: (4) History of aortic valve replacement with bioprosthetic valve: (5) Dyslipidemia: (6) Cardiomyopathy: (7) Hypertension: Plan ASSESSMENT/PLAN: 1. Atrial flutter: Rapid ventricular response. New diagnosis. Likely related to recent cardiac surgery. Recommend conversion to sinus rhythm. He received additional intravenous amiodarone but remains in atrial flutter. We discussed increasing amiodarone to 400 mg twice daily for loading but after reviewing [facility] notes, was having issues with long conversion pauses and sinus bradycardia. Continue amiodarone 200 mg twice daily. Would not administer any further beta-avelino. No diltiazem. N.p.o. after midnight for cardioversion in the morning. Risks and benefits of the procedure discussed with him in detail and he was agreeable to proceed. Anesthesia consultation placed. Anticoagulation therapy is therapeutic for stroke risk reduction and he has been supratherapeutic more recently. 2. CAD s/p CABG x 1: No angina. Continue antiplatelet therapy as outlined by [facility] with Plavix 75 mg daily. High intensity statin therapy. 3. s/p bioprosthetic AVR: Appropriately functioning on 07/01/2024 echo. SBE prophylaxis for dental procedures. 4. Cardiomyopathy: Reportedly had normal LV systolic function while at [facility]. LV systolic function may appear reduced given atrial flutter with rapid ventricular response. He appears euvolemic. Attempt to restore sinus rhythm and then monitor LV systolic function in the outpatient setting. Medical therapy as able and as appropriate if LV systolic function does not improve. 5. Postoperative atrial fibrillation: Currently in atrial flutter. Plan as above. 6. Hypertension: Blood pressure well-controlled. Continue home medications. 7. Dyslipidemia: High intensity statin therapy. 8. Disposition: Cardiology will continue to follow. Plan of care discussed with admitting hospitalist team, Dr. Peterson and Ian Antonio PA-C. Follow-up with Dr. Strickland as scheduled next week on 07/08/2024. Highly complex medical issues. Thank you for allowing me to participate in the care of your patient. Please call for any other questions or concerns. Sincerely, David Nicole M.D. History of Present Illness Reason for Consultation: atrial flutter Requesting Physician: Ian Antonio PA-C Attending Physician: Kenny Peterson History of Present Illness Mr. Ortega is a very pleasant 69-year-old gentleman with history significant for severe aortic stenosis s/p bioprosthetic AVR and CABG x 1 (SVG to LPL) (06/22/2024), CAD, postoperative atrial fibrillation, hypertension, dyslipidemia, stroke (2022), and sleep apnea. His primary data network architect is Dr. Strickland. He was admitted on 07/01/2024 after presenting with atrial flutter. On 06/22/2024, he underwent aortic valve replacement and CABG x 1 at [facility]. Postoperative atrial fibrillation was reported and he was placed on amiodarone and warfarin. He converted to sinus rhythm per report and was discharged on 06/26/2024. According to records, long conversion pauses were noted and otherwise sinus bradycardia. His INR was reported as supratherapeutic with a level of 8 2 days ago and he has skipped the past 2 doses of warfarin with instructions to resume at 2.5 mg this evening. He has been checking his heart rate at home and 2 days ago it was normal near 70 bpm. Yesterday, his heart rate was 140 bpm but he was asymptomatic. Because his heart rate remained elevated today, he came to the ER for evaluation. He remains completely asymptomatic, denying chest pain, shortness of breath, palpitations. He has not noted any lower extremity edema. He denies melena, hematochezia, hematuria. He denies nausea, vomiting, drainage from his surgical wounds, fevers or chills. On presentation, he was noted to be in atrial flutter with rapid ventricular response. In the ER, he received an additional 150 mg of IV amiodarone and i ntravenous metoprolol. He remains in atrial flutter. Review of systems: As above. Family history: No known premature CAD. Social history: Denies tobacco, alcohol, or drug abuse. Lives at home with his . 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 He was unaccompanied. Allergies Allergy/AdvReac Type Severity Reaction Status Date / Time No Known Drug Allergies Allergy Unknown Verified 05/20/24 07:58 Home Medications Medication Instructions Recorded Confirmed Type atorvastatin 40 mg tablet 40 mg PO QAM #90 tabs 09/18/23 07/01/24 Rx acetaminophen 500 mg tablet 1,000 mg (2 x 500 mg) PO Q6H PRN 06/28/24 07/01/24 Rx (Tylenol Extra Strength) fever #90 tabs amiodarone 200 mg tablet 200 mg PO UD 06/28/24 07/01/24 History clopidogrel 75 mg tablet 75 mg PO QAM #90 tabs 06/28/24 07/01/24 Rx docusate sodium 100 mg capsule 100 mg PO DAILY PRN Constipation 06/28/24 07/01/24 History famotidine 20 mg tablet 20 mg PO DAILY #30 tabs 06/28/24 07/01/24 Rx furosemide 40 mg tablet 40 mg PO DAILY #30 tabs 06/28/24 07/01/24 Rx oxycodone 5 mg tablet 5 mg PO Q4H PRN Pain 06/28/24 07/01/24 History potassium chloride 10 mEq 20 meq PO DAILY 06/28/24 07/01/24 History capsule,extended release [id number] 28 mg 1 cap PO DAILY 06/28/24 07/01/24 History iron-folic acid 1 mg-omg3 200 mg capsule warfarin 5 mg tablet 5 mg PO DAILY 06/28/24 07/01/24 History Problem List (Updated 07/01/24 @ 16:41 by Gigi Nicole MD) Cardiomyopathy History of aortic valve replacement with bioprosthetic valve (Acute) Hx of CABG (Acute) Atrial flutter with rapid ventricular response (Acute) CAD (coronary artery disease) Vertebral artery stenosis Postural lightheadedness Carotid bruit Antiplatelet or antithrombotic long-term use Dyslipidemia Fatigue Moderate to severe aortic stenosis Positive cardiac stress test FIGUEROA (dyspnea on exertion) Hx of adenomatous colonic polyps JEANA (obstructive sleep apnea) Nonsustained supraventricular tachycardia CVA (cerebral vascular accident) 1cm acute infarct within the left posterior frontal lobe (on MRI), 08/14/22, No residual sx, sees Dr. Garcia at [facility] Tobacco use COVID-19 Right arm weakness Stroke-like episode (Acute) Bilateral tinnitus Sensorineural hearing loss (SNHL) of both ears Abnormal EKG Vestibular schwannoma Dizziness Occasional LVH (left ventricular hypertrophy) Routine health maintenance Palpitations HTN (hypertension), benign Chest pain H/O epistaxis Patient History Medical History Hx of chest pain r/t palpitations Dizziness occasional Vestibular schwannoma Sensorineural hearing loss Hx of supraventricular tachycardia (08/2022) History of COVID-19 (07/2022) hospitalized w/ CVA same day Palpitations intermittent, follows w/ Dr Strickland Aortic stenosis LVH (left ventricular hypertrophy) CVA (cerebral vascular accident) (07/2022) 1cm acute infarct within the left posterior frontal lobe (on MRI), 08/14/22, No residual sx- no longer follows w/ Neuro JEANA (obstructive sleep apnea) no device Migraine Resolved Heart valve regurgitation Dr. Strickland, [facility], no meds. "not that bad" Chronic back pain Hypertension Surgical History History of back surgery removal of cyst-1972 History of colonoscopy 2018 History of phacoemulsification of cataract of right eye with intraocular lens implantation 1994 Family History Mother Stomach cancer Father Heart disease Other No family history of adverse response to anesthesia No family history of bleeding disorder Denies family history of Ovarian cancer Prostate cancer Diabetes Myocardial infarction Breast cancer Colorectal cancer Hypertension Social History Smoking Status: Former smoker Tobacco Type: Cigarettes Age Started Using Tobacco: 16; Age Quit Using Tobacco: 34; packs per day: 1; Cigarettes Per Day: 1 PPD; Second Hand Exposure: No; Do You Dip or Chew Tobacco: Yes (Current 2 dips/day, advised); Hx Alcohol Use: No Hx Substance Use: No Preferred Language: Dutch Communication Ability: Effective Visual Impairment: No Limitations Hearing Ability: Normal Traffic Court Magistrate Required: No Beliefs That Will Affect Care: None marital status: Current Living Situation: Spouse current occupational status: retired How many Children do You have: 2 Feels Safe at Home: Yes Childhood Exposure to Second-Hand Smoke: Yes Diet: regular caffeine: Yes (coffee ) during the past year weight has: remained stable Dental Care, Regularly: Yes Physical Activity Frequency: Daily Physical Activity Frequency Comment: walking Seatbelt Use: always Sunscreen Use: No Assistive Devices: None Physical Exam Physical Exam: Gen.: No acute distress. Alert and oriented. HEENT: Anicteric sclera. Neck: No JVD. No bruits. Normal carotid upstrokes bilaterally. Cardiac: Regular and tachycardic in the 120s. Normal S1-S2. No murmurs, rubs, or gallops. Pulmonary: Clear to auscultation bilaterally without wheezes, rales, or rhonchi. Abdomen: Soft, nontender, nondistended, with normoactive bowel sounds. No bruits noted. Extremities: 2+ radial pulses bilaterally. 2+ posterior tibialis pulses bilaterally. No edema or cyanosis. Psychiatric: Affect appears appropriate. Chest: Sternotomy site is clean, dry, and intact without erythema or discharge. Results & Data Vital Signs (Past 12 Hours) Vital Signs Temp Pulse Pulse Resp BP BP Pulse Ox 07/01/24 14:30 107/84 07/01/24 14:21 129 H 16 116/85 97 07/01/24 14:09 129 H 22 113/92 97 07/01/24 13:48 131 H 22 121/95 98 07/01/24 13:39 131 H 18 117/90 98 07/01/24 13:30 130 H 16 107/87 98 07/01/24 13:21 122 H 14 111/92 97 07/01/24 12:51 128 H 20 119/88 98 07/01/24 12:12 128 H 12 116/79 98 07/01/24 12:06 127 H 16 98 07/01/24 12:00 117/93 07/01/24 12:00 127 H 16 117/93 98 07/01/24 11:58 133 H 07/01/24 11:33 133 H 16 118/96 97 07/01/24 11:16 131 H 18 120/98 98 07/01/24 10:50 132 H 18 111/93 96 07/01/24 10:38 131 H 115/89 07/01/24 10:32 131 H 115/90 07/01/24 10:31 131 H 18 115/90 97 07/01/24 10:13 135 H 107/87 07/01/24 10:07 97 07/01/24 09:46 136 H 16 126/84 97 07/01/24 09:39 36.4 C L 138 H 18 131/86 98 O2 Del Method 07/01/24 14:30 07/01/24 14:21 Room Air 07/01/24 14:09 Room Air 07/01/24 13:48 Room Air 07/01/24 13:39 Room Air 07/01/24 13:30 07/01/24 13:21 Room Air 07/01/24 12:51 Room Air 07/01/24 12:12 Room Air 07/01/24 12:06 Room Air 07/01/24 12:00 07/01/24 12:00 Room Air 07/01/24 11:58 07/01/24 11:33 Room Air 07/01/24 11:16 Room Air 07/01/24 10:50 Room Air 07/01/24 10:38 07/01/24 10:32 07/01/24 10:31 Room Air 07/01/24 10:13 07/01/24 10:07 Room Air 07/01/24 09:46 Room Air 07/01/24 09:39 Room Air Laboratory Results Laboratory Results - last 24 hr 07/01/24 07/01/24 07/01/24 09:50 09:55 11:52 WBC 10.31 RBC 4.10 L Hgb 12.9 L Hct 39.4 L MCV 96.1 MCH 31.5 MCHC 32.7 RDW Std Deviation 46.4 H RDW Coeff of Dennis 13.2 Plt Count 221 MPV 9.7 Immature Gran % (Auto) 0.4 Neut % (Auto) 66.5 Lymph % (Auto) 17.7 Harlan % (Auto) 9.5 Eos % (Auto) 4.9 Baso % (Auto) 1.0 Neut # (Auto) 6.85 H Lymph # (Auto) 1.83 Harlan # (Auto) 0.98 H Eos # (Auto) 0.51 H Baso # (Auto) 0.10 Immature Gran # (Auto) 0.04 PT 33.5 H INR 3.4 H APTT 42 H PTT Ratio 1.6 Sodium 140 Potassium 4.8 Chloride 105 Carbon Dioxide 32 Anion Gap 3 BUN 22 Creatinine 1.34 Est Cr Clr Drug Dosing Not Reportable eGFR 57.34 BUN/Creatinine Ratio 16.4 Glucose 94 Calcium 9.4 Magnesium 2.1 Total Bilirubin 1.0 AST 25 ALT 23 Alkaline Phosphatase 69 Troponin I High Sens 95.9 H* 87.1 H* Total Protein 7.1 Albumin 4.3 Globulin 2.8 Albumin/Globulin Ratio 1.5 TSH 4.712 H Free T4 1.21 Adenovirus (PCR) Not Detected B. pertussis DNA (PCR) Not Detected B.parapertussis DNA PCR Not Detected C. pneumoniae DNA (PCR) Not Detected Coronavirus OC43 (PCR) Not Detected Coronavirus HKU1 (PCR) Not Detected Coronavirus 229E (PCR) Not Detected SARS-CoV-2 (PCR) Not Detected Coronavirus NL63 (PCR) Not Detected Human Metapneumovir PCR Not Detected Influenza Type A (PCR) Not Detected Influenza Type B (PCR) Not Detected M. pneumoniae (PCR) Not Detected Parainfluenza 1 (PCR) Not Detected Parainfluenza 2 (PCR) Not Detected Parainfluenza 3 (PCR) Not Detected Parainfluenza 4 (PCR) Not Detected RSV (PCR) Not Detected Entero/Rhino (PCR) Not Detected Diagnostic Findings ECHO 07/01/2024: 1. Normal left ventricular size with moderately reduced systolic function. EF 41%. Global hypokinesis. Septal motion consistent with prior cardiac surgery. Mild concentric left ventricular hypertrophy. 2. Borderline dilated right ventricle with moderately reduced systolic function. 3. Moderate biatrial dilation. 4. Bioprosthetic aortic valve with acceptable transvalvular gradient. 5. Mild mitral regurgitation. 6. Compared to prior study on 04/08/2024, LV systolic function has declined. Aortic stenosis has been replaced with bioprosthetic aortic valve. Atrial flutter has replaced sinus rhythm. Cardiac cath 05/12/2024 [facility]: Ostial LAD 20%. Mid circumflex 40%. Medium caliber OM 2 proximal 70%. Distal circumflex 50 to 60%. Dominant RCA. [facility] discharge report reviewed from 06/26/2024. ECG personally reviewed 07/01/2024: Atrial flutter rapid ventricular response [address]/T wave abnormality. History and physical report reviewed. Labs reviewed and notable for mild anemia, slightly elevated TSH, normal transaminase levels, normal magnesium, normal potassium, stable renal function, elevated high-sensitivity troponin (95 declined to 87 on follow-up). Chest x-ray 07/01/2024: No acute process per radiology. Medications Administered Discontinued Medications Acetaminophen (Acetaminophen 500 Mg Tab) 1,000 mg PO NOW STA Stop: 07/01/24 13:21 Last Admin: 07/01/24 13:46 Dose: 1,000 mg Documented By: DANILO Amiodarone HCl/Dextrose (Nexterone / D5w) 150 mg in 100 mls @ 600 mls/hr IV NOW STA Stop: 07/01/24 11:41 Last Infusion: 07/01/24 12:16 Dose: Infused Documented By: Co-signed By: JASON Admin: 07/01/24 11:40 Dose: 600 mls/hr Documented By: Co-signed By: JASON Metoprolol Tartrate (Metoprolol Tartrate 1 Mg/Ml Vial) 5 mg IV NOW STA Stop: 07/01/24 10:04 Last Admin: 07/01/24 10:13 Dose: 5 mg Documented By: Metoprolol Tartrate (Metoprolol Tartrate 1 Mg/Ml Vial) 5 mg IV NOW STA Stop: 07/01/24 10:37 Last Admin: 07/01/24 10:38 Dose: 5 mg Documented By: Warfarin Sodium (Warfarin Sod 2.5 Mg Tab) 2.5 mg PO ONE ONE Stop: 07/01/24 16:01 Last Admin: 07/01/24 15:55 Dose: 2.5 mg Documented By: ZAINAB PG Care Time/CCT Total # of Minutes Spent Total Time Spent with Patient: Total time spent is greater than 50% in coordination of care (as documented) at patient's floor/unit and/or counseling patient: Coding Level of Care Code 95756 INT INP/OBS CARE 3/75MIN Diagnoses Atrial flutter with rapid ventricular response I48.92 CAD (coronary artery disease) I25.10 Hx of CABG Z95.1 History of aortic valve replacement with bioprosthetic valve Z95.3 Dyslipidemia E78.5 Cardiomyopathy I42.9 Hypertension I10
[2024-07-01] MEDS: WARFARIN SOD 2.5 MG TAB PO ONE (15:55)
[2024-07-01] MEDS ORDERED: DOCUSATE SODIUM 100 MG CAP PO PRN (18:05)
[2024-07-01] MEDS ORDERED: oxyCODONE HCL IR 5 MG TAB (IMMEDIATE RELEASE) PO PRN (18:05)
[2024-07-01] MEDS: AMIODARONE 200 MG TAB PO SCH (18:27)
[2024-07-01] MEDS: ACETAMINOPHEN 500 MG TAB PO PRN (22:15)
--- NOTE | 2024-07-02 05:37 | Electrocardiogram Report ---
Test Reason : Blood Pressure : */* mmHG Vent. Rate : 137 BPM Atrial Rate : 274 BPM P-R Int : * ms QRS Dur : 86 ms QT Int : 270 ms P-R-T Axes : 265 -35 153 degrees QTcB Int : 407 ms Atrial flutter with 2:1 A-V conduction Left axis deviation Nonspecific ST and T wave abnormality Abnormal ECG When compared with ECG of 06-May-2024 10:11, Atrial flutter has replaced Sinus rhythm T wave inversion no longer evident in Anterolateral leads Confirmed by Gigi Nicole ([id number]) on 07/02/2024 5:37:37 AM Referred By: Confirmed By: Gigi Nicole
[2024-07-02 06:14] LABS: Appearance Urine Clear (Clear); Bilirubin Urine Negative (Negative); Blood Urine Negative (Negative); Color Urine Yellow; Glucose Urine UA Negative (Negative); Ketones Urine Negative (Negative); Leukocyte Esterase Urine Negative (Negative); Nitrite Urine Negative (Negative); Protein Urine Negative (Negative); Specific Gravity Urine 1.021 (1.000-1.030); Urobilinogen Urine Negative (Negative); pH Urine 7.5 (4.5-7.5)
[2024-07-02 06:36] LABS: Basophils # (auto) 0.09 K/uL (0.00-0.20); Basophils % (auto) 0.8 %; Eosinophils # (auto) 0.54 K/uL (0.00-0.50); Eosinophils % (auto) 4.6 %; Hematocrit (blood only) 39.8 % (42.0-52.0); Hemoglobin 12.9 g/dl (14.0-18.0); Immature Granulocytes # (auto) 0.07 K/uL (0.01-0.20); Immature Granulocytes % (auto) 0.6 %; Lymphocytes # (auto) 2.35 K/uL (1.20-3.40); Lymphocytes % (auto) 19.9 %; Mean Corpuscular Hemoglobin 30.9 pg (25.0-34.0); Mean Corpuscular Hgb Conc 32.4 g/dL (32.0-36.0); Mean Corpuscular Volume 95.2 fL (80.0-100.0); Mean Platelet Volume 9.4 fL (9.4-12.4); Monocytes # (auto) 0.92 K/uL (0.11-0.59); Monocytes % (auto) 7.8 %; Neutrophils # (auto) 7.84 K/uL (1.40-6.50); Neutrophils % (auto) 66.3 %; Platelet Count 212 K/uL (130-400); RDW Coefficient of Variation 13.1 % (11.5-14.5); RDW Standard Deviation 45.1 fL (36.4-46.3); Red Blood Count 4.18 M/uL (4.70-6.10); White Blood Count 11.81 K/ul (4.8-10.8)
[2024-07-02 06:57] LABS: BUN Creatinine Ratio 18.4 (10-20); Calcium 9.1 mg/dl (8.6-10.3); Potassium 4.9 mmol/L (3.5-5.1)
[2024-07-02 07:17] LABS: INR 2.9 (0.9-1.1); Prothrombin Time 28.8 Seconds (9.0-12.0)
[2024-07-02] MEDS ORDERED: ATROPINE SULFATE 0.1 MG/ML 10ML SYR IV ONE (07:24)
--- NOTE | 2024-07-02 07:27 | Anesthesiology Consultation ---
Date of Service July 02, 2024 Assessment & Plan Chart Review Chart Review: Acceptable Risk for Surgery Consults Requested none History Surgery Operation Date: 07/02/24 07:30 Proposed Procedures p Cardioversion w/Anesthesia Sedation - Gigi Nicole MD Height/Weight Height: 5 ft 7 in Weight: 84.6 kg Allergies Allergy/AdvReac Type Severity Reaction Status Date / Time No Known Drug Allergies Allergy Unknown Verified 05/20/24 07:58 Medications Home Medications Medication Instructions Recorded Confirmed Last Taken atorvastatin 40 mg tablet 40 mg PO QAM #90 tabs 09/18/23 07/01/24 05/12/24 acetaminophen 500 mg tablet 1,000 mg (2 x 500 mg) PO Q6H PRN 06/28/24 07/01/24 Unknown (Tylenol Extra Strength) fever #90 tabs amiodarone 200 mg tablet 200 mg PO UD 06/28/24 07/01/24 Unknown clopidogrel 75 mg tablet 75 mg PO QAM #90 tabs 06/28/24 07/01/24 Unknown docusate sodium 100 mg capsule 100 mg PO DAILY PRN Constipation 06/28/24 07/01/24 Unknown famotidine 20 mg tablet 20 mg PO DAILY #30 tabs 06/28/24 07/01/24 Unknown furosemide 40 mg tablet 40 mg PO DAILY #30 tabs 06/28/24 07/01/24 Unknown oxycodone 5 mg tablet 5 mg PO Q4H PRN Pain 06/28/24 07/01/24 Unknown potassium chloride 10 mEq 20 meq PO DAILY 06/28/24 07/01/24 Unknown capsule,extended release [id number] 28 mg 1 cap PO DAILY 06/28/24 07/01/24 Unknown iron-folic acid 1 mg-omg3 200 mg capsule warfarin 5 mg tablet 5 mg PO DAILY 06/28/24 07/01/24 Unknown Active Medications Generic Name Dose Route Start Last Admin Trade Name Freq PRN Reason Stop Dose Admin Acetaminophen 1,000 mg 07/01/24 18:05 07/01/24 22:15 Acetaminophen 500 Mg Tab PO 07/31/24 18:04 1,000 mg Q6H PRN Administration Pain or Fever Amiodarone HCl 200 mg 07/01/24 18:05 07/01/24 18:27 Amiodarone 200 Mg Tab PO 07/08/24 16:59 200 mg BIDM EZEKIEL Administration Past Medical History Medical History Hx of chest pain r/t palpitations Dizziness occasional Vestibular schwannoma Sensorineural hearing loss Hx of supraventricular tachycardia (08/2022) History of COVID-19 (07/2022) hospitalized w/ CVA same day Palpitations intermittent, follows w/ Dr Strickland Aortic stenosis LVH (left ventricular hypertrophy) CVA (cerebral vascular accident) (07/2022) 1cm acute infarct within the left posterior frontal lobe (on MRI), 08/14/22, No residual sx- no longer follows w/ Neuro JEANA (obstructive sleep apnea) no device Migraine Resolved Heart valve regurgitation Dr. Strickland, [facility], no meds. "not that bad" Chronic back pain Hypertension Past Family History Family History Mother Stomach cancer Father Heart disease Other No family history of adverse response to anesthesia No family history of bleeding disorder Denies family history of Ovarian cancer Prostate cancer Diabetes Myocardial infarction Breast cancer Colorectal cancer Hypertension Past Surgical History Surgical History History of back surgery removal of cyst-1972 History of colonoscopy 2018 History of phacoemulsification of cataract of right eye with intraocular lens implantation 1994 Social History Smoking Status: Former smoker tobacco type: smokeless tobacco Smoking cigarettes per day: 1 PPD Do You Dip or Chew Tobacco: Yes (Current 2 dips/day, advised) Hx Alcohol Use: Yes Alcohol type: beer alcohol intake frequency: holidays/special occasions only Hx Substance Use: No substance use type: does not use Physical Exam Vital Signs Last Vital Signs Temp 37.1 C 07/02/24 07:16 Pulse 132 H 07/02/24 07:16 Resp 12 07/02/24 07:16 BP 118/86 07/02/24 07:16 Pulse Ox 97 07/02/24 07:16 O2 Del Method Room Air 07/02/24 07:16 Testing Laboratory Results 07/02/24 06:02 07/02/24 06:02 PT 28.8 Seconds (9.0-12.0) H 07/02/24 06:02 INR 2.9 (0.9-1.1) H 07/02/24 06:02 APTT 42 Seconds (21-31) H 07/01/24 09:50 Urine Color Yellow 07/02/24 06:00 Urine Appearance Clear (Clear) 07/02/24 06:00 Urine pH 7.5 (4.5-7.5) 07/02/24 06:00 Ur Specific [place] 1.021 (1.000-1.030) 07/02/24 06:00 Urine Protein Negative (Negative) 07/02/24 06:00 Urine Glucose (UA) Negative (Negative) 07/02/24 06:00 Urine Ketones Negative (Negative) 07/02/24 06:00 Urine Nitrite Negative (Negative) 07/02/24 06:00 Ur Leukocyte Esterase Negative (Negative) 07/02/24 06:00
--- NOTE | 2024-07-02 08:09 | Cardioversion ---
Date of Service July 02, 2024 PG Electrical Cardioversion Rp Electrical Cardioversion Report Procedure: Elective DC cardioversion Indication: Atrial flutter with rapid ventricular response in the postop setting (CABG and AVR on 06/22/2024) Anticoagulation: Warfarin with therapeutic INR Onset: 06/30/2024 based on patient's vitals at home. Antiarrhythmic therapy: Amiodarone 200 mg twice daily Informed consent: Obtained Sedation: Provided by anesthesiology Time out: Performed Procedural details: Once sufficiently sedated, 50 J were delivered in a synchronized fashion which successfully converted atrial flutter with rapid ventricular response to sinus bradycardia in the low 50s. He tolerated the procedure well. Minutes after the procedure, he became hypotensive with systolic blood pressure in the 60s but was awake and answering questions. Heart rate remained near 50 bpm. 500 mL normal saline bolus given and ephedrine was administered by anesthesiology and blood pressure quickly rebounded to systolic 90s. Plan: 1. Continue anticoagulation for stroke risk reduction. 2. Continue amiodarone 200 mg twice daily until at least evaluated by his primary resistor tester in the outpatient setting, Dr. Strickland, which is scheduled for next week. Coding Level of Care Code 47245 CARDIOVERSION, ELECTIVE Additional Codes Electrical Cardioversion Report ([id number])
--- NOTE | 2024-07-02 08:21 | Cardiology Progress Note ---
Date of Service July 02, 2024 Assessment & Plan (1) Atrial flutter with rapid ventricular response: (2) CAD (coronary artery disease): (3) Hx of CABG: (4) History of aortic valve replacement with bioprosthetic valve: (5) Dyslipidemia: (6) Cardiomyopathy: (7) Hypertension: Plan ASSESSMENT/PLAN: 1. Atrial flutter s/p DC CV: Rapid ventricular response. New diagnosis (07/01/24). Likely related to recent cardiac surgery. Successful cardioversion on 07/02/2024. Initially sinus bradycardia but heart rate improved to low 60s bpm. Continue amiodarone 200 mg twice daily. More aggressive loading has not been completed due to issues with long conversion pauses and sinus bradycardia [place] [facility] Amiodarone can be further managed in the outpatient setting with his follow-up appointment next week with Dr. Strickland. Continue anticoagulation for stroke risk reduction. INR is therapeutic. 2. CAD s/p CABG x 1: No angina. Continue antiplatelet therapy as outlined by [facility] [place] Plavix 75 mg daily. High intensity statin therapy. 3. s/p bioprosthetic AVR: Appropriately functioning on 07/01/2024 echo. SBE prophylaxis for dental procedures. 4. Cardiomyopathy: Reportedly had normal LV systolic function while at [facility] but LV systolic function reduced here while in atrial flutter. LV systolic function may appear reduced given atrial flutter with rapid ventricular response. He appears euvolemic. Considered initiating metoprolol succinate but given issues with bradycardia at [facility] and initial bradycardia here following cardioversion, will hold off for now. Echo can be repeated in the outpatient setting and may improve now that he is in sinus rhythm. 5. Postoperative atrial fibrillation: Currently in atrial flutter. Plan as above. 6. Hypertension: Blood pressure well-controlled with hypotension following cardioversion that responded to 500 mL normal saline bolus and ephedrine. Blood pressure acceptable currently. 7. Dyslipidemia: High intensity statin therapy. 8. Disposition: Be discharged home from a cardiology perspective if he continues to recover well following cardioversion this morning. He has follow- up appointment scheduled with his PCP, associate dean (Dr. Strickland), and CT surgery next week. He was reminded to keep these appointments. Plan of care communicated with Dr. Valentine of the primary hospitalist service. Admission and Anticipated Discharge Date Admission Date: July 01, 2024 Subjective He underwent cardioversion this morning and atrial flutter was successfully converted to sinus rhythm. He had remained asymptomatic with no palpitations, chest pain, shortness of breath, syncope, near syncope, or edema. He feels well following cardioversion as well. He was unaccompanied. Physical Exam Physical Exam: Gen.: No acute distress. Alert and oriented. HEENT: Anicteric sclera. Neck: No JVD. Cardiac: Regular near 60 bpm. Normal S1-S2. No murmurs, rubs, or gallops. Pulmonary: Clear to auscultation bilaterally without wheezes, rales, or rhonchi. Abdomen: Soft, nontender, nondistended, with normoactive bowel sounds. No bruits noted. Extremities: 2+ radial pulses bilaterally. 2+ posterior tibialis pulses bilaterally. No edema or cyanosis. Psychiatric: Affect appears appropriate. Chest: Sternotomy site is clean, dry, and intact without erythema or discharge. Results & Data Vital Signs (Past 12 Hours) Vital Signs Temp Pulse Pulse Resp BP BP Pulse Ox 07/02/24 08:00 51 L 12 95/57 L 100 07/02/24 07:16 132 H 07/02/24 07:16 37.1 C 132 H 12 118/86 97 07/02/24 02:55 36.9 C 129 H 16 116/82 97 07/01/24 23:10 37.0 C 130 H 16 124/87 95 O2 Del Method 07/02/24 08:00 Room Air 07/02/24 07:16 07/02/24 07:16 Room Air 07/02/24 02:55 Room Air 07/01/24 23:10 Room Air Laboratory Results Laboratory Results - last 24 hr 07/01/24 07/01/24 07/01/24 09:50 09:55 11:52 WBC 10.31 RBC 4.10 L Hgb 12.9 L Hct 39.4 L MCV 96.1 MCH 31.5 MCHC 32.7 RDW Std Deviation 46.4 H RDW Coeff of Dennis 13.2 Plt Count 221 MPV 9.7 Immature Gran % (Auto) 0.4 Neut % (Auto) 66.5 Lymph % (Auto) 17.7 Hernando % (Auto) 9.5 Eos % (Auto) 4.9 Baso % (Auto) 1.0 Neut # (Auto) 6.85 H Lymph # (Auto) 1.83 Hernando # (Auto) 0.98 H Eos # (Auto) 0.51 H Baso # (Auto) 0.10 Immature Gran # (Auto) 0.04 PT 33.5 H INR 3.4 H APTT 42 H PTT Ratio 1.6 Sodium 140 Potassium 4.8 Chloride 105 Carbon Dioxide 32 Anion Gap 3 BUN 22 Creatinine 1.34 Est Cr Clr Drug Dosing Not Reportable eGFR 57.34 BUN/Creatinine Ratio 16.4 Glucose 94 Calcium 9.4 Magnesium 2.1 Total Bilirubin 1.0 AST 25 ALT 23 Alkaline Phosphatase 69 Troponin I High Sens 95.9 H* 87.1 H* Total Protein 7.1 Albumin 4.3 Globulin 2.8 Albumin/Globulin Ratio 1.5 TSH 4.712 H Free T4 1.21 Urine Color Urine Appearance Urine pH Ur Specific [place] Urine Protein Urine Glucose (UA) Urine Ketones Urine Blood Urine Nitrite Urine Bilirubin Urine Urobilinogen Ur Leukocyte Esterase Adenovirus (PCR) Not Detected B. pertussis DNA (PCR) Not Detected B.parapertussis DNA PCR Not Detected C. pneumoniae DNA (PCR) Not Detected Coronavirus OC43 (PCR) Not Detected Coronavirus HKU1 (PCR) Not Detected Coronavirus 229E (PCR) Not Detected SARS-CoV-2 (PCR) Not Detected Coronavirus NL63 (PCR) Not Detected Human Metapneumovir PCR Not Detected Influenza Type A (PCR) Not Detected Influenza Type B (PCR) Not Detected M. pneumoniae (PCR) Not Detected Parainfluenza 1 (PCR) Not Detected Parainfluenza 2 (PCR) Not Detected Parainfluenza 3 (PCR) Not Detected Parainfluenza 4 (PCR) Not Detected RSV (PCR) Not Detected Entero/Rhino (PCR) Not Detected 07/02/24 07/02/24 06:00 06:02 WBC 11.81 H RBC 4.18 L Hgb 12.9 L Hct 39.8 L MCV 95.2 MCH 30.9 MCHC 32.4 RDW Std Deviation 45.1 RDW Coeff of Dennis 13.1 Plt Count 212 MPV 9.4 Immature Gran % (Auto) 0.6 Neut % (Auto) 66.3 Lymph % (Auto) 19.9 [place] % (Auto) 7.8 Eos % (Auto) 4.6 Baso % (Auto) 0.8 Neut # (Auto) 7.84 H Lymph # (Auto) 2.35 [place] # (Auto) 0.92 H Eos # (Auto) 0.54 H Baso # (Auto) 0.09 Immature Gran # (Auto) 0.07 PT 28.8 H INR 2.9 H APTT PTT Ratio Sodium 136 Potassium 4.9 Chloride 103 Carbon Dioxide 30 Anion Gap 3 BUN 23 Creatinine 1.25 Est Cr Clr Drug Dosing 58.0 eGFR 62.33 BUN/Creatinine Ratio 18.4 Glucose 99 Calcium 9.1 Magnesium Total Bilirubin AST ALT Alkaline Phosphatase Troponin I High Sens Total Protein Albumin Globulin Albumin/Globulin Ratio TSH Free T4 Urine Color Yellow Urine Appearance Clear Urine pH 7.5 Ur Specific [place] 1.021 Urine Protein Negative Urine Glucose (UA) Negative Urine Ketones Negative Urine Blood Negative Urine Nitrite Negative Urine Bilirubin Negative Urine Urobilinogen Negative Ur Leukocyte Esterase Negative Adenovirus (PCR) B. pertussis DNA (PCR) B.parapertussis DNA PCR C. pneumoniae DNA (PCR) Coronavirus OC43 (PCR) Coronavirus HKU1 (PCR) Coronavirus 229E (PCR) SARS-CoV-2 (PCR) Coronavirus NL63 (PCR) Human Metapneumovir PCR Influenza Type A (PCR) Influenza Type B (PCR) M. pneumoniae (PCR) Parainfluenza 1 (PCR) Parainfluenza 2 (PCR) Parainfluenza 3 (PCR) Parainfluenza 4 (PCR) RSV (PCR) Entero/Rhino (PCR) Diagnostic Findings Labs reviewed notable for very mild leukocytosis, stable renal function, normal potassium. Telemetry reviewed and notable for atrial flutter with rapid ventricular response precardioversion and then sinus following cardioversion. Medications Administered Current Inpatient Medications Acetaminophen (Acetaminophen 500 Mg Tab) 1,000 mg PO Q6H PRN PRN Reason: Pain or Fever Stop: 07/31/24 18:04 Last Admin: 07/01/24 22:15 Dose: 1,000 mg Amiodarone HCl (Amiodarone 200 Mg Tab) 200 mg PO BIDM [facility] Stop: 07/08/24 16:59 Last Admin: 07/01/24 18:27 Dose: 200 mg Atorvastatin Calcium (Atorvastatin 40 Mg Tab) 40 mg PO QAM [facility] Stop: 08/01/24 08:59 Clopidogrel Bisulfate (Clopidogrel Bisulfate 75 Mg Tab) 75 mg PO QAM [facility] Stop: 08/01/24 08:59 Docusate Sodium (Docusate Sodium 100 Mg Cap) 100 mg PO DAILY PRN PRN Reason: Constipation Stop: 07/31/24 18:04 Famotidine (Famotidine 20 Mg Tab) 20 mg PO DAILY E[facility]KIEL Stop: 08/01/24 08:59 Furosemide (Furosemide 40 Mg Tab) 40 mg PO DAILY EZEKIEL Stop: 08/01/24 08:59 Oxycodone HCl (Oxycodone Hcl Ir 5 Mg Tab (Immediate Release)) 5 mg PO Q4H PRN PRN Reason: Pain Stop: 07/15/24 18:04 Potassium Chloride (Potassium Chloride Crtab 20 Meq Tabcr) 20 meq PO DAILY EZEKIEL Stop: 08/01/24 08:59 PG Care Time/CCT Total # of Minutes Spent Total Time Spent with Patient: Total time spent is greater than 50% in coordination of care (as documented) at patient's floor/unit and/or counseling patient: Coding Level of Care Code 57593 SUB INP/OBS CARE 3/50MIN Diagnoses Atrial flutter with rapid ventricular response I48.92 CAD (coronary artery disease) I25.10 Hx of CABG Z95.1 History of aortic valve replacement with bioprosthetic valve Z95.3 Dyslipidemia E78.5 Cardiomyopathy I42.9 Hypertension I10
--- NOTE | 2024-07-02 08:39 | Anesthesiology Progress Note ---
Date of Service July 02, 2024 Anesthesia Post Procedure Vital Signs Vital Signs: Temp Pulse Pulse Resp BP BP BP 07/02/24 08:30 61 12 103/64 07/02/24 08:15 62 12 102/65 07/02/24 08:00 51 L 12 95/57 L 07/02/24 07:16 132 H 07/02/24 07:16 37.1 C 132 H 12 118/86 07/02/24 02:55 36.9 C 129 H 16 116/82 07/01/24 23:10 37.0 C 130 H 16 124/87 07/01/24 19:44 36.9 C 130 H 16 121/89 07/01/24 18:45 126 H 07/01/24 18:13 07/01/24 17:30 36.3 C L 127 H 20 133/90 07/01/24 17:00 129 H 18 115/90 07/01/24 15:48 128 H 07/01/24 15:00 129 H 18 07/01/24 14:30 107/84 07/01/24 14:21 129 H 16 116/85 07/01/24 14:09 129 H 22 113/92 07/01/24 13:48 131 H 22 121/95 07/01/24 13:39 131 H 18 117/90 07/01/24 13:30 130 H 16 107/87 07/01/24 13:21 122 H 14 111/92 07/01/24 12:51 128 H 20 119/88 07/01/24 12:12 128 H 12 116/79 07/01/24 12:06 127 H 16 07/01/24 12:00 117/93 07/01/24 12:00 127 H 16 117/93 07/01/24 11:58 133 H 07/01/24 11:33 133 H 16 118/96 07/01/24 11:16 131 H 18 120/98 07/01/24 10:50 132 H 18 111/93 07/01/24 10:38 131 H 115/89 07/01/24 10:32 131 H 115/90 07/01/24 10:31 131 H 18 115/90 07/01/24 10:13 135 H 107/87 07/01/24 10:07 07/01/24 09:46 136 H 16 126/84 07/01/24 09:39 36.4 C L 138 H 18 131/86 Pulse Ox O2 Del Method 07/02/24 08:30 97 Room Air 07/02/24 08:15 96 Room Air 07/02/24 08:00 100 Room Air 07/02/24 07:16 07/02/24 07:16 97 Room Air 07/02/24 02:55 97 Room Air 07/01/24 23:10 95 Room Air 07/01/24 19:44 97 Room Air 07/01/24 18:45 07/01/24 18:13 Room Air 07/01/24 17:30 99 Room Air 07/01/24 17:00 99 Room Air 07/01/24 15:48 07/01/24 15:00 93 Room Air 07/01/24 14:30 07/01/24 14:21 97 Room Air 07/01/24 14:09 97 Room Air 07/01/24 13:48 98 Room Air 07/01/24 13:39 98 Room Air 07/01/24 13:30 98 07/01/24 13:21 97 Room Air 07/01/24 12:51 98 Room Air 07/01/24 12:12 98 Room Air 07/01/24 12:06 98 Room Air 07/01/24 12:00 07/01/24 12:00 98 Room Air 07/01/24 11:58 07/01/24 11:33 97 Room Air 07/01/24 11:16 98 Room Air 07/01/24 10:50 96 Room Air 07/01/24 10:38 07/01/24 10:32 07/01/24 10:31 97 Room Air 07/01/24 10:13 07/01/24 10:07 97 Room Air 07/01/24 09:46 97 Room Air 07/01/24 09:39 98 Room Air Transfer of Care Handoff Completed per policy Notes Mental Status: alert / awake / arousable and participated in evaluation Patient Amnestic to Procedure: Yes Nausea / Vomiting: adequately controlled Pain: adequately controlled Airway Patency, RR, SpO2: stable & adequate BP & HR: stable & adequate Hydration State: stable & adequate Anesthetic Complications: no major complications apparent
[2024-07-02] MEDS ORDERED: PROPOFOL IV EMULSION 10 MG/ML 20 ML VIAL IV ONE (08:40)
[2024-07-02 08:42] VITALS: RESP 18; TEMP 97.3
[2024-07-02] MEDS ORDERED: ePHEDrine sulfate 50 MG/5 ML SYR ONE (08:42)
[2024-07-02] MEDS: CLOPIDOGREL BISULFATE 75 MG TAB PO SCH (08:51)
[2024-07-02] MEDS: FAMOTIDINE 20 MG TAB PO SCH (08:52)
[2024-07-02] MEDS: ATORVASTATIN 40 MG TAB PO SCH (08:52)
[2024-07-02] MEDS: FUROSEMIDE 40 MG TAB PO SCH (08:52)
[2024-07-02] MEDS: POTASSIUM CHLORIDE CRTAB 20 MEQ TABCR PO SCH (08:54)
[2024-07-02 09:00] VITALS: PULSE 57; O2SAT 95
--- NOTE | 2024-07-02 09:58 | Discharge Summary ---
Discharge Summary Date of Service July 02, 2024 Principal Dx & Hospital Course #1 = Principal Diagnosis (1) Atrial flutter with rapid ventricular response: Ravi is a 69-year-old male with a history of recent one-vessel CABG and bovine AVR 9 days prior to presentation who presented with atrial flutter with RVR. Patient received 2 doses of IV metoprolol and an IV dose of amiodarone without improvement in rates. Due to reported history of bradycardic response while sinus further amiodarone and beta-blockers were not recommended. Patient was observed overnight and then presented to electrical cardioversion on 07/02. Following this he had return to sinus rhythm rate about 60 and was slightly hypotensive but on recheck subsequently improved and blood pressure normalized. He was recommended for discharge home and to continue his amiodarone to 100 mg twice daily dosing. Ultimately a beta-avelino would be of benefit to him long- term however this was deferred at time of assessment due to his history of sinus bradycardia and borderline blood pressure. He has follow-up scheduled with [facility] cardiology for within 1 week. At time of assessment prior to discharge he felt clinically well, had no lightheadedness/dizziness/chest pain, was normotensive and with a pulse of about 60. During admission he was mildly supratherapeutic, had recently been supratherapeutic with an INR of 8.0 and Coumadin had been held the previous Friday/Friday. Day of discharge she returned to therapeutic range at 2.9; patient was recommended to continue his warfarin upon return home, Which was adjusted to 2.5 mg Friday/ and 5 mg all other days. Further adjustments per outpatient follow-up. recheck INR with his PCP or senior oracle database developer at his follow-up appointment within 1 week. Admission HPI Per Admitting Provider Pleasant 69-year-old male who is status post bovine AVR with one-vessel CABG approximately postop day 9. It appears surgery was on or about June 22, 2024. Postoperatively he did have atrial fibrillation and was loaded with amiodarone and commenced on Coumadin. Over the last several days the patient has noted tachycardia at home with vital signs. He has been asymptomatic. On Friday he had a supratherapeutic INR of approximately 8. He was instructed to hold his Coumadin Friday and Friday. Today he spent to take 2.5 mg. He presents today with tachycardia at home in the 130s to 140s. In the ER his troponins have been flat-first troponin 95.9. Second troponin 87.1. EKG nonacute with atrial fibrillation with rapid ventricular response with a rate in the 130s. Other laboratory studies are unremarkable. The patient was given 2 aliquots of IV metoprolol 5 mg each and given an additional 150 mg of IV amiodarone. He still in the 120s to 130s. Cardiology has been consulted and is recommending admission for further evaluation and treatment and rate control for his A-fib. Discharge Exam General: A&Ox3. NAD. Cooperative. HEENT: Atraumatic, normocephalic. Vision and hearing grossly intact Pulm: CTAB A&P. -wheezes, -rales, -rhonchi. Symmetrical chest rise. No increase in work of breathing. No respiratory distress. Cardiac: Midline operative scar well-healing without evidence of dehiscence/erythema/warmth/discharge. RRR, -mrg. Radial pulses intact and symmetrical. Extremities: Moving all extremities equally, warm and dry Discharge Plan Discharge Items Patient Disposition: Home - Home Health Services Reason For Visit: A FLUTTER W/RVR Discharge Diagnosis: A flutter with RVR Activity: Resume your previous activity Non-emergency contact: Primary Care Provider and Information Security Officer Call non-emergency contact if: you have any medication questions, your symptoms worsen and your pain is not controlled Follow-up/Referrals: Santos Strickland Jr, MD, [facility] [Physician] - 07/08/24 11:00 am (Hospital follow up is scheduled for July 08, 2024 at 11:00 am) Lynn Gibson MD [Primary Care Provider] - 07/05/24 11:30 am (Hospital follow up scheduled for July 05, 2024 at 11:30am) Diet: Heart Healthy Addtl Attending Provider Instructions: You were seen in the hospital for a rapid heart rate which was treated with electrical cardioversion. Return to a normal rhythm, felt you are at your baseline level of health and were comfortable discharge at time of morning visit Please continue her amiodarone 200 mg by mouth twice daily upon returning home. Your case was reviewed with cardiology. You have a follow-up scheduled with [facility] cardiology next week. Your warfarin dosing has been adjusted. Please take warfarin 2.5 mg Friday/, and 5 mg daily on all other days. You have a follow-up appointment for an INR recheck on Friday to evaluate this regimen and make adjustments as needed. If you develop any new or worsening symptoms including fever, chills, sweats, chest pain, chest pressure, difficulty breathing, uncontrolled nausea/vomiting, rash, wheezing, passing out or nearly passing out, bleeding, black/bloody bowel movements, or other new or concerning symptoms please call your primary care physician, or call 911 for re-evaluation in the emergency department if you are very concerned. Pending Studies at Discharge: No Stand-Alone Forms: My [facility], Smoking Cessation Medications and DC Order Prescriptions: Continued atorvastatin 40 mg tablet 40 mg PO QAM Qty: 90 3RF clopidogrel 75 mg tablet 75 mg PO QAM Qty: 90 3RF PNV 11-iron fum-folic acid-om3 28 mg iron-1 mg -200 mg capsule 1 cap PO DAILY potassium chloride 10 mEq capsule, extended release 20 meq PO DAILY Rx Instructions: x 30 days dc [facility] furosemide 40 mg tablet 40 mg PO DAILY Qty: 30 2RF Rx Instructions: 1 a day for 30 days, DC [facility] famotidine 20 mg tablet 20 mg PO DAILY Qty: 30 2RF Rx Instructions: for 30 days dc [facility] acetaminophen [Tylenol Extra Strength] 500 mg tablet 1,000 mg PO Q6H PRN (Reason: fever) Qty: 90 0RF Rx Instructions: PRN docusate sodium 100 mg capsule 100 mg PO DAILY PRN (Reason: Constipation) Rx Instructions: Take 1 Capsule by mouth 2 times a day as needed for Constipation. DC [facility] oxycodone 5 mg tablet 5 mg PO Q4H PRN (Reason: Pain) Patient Comments: Take 1 Tablet by mouth every 4 hours as needed for severe pain. Changed amiodarone 200 mg tablet 200 mg PO BIDM Qty: 0 0RF Rx Instructions: take BID for 7 days the 1 a day after- [facility] DC warfarin 5 mg tablet See Rx Instructions .ROUTE .COMPLEX Qty: 30 0RF Rx Instructions: Take 2.5 mg daily on Tuesdays and , and 5 mg daily on all other days of the week Discharge Orders: Discharge Order (Routine); Ordered 07/02/24 Ordered By: Chapo Valentine Admission Data Admit Date/Time: 07/01/24 13:25 Attending Provider: Chapo Valentine Admit Provider: Kenny Peterson Primary Care Provider: Lynn Gibson Other Providers: Kenny Peterson; Gigi Nicole; Clarisa Coburn; Alexia Uribe; Suzie Lewis; Kenyatta Mason; Omer Torres; Charles Snyder; Faisal Swift; Lei Kulkarni; Ayla Gutierrez; Simone Teran; Jerome Elizondo; Bennett Heredia; Adela Clark; Darrian Hendrickson; Omayra Hendrickson; Ethan Aguilar; Vandana Rowe; Nito Kaye; Randee Kumar; Caroline Hammer; Lawrence Fernández; Roxy Yip; Liz Rowe; Jess Hilton; Rivka Motley; Nito Orourke V; Cruz Kwan; Alexia Garcia; Hai Whitlock; Annemarie Shirley; Nito Fontanez; Spencer Clark; Todd Coreas; Cecille Bourne; Josiane Macdonald; Nito Balderas; Johnny Dumas.; Estee Martell.; Ajay Mchugh; Amarilis Zimmerman; Dayanara Gordon; Michael Whatley; Leobardo Orozco; Micki Baumann; Faisal Martínez; Zahra Espitia; Julia Shrestha; Yan Leon; Esteban Richardson; Omer Rod Jr; Denise Arteaga; Patricia Gallego; Yazmin Fang; Lawrence Jean; Ian Yoder; Patricia Munoz; Chirag Yanez; Chris Wood; Matias Salinas; Jean-Claude Archibald; Rufina Pandya; Efraín Villanueva; Aby Hutchison; Christie Cruz; Eliazbet Walters; Ariana Mitchell; Wing Diane Jr; Leatha Isaac; Roxy Verma; Sandeep Earl Hospital Stay Data Consultations 07/01/24 12:53 ED Decision to Admit Stat 07/01/24 13:05 Consult Cardiology Routine 07/01/24 16:10 Consult Anesthesiology Routine Procedures Performed Operation Date: 07/02/24 07:30 Actual Procedures p Cardioversion - Gigi Nicole MD Discharge Instructions Given to Patient (Per Discharging Provider) You were seen in the hospital for a rapid heart rate which was treated with electrical cardioversion. Return to a normal rhythm, felt you are at your baseline level of health and were comfortable discharge at time of morning visit Please continue her amiodarone 200 mg by mouth twice daily upon returning home. Your case was reviewed with cardiology. You have a follow-up scheduled with [facility] next week. Your warfarin dosing has been adjusted. Please take warfarin 2.5 mg Friday/, and 5 mg daily on all other days. You have a follow-up appointment for an INR recheck on Friday to evaluate this regimen and make adjustments as needed. If you develop any new or worsening symptoms including fever, chills, sweats, chest pain, chest pressure, difficulty breathing, uncontrolled nausea/vomiting, rash, wheezing, passing out or nearly passing out, bleeding, black/bloody bowel movements, or other new or concerning symptoms please call your primary care physician, or call 911 for re-evaluation in the emergency department if you are very concerned. Total Time Total Time Spent Total Time Spent (In Minutes): Time spend day of discharge 40 minutes including direct patient care, documentation, review of labs and images, and coordination of care. Coding Level of Care Code 65586 INP/OBS DISCH >30 MIN Diagnoses Atrial flutter with rapid ventricular response I48.92
[2024-07-02 10:15] VITALS: BP 103/64
--- NOTE | 2024-07-02 21:50 | Electrocardiogram Report ---
Test Reason : Blood Pressure : */* mmHG Vent. Rate : 66 BPM Atrial Rate : 66 BPM P-R Int : 160 ms QRS Dur : 90 ms QT Int : 436 ms P-R-T Axes : 50 -22 111 degrees QTcB Int : 457 ms Sinus rhythm with occasional Premature ventricular complexes and Premature atrial complexes T wave abnormality, consider anterior ischemia Abnormal ECG When compared with ECG of 01-Jul-2024 09:50, Sinus rhythm has replaced Atrial flutter Vent. rate has decreased by [address] no longer depressed in Inferior leads ST no longer depressed in Lateral leads Confirmed by Gigi Nicole ([id number]) on 07/02/2024 9:50:18 PM Referred By: REFERRED SELF Confirmed By: Gigi Nicole
== END 2024-07-02 11:49 | disposition home health service (06) | DRG 315 ==
LOC: ED 09:37 → SUATTDRO 13:25 → 4W 13:25